=== PATIENT | female | born 1995 | race Caucasian/White ===

== ENCOUNTER 2016-07-13 04:26 | Inpatient (IN) | payer MEDICAID ==
[2016-07-13] VITALS (18 sets, daily range): BP systolic 100–132; BP diastolic 47–84; PULSE 80–120; RESP 18–20; TEMP 97.9–98.7; O2SAT 99–100
[~2016-07-13 04:26] MED LIST: DIPH50TA PO; EPIP0.3I IM; PRED20 PO; RANI150 PO
[2016-07-13] MEDS ORDERED: TERBUTALINE INJ 1 MG/ML AMP ONE (04:51)
[2016-07-13] MEDS ORDERED: LIDOCAINE HCL 1% 50 ML VIAL ONE (04:52)
[2016-07-13] MEDS ORDERED: MAGNESIUM SULFATE 40 GM PREMIX 1,000 ML IV SCH (05:15)
[2016-07-13] MEDS ORDERED: CALCIUM GLUCONATE 10% 1 GM/10 ML VIAL IV PRN (05:15)
[2016-07-13] MEDS ORDERED: SODIUM CHLORIDE 0.9% FLUSH 5 ML FLUSH IV PRN ×2 (05:15→08:30)
[2016-07-13] MEDS ORDERED: LACTATED RINGER'S 1000 ML INJ 1,000 ML IV SCH ×3 (05:15→13:20)
[2016-07-13] MEDS ORDERED: LACTATED RINGER'S 1000 ML INJ 500 ML IV ONE (05:15)
[2016-07-13] MEDS ORDERED: MAGNESIUM SULFATE 4 GM PREMIX 100 ML IV ONE (05:15)
[2016-07-13] MEDS ORDERED: BETAMETHASONE SOD PHOS/ACETATE SUSP 30 MG/5 ML VIAL IM SCH (05:15)
[2016-07-13] MEDS ORDERED: MAGNESIUM SULFATE 4 GM PREMIX 100 ML ONE (05:21)
[2016-07-13] MEDS ORDERED: MAGNESIUM SULFATE 40 GM PREMIX 1,000 ML ONE (05:22)
[2016-07-13 05:42] LABS: AUTOMATED NEUTROPHIL # 7.3 TH/MM3 (1.8-7.7); BASOPHIL % 0.1 % (0.0-2.0); EOSINOPHIL % 0.3 % (0.0-4.0); HEMATOCRIT 32.4 % (35.0-46.0); HEMO FLAGS DIFF FINAL; LYMPH % 9.2 % (9.0-44.0); LYMPHOCYTE # 0.8 TH/MM3 (1.0-4.8); MEAN CELL VOLUME 78.6 FL (80.0-100.0); MEAN CORPUSCULAR HEMOGLOBIN 26.9 PG (27.0-34.0); MEAN CORPUSCULAR HGB CONC 34.2 % (32.0-36.0); MONO % 7.2 % (0.0-8.0); NEUT % 83.2 % (16.0-70.0); PLATELET COUNT 214 TH/MM3 (150-450); RED BLOOD COUNT 4.13 MIL/MM3 (4.00-5.30); WHITE BLOOD COUNT 8.7 TH/MM3 (4.0-11.0)
[2016-07-13] MEDS ORDERED: CLINDAMYCIN INJ 900 MG in SODIUM CHLORIDE 0.9% INJ 100 ML IV SCH (06:00)
[2016-07-13 06:08] LABS: AMPHETAMINE, URINE NEG (NEG); BARBITURATES, URINE NEG (NEG)
[2016-07-13 06:14] LABS: COCAINE, URINE POS (NEG)
[2016-07-13] MEDS ORDERED: CITRIC ACID-SODIUM CITRATE LIQ 30 ML UDC ONE (06:42)
[2016-07-13] MEDS ORDERED: LACTATED RINGER'S 1000 ML INJ 1,000 ML IV ONE (06:45)
--- NOTE | 2016-07-13 06:52 | HHI.HP ---
History & Physical H&P HPI HPI Travel History International Travel<30 Days: No Contact w/Intl Traveler<30Days: No Known Affected Area: No History of Present Illness HPI This patient is a 21-year-old 4 para 3012 she states her last menstrual period was sometime in October her EDC is August 12, 2016 she's had only 2 visits with a physician in [place] moved to the [place] area earlier this year and has had no visits here since that time no previous ultrasound. She states that the due date of August 12 was given to her by measuring her abdomen and by her last menstrual period that due date would give her a gestational age of 35 weeks and 5 days however he quick bedside ultrasound is measuring the BPD at 32 weeks and 6 days and a fundal height of 31 cm patient is a previous C- section 1. She was seen in the emergency room in March 2016 for an anaphylactic reaction History (Limited) History Past Medical History Narrative Medical Patient is allergic to amoxicillin she denies any medical problems Obstetric History Obstetric History In June 2012 she had a set of twins at 37 weeks that were born vaginally vertex vertex she denies any complications with that first baby was male weight was 5 lbs. 7 oz. second baby male 5 lbs. 10 oz. May 2016 she delivered at 36 weeks a female infant primary section done at [facility] secondary to failure to progress the baby in October 2015 from cancer 1 Past Surgical History Narrative Surgical 1 D&C Tonsils and adenoids Family History Narrative Family History Family history is positive for elevated blood pressure in her father and her mother with mental disabilities Social History Alcohol Use: No Tobacco Use: No Substance Abuse: Yes (patient has a history of IV drug abuse states she has not had anything in the year) Allergies-Medications Allergies-Medications (Allergen,Severity, Reaction): Coded Allergies: Amoxicillin (Unverified Allergy, Unknown, rashes, 07/24/15) Home Meds Active Scripts Epipen0.3 Mg 0.3 Mg Inj0.3 Mg IM DIRECTED PRN (ALLERGIC REACTION) #1 INJ GIVE IM IN THIGH, MAY REPEAT IF NEEDED Prov:Nicola Blas MD 03/10/16 Ranitidine HCl (Zantac 150 Mg Tab)150 Mg Ryg776 Mg PO BID 5 Days Prov:Nicola Blas MD 03/10/16 Diphenhydramine Hcl 50 Mg Cap50 Mg PO Q6H PRN (HIVES/ITCHING/ANAPHYLAXIS) #20 CAP Prov:Nicola Blas MD 03/10/16 Prednisone (Deltasone 20 Mg Tab)20 Mg Tab40 Mg PO DAILY 5 Days Prov:Nicola Blas MD 03/10/16 ROS Review of Systems General / Constitutional: No: Fever, Weight Gain, Weight Loss, Chills, Other Eyes: No: Diploplia, Blurred Vision, Visual changes, Pain, Photophobia, Other HENT: No: Headaches, Vertigo, Dental Difficulties, Lightheadedness, Other Cardiovascular: No: Irregular Rhythm, Chest Pain or Discomfort, Palpitations, Tachycardia, Syncope, Varicosities, Edema, Cyanosis, Other Respiratory: No: Cough, Short of Breath, Wheezing, Other Gastrointestinal: Abdominal Pain (regular uterine contractions) Genitourinary: No: Urgency, Frequency, Dysuria, Nocturia, Hematuria, Decreased Urinary Output, Oliguria, Hesitancy, Dribbling, Incontinence, Pelvic Pain, Dyspareunia, Discharge, Menorrhagia, Vaginal Bleeding, Other Musculoskeletal: No: Limited ROM, Weakness, Cramping, Edema, Pain, Other Physical Exam Physical Exam Narrative GENERAL: Well-nourished, well-developed patient. Patient is alert oriented 3 and cooperative in moderate distress secondary to uterine contractions SKIN: Warm and dry. Multiple small lesions on her skin states she had a history of scabies which was treated HEAD: Normocephalic and atraumatic. EYES: No scleral icterus. No injection or drainage. Conjunctiva are pink ENT: No nasal drainage noted. Mucous membranes pink. Airway patent. NECK: Supple, trachea midline. No JVD. CARDIOVASCULAR: Regular rate and rhythm without murmurs, gallops, or rubs. RESPIRATORY: Breath sounds equal bilaterally. No accessory muscle use. ABDOMEN/GI: Gravid palpable contractions every 2 minutes fundal height measuring 31 cm Gravid to [-] weeks size 31 cm by measurement Fundal Height: [-] GENITOURINARY: External Genitalia: intact and normal in appearance BUS glands: [-] Cervix: [-] Posterior Dilatation: [-] 3 cm Effacement: [-] 80% effaced Station: [-] -1 to -2 station Presentation: [-] Vertex documented by ultrasound Membranes: [intact Uterine Contractions: [-] Every 2 minutes FHT's: Category: [-] 2 Baseline: [-] 170 Reactive: [-] Variability: [-] Moderate to minimal variability Decels: [-] What appeared to be a deceleration when patient was first put on the monitor however this is not been repeated EXTREMITIES: No cyanosis or edema. 2+ reflexes NEUROLOGICAL: Awake and alert. Motor and sensory grossly within normal limits. Five out of 5 muscle strength in all muscle groups. Normal speech. Data Data Data Vital Signs Reviewed: Yes (blood pressures 141/74 pulse 118 temperatures 100.1) Orders Terbutaline Inj (Brethine Inj) (07/13/16 04:51) Lidocaine 1% Inj (50 Ml) (Xylocaine 1% I (07/13/16 04:52) Ob (2e) Additional Admit Info (07/13/16 05:11) Magnesium Sulfate 4 Gm Premix (Magnesium (07/13/16 05:21) Magnesium Sulfate 40 Gm Premix (Magnesiu (07/13/16 05:22) Equip, Iv Pump Use Of (07/13/16 05:25) Admit To Inpatient (07/13/16 ) Code Status (07/13/16 05:15) Vital Signs (Adult) Q4H (07/13/16 05:15) Activity Bed Rest (07/13/16 05:15) Intake + Output CRISTY.QSHIFT (07/13/16 05:15) ^ Heart CONTINUOUS (07/13/16 05:15) Lactated Ringer's 1000 Ml Inj (Lr 1000 M (07/13/16 05:15) Sodium Chloride 0.9% Flush (Ns Flush) (07/13/16 05:15) Sodium Chloride 0.9% Flush (Ns Flush) (07/13/16 09:00) Magnesium Sulfate 40 Gm Premix (Magnesiu (07/13/16 05:15) Betamethasone Inj (Celestone Soluspan In (07/13/16 05:15) Cefazolin Inj (Ancef Inj) (07/13/16 05:15) Clindamycin Inj (Cleocin Inj) (07/13/16 05:15) Calcium Gluconate Inj (Calcium Gluconate (07/13/16 05:15) Magnesium Sulfate 4 Gm Premix (Magnesium (07/13/16 05:15) Lactated Ringer's 1000 Ml Inj (Lr 1000 M (07/13/16 05:15) Drug Screen, Random Urine (07/13/16 05:15) Rubella Immune Status (07/13/16 05:15) Hepatitis Profile (07/13/16 05:15) Rapid Plasma Regin (Rpr) W Ttr (07/13/16 05:15) Type And Screen (07/13/16 05:15) Complete Blood Count With Diff (07/13/16 05:15) Special Serology (07/13/16 05:15) Us Ob Pelvis >14 Wks Fetus (07/13/16 ) Ob/Psych Drug Screen, Urine (07/13/16 05:27) Gc And Chlamydia Pcr (07/13/16 05:27) Group B Strep Pcr (07/13/16 05:27) Labs Bedside ultrasound the BPD is 8.17 that equals 32 weeks and 6 days anterior grade 2 placenta no evidence of abruption large pocket measuring 7 cm of fluid MDM MDM Medical Record Reviewed: No (no medical records available) Interpretation(s) 21-year-old 4 para 2 32 weeks 6 days by BPD and bedside ultrasound 31 weeks by size 35 weeks 6 days by EDC given by the patient Previous 1 for failure to progress unknown scar History of a twin gestation born vaginally History of that secondary to cancer History of IV drug abuse Allergy to amoxicillin Limited care Narrative Course / MDM amnisure negative urine positive for opiates and cocaine, hemoglobin 11.1 hematocrit 32.4 and white count 8.7, platelets 214,000 Remaining labs pending as of this dictation, Bedside ultrasound has been done by OB diagnostics Gestational age is 34 weeks and 6 days Biophysical profile is 2 out of 10 no flexion, no tone, no breathing, tachycardia no reactivity fluid is normal anterior grade 2 placenta Estimated weight is 5 lbs. 11 oz. Repeat examination the cervix is now 4-5 cm 80-90% effaced with the vertex at a -1 station In view of the progression of labor The 2 out of 10 biophysical profile Previous section Will repeat section Procedure indications and complications of been discussed with the patient she understands the baby will need to go to the nursery and may have breathing respiratory difficulties She understands and agrees Plan External monitoring IV fluid hydration All labs drawn Group B strep GC Chlamydia Urine drug screen Ultrasound by OB diagnostics for gestational age As patient has an unknown gestational age at this point we'll try and stop her labor Magnesium sulfate 4 g loading dose 2 g per hour Betamethasone Obtain records from [facility] as the patient states she had 2 visits with her physician Obtain operative report done in May 2016 Antibiotic coverage for GBS Will reevaluate the category 2 tracing Diagnosis Diagnosis: Primary Impression: labor in second trimester Qualified Code: O60.02 - labor in second trimester without delivery Additional Impressions: Limited care in second trimester Previous section complicating , antepartum condition or complication Drug abuse Mayda Lloyd MD Jul 13, 2016 05:47 Mayda Lloyd MD Jul 13, 2016 06:52
[2016-07-13] MEDS ORDERED: OXYTOCIN 10 UNIT/ML AMP ONE (06:53)
[2016-07-13 07:47] LABS: BLOOD GAS BASE EXCESS -0.8 mmol/L (-2-2); BLOOD GAS O2 HGB SATURATION 19 % (90-100); CORD BLOOD GAS HCO3 25 mmol/L (21-29); CORD BLOOD GAS PCO2 51 mmHG (34-78); CORD BLOOD GAS PH 7.31 (7.14-7.42); CORD BLOOD GAS PO2 13 mmHG (3.0-40.0); DRAW SITE CORD BLOOD; STAT NO
[2016-07-13 07:52] LABS: CHLAMYDIA PCR NOT DETECTED (NOT DETECT); NEISSERIA PCR NOT DETECTED (NOT DETECT)
[2016-07-13 07:52] LABS: RUBELLA IGG ANTIBODY 67.3 IU/mL (10.0-500.0); RUBELLA STATUS IMMUNE (IMMUNE)
[2016-07-13] MEDS ORDERED: MORPHINE SULFATE PF 5 MG/10 ML VIAL ONE (08:20)
[2016-07-13] MEDS ORDERED: MORPHINE SULFATE 4 MG/ML INJ ONE (08:20)
[2016-07-13] MEDS ORDERED: MIDAZOLAM HCL 2 MG/2 ML VIAL ONE (08:20)
[2016-07-13] MEDS ORDERED: ONDANSETRON HCL 4 MG/2 ML VIAL ONE (08:21)
[2016-07-13] MEDS ORDERED: ACETAMINOPHEN 1000 MG/100 ML VIAL IV ONE (08:30)
[2016-07-13] MEDS ORDERED: ONDANSETRON HCL 4 MG/2 ML VIAL IV PUSH PRN (08:30)
[2016-07-13] MEDS ORDERED: ACETAMINOPHEN 325 MG TAB PO PRN (08:30)
[2016-07-13] MEDS ORDERED: ZOLPIDEM TARTRATE 5 MG TAB PO PRN (08:30)
[2016-07-13] MEDS ORDERED: SIMETHICONE 80 MG CHEWABLE TAB PO PRN (08:30)
[2016-07-13] MEDS ORDERED: KETOROLAC TROMETHAMINE 60 MG/2 ML (IM) VIAL IM PRN (08:30)
[2016-07-13] MEDS ORDERED: OXYTOCIN 30 UNITS-500ML PREMIX 500 ML IV ONE (08:30)
--- NOTE | 2016-07-13 08:31 | PD.OP ---
Operative Report Date of Surgery: Jul 13, 2016 Preoperative Diagnosis: Intrauterine at 35 weeks labor Previous 1 Limited care History of drug abuse Postoperative Diagnosis: Same Partial abruption Procedure: Repeat low segment transverse section Anesthesia: Spinal Surgeon: Mayda Shelby Pilot Manager(s): OR staff Resident Surgeon: None Operation and Findings: Anesthesiologist:: ( Dr. Bailey) Estimated blood loss: (700 cc ) Sponge and instrument count: (Correct ) Drains: ( None) Complications: (None ) Indications for procedure: ( ) Findings: ( Viable female infant weight 20/2/20 grams, Apgars of 5 at 1 minute and 8 at 5 minutes, upon rupture of membranes bloody fluid with some dark clots indicating possible partial abruption Cord pH 7.3, placenta sent to pathology) Timeout done The patient was taken to the operating room after appropriate levels of spinal anesthesia were achieved she was placed in the supine position. A Mendes catheter was inserted under sterile conditions and draining adequate clear urine. Intermittent compression hoses were placed and functioning. Bovie pad was placed and grounded. The abdomen was shaved prepped and draped in the usual sterile fashion. A transverse Pfannenstiel incision was made carried down through the skin, via previous old scar subcutaneous tissue. The fascia was opened transversely. from the muscles in the midline. The rectus muscles were . Peritoneal cavity opened and the abdominal cavity entered. The bladder flap was taken down transversely and a low segment transverse incision made into the lower uterine segment. The fluid was ( bloody). The was vertex. The vertex was delivered nose and mouth suctioned well the remainder of the body was then delivered. Cord doubly clamped and cut and the infant handed over to the awaiting nursing staff. The placenta spontaneously delivered intact with fundal massage. The uterus was then exteriorized cleaned of excessive blood and debris. The incision was then closed with 0 chromic in a continuous interlocking stitch. The stitch line was imbricated also using 0 chromic. No active bleeding. Tubes and ovaries were inspected and found to be normal. The abdominal cavity was then irrigated. The uterus placed back into the abdomen. Paracolic gutters cleaned of excessive blood and debris. Interceed was then placed over the incision and the anterior surface of the uterus in an inverted T. The peritoneum was then closed with 2-0 Vicryl. The muscles reapproximated. Inspection of the muscle bed demonstrated no bleeding. Intercede placed over the muscle at the midline. The fascia was then closed with 0 Vicryl in a continuous stitch. The subcutaneous tissue was irrigated bleeders controlled with Bovie. Sima's fascia closed with 2-0 Vicryl. The skin was closed using (subcuticular stitch with 3-0 Monocryl on a Drew needle ). The uterus was massaged clearing blood and clots. The patient was cleaned. Pressure dressing and abdominal binder placed. Patient then transferred to the recovery room in stable condition, where her vital signs are (stable ). Urine is clear and adequate. Baby transferred to the nursery in stable condition. Patient being taken to the PACU to place a abdominal Tap block as patient is in excessive amount of pain, with poor pain tolerance Mayda Lloyd MD Jul 13, 2016 08:31
[2016-07-13] MEDS ORDERED: SODIUM CHLORIDE 0.9% FLUSH 5 ML FLUSH IV SCH ×2 (09:00)
[2016-07-13] MEDS ORDERED: BUPIVACAINE LIPOSOME PF 1.3% 20 ML VIAL ONE (10:36)
[2016-07-13] MEDS ORDERED: ceFAZolin 2 GM PREMIX 50 ML IV ONE (13:45)
[2016-07-13] MEDS ORDERED: CITRIC ACID-SODIUM CITRATE LIQ 30 ML UDC PO ONE (14:15)
[2016-07-13] MEDS ORDERED: OXYTOCIN 30 UNITS-500ML PREMIX 500 ML IV PRN (18:30)
[2016-07-13] MEDS: oxyCODONE/ACETAMINOPHEN 5 MG/325 MG TAB PO PRN (20:02)
[2016-07-13] MEDS: IBUPROFEN 600 MG TAB PO PRN (20:03)
[2016-07-13] MEDS: DOCUSATE SODIUM 50 MG/SENNA 8.6 MG TAB PO PRN (20:03)
[2016-07-14] MEDS: oxyCODONE/ACETAMINOPHEN 5 MG/325 MG TAB PO PRN ×6 (00:20→23:00)
[2016-07-14] MEDS: IBUPROFEN 600 MG TAB PO PRN ×4 (04:31→22:59)
[2016-07-14 06:23] LABS: AUTOMATED NEUTROPHIL # 11.2 TH/MM3 (1.8-7.7); BASOPHIL % 0.2 % (0.0-2.0); EOSINOPHIL # 0.1 TH/MM3 (0-0.4); EOSINOPHIL % 0.4 % (0.0-4.0); HEMATOCRIT 31.2 % (35.0-46.0); HEMO FLAGS DIFF FINAL; LYMPH % 15.2 % (9.0-44.0); LYMPHOCYTE # 2.1 TH/MM3 (1.0-4.8); MEAN CELL VOLUME 80.6 FL (80.0-100.0); MEAN CORPUSCULAR HGB CONC 32.3 % (32.0-36.0); MONO % 4.2 % (0.0-8.0); PLATELET COUNT 209 TH/MM3 (150-450); RED BLOOD COUNT 3.88 MIL/MM3 (4.00-5.30); RED CELL DISTRIBUTION WIDTH 13.5 % (11.6-17.2)
--- NOTE | 2016-07-14 07:34 | HHI.OB ---
Subjective Post Operative Day: 1 Remarks Patient is doing well this morning. Pain is controlled with medications. She is ambulating voiding without difficulty. Vaginal bleeding within normal limits. Passing flatus. Formula feeding. Denies chest pain or shortness of breath. Objective Vitals/I&O Vital Signs Date Time Temp Pulse Resp B/P Pulse Ox O2 Delivery O2 Flow Rate FiO2 07/14/16 03:00 20 07/13/16 14:35 98.2 80 20 100/72 07/13/16 09:15 94 18 126/83 99 07/13/16 09:00 101 18 120/72 99 07/13/16 08:46 98 20 121/71 99 07/13/16 08:32 104 18 127/84 100 07/13/16 08:32 97.9 07/13/16 08:14 103/47 07/13/16 08:14 97.9 113 18 100 Result Diagram: 07/14/16 0614 Objective Remarks GENERAL: Well-nourished, well-developed patient. CARDIOVASCULAR: Regular rate and rhythm without murmurs, gallops, or rubs. RESPIRATORY: Breath sounds equal bilaterally. No accessory muscle use. ABDOMEN/GI: Abdomen soft, non-tender, bowel sounds present. Incision: Clean, dry and intact. Fundus: Firm, non-tender at umbilicus. GENITOURINARY: Light to moderate bleeding. EXTREMITIES: No cyanosis or edema, non-tender, without signs of DVT. Medications and IVs Current Medications Medications (Trade) Dose Ordered Sig/Key Route Start Time Stop Time Status Last Admin (Lr 1000 ml Inj) 1,000 ml @ 125 mls/hr Q8H IV 07/13/16 05:15 07/13/16 06:46 (NS Flush) 2 ml UNSCH PRN IV 07/13/16 05:15 IV Flush 2 ml 2 ml BID IV 07/13/16 09:00 Magnesium Sulfate 1,000 ml @ 50 mls/hr Q20H IV 07/13/16 05:15 07/13/16 06:47 Lactated Ringer's 1,000 ml @ 150 mls/hr Q6H40M IV 07/13/16 13:03 (Lr 1000 ml Inj) 1,000 ml @ 100 mls/hr Q10H IV 07/13/16 13:20 07/14/16 09:19 07/14/16 00:20 (Mylicon Chew) 80 mg QID PRN PO 07/13/16 08:30 07/13/16 20:26 (Tylenol) 650 mg Q6H PRN PO 07/13/16 08:30 (Motrin) 600 mg Q6H PRN PO 07/13/16 08:30 07/14/16 04:31 (Toradol Inj) 30 mg Q6H PRN IM 07/13/16 08:30 07/14/16 08:29 (Percocet 5-325 Mg) 1 tab Q4H PRN PO 07/13/16 08:30 07/14/16 04:31 (Percocet 5-325 Mg) 2 tab Q4H PRN PO 07/13/16 08:30 07/13/16 20:02 (Damaris-Colace) 2 tab Q12H PRN PO 07/13/16 08:30 07/13/16 20:03 (Ambien) 5 mg HS PRN PO 07/13/16 08:30 (M-M-R Ii Inj) 0.5 ml ONCE ONCE SQ 07/14/16 16:00 07/14/16 16:01 (Boostrix Inj) 0.5 ml ONCE ONCE IM 07/14/16 16:00 07/14/16 16:01 (Zofran Inj) 4 mg Q6H PRN IV PUSH 07/13/16 08:30 07/13/16 20:26 Assessment/Plan Problem List: (1) delivery delivered Assessment and Plan 21 y/o female who is POD# 1 s/p CXN. 1.) Continue routine care. -Percocet and Motrin PRN pain. -Encouraged OOB. Advised pelvic rest for 6 wks. Will need a f/u appt. in 1 wk for incision check. -Re: ctrl, she would like to speak with her primary care provider regarding this. 2.) Toxicology positive for cocaine and opiates -Case management consulted 3.) Limited/no care - labs ordered and reviewed. Some are still Pending. -Baby currently in the NICU Likely D/c in 1-2 more days. wdw OB attending Discharge Planning Likely in 2 days. Baby currently in the NICU. Fermin Reinoso MD R2 Jul 14, 2016 07:34
--- NOTE | 2016-07-14 08:11 | HHI.OB ---
Subjective Post Operative Day: 1 Remarks This patient is postop day 1 from us repeat section and doing well she is afebrile with stable vital signs. She is ambulating and bandage is dry, her bleeding is decreased and uterus is firm, will continue progressive postop care with advancement diet and ambulation, patient seen with the family medicine residents agree with their evaluation and plan Objective Vitals/I&O Vital Signs Date Time Temp Pulse Resp B/P Pulse Ox O2 Delivery O2 Flow Rate FiO2 07/14/16 03:00 20 07/13/16 14:35 98.2 80 20 100/72 07/13/16 09:15 94 18 126/83 99 07/13/16 09:00 101 18 120/72 99 07/13/16 08:46 98 20 121/71 99 07/13/16 08:32 104 18 127/84 100 07/13/16 08:32 97.9 07/13/16 08:14 103/47 07/13/16 08:14 97.9 113 18 100 Result Diagram: 07/14/16 0614 Objective Remarks GENERAL: Well-nourished, well-developed patient. CARDIOVASCULAR: Regular rate and rhythm without murmurs, gallops, or rubs. RESPIRATORY: Breath sounds equal bilaterally. No accessory muscle use. ABDOMEN/GI: Abdomen soft, non-tender, bowel sounds present. Incision: Clean, dry and intact. Fundus: Firm, non-tender at umbilicus. GENITOURINARY: Light to moderate bleeding. EXTREMITIES: No cyanosis or edema, non-tender, without signs of DVT. Medications and IVs Current Medications Medications (Trade) Dose Ordered Sig/Key Route Start Time Stop Time Status Last Admin (Lr 1000 ml Inj) 1,000 ml @ 125 mls/hr Q8H IV 07/13/16 05:15 07/13/16 06:46 (NS Flush) 2 ml UNSCH PRN IV 07/13/16 05:15 IV Flush 2 ml 2 ml BID IV 07/13/16 09:00 Magnesium Sulfate 1,000 ml @ 50 mls/hr Q20H IV 07/13/16 05:15 07/13/16 06:47 Lactated Ringer's 1,000 ml @ 150 mls/hr Q6H40M IV 07/13/16 13:03 (Lr 1000 ml Inj) 1,000 ml @ 100 mls/hr Q10H IV 07/13/16 13:20 07/14/16 09:19 07/14/16 00:20 (Mylicon Chew) 80 mg QID PRN PO 07/13/16 08:30 07/13/16 20:26 (Tylenol) 650 mg Q6H PRN PO 07/13/16 08:30 (Motrin) 600 mg Q6H PRN PO 07/13/16 08:30 07/14/16 04:31 (Toradol Inj) 30 mg Q6H PRN IM 07/13/16 08:30 07/14/16 08:29 (Percocet 5-325 Mg) 1 tab Q4H PRN PO 07/13/16 08:30 07/14/16 04:31 (Percocet 5-325 Mg) 2 tab Q4H PRN PO 07/13/16 08:30 07/13/16 20:02 (Damaris-Colace) 2 tab Q12H PRN PO 07/13/16 08:30 07/13/16 20:03 (Ambien) 5 mg HS PRN PO 07/13/16 08:30 (M-M-R Ii Inj) 0.5 ml ONCE ONCE SQ 07/14/16 16:00 07/14/16 16:01 (Boostrix Inj) 0.5 ml ONCE ONCE IM 07/14/16 16:00 07/14/16 16:01 (Zofran Inj) 4 mg Q6H PRN IV PUSH 07/13/16 08:30 07/13/16 20:26 Assessment/Plan Problem List: (1) delivery delivered Assessment and Plan 21 y/o female who is POD# 1 s/p CXN. 1.) Continue routine care. -Percocet and Motrin PRN pain. -Encouraged OOB. Advised pelvic rest for 6 wks. Will need a f/u appt. in 1 wk for incision check. -Re: ctrl, she would like to speak with her primary care provider regarding this. 2.) Toxicology positive for cocaine and opiates -Case management consulted 3.) Limited/no care - labs ordered and reviewed. Some are still Pending. -Baby currently in the NICU Likely D/c in 1-2 more days. wdw OB attending Discharge Planning Likely in 2 days. Baby currently in the NICU. Da Lantigua II, MD Jul 14, 2016 08:11
[2016-07-14] MEDS: DOCUSATE SODIUM 50 MG/SENNA 8.6 MG TAB PO PRN (10:17)
[2016-07-14 14:38] LABS: RAPID PLASMA REAGIN SCREEN NON-REACTIVE (NON-REACTVE)
[2016-07-14] MEDS ORDERED: DIPHTH/TETANUS/ACEL PERTUSSIS (BOOSTER) 0.5 ML VIAL/PFS IM ONE (16:00)
[2016-07-14] MEDS ORDERED: MEASLES, MUMPS, RUBELLA VACCINE 0.5 ML VIAL SQ ONE (16:00)
[2016-07-15] MEDS: IBUPROFEN 600 MG TAB PO PRN (05:44)
[2016-07-15] MEDS: DOCUSATE SODIUM 50 MG/SENNA 8.6 MG TAB PO PRN (05:44)
[2016-07-15] MEDS: oxyCODONE/ACETAMINOPHEN 5 MG/325 MG TAB PO PRN ×2 (05:45→12:18)
[2016-07-15 08:00] VITALS: BP 116/71; PULSE 67; RESP 18; TEMP 97.5; O2SAT 98
--- NOTE | 2016-07-15 08:39 | HHI.OB ---
Subjective Post Operative Day: 2 Remarks POD2 s/p rpt c/s for non-reassuring status, BPP 2/10. Pain moderately well-controlled, but increased cramping. Eating, voiding, stooling, ambulating without difficulty. Mildly loose-stool. We discussed this was likely secondary to cessation of IVDU/dilaudid use. Encouraged OOB. Intends to formula feed (UDS + cocaine and opioids). Would like to follow up outpatient for control. Does not have PCP or OBGYN. Was given information by case management on accessing these resources. Encouraged follow up with [facility] in 1 week. Denies fevers/chills, SOB/chest pain, calf pain. Pt preference is discharge today, provided she can still go visit baby in NICU- she was reassured that she could do this. (Dolores Trevizo MD R1) Objective Vitals/I&O Reviewed in OB trace view. (Dolores Trevizo MD R1) Result Diagram: 07/14/16613 Objective Remarks GENERAL: Thin post- female. CARDIOVASCULAR: RRR. No murmurs RESPIRATORY: Breathing well on room air. ABDOMEN/GI: Abdomen soft, mildly diffusely tender. Incision: Clean, dry and intact. Not covered in bandage. No drainage, non- erythematous. Fundus: Firm, minimally tender, inferior to umbilicus GENITOURINARY: Minimal bleeding EXTREMITIES: No peripheral edema Medications and IVs Current Medications Medications (Trade) Dose Ordered Sig/Key Route Start Time Stop Time Status Last Admin (NS Flush) 2 ml UNSCH PRN IV 07/13/16 05:15 (NS Flush) 2 ml BID IV 07/13/16 09:00 (Mylicon Chew) 80 mg QID PRN PO 07/13/16 08:30 07/13/16 20:26 (Tylenol) 650 mg Q6H PRN PO 07/13/16 08:30 (Motrin) 600 mg Q6H PRN PO 07/13/16 08:30 07/15/16 05:44 (Percocet 5-325 Mg) 1 tab Q4H PRN PO 07/13/16 08:30 07/14/16 04:31 (Percocet 5-325 Mg) 2 tab Q4H PRN PO 07/13/16 08:30 07/15/16 05:45 (Damaris-Colace) 2 tab Q12H PRN PO 07/13/16 08:30 07/15/16 05:44 (Ambien) 5 mg HS PRN PO 07/13/16 08:30 (Zofran Inj) 4 mg Q6H PRN IV PUSH 07/13/16 08:30 07/13/16 20:26 (Dolores Trevizo MD R1) Assessment/Plan Problem List: (1) Delivery by emergency section (2) delivery, delivered (3) Limited care (4) Opioid abuse (5) Cocaine abuse Assessment and Plan 21 y/o female who is POD# 2 s/p repeat c/s 1.) Continue routine care. -Percocet and Motrin PRN pain -Encouraged OOB. Advised pelvic rest for 6 wks. Will need a f/u appt. in 1 wk for incision check with [facility] -Re: ctrl, she would like to speak with her primary care provider regarding this, needs PCP, was given list. Expressed understanding she will need to call to make appointment 2.) Toxicology positive for cocaine and opiates -Case management consulted -Formula feeding infant only, c/i 3.) Limited/no care - labs ordered and reviewed with patient. Hepatitis panel, HIV, Chlamydia/Gonorrhea, GBS negative. RPR non-reactive -Baby currently in the NICU Discharge Planning POD2. Today, pending VSS and afebrile. DW: Dr. Fernando, Dr. Reinoso (Dolores Trevizo MD R1) Attestation Discussed discharge planning with Dr Trevizo including opioid abuse concerns. Will give limited narcotic pain supply with quick followup as an outpatient for incision check (Quita Fernando MD) Dolores Trevizo MD R1 Jul 15, 2016 08:39 Quita Fernando MD Jul 15, 2016 09:21
[2016-07-15] MEDS ORDERED: SENN1TAB PO (08:55)
[2016-07-15] MEDS ORDERED: IBUP-232 PO (08:55)
[2016-07-15] MEDS ORDERED: OXYC1TAB36 PO (08:55)
--- NOTE | 2016-07-15 09:00 | HHI.DCPOC ---
Discharge Care Plan Diagnosis: (1) Delivery by emergency section (2) delivery, delivered (3) Limited care (4) Opioid abuse (5) Cocaine abuse Report Symptoms to Your Doctor -Temperate above 100.5 degrees -Redness, of incision or excessive or foul smelling drainage -Unusual pain or calf pain -Increased vaginal bleeding -Painful or difficulty urinating -Feelings of extreme sadness or anxiety after 2 weeks Goals to Promote Your Health * To prevent worsening of your condition and complications * To maintain your health at the optimal level Directions to Meet Your Goals Take your medications as prescribed Follow your dietary instruction Follow activity as directed Ensure plenty of rest for recovery Drink fluids for hydration Keep your appointments as scheduled Take your immunizations and boosters as scheduled If your symptoms worsen call your PCP, if no PCP go to Urgent Care Center or Emergency Room Smoking is Dangerous to Your Health. Avoid second hand smoke Call the 24-hour crisis hotline for domestic abuse at Dolores Trevizo MD R1 Jul 15, 2016 09:00
[2016-07-15] MEDS ORDERED: SIMETHICONE 125 MG CHEWABLE TAB PO ONE (09:45)
[2016-07-15] MEDS ORDERED: DIPHTH/TETANUS/ACEL PERTUSSIS (BOOSTER) 0.5 ML VIAL/PFS IM ONE (10:00)
[2016-07-15] MEDS ORDERED: medroxyPROGESTERone ACETATE SUSP 150 MG/ML SYRINGE IM ONE (10:00)
[2016-07-15] MEDS ORDERED: IBUPROFEN 600 MG TAB PO PRN (12:00)
[2016-07-15] MEDS ORDERED: ONDANSETRON ODT 4 MG TAB PO ONE (13:00)
[2016-07-17 08:03] LABS: BATH SALTS (MDPV) UR NEG (NEG); ECSTASY (MDMA) UR NEG (NEG); HEROIN (6-ACETYLMORPHINE) UR NEG (NEG); K2 SPICE UR NEG (NEG); OBMETHADONE UR NEG (NEG); OXYCODONE (PERCODAN) NEG (NEG); PHENCYCLIDINE URINE NEG (NEG)
== END 2016-07-15 16:59 | disposition home or self-care (01) | DRG 765 ==
LOC: HOBED 04:26 → H2EB 05:13 → H1EA 09:30
PROVIDERS: ADMIT Obstetrics & Gynecology; ATTEND Obstetrics & Gynecology
PROC: 10D00Z1 Extraction of Products of Conception, Low, Open Approach (ICD-10-PCS; principal; 2016-07-13)
DX: O60.14X0 Preterm labor third trimester with preterm delivery third trimester, not applicable or unspecified (principal); O45.93 Premature separation of placenta, unspecified, third trimester; O99.324 Drug use complicating childbirth; Z37.0 Single live birth; O34.211 Maternal care for low transverse scar from previous cesarean delivery; Z87.898 Personal history of other specified conditions; F11.10 Opioid abuse, uncomplicated; F14.10 Cocaine abuse, uncomplicated; Z3A.35 35 weeks gestation of pregnancy; Z88.0 Allergy status to penicillin; O09.30 Supervision of pregnancy with insufficient antenatal care, unspecified trimester
CPT/HCPCS: 59025; 76805; 76815; 80074; 80307; 82805; 84112; 85025; 86592; 86703; 86762; 86850; 86900; 86901; 87081; 87150; 87491; 87591; 88307; 90715; 99285; C9290; G0481; J0690; J1050; J2250; J2270; J2274; J2405; J2590; J3010; J3105; J3475; J7120

== ENCOUNTER 2016-08-17 16:48 | Inpatient (IN) | payer MEDICAID ==
[2016-08-17] VITALS (10 sets, daily range): BP systolic 79–104; BP diastolic 40–60; PULSE 109–150; RESP 18–32; TEMP 97.9–100.9; O2SAT 93–98
[~2016-08-17] VITALS: Ht 167.6 cm; Wt 51.9 kg
[~2016-08-17 16:48] MED LIST changes: -DIPH50TA PO; +IBUP-232 PO; +OXYC1TAB36 PO; -PRED20 PO; -RANI150 PO; +SENN1TAB PO
[2016-08-17 17:44] LABS: ALT (GPT) 39 U/L (10-53); ANION GAP 13 MEQ/L (5-15); AST (GOT) 97 U/L (15-37); BICARBONATE 24.4 MEQ/L (21.0-32.0); BLOOD UREA NITROGEN 73 MG/DL (7-18); CHLORIDE 95 MEQ/L (98-107); GLOMERULAR FILTRATION RATE 34 ML/MIN (>89); MAGNESIUM 2.7 MG/DL (1.5-2.5); POTASSIUM 3.7 MEQ/L (3.5-5.1); SODIUM (NA) 132 MEQ/L (136-145)
[2016-08-17 17:46] LABS: ALKALINE PHOSPHATASE 183 U/L (45-117); TOTAL BILIRUBIN ADULT 4.4 MG/DL (0.2-1.0)
[2016-08-17 17:52] LABS: AUTOMATED NEUTROPHIL # 19.6 TH/MM3 (1.8-7.7); BASOPHIL % 0.2 % (0.0-2.0); EOSINOPHIL # 1.2 TH/MM3 (0-0.4); EOSINOPHIL % 5.1 % (0.0-4.0); HEMATOCRIT 34.4 % (35.0-46.0); LYMPH % 4.4 % (9.0-44.0); MEAN CELL VOLUME 74.5 FL (80.0-100.0); MEAN CORPUSCULAR HEMOGLOBIN 24.2 PG (27.0-34.0); MEAN CORPUSCULAR HGB CONC 32.4 % (32.0-36.0); MONO % 6.3 % (0.0-8.0); PLATELET COUNT 41 TH/MM3 (150-450); RED BLOOD COUNT 4.62 MIL/MM3 (4.00-5.30); RED CELL DISTRIBUTION WIDTH 16.5 % (11.6-17.2); WHITE BLOOD COUNT 23.3 TH/MM3 (4.0-11.0)
[2016-08-17] MEDS ORDERED: ACETAMINOPHEN 650 MG SUPP RECTAL ONE (18:00)
[2016-08-17] MEDS ORDERED: SODIUM CHLOR 0.9% 1000 ML INJ 1,000 ML IV ONE ×5 (18:00→18:45)
--- NOTE | 2016-08-17 18:03 | RADRPT ---
EXAM DATE/TIME: 08/17/2016 17:45 [place] COMPARISON: CHEST PA & LAT, July 24, 2015, 18:28. INDICATIONS : Unresponsive, fever. MEDICAL HISTORY : None. SURGICAL HISTORY : None. ENCOUNTER: Initial ACUITY: 1 day PAIN SCORE: Non-responsive. LOCATION: chest FINDINGS: A single AP supine portable view of the chest was obtained and demonstrates new bilateral mild strea ky opacity in both lungs with no focal consolidation or effusion. The heart size is within normal pereira its. The study is mildly Midinspiratory. There are overlying electrocardiogram leads present. High CONCLUSION: Midinspiratory study with mild streaky opacity which could represent a community acqu ired ammonia. Doe Light MD on August 17, 2016 at 18:00 Board Certified Radiologist. This report was verified electronically.
--- NOTE | 2016-08-17 18:06 | PD ---
HPI Chief Complaint: fever Time Seen by Provider: 17:21 Travel History International Travel<30 days: No Contact w/Intl Traveler<30days: No Traveled to known affect area: No History of Present Illness HPI The patient was seen and examined in the presence of the nurse. This patient arrives critically ill. She reports having fever for 6 days. She is an IV drug abuser. She is taking Suboxone as well and admits to taking some today but denies intentional overdose. She buys it off the street. She can provide very limited history or review of systems. She is lethargic and groggy. Symptoms are severe. She is hypotensive and tachycardic and febrile. PFSH Past Medical History Diminished Hearing: No Immunizations Current: No ?: Unknown : 3 Para: 1 : 1 Past Surgical History Tonsillectomy: Yes Social History Alcohol Use: No Tobacco Use: No Substance Use: No Allergies-Medications (Allergen,Severity, Reaction): Coded Allergies: Amoxicillin (Unverified Allergy, Unknown, rashes, 07/24/15) Reported Meds & Prescriptions Reported Meds & Active Scripts Active Senna Plus 8.6-50 mg (Sennosides-Docusate Sodium) 1 Tab Tab 2 Tab PO Q12H PRN Oxycodone-Acetaminophen 10-325 mg Tab 1 Tab PO Q6H PRN Ibuprofen 600 Mg Tab 600 Mg PO Q6H PRN Epipen0.3 Mg 0.3 Mg Inj 0.3 Mg IM DIRECTED PRN GIVE IM IN THIGH, MAY REPEAT IF NEEDED Review of Systems ROS Limitations: Clinical Condition, Altered Mental Status, Uncooperative, Poor Historian Physical Exam Narrative GENERAL: Thin drowsy disheveled patient who is tachycardic and hypotensive and febrile. SKIN: Warm and dry. HEAD: Atraumatic. Normocephalic. EYES: Pupils equal and round. No scleral icterus. No injection or drainage. ENT: No nasal bleeding or discharge. Mucous membranes pink and moist. NECK: Trachea midline. No JVD. CARDIOVASCULAR: Regular rate and rhythm. No murmur appreciated. Tachycardic at 140 RESPIRATORY: No accessory muscle use. Clear to auscultation. Breath sounds equal bilaterally. GASTROINTESTINAL: Abdomen soft, non-tender, nondistended. Hepatic and splenic margins not palpable. MUSCULOSKELETAL: No obvious deformities. No clubbing. No cyanosis. No edema. NEUROLOGICAL: Awake but lethargic/sedated-appearing. No obvious cranial nerve deficits. Impossible to accurately gauge motor strength or sensation given her limited participation. Her speech is mumbling and difficult to understand PSYCHIATRIC: Drowsy/ sedated mood and affect; insight and judgment poor. Data Data Last Documented VS Vital Signs Date Time Temp Pulse Resp B/P Pulse Ox O2 Delivery O2 Flow Rate FiO2 08/17/16 18:42 122 18 98/56 95 Nasal Cannula 2 08/17/16 17:40 100.1 Orders Complete Blood Count With Diff (08/17/16 17:05) Comprehensive Metabolic Panel (08/17/16 17:05) Lactic Acid Sepsis Protocol (08/17/16 17:05) Magnesium (Mg) (08/17/16 17:05) Phosphorus (Po4) (08/17/16 17:05) Urinalysis - C+S If Indicated (08/17/16 17:05) Blood Culture (08/17/16 17:05) Ecg Monitoring (08/17/16 17:05) Iv Access Insert/Monitor (08/17/16 17:05) Oximetry (08/17/16 17:05) Ed Urine Pregnancytest Poc (08/17/16 17:05) Cath For Specimen (08/17/16 17:35) Chest, Single Ap (08/17/16 ) Sodium Chlor 0.9% 1000 Ml Inj (Ns 1000 M (08/17/16 18:00) Sodium Chlor 0.9% 1000 Ml Inj (Ns 1000 M (08/17/16 18:00) Drug Screen, Random Urine (08/17/16 17:48) Acetaminophen Supp (Tylenol Supp) (08/17/16 18:00) Acetaminophen (Tylenol) (08/17/16 18:15) Urine Culture (08/17/16 17:50) Sodium Chlor 0.9% 1000 Ml Inj (Ns 1000 M (08/17/16 18:15) Ceftazidime Inj (Fortaz Inj) (08/17/16 18:15) Sodium Chlor 0.9% 1000 Ml Inj (Ns 1000 M (08/17/16 18:45) Sodium Chlor 0.9% 1000 Ml Inj (Ns 1000 M (08/17/16 18:45) Admit Order (Ed Use Only) (08/17/16 18:49) Labs Laboratory Tests Test 08/17/16 08/17/16 17:05 17:50 White Blood Count 23.3 TH/MM3 Red Blood Count 4.62 MIL/MM3 Hemoglobin 11.2 GM/DL Hematocrit 34.4 % Mean Corpuscular Volume 74.5 FL Mean Corpuscular Hemoglobin 24.2 PG Mean Corpuscular Hemoglobin 32.4 % Concent Red Cell Distribution Width 16.5 % Platelet Count 41 TH/MM3 Mean Platelet Volume 10.3 FL Neutrophils (%) (Auto) 84.0 % Lymphocytes (%) (Auto) 4.4 % Monocytes (%) (Auto) 6.3 % Eosinophils (%) (Auto) 5.1 % Basophils (%) (Auto) 0.2 % Neutrophils # (Auto) 19.6 TH/MM3 Lymphocytes # (Auto) 1.0 TH/MM3 Monocytes # (Auto) 1.5 TH/MM3 Eosinophils # (Auto) 1.2 TH/MM3 Basophils # (Auto) 0.0 TH/MM3 CBC Comment AUTO DIFF Sodium Level 132 MEQ/L Potassium Level 3.7 MEQ/L Chloride Level 95 MEQ/L Carbon Dioxide Level 24.4 MEQ/L Anion Gap 13 MEQ/L Blood Urea Nitrogen 73 MG/DL Creatinine 1.82 MG/DL Estimat Glomerular Filtration 34 ML/MIN Rate Random Glucose 121 MG/DL Lactic Acid Level 1.8 mmol/L Calcium Level 8.1 MG/DL Phosphorus Level 2.1 MG/DL Magnesium Level 2.7 MG/DL Total Bilirubin 4.4 MG/DL Aspartate Amino Transf 97 U/L (AST/SGOT) Alanine Aminotransferase 39 U/L (ALT/SGPT) Alkaline Phosphatase 183 U/L Total Protein 6.5 GM/DL Albumin 2.2 GM/DL Urine Color DARK-YELLOW Urine Turbidity CLOUDY Urine pH 5.5 Urine Specific [place] 1.020 Urine Protein 30 mg/dL Urine Glucose (UA) NEG mg/dL Urine Ketones NEG mg/dL Urine Occult Blood NEG Urine Nitrite NEG Urine Bilirubin MOD Urine Urobilinogen GREATER THAN 12.0 MG/DL Urine Leukocyte Esterase NEG Urine RBC 3 /hpf Urine WBC 12 /hpf Urine WBC Clumps FEW Urine Squamous Epithelial 1 /hpf Cells Urine Amorphous Sediment RARE Urine Bacteria OCC /hpf Urine Mucus FEW /lpf Microscopic Urinalysis Comment CATH-CULTURE IND Urine Opiates Screen NEG Urine Barbiturates Screen NEG Urine Amphetamines Screen NEG Urine Benzodiazepines Screen NEG Urine Cocaine Screen POS Urine Cannabinoids Screen NEG MDM Medical Decision Making Medical Screen Exam Complete: Yes Emergency Medical Condition: Yes Medical Record Reviewed: Yes Differential Diagnosis Sepsis, septic shock, endocarditis, pneumonia Narrative Course I have reviewed the patient's electronic medical record. Patient had delivery of here one month ago Patient arrives critically ill I placed a left sided external jugular IV Nursing staff place a second IV I gave her 2 L of normal saline IV bolus Gave her dose of Tylenol 2 sets of blood cultures obtained Urinalysis shows a few inflammatory cells but nothing significant Tox screen is positive for cocaine Alcohol is negative is negative CBC shows a new onset thrombocytopenia 41,000 Metabolic profile shows significant azotemia be on a 72 and a creatinine 1.7 I reviewed her chest x-ray which shows questionable minor infiltrate but is not very convincing I reviewed her EKG which shows sinus tachycardia without ectopy Extended cardiac monitoring reveals significant sinus tachycardia without ectopy After 2 L of saline she is much improved. Blood pressure is come up to 110 systolic at this time and heart rate is come down to 120 sinus rhythm I've ordered to additional liters for a total of 4 L and I gave HER 2 grams IV Fortaz At this point I believe she is stable enough for regular floor have reviewed it with the hospitalist who is in agreement Concern is for endocarditis and/or sepsis and clearly was dehydrated Diagnosis Primary Impression: Dehydration, severe Additional Impressions: Fever Qualified Code: R50.9 - Fever, unspecified fever cause Hypotension Qualified Code: I95.9 - Hypotension, unspecified hypotension type Admitting Information Admitting Physician Requests: Admit Carlos A Sanchez MD Aug 17, 2016 18:06
[2016-08-17 18:13] LABS: BACTERIA, URINE OCC /hpf; BLOOD, URINE NEG (NEG); COMMENT (UR) CATH-CULTURE IND; CULTURE IF INDICATED CATH CULTURE IND; GLUCOSE,URINE NEG (NEG); KETONE, URINE NEG (NEG); MUCUS URINE FEW /lpf (OCC); NITRITE,URINE NEG (NEG); PH, URINE 5.5 (5.0-8.5); SQUAMOUS EPITHELIAL CELL URINE 1 /hpf (0-5); URINE COLOR DARK-YELLOW (YELLW/STRAW)
[2016-08-17] MEDS ORDERED: ACETAMINOPHEN 325 MG TAB PO ONE (18:15)
[2016-08-17] MEDS ORDERED: cefTAZidime INJ 2,000 MG in SODIUM CHLORIDE 0.9% INJ 100 ML IV ONE (18:15)
[2016-08-17 18:19] LABS: AMPHETAMINE, URINE NEG (NEG); BARBITURATES, URINE NEG (NEG); COCAINE, URINE POS (NEG)
[2016-08-17 18:45] LABS: HEMO FLAGS AUTO DIFF
[2016-08-17 18:48] LABS: BANDS 18 % (0-6); METAMYELOCYTES 1 % (0-1); NEUTROPHIL # MANUAL DIFF 22.1 TH/MM3 (1.8-7.7); POLYS (SEG NEUTROPHILS) 76 % (16-70); WBC DIFF SAMPLE 100
[2016-08-17 18:49] LABS: DOHLE BODIES PRESENT (NONE SEEN); PLATELET ESTIMATE SMEAR LOW (NORMAL); PLATELET MORPHOLOGY NORMAL (NORMAL); TOXIC GRANULATION 1+ (NORMAL); TOXIC VACUOLATION PRESENT (NONE SEEN)
[2016-08-17 18:50] LABS: KERATOCYTES 1+ (NORMAL); OVALOCYTES 1+ (NORMAL)
[2016-08-17 18:52] LABS: SCAN/DIFF FINAL DIFF MANUAL
[2016-08-17] MEDS ORDERED: SODIUM CHLOR 0.9% 1000 ML INJ 1,000 ML IV SCH (18:56)
[2016-08-17] MEDS ORDERED: SODIUM CHLORIDE 0.9% FLUSH 5 ML FLUSH FLUSH PRN (19:00)
[2016-08-17] MEDS ORDERED: BISACODYL 10 MG SUPP PR PRN (19:00)
[2016-08-17] MEDS ORDERED: Vancomycin Consult Pharmacy 1 EA OTHER SCH (19:00)
--- NOTE | 2016-08-17 19:09 | HHI.HP ---
HPI Service [facility] Primary Care Physician No Primary Care Physician Admission Diagnosis dehydration,fever,poss endocarditis,thrombocytopenia Diagnoses: (1) Sepsis Diagnosis: Principal (2) Hypotension Diagnosis: Principal (3) UTI (urinary tract infection) Diagnosis: Principal (4) PNA (pneumonia) Diagnosis: Principal (5) Thrombocytopenia Diagnosis: Principal (6) TEMO (acute kidney injury) Diagnosis: Principal (7) Cocaine abuse Diagnosis: Principal (8) IVDU (intravenous drug user) Diagnosis: Principal Travel History International Travel<30 Days: No Contact w/Intl Traveler <30 Da: No Traveled to Known Affected Are: No History of Present Illness This is a 21-year-old female with a PMH of Polysubstance Abuse and IVDU w/ recent 07/28/16 who presented to the ER with complaints of generalized weakness and fever for approx 1wk. Denies nausea, vomiting, cough or SOB. States last IVDU was 6 days ago, but took Suboxone today. On arrival, BP 79/51 , HR 150, O2 sat 94% on RA, Temp 100.9. S/p 2L IVF w/ improvement in BP 104/54 , HR 135. WBC 23.3. Bands 18. Platelets 41, previously 209 on 07/14/16. Creatinine 1.82, previous is 0.86 on 07/24/15. Ca 8.1, PO4 2.7, Mg 2.7, Lactic Acid 1.8. U/a positive for UTI. Urine Drug Screen positive for Cocaine. CXR w / mild streaky opacity likely CAP. S/p Blood Cultures, IV Fortaz. Review of Systems Except as stated in HPI: all other systems reviewed are Neg ROS: 14 point review of systems otherwise negative. Past Family Social History Past Medical History PMH: Polysubstance Abuse and IVDU w/ recent 07/28/16 Past Surgical History PAST SURGICAL HISTORY: Tonsillectomy, Allergies: Coded Allergies: Amoxicillin (Unverified Allergy, Unknown, rashes, 07/24/15) Family History PAST FAMILY HISTORY: Reviewed. No h/o DM or CAD Social History PAST SOCIAL HISTORY: Denies alcohol or tobacco. IVDU w/ Cocaine/Suboxone. Physical Exam Vital Signs Vital Signs Date Time Temp Pulse Resp B/P Pulse Ox O2 Delivery O2 Flow Rate FiO2 08/17/16 18:42 122 18 98/56 95 Nasal Cannula 2 08/17/16 17:40 100.1 135 18 104/54 95 Nasal Cannula 2 08/17/16 17:26 100.1 142 18 98/54 98 Room Air 08/17/16 17:26 147 18 96 Room Air 08/17/16 16:53 100.9 150 79/51 94 Physical Exam PE: GENERAL: Young, thin female in no acute distress, appears weak/tired but awake/alert. HEENT: PERRLA, EOMI. No scleral icterus or conjunctival pallor. No lid lag or facial droop. CARDIOVASCULAR: Tachycardia. No obvious murmurs to auscultation. No chest tenderness to palpation. RESPIRATORY: No obvious rhonchi or wheezing. Clear to auscultation. Breath sounds equal bilaterally. GASTROINTESTINAL: Abdomen soft, non-tender, nondistended. BS normal. MUSCULOSKELETAL: Extremities without clubbing, cyanosis, or edema. No obvious deformities. NEUROLOGICAL: Awake, alert and oriented x4. No focal neurologic deficits. Moving both upper and lower extremities spontaneously. Laboratory Laboratory Tests Test 08/17/16 08/17/16 17:05 17:50 White Blood Count 23.3 Red Blood Count 4.62 Hemoglobin 11.2 Hematocrit 34.4 Mean Corpuscular Volume 74.5 Mean Corpuscular Hemoglobin 24.2 Mean Corpuscular Hemoglobin 32.4 Concent Red Cell Distribution Width 16.5 Platelet Count 41 Mean Platelet Volume 10.3 Neutrophils (%) (Auto) 84.0 Lymphocytes (%) (Auto) 4.4 Monocytes (%) (Auto) 6.3 Eosinophils (%) (Auto) 5.1 Basophils (%) (Auto) 0.2 Neutrophils # (Auto) 19.6 Lymphocytes # (Auto) 1.0 Monocytes # (Auto) 1.5 Eosinophils # (Auto) 1.2 Basophils # (Auto) 0.0 CBC Comment AUTO DIFF Differential Total Cells 100 Counted Neutrophils % (Manual) 76 Band Neutrophils % 18 Lymphocytes % 4 Monocytes % 1 Neutrophils # (Manual) 22.1 Metamyelocytes 1 Differential Comment FINAL DIFF MANUAL Toxic Granulation 1+ Toxic Vacuolation PRESENT Dohle Bodies PRESENT Platelet Estimate LOW Platelet Morphology Comment NORMAL Ovalocytes 1+ Keratocytes 1+ Sodium Level 132 Potassium Level 3.7 Chloride Level 95 Carbon Dioxide Level 24.4 Anion Gap 13 Blood Urea Nitrogen 73 Creatinine 1.82 Estimat Glomerular Filtration 34 Rate Random Glucose 121 Lactic Acid Level 1.8 Calcium Level 8.1 Phosphorus Level 2.1 Magnesium Level 2.7 Total Bilirubin 4.4 Aspartate Amino Transf 97 (AST/SGOT) Alanine Aminotransferase 39 (ALT/SGPT) Alkaline Phosphatase 183 Total Protein 6.5 Albumin 2.2 Urine Color DARK-YELLOW Urine Turbidity CLOUDY Urine pH 5.5 Urine Specific [place] 1.020 Urine Protein 30 Urine Glucose (UA) NEG Urine Ketones NEG Urine Occult Blood NEG Urine Nitrite NEG Urine Bilirubin MOD Urine Urobilinogen GREATER THAN 12.0 Urine Leukocyte Esterase NEG Urine RBC 3 Urine WBC 12 Urine WBC Clumps FEW Urine Squamous Epithelial 1 Cells Urine Amorphous Sediment RARE Urine Bacteria OCC Urine Mucus FEW Microscopic Urinalysis Comment CATH-CULTURE IND Urine Opiates Screen NEG Urine Barbiturates Screen NEG Urine Amphetamines Screen NEG Urine Benzodiazepines Screen NEG Urine Cocaine Screen POS Urine Cannabinoids Screen NEG Date/Time Procedure Status Source Growth 08/17/16 17:50 Urine Culture Worksheet Urine Catheterized Urine Pending 08/17/16 17:10 Aerobic Blood Culture Received Blood Peripheral Pending 08/17/16 17:10 Anaerobic Blood Culture Received Blood Peripheral Pending Result Diagram: 08/17/16 1705 08/17/16 1705 Assessment and Plan Problem List: (1) Sepsis ICD Code: A41.9 Status: Acute (2) Hypotension ICD Code: I95.9 Status: Acute (3) PNA (pneumonia) ICD Code: J18.9 Status: Acute (4) UTI (urinary tract infection) ICD Code: N39.0 Status: Acute (5) TEMO (acute kidney injury) ICD Code: N17.9 Status: Acute (6) IVDU (intravenous drug user) ICD Code: F19.90 Status: Acute (7) Cocaine abuse ICD Code: F14.10 Status: Chronic (8) Thrombocytopenia ICD Code: D69.6 Status: Acute Assessment and Plan A/P: 1. Sepsis: Temp 100.9, HR 140's, WBC 23 w/ bandemia, Source-UTI/PNA/? Endocarditis w/ h/o IVDU. S/p Blood Cultures and IV Fortaz in ER, will follow up cultures, continue IV Abx, IVF for hydration. 2. Hypotension: Recurrent. On arrival, BP 70's systolic, s/p 2L IVF w/ response, however recurrent episode of hypotension while in ER, BP 70's systolic , HR 140's, no change in mental status. Case discussed w/ Dr. Junior, will admit to ICU and will assume care. 3. PNA: CXR w/ mild streaky opacity, possibly CAP, images reviewed by me. Continue w/ IV Abx for coverage of possible PNA. 4. UTI: U/a w/ significant UTI. Continue w/ IV Abx as above, IVF for hydration. 5. TEMO: Creatinine 1.82, previously 0.86 on 07/24/15, secondary to sepsis/ dehydration/UTI, IVF for hydration, repeat labs in am. 6. Thrombocytopenia: Platelets 41, previously 209 on 07/14/16, likely secondary to severe sepsis. No active bleeding at this time. Hgb 11.2, likely hemoconcentrated, repeat CBC, watch for bleeding/early DIC?, transfuse as needed. 7. IVDU: Last use 6 days ago, ? endocarditis, follow up blood cultures, check Echo, may need SHANNON. Ativan prn for withdrawal. 8. Cocaine Abuse: Urine Drug Screen positive, Ativan prn for withdrawal. 9. DVT Prophylaxis: Pharmacologic contraindication in light of thrombocytopenia 10. Social work for d/c planning as needed. 11. Case discussed w/ ER physician at length. Physician Certification 2 Midnight Certification Type: Admission for Inpatient Services Order for Inpatient Services The services are ordered in accordance with Medicare regulations or non- Medicare payer requirements, as applicable. In the case of services not specified as inpatient-only, they are appropriately provided as inpatient services in accordance with the 2-midnight benchmark. Estimated LOS (days): 2 days is the estimated time the patient will need to remain in the hospital, assuming treatment plan goals are met and no additional complications. Post-Hospital Plan: Not yet determined Problem Qualifiers (1) Hypotension: Qualified Code: I95.9 - Hypotension, unspecified hypotension type Rachael Fry MD Aug 17, 2016 19:09
[2016-08-17] MEDS ORDERED: CHLORHEXIDINE GLUCONATE 2 % 1 PACK (2 CLOTHS) TOP PRN ×2 (20:00→20:15)
[2016-08-17] MEDS ORDERED: MISCELLANEOUS NURSING INFORMATION XX SCH ×2 (20:00→20:15)
[2016-08-17] MEDS ORDERED: TERBUTALINE INJ 1 MG/ML AMP SQ PRN (20:15)
[2016-08-17] MEDS ORDERED: Vancomycin Consult Pharmacy 1 EA XX SCH (20:15)
--- NOTE | 2016-08-17 20:18 | PD.CONS ---
HPI Service Critical Care Medicine Consult Requested By Primary Care Physician No Primary Care Physician History of Present Illness 21-year-old female with a past medical history of Polysubstance and i.e. thoracic Abuse, recent 07/28/16 who presented to the ER with complaints of generalized weakness and fever for approx 1wk. Denies nausea, vomiting, cough or shortness of breath. Per patient she he used IV drugs 6 days ago, but took Suboxone today. Urine Drug Screen positive for Cocaine. She is very lethargic and hypotensive. Review of Systems ROS Unable to obtain patient is lethargic Past Family Social History Allergies: Coded Allergies: Amoxicillin (Unverified Allergy, Unknown, rashes, 07/24/15) Past Medical History IV drug abuse Past Surgical History Reported Medications Reported Meds & Active Scripts Active Senna Plus 8.6-50 mg (Sennosides-Docusate Sodium) 1 Tab Tab 2 Tab PO Q12H PRN Oxycodone-Acetaminophen 10-325 mg Tab 1 Tab PO Q6H PRN Ibuprofen 600 Mg Tab 600 Mg PO Q6H PRN Epipen0.3 Mg 0.3 Mg Inj 0.3 Mg IM DIRECTED PRN GIVE IM IN THIGH, MAY REPEAT IF NEEDED Active Ordered Medications Current Medications Medications (Trade) Dose Ordered Sig/Key Route PRN Reason Start Time Stop Time Status Last Admin Dose Admin Lorazepam (Ativan Inj) 1 mg Q3H PRN IV PUSH WITHDRAWAL/AGITATION 08/17/16 19:00 IV Flush (NS Flush) 2 ml UNSCH PRN FLUSH FLUSH AFTER USING IV ACCESS 08/17/16 19:00 IV Flush (NS Flush) 2 ml BID FLUSH 08/17/16 21:00 08/17/16 20:16 Ondansetron HCl (Zofran Inj) 4 mg Q6H PRN IVP NAUSEA OR VOMITING 08/17/16 19:00 Bisacodyl (Dulcolax Supp) 10 mg DAILY PRN AR CONSTIPATION 08/17/16 19:00 Acetaminophen (Tylenol) 650 mg Q6H PRN PO FEVER/PAIN SCALE 1 TO 2 08/17/16 19:00 Oxycodone HCl (Roxicodone) 10 mg Q4H PRN PO PAIN SCALE 6 TO 10 08/17/16 19:00 Oxycodone HCl 5 mg 5 mg Q4H PRN PO PAIN SCALE 3 TO 5 08/17/16 19:00 Norepinephrine Bitartrate (Levophed-Dextrose Drip) 250 ml @ 0 mls/hr TITRATE IV 08/17/16 20:15 08/17/16 20:30 Terbutaline Sulfate 1 mg 1 mg UNSCH PRN SQ For Extravasation 08/17/16 20:15 Sodium Chloride (NS 1000 ml Inj) 1,000 ml @ 185 mls/hr Q5H25M IV 08/17/16 20:12 08/17/16 20:32 IV Flush (NS Flush) 2 ml UNSCH PRN IV FLUSH FLUSH AFTER USING IV ACCESS 08/17/16 20:15 UNV IV Flush (NS Flush) 2 ml BID IV FLUSH 08/17/16 21:00 UNV Hydrocortisone Sodium Succinate (SoluCORTEF INJ) 50 mg Q6H IV 08/17/16 20:15 UNV Famotidine (Pepcid Inj) 20 mg Q12HR IV PUSH 08/17/16 21:00 UNV Enoxaparin Sodium 40 mg 40 mg Q24H SQ 08/17/16 20:15 UNV Vancomycin HCl 1000 mg/Sodium Chloride 250 ml @ 250 mls/hr ONCE IV 08/17/16 22:00 08/17/16 23:59 Pharmacy Profile Note 0 ml @ 0 mls/hr UNSCH XX 08/17/16 20:15 Cefepime HCl/ Sodium Chloride (Maxipime Inj/NS Inj) 100 ml @ 200 mls/hr Q8H IV 08/17/16 21:00 Miscellaneous Information 1 [id number] XX 08/17/16 20:15 UNV Chlorhexidine Gluconate (Chlorhexidine 2% Cloth) 3 pack Taper DAILY@04 TOP 08/18/16 04:00 08/14/17 03:59 Chlorhexidine Gluconate 3 pack 3 pack UNSCH PRN TOP HYGIENIC CARE 08/17/16 20:15 Vancomycin HCl/ Sodium Chloride (Vancomycin Inj/ NS 250 ml Inj) 257.5 ml @ 250 mls/hr Q12H IV 08/18/16 21:00 Family History Noncontributory Social History Alcohol Use: No Tobacco Use: No Substance Abuse: Yes (patient has a history of IV drug abuse states she has not had anything in the year) Physical Exam Vital Signs Vital Signs Date Time Temp Pulse Resp B/P Pulse Ox O2 Delivery O2 Flow Rate FiO2 08/17/16 20:02 114 26 79/40 98 Nasal Cannula 2 08/17/16 19:56 116 28 79/42 97 Nasal Cannula 2 08/17/16 19:41 98.3 118 25 90/49 95 Nasal Cannula 2 08/17/16 18:42 122 18 98/56 95 Nasal Cannula 2 08/17/16 17:40 100.1 135 18 104/54 95 Nasal Cannula 2 08/17/16 17:26 100.1 142 18 98/54 98 Room Air 08/17/16 17:26 147 18 96 Room Air 08/17/16 16:53 100.9 150 79/51 94 Laboratory Laboratory Tests Test 08/17/16 08/17/16 17:05 17:50 White Blood Count 23.3 Red Blood Count 4.62 Hemoglobin 11.2 Hematocrit 34.4 Mean Corpuscular Volume 74.5 Mean Corpuscular Hemoglobin 24.2 Mean Corpuscular Hemoglobin 32.4 Concent Red Cell Distribution Width 16.5 Platelet Count 41 Mean Platelet Volume 10.3 Neutrophils (%) (Auto) 84.0 Lymphocytes (%) (Auto) 4.4 Monocytes (%) (Auto) 6.3 Eosinophils (%) (Auto) 5.1 Basophils (%) (Auto) 0.2 Neutrophils # (Auto) 19.6 Lymphocytes # (Auto) 1.0 Monocytes # (Auto) 1.5 Eosinophils # (Auto) 1.2 Basophils # (Auto) 0.0 CBC Comment AUTO DIFF Differential Total Cells 100 Counted Neutrophils % (Manual) 76 Band Neutrophils % 18 Lymphocytes % 4 Monocytes % 1 Neutrophils # (Manual) 22.1 Metamyelocytes 1 Differential Comment FINAL DIFF MANUAL Toxic Granulation 1+ Toxic Vacuolation PRESENT Dohle Bodies PRESENT Platelet Estimate LOW Platelet Morphology Comment NORMAL Ovalocytes 1+ Keratocytes 1+ Sodium Level 132 Potassium Level 3.7 Chloride Level 95 Carbon Dioxide Level 24.4 Anion Gap 13 Blood Urea Nitrogen 73 Creatinine 1.82 Estimat Glomerular Filtration 34 Rate Random Glucose 121 Lactic Acid Level 1.8 Calcium Level 8.1 Phosphorus Level 2.1 Magnesium Level 2.7 Total Bilirubin 4.4 Aspartate Amino Transf 97 (AST/SGOT) Alanine Aminotransferase 39 (ALT/SGPT) Alkaline Phosphatase 183 Total Protein 6.5 Albumin 2.2 Urine Color DARK-YELLOW Urine Turbidity CLOUDY Urine pH 5.5 Urine Specific [place] 1.020 Urine Protein 30 Urine Glucose (UA) NEG Urine Ketones NEG Urine Occult Blood NEG Urine Nitrite NEG Urine Bilirubin MOD Urine Urobilinogen GREATER THAN 12.0 Urine Leukocyte Esterase NEG Urine RBC 3 Urine WBC 12 Urine WBC Clumps FEW Urine Squamous Epithelial 1 Cells Urine Amorphous Sediment RARE Urine Bacteria OCC Urine Mucus FEW Microscopic Urinalysis Comment CATH-CULTURE IND Urine Opiates Screen NEG Urine Barbiturates Screen NEG Urine Amphetamines Screen NEG Urine Benzodiazepines Screen NEG Urine Cocaine Screen POS Urine Cannabinoids Screen NEG Date/Time Procedure Status Source Growth 08/17/16 17:50 Urine Culture Worksheet Urine Catheterized Urine Pending 08/17/16 17:10 Aerobic Blood Culture Received Blood Peripheral Pending 08/17/16 17:10 Anaerobic Blood Culture Received Blood Peripheral Pending Result Diagram: 08/17/16 1705 08/17/16 1705 Imaging GENERAL: Well-nourished, well-developed young lady, lethargic SKIN: Warm and dry. HEAD: Normocephalic. EYES: No scleral icterus. No injection or drainage. NECK: Supple, trachea midline. No JVD or lymphadenopathy. CARDIOVASCULAR: Regular rate and rhythm without murmurs, gallops, or rubs. RESPIRATORY: Breath sounds equal bilaterally. No accessory muscle use. GASTROINTESTINAL: Abdomen soft, non-tender, nondistended. MUSCULOSKELETAL: No cyanosis, or edema. BACK: Nontender without obvious deformity. No CVA tenderness. EXTREMITIES: No clubbing cyanosis or edema Assessment and Plan Problem List: (1) Opioid abuse ICD Code: F11.10 Status: Chronic (2) Cocaine abuse ICD Code: F14.10 Status: Chronic (3) PNA (pneumonia) ICD Code: J18.9 Status: Acute (4) Hypotension ICD Code: I95.9 Status: Acute (5) TEMO (acute kidney injury) ICD Code: N17.9 Status: Acute Assessment and Plan Sepsis - Possible endocarditis - Community-acquired pneumonia - Broad-spectrum antibiotics - Panculture - ID consult Hypotension - Aggressive IV fluid resuscitation - Levophed to keep map above 65 - Stress dose steroids Acute kidney injury - Due to above - Strict I's and O's - Monitor electrolytes and creatinine - IV fluids resuscitation Polysubstance abuse - Monitor for withdrawal Endocarditis - Questionable - 2-D echo - Blood cultures DVT GI prophylaxis - Lovenox Pepcid Critical Care: The total critical care time was 35 minutes. Time to perform other separately billable procedures was not included in the critical care time. Problem Qualifiers (1) Hypotension: Qualified Code: I95.9 - Hypotension, unspecified hypotension type Rohan Junior MD Aug 17, 2016 20:18
--- NOTE | 2016-08-17 20:19 | PD.PROCEDR ---
Procedure Note Procedure IJ central Line A time-out was completed verifying correct patient, procedure, site, positioning , and special equipment if applicable. The patient was placed in a dependent position appropriate for central line placement based on the vein to be cannulated. The patients right neck was prepped and draped in sterile fashion. 1% Lidocaine was used to anesthetize the surrounding skin area. A triple lumen 9 -[place] Cord[place] catheter was introduced into the the internal jugular vein using the Seldinger technique and under ultrasound guidance. The catheter was threaded smoothly over the guide wire and appropriate blood return was obtained. Each lumen of the catheter was evacuated of air and flushed with sterile saline. The catheter was then sutured in place to the skin and a sterile dressing applied. Perfusion to the extremity distal to the point of catheter insertion was checked and found to be adequate. Estimated Blood Loss: 1ml The patient tolerated the procedure well and there were no complications. Rohan Junior MD Aug 17, 2016 20:19
[2016-08-17] MEDS: NOREPINEPHRINE-DEXTROSE DRIP 250 ML IV SCH (20:30)
[2016-08-17] MEDS: SODIUM CHLOR 0.9% 1000 ML INJ 1,000 ML IV SCH (20:32)
[2016-08-17] MEDS ORDERED: RESP: ALBUTEROL 2.5 MG/IPRATROPIUM 0.5 MG NEB (PRN) NEB (20:45)
--- NOTE | 2016-08-17 20:47 | RADRPT ---
EXAM DATE/TIME: 08/17/2016 20:28 [facility] COMPARISON: CHEST SINGLE AP, August 17, 2016, 17:45. INDICATIONS : Right central line placement. MEDICAL HISTORY : Sepsis. UTI SURGICAL HISTORY : None. ENCOUNTER: Subsequent ACUITY: 1 day PAIN SCORE: Non-responsive. LOCATION: Right chest FINDINGS: A single view of the chest demonstrates patchy bilateral airspace disease. Heart normal in size. Righ t jugular central line with tip in right atrium. No pneumothorax. The cardiomediastinal contours are unremarkable. Osseous structures are intact. CONCLUSION: Bilateral patchy airspace disease. Right jugular central line with tip in right atrium. Reza Coto MD on August 17, 2016 at 20:44 Board Certified Radiologist. This report was verified electronically.
[2016-08-17] MEDS ORDERED: AZITHROMYCIN INJ 500 MG in SODIUM CHLOR 0.9% 250 ML INJ 250 ML IV SCH (21:00)
[2016-08-17] MEDS ORDERED: VANCOMYCIN 1,000 MG/NS 250 ML IV ONE ×2 (21:00)
[2016-08-17] MEDS ORDERED: SODIUM CHLORIDE 0.9% FLUSH 5 ML FLUSH FLUSH SCH (21:00)
[2016-08-17] MEDS: ENOXAPARIN SODIUM 40 MG/0.4 ML SYRINGE SQ SCH (21:07)
[2016-08-17] MEDS: FAMOTIDINE 20 MG/2 ML VIAL IV PUSH SCH (21:08)
[2016-08-17] MEDS: SODIUM CHLORIDE 0.9% FLUSH 5 ML FLUSH IV FLUSH SCH (21:09)
[2016-08-17] MEDS: HYDROCORTISONE SOD SUCCINATE 100 MG VIAL IV SCH (21:09)
[2016-08-17] MEDS ORDERED: VANCOMYCIN INJ 1,000 MG in SODIUM CHLOR 0.9% 250 ML INJ 250 ML IV SCH (22:00)
[2016-08-17] MEDS: CEFEPIME INJ 2,000 MG in SODIUM CHLORIDE 0.9% INJ 100 ML IV SCH (23:11)
[2016-08-18] VITALS (13 sets, daily range): BP systolic 102–129; BP diastolic 55–87; PULSE 84–109; RESP 16–25; TEMP 93.6–98.8; O2SAT 93–98
[2016-08-18] MEDS: HYDROCORTISONE SOD SUCCINATE 100 MG VIAL IV SCH ×4 (02:02→21:03)
[2016-08-18] MEDS: CHLORHEXIDINE GLUCONATE 2 % 1 PACK (2 CLOTHS) TOP SCH (02:02)
[2016-08-18] MEDS: SODIUM CHLOR 0.9% 1000 ML INJ 1,000 ML IV SCH ×5 (02:03→23:17)
[2016-08-18] MEDS ORDERED: CHLORHEXIDINE GLUCONATE 2 % 1 PACK (2 CLOTHS) TOP SCH (04:00)
[2016-08-18] MEDS: NOREPINEPHRINE-DEXTROSE DRIP 250 ML IV SCH (04:17)
[2016-08-18] MEDS: CEFEPIME INJ 2,000 MG in SODIUM CHLORIDE 0.9% INJ 100 ML IV SCH (04:18)
[2016-08-18 04:36] LABS: HEMATOCRIT 26.1 % (35.0-46.0); MEAN CELL VOLUME 74.3 FL (80.0-100.0); MEAN CORPUSCULAR HEMOGLOBIN 24.6 PG (27.0-34.0); MEAN CORPUSCULAR HGB CONC 33.1 % (32.0-36.0); PLATELET COUNT 43 TH/MM3 (150-450); RED BLOOD COUNT 3.51 MIL/MM3 (4.00-5.30); RED CELL DISTRIBUTION WIDTH 16.6 % (11.6-17.2); WHITE BLOOD COUNT 28.5 TH/MM3 (4.0-11.0)
[2016-08-18 04:46] LABS: HEMO FLAGS AUTO DIFF
[2016-08-18 04:58] LABS: CALCIUM-PROTEIN CORRECTED 8.1 MG/DL (8.5-10.1); POTASSIUM 3.3 MEQ/L (3.5-5.1); TOTAL BILIRUBIN ADULT 2.9 MG/DL (0.2-1.0)
[2016-08-18 06:46] LABS: BANDS 34 % (0-6); METAMYELOCYTES 2 % (0-1); NEUTROPHIL # MANUAL DIFF 27.1 TH/MM3 (1.8-7.7); POLYS (SEG NEUTROPHILS) 59 % (16-70); TOXIC VACUOLATION PRESENT (NONE SEEN); WBC DIFF SAMPLE 100
[2016-08-18 06:47] LABS: ACANTHOCYTES OCC (NORMAL); HELMET CELLS OCC (NORMAL); KERATOCYTES OCC (NORMAL); OVALOCYTES 1+ (NORMAL); SCAN/DIFF FINAL DIFF MANUAL
--- NOTE | 2016-08-18 08:18 | HHI.CCPN ---
Subjective Remarks/Hospital Course 21-year-old female with a past medical history of Polysubstance and IV drug Abuse, recent 07/28/16 who presented to the ER with complaints of generalized weakness and fever for approx 1wk. Denies nausea, vomiting, cough or shortness of breath. Per patient she he used IV drugs 6 days ago, but took Suboxone today. Urine Drug Screen positive for Cocaine. She is very lethargic and hypotensive. SUBJ 08/18/16: Motor vehicle. Remains hypothermic at 94 remains hypotensive requiring 2 mics of Levophed. Warming blanket ordered. Patient continues to be a critically ill infectious disease consult is pending at this time Objective Vital Signs Date Time Temp Pulse Resp B/P Pulse Ox O2 Delivery O2 Flow Rate FiO2 08/18/16 06:00 84 08/18/16 04:00 97.6 25 124/87 98 08/17/16 22:39 Nasal Cannula 3 Result Diagram: 08/18/16 0415 08/18/16 0415 Imaging GENERAL: Well-nourished, well-developed young lady, lethargic, appears very ill SKIN: Cool and dry. Multiple injection mendoza on upper chest HEAD: Normocephalic. EYES: No scleral icterus. No injection or drainage. NECK: Supple, trachea midline. No JVD or lymphadenopathy. CARDIOVASCULAR: Regular rate and rhythm without gallops, or rubs. Grade 1 systolic murmur at the apex RESPIRATORY: Breath sounds equal bilaterally. No accessory muscle use. GASTROINTESTINAL: Abdomen soft, non-tender, nondistended. MUSCULOSKELETAL: No cyanosis, or edema. Slight swelling of right upper extremity, right thumb is tender BACK: Nontender without obvious deformity. No CVA tenderness. EXTREMITIES: No clubbing cyanosis or edema NEURO: Alert awake oriented no focal deficits Urinary Catheter: Yes Assessment to: Continue Vascular Central Line Catheter: Yes Assessment to: Continue A/P Problem List: (1) TEMO (acute kidney injury) ICD Code: N17.9 Status: Acute (2) Septic shock ICD Code: A41.9 Status: Acute (3) Hypothermia ICD Code: T68.XXXA Status: Acute (4) Probable infective endocarditis Status: Acute (5) Hypotension ICD Code: I95.9 Status: Acute (6) PNA (pneumonia) ICD Code: J18.9 Status: Acute (7) Cocaine abuse ICD Code: F14.10 Status: Chronic (8) Opioid abuse ICD Code: F11.10 Status: Chronic Assessment and Plan NEURO: Polysubstance abuse/IVDU -Admits to Dilaudid injection. Also uses cocaine -Watch rule out opiate withdrawal -Most likely will need inpatient rehabilitation CVS: Shock, septic - Aggressive IV fluid resuscitation - Levophed to keep map above 65 - Stress dose steroids - 2-D echo to evaluate endocarditis Resp: Pulmonary septic emboli versus community-acquired pneumonia -Continue broad-spectrum antibiotics -DuoNeb every 6 hours and when necessary -Aggressive pulmonary toilet GI: -Nothing by mouth, start oral diet once mental status permits -Pepcid for GI prophylaxis : Acute kidney injury - Due to above - Strict I's and O's - Monitor electrolytes and creatinine - IV fluids resuscitation ID: Septic shock Possible endocarditis Pneumonia - Broad-spectrum antibiotics with vancomycin, cefepime and azithromycin - Panculture - ID consult pending at this time -2-D echo to evaluate for vegetations Endo: Hypokalemia Hypocalcemia -Electrolyte replacement per protocol -Continue stress dose steroids DVT GI prophylaxis - Lovenox Pepcid Critical Care: The total critical care time was 35 minutes. Time to perform other separately billable procedures was not included in the critical care time. Problem Qualifiers (1) Hypotension: Qualified Code: I95.9 - Hypotension, unspecified hypotension type Castillo Lang MD Aug 18, 2016 08:18
[2016-08-18] MEDS ORDERED: CEFEPIME INJ 1,000 MG in SODIUM CHLORIDE 0.9% INJ 100 ML IV SCH (09:00)
[2016-08-18] MEDS: SODIUM CHLORIDE 0.9% FLUSH 5 ML FLUSH IV FLUSH SCH ×2 (11:21→21:00)
[2016-08-18] MEDS: FAMOTIDINE 20 MG/2 ML VIAL IV PUSH SCH ×2 (11:22→21:04)
[2016-08-18] MEDS: VANCOMYCIN INJ 750 MG in SODIUM CHLOR 0.9% 250 ML INJ 250 ML IV SCH ×2 (11:22→21:05)
--- NOTE | 2016-08-18 11:43 | PD.ID.CON ---
History of Present Illness Service ID Consult Requested By Dr Junior Reason for Consult sepsis, endocarditis Primary Care Physician No Primary Care Physician Diagnoses: History of Present Illness 21 yo female with h/o IVDU preresnt in ER with 6 ay of fever. SHe has been shooting crushed pill and was sharing syringe with her boyfriend who was recently hospitalized for staph infection On presentation hypotensive, tachycardic ad hypoxic. Sraterted on pressors , abx (vanco, cefepime, azithro) Today she is hypothermic at 94F and remains hypotensive requiring 2 mics of Levophed. All blood clx (6/8 bottles of 4 sets) are positive for GRAM POSITIVE COCCI IN PAIRS AND CLUSTERS Pt also co lower back pain She denies hemoptysis, hematuria, headache or difficulty waslking + diziness She is 2 mos post (delicvered via Csection), not Bs urine test neg Review of Systems Except as stated in HPI: all other systems reviewed are Neg Past Family Social History Allergies: Coded Allergies: Amoxicillin (Unverified Allergy, Unknown, rashes, 07/24/15) Past Medical History Polysubstance Abuse and IVDU w/ recent 07/28/16 Past Surgical History Tonsillectomy, Active Ordered Medications Medications where reviewed in EMR Antibiotics Include: vanco cefepime azithro Family History Reviewed. No h/o DM or CAD Social History NO alcohol or tobacco. IVDU w/ Cocaine/Suboxone. Physical Exam Vital Signs Vital Signs Date Time Temp Pulse Resp B/P Pulse Ox O2 Delivery O2 Flow Rate FiO2 08/18/16 06:00 84 08/18/16 04:00 84 08/18/16 04:00 97.6 84 25 124/87 98 08/18/16 02:00 97 08/18/16 00:36 98.0 109 16 102/68 93 08/17/16 22:39 129 32 81/46 93 Nasal Cannula 3 08/17/16 22:17 98.7 129 32 99/59 94 Nasal Cannula 3 08/17/16 20:47 97.9 109 24 100/60 94 Nasal Cannula 3 08/17/16 20:02 114 26 79/40 98 Nasal Cannula 2 08/17/16 19:56 116 28 79/42 97 Nasal Cannula 2 08/17/16 19:41 98.3 118 25 90/49 95 Nasal Cannula 2 08/17/16 18:42 122 18 98/56 95 Nasal Cannula 2 08/17/16 17:40 100.1 135 18 104/54 95 Nasal Cannula 2 08/17/16 17:26 100.1 142 18 98/54 98 Room Air 08/17/16 17:26 147 18 96 Room Air 08/17/16 16:53 100.9 150 79/51 94 Physical Exam CONSTITUTIONAL/GENERAL: This is an adequately nourished patient, in no apparent distress. TUBES/LINES/DRAINS: SKIN: No jaundice, rashes, or lesions. No Janeway lesions Skin temperature appropriate. Not diaphoretic. HEAD: Atraumatic. Normocephalic. EYES: Pupils equal and round and reactive. Extraocular motions intact. No scleral icterus. No injection or drainage. Fundi not examined. ENT: Hearing grossly normal. Nose without bleeding or purulent drainage. Oral mucosae without visible erythema, exudates, masses, or lesions. NECK: Trachea midline. Supple, nontender. No palpable thyroid enlargement or nodularity. CARDIOVASCULAR: Regular rate and rhythm without murmurs, gallops, or rubs. No JVD. Peripheral pulses symmetric. RESPIRATORY/CHEST: Symmetric, unlabored respirations. Clear to auscultation. Breath sounds equal bilaterally. No wheezes, rales, or rhonchi. GASTROINTESTINAL: Abdomen soft, non-tender, nondistended. No hepato-splenomegaly , or palpable masses. No guarding. Bowel sounds present. GENITOURINARY: Without palpable bladder distension. Mendes catheter in place with clear yellow urine Well healed lower transversa laparotomy incision MUSCULOSKELETAL: Extremities without clubbing, cyanosis, or edema. No joint tenderness or effusion noted. No calf tenderness. No mottling or clubbing. BACK: non tender to palpation LYMPHATICS: No palpable cervical or supraclavicular adenopathy. NEUROLOGICAL: Awake and alert. Motor and sensory grossly within normal limits. Follows commands. Speech slightly slurred Moves all extremities. PSYCHIATRIC: No obvious anxiety/depression. no apparent hallucinations or other psychotic thought process. Laboratory Laboratory Tests Test 08/17/16 08/17/16 08/17/16 08/18/16 17:05 17:50 20:37 00:38 White Blood Count 23.3 Red Blood Count 4.62 Hemoglobin 11.2 Hematocrit 34.4 Mean Corpuscular Volume 74.5 Mean Corpuscular Hemoglobin 24.2 Mean Corpuscular Hemoglobin 32.4 Concent Red Cell Distribution Width 16.5 Platelet Count 41 Mean Platelet Volume 10.3 Neutrophils (%) (Auto) 84.0 Lymphocytes (%) (Auto) 4.4 Monocytes (%) (Auto) 6.3 Eosinophils (%) (Auto) 5.1 Basophils (%) (Auto) 0.2 Neutrophils # (Auto) 19.6 Lymphocytes # (Auto) 1.0 Monocytes # (Auto) 1.5 Eosinophils # (Auto) 1.2 Basophils # (Auto) 0.0 CBC Comment AUTO DIFF Differential Total Cells 100 Counted Neutrophils % (Manual) 76 Band Neutrophils % 18 Lymphocytes % 4 Monocytes % 1 Neutrophils # (Manual) 22.1 Metamyelocytes 1 Differential Comment FINAL DIFF MANUAL Toxic Granulation 1+ Toxic Vacuolation PRESENT Dohle Bodies PRESENT Platelet Estimate LOW Platelet Morphology Comment NORMAL Ovalocytes 1+ Keratocytes 1+ Sodium Level 132 Potassium Level 3.7 Chloride Level 95 Carbon Dioxide Level 24.4 Anion Gap 13 Blood Urea Nitrogen 73 Creatinine 1.82 Estimat Glomerular Filtration 34 Rate Random Glucose 121 Lactic Acid Level 1.8 0.8 Calcium Level 8.1 Phosphorus Level 2.1 Magnesium Level 2.7 Total Bilirubin 4.4 Aspartate Amino Transf 97 (AST/SGOT) Alanine Aminotransferase 39 (ALT/SGPT) Alkaline Phosphatase 183 Total Protein 6.5 Albumin 2.2 Urine Color DARK-YELLOW Urine Turbidity CLOUDY Urine pH 5.5 Urine Specific [place] 1.020 Urine Protein 30 Urine Glucose (UA) NEG Urine Ketones NEG Urine Occult Blood NEG Urine Nitrite NEG Urine Bilirubin MOD Urine Urobilinogen GREATER THAN 12.0 Urine Leukocyte Esterase NEG Urine RBC 3 Urine WBC 12 Urine WBC Clumps FEW Urine Squamous Epithelial 1 Cells Urine Amorphous Sediment RARE Urine Bacteria OCC Urine Mucus FEW Microscopic Urinalysis Comment CATH-CULTURE IND Urine Opiates Screen NEG Urine Barbiturates Screen NEG Urine Amphetamines Screen NEG Urine Benzodiazepines Screen NEG Urine Cocaine Screen POS Urine Cannabinoids Screen NEG Nasal Screen MRSA (PCR) NEGATIVE Test 08/18/16 04:15 White Blood Count 28.5 Red Blood Count 3.51 Hemoglobin 8.6 Hematocrit 26.1 Mean Corpuscular Volume 74.3 Mean Corpuscular Hemoglobin 24.6 Mean Corpuscular Hemoglobin 33.1 Concent Red Cell Distribution Width 16.6 Platelet Count 43 Mean Platelet Volume 13.5 Neutrophils (%) (Auto) Lymphocytes (%) (Auto) Monocytes (%) (Auto) Eosinophils (%) (Auto) Basophils (%) (Auto) Neutrophils # (Auto) Lymphocytes # (Auto) Monocytes # (Auto) Eosinophils # (Auto) Basophils # (Auto) CBC Comment AUTO DIFF Differential Total Cells 100 Counted Neutrophils % (Manual) 59 Band Neutrophils % 34 Lymphocytes % 2 Monocytes % 3 Neutrophils # (Manual) 27.1 Metamyelocytes 2 Differential Comment FINAL DIFF MANUAL Toxic Vacuolation PRESENT Ovalocytes 1+ Helmet Cells OCC Acanthocytes OCC Keratocytes OCC Sodium Level 141 Potassium Level 3.3 Chloride Level 111 Carbon Dioxide Level 19.0 Anion Gap 11 Blood Urea Nitrogen 39 Creatinine 0.77 Estimat Glomerular Filtration 93 Rate Random Glucose 129 Calcium Level 6.8 Protein Corrected Calcium 8.1 Total Bilirubin 2.9 Aspartate Amino Transf 61 (AST/SGOT) Alanine Aminotransferase 27 (ALT/SGPT) Alkaline Phosphatase 109 Total Protein 4.6 Albumin 1.5 Date/Time Procedure Status Source Growth 08/17/16 20:40 Legionella Antigen - Final Complete Urine Catheterized Urine PRESUMPTIVE NEGATIVE FOR LEGIONELLA P... 08/17/16 20:40 Streptococcus pneumoniae Antigen (M - Final Complete Urine Catheterized Urine PRESUMPTIVE NEGATIVE FOR STREPTOCOCCU... 08/17/16 20:25 Aerobic Blood Culture - Preliminary Resulted Blood Line Gram Positive Cocci 08/17/16 20:25 Anaerobic Blood Culture - Preliminary Resulted Blood Line NO GROWTH IN 1 DAY 08/17/16 17:50 Urine Culture Worksheet Urine Catheterized Urine Pending Result Diagram: 08/18/16 0415 08/18/16 0415 Imaging Last Impressions Chest X-Ray 08/17/16 0000 Signed Impressions: Service Date/Time: Wednesday, August 17, 2016 20:28 - CONCLUSION: Bilateral patchy airspace disease. Right jugular central line with tip in right atrium. Reza Coto MD Assessment and Plan Assessment and Plan HIgh grade staph bacetermia in the setting s of IVDU - ro endocarditis Lower back pain - ro diskitis/osteo Amoxicillin allergy - hives 2D echo ?[facility] Lspine cont vanco dc petra barber Alexandra A. MD Aug 18, 2016 11:43
--- NOTE | 2016-08-18 14:41 | EKG ---
Date Performed: 08/17/2016 Time Performed: 21:38:08 PTAGE: 21 years EKG: SINUS TACHYCARDIA NONSPECIFIC T-WAVE ABNORMALITY ABNORMAL RHYTHM ECG PREVIOUS TRACING : 08/17/2016 17.15 Compared to prior tracing no significant change DOCTOR: Ryan Mckinney Interpretating Date/Time 08/18/2016 14:39:55
--- NOTE | 2016-08-18 14:46 | EKG ---
Date Performed: 08/17/2016 Time Performed: 17:15:12 PTAGE: 21 years EKG: SINUS TACHYCARDIA, POSSIBLE ATRIAL FLUTTER POSSIBLE RIGHT VENTRICULAR CONDUCTION DELAY NONS PECIFIC T-WAVE ABNORMALITY ABNORMAL RHYTHM ECG NO PREVIOUS TRACING DOCTOR: Ryan Mckinney Interpretating Date/Time 08/18/2016 14:45:09
--- NOTE | 2016-08-18 16:35 | RADRPT ---
EXAM DATE/TIME: 08/18/2016 11:41 [facility] COMPARISON: No previous studies available for comparison. INDICATIONS : Evaluate for septic emboli. General weakness and fever x 1 week. RADIATION DOSE: 5.1 CTDIvol (mGy) MEDICAL HISTORY : Drug abuse. SURGICAL HISTORY : section. ENCOUNTER: Initial ACUITY: 2 days PAIN SCALE: 0/10 LOCATION: chest TECHNIQUE: Volumetric scanning of the chest was performed. Using automated exposure control and adjustment of t he mA and/or kV according to patient size, radiation dose was kept as low as reasonably achievable to obtain optimal diagnostic quality images. FINDINGS: LUNGS: Scattered bilateral nodular infiltrates are present, generally peripheral in location and relatively small there is mild posterior atelectasis associated with small bilateral effusions. PLEURAE: Small bilateral effusions. MEDIASTINUM: The heart and great vessels demonstrate no acute abnormality. There is no mediastinal or hilar lymph adenopathy. Jugular central line is in good position with tip at the atriocaval junction AXILLAE: Within normal limits. No lymphadenopathy. MUSCULOSKELETAL: Within normal limits for patient age. MISCELLANEOUS: The visualized upper abdominal organs demonstrate no acute abnormality. CONCLUSION: Disseminated small bilateral predominantly peripheral nodular infiltrates. Small effusions and mild a ssociated atelectasis. Differential considerations would include atypical infectious etiologies and s eptic emboli, rarely collagen vascular disease, Troy's and pneumoconiosis. Rickey Babb MD on August 18, 2016 at 16:28 Board Certified Radiologist. This report was verified electronically.
--- NOTE | 2016-08-18 17:31 | RADRPT ---
EXAM DATE/TIME: 08/18/2016 16:18 [facility] COMPARISON: No previous studies available for comparison. INDICATIONS : Elevated labs. MEDICAL HISTORY : Elevated liver enzymes. Substance use. SURGICAL HISTORY : Tonsillectomy. ENCOUNTER: Initial ACUITY: 1 day PAIN SCORE: 3/10 LOCATION: Bilateral upper quadrant MEASUREMENTS: LIVER: 17.3 cm length COMMON DUCT: 4 mm RIGHT KIDNEY: 12.7 x 5.8 x 4.6 cm SPLEEN: 15.0 cm length FINDINGS: LIVER: Normal echotexture without focal lesion or ductal dilatation. Small right pleural effusion. COMMON DUCT: No intraluminal mass or stone visualized. GALLBLADDER: Luminal decompression with minimal sludge. No stones PANCREAS: The visualized portions are within normal limits. RIGHT KIDNEY: No hydronephrosis, stone or mass. SPLEEN: No focal lesion. CONCLUSION: 1. Small right pleural effusion. 2. The gallbladder is decompressed with minimal intraluminal sludge. No stones. 3. Splenomegaly. Sergei Maldonado MD on August 18, 2016 at 17:26 Board Certified Radiologist. This report was verified electronically.
[2016-08-18] MEDS ORDERED: POTASSIUM PHOSPHATE MONOBASIC 500 MG TAB PO PRN (20:15)
[2016-08-18] MEDS ORDERED: MAGNESIUM SULFATE INJ 4 GM in SODIUM CHLORIDE 0.9% INJ 92 ML IV PRN (20:15)
[2016-08-18] MEDS ORDERED: POTASSIUM PHOSPHATE INJ 30 MMOL in SODIUM CHLOR 0.9% 250 ML INJ 250 ML IV PRN (20:15)
[2016-08-18] MEDS ORDERED: POTASSIUM CHLOR 20 MEQ PREMIX 100 ML IV PRN ×2 (20:15)
[2016-08-18] MEDS ORDERED: MAGNESIUM SULFATE INJ 2 GM in SODIUM CHLORIDE 0.9% INJ 96 ML IV PRN (20:15)
[2016-08-18] MEDS ORDERED: POTASSIUM CHLOR 40 MEQ PREMIX 100 ML IV PRN ×2 (20:15)
[2016-08-18] MEDS ORDERED: SODIUM PHOSPHATE INJ 30 MMOL in SODIUM CHLOR 0.9% 250 ML INJ 240 ML IV PRN (20:15)
[2016-08-18] MEDS ORDERED: POTASSIUM PHOSPHATE MONOBASIC 500 MG TAB PO/TUBE PRN (20:15)
[2016-08-18] MEDS ORDERED: MAGNESIUM OXIDE 400 MG TAB PO PRN (20:15)
[2016-08-18] MEDS ORDERED: VANCOMYCIN INJ 750 MG in SODIUM CHLOR 0.9% 250 ML INJ 250 ML IV SCH (21:00)
[2016-08-18] MEDS: ENOXAPARIN SODIUM 40 MG/0.4 ML SYRINGE SQ SCH (21:04)
[2016-08-19] VITALS (13 sets, daily range): BP systolic 111–132; BP diastolic 58–77; PULSE 75–97; RESP 22–31; TEMP 98.1–99.1; O2SAT 95–99
[2016-08-19] MEDS: LORazepam 2 MG/ML VIAL IV PUSH PRN ×2 (00:09→11:56)
[2016-08-19] MEDS: HYDROCORTISONE SOD SUCCINATE 100 MG VIAL IV SCH ×4 (02:15→20:11)
[2016-08-19] MEDS: CHLORHEXIDINE GLUCONATE 2 % 1 PACK (2 CLOTHS) TOP SCH (04:00)
[2016-08-19] MEDS: SODIUM CHLOR 0.9% 1000 ML INJ 1,000 ML IV SCH ×4 (04:35→19:17)
[2016-08-19 05:41] LABS: HEMATOCRIT 26.9 % (35.0-46.0); MEAN CELL VOLUME 75.3 FL (80.0-100.0); MEAN CORPUSCULAR HGB CONC 31.9 % (32.0-36.0); PLATELET COUNT 54 TH/MM3 (150-450); RED BLOOD COUNT 3.57 MIL/MM3 (4.00-5.30); RED CELL DISTRIBUTION WIDTH 16.7 % (11.6-17.2); WHITE BLOOD COUNT 17.3 TH/MM3 (4.0-11.0)
[2016-08-19 05:46] LABS: REVIEW FLAG FINAL
[2016-08-19 05:49] LABS: BICARBONATE 20.1 MEQ/L (21.0-32.0); POTASSIUM 4.1 MEQ/L (3.5-5.1)
[2016-08-19 06:07] LABS: CALCIUM-PROTEIN CORRECTED 8.4 MG/DL (8.5-10.1)
--- NOTE | 2016-08-19 07:32 | HHI.CCPN ---
Subjective Remarks/Hospital Course 21-year-old female with a past medical history of Polysubstance and IV drug Abuse, recent 07/28/16 who presented to the ER with complaints of generalized weakness and fever for approx 1wk. Denies nausea, vomiting, cough or shortness of breath. Per patient she he used IV drugs 6 days ago, but took Suboxone today. Urine Drug Screen positive for Cocaine. She is very lethargic and hypotensive. SUBJ 08/18/16: Motor vehicle. Remains hypothermic at 94 remains hypotensive requiring 2 mics of Levophed. Warming blanket ordered. Patient continues to be a critically ill infectious disease consult is pending at this time 08/19/16: Off Levophed. Improving wbc from 28 to 17 today. Multiple blood cultures positive for Staph aureus. Echo done report pending. Almost definitely IE. Ct chest multiple septic emboli Objective Vital Signs Date Time Temp Pulse Resp B/P Pulse Ox O2 Delivery O2 Flow Rate FiO2 08/19/16 06:00 82 08/19/16 04:00 98.4 29 122/64 98 08/17/16 22:39 Nasal Cannula 3 Intake and Output 08/18/16 08/18/16 08/19/16 08:00 16:00 00:00 Intake Total 1886 ml 1228 ml 3750 ml Output Total 1150 ml 1000 ml 900 ml Balance 736 ml 228 ml 2850 ml Result Diagram: 08/19/16 0430 08/19/16 0430 Other Results Microbiology Date/Time Procedure Status Source Growth 08/17/16 20:40 Legionella Antigen - Final Complete Urine Catheterized Urine PRESUMPTIVE NEGATIVE FOR LEGIONELLA P... 08/17/16 20:40 Streptococcus pneumoniae Antigen (M - Final Complete Urine Catheterized Urine PRESUMPTIVE NEGATIVE FOR STREPTOCOCCU... Imaging Ct chest septic emboli Objective Remarks GENERAL: Well-nourished, well-developed young lady, lethargic SKIN: Cool and dry. Multiple injection mendoza on upper chest HEAD: Normocephalic. EYES: No scleral icterus. No injection or drainage. NECK: Supple, trachea midline. No JVD or lymphadenopathy. CARDIOVASCULAR: Regular rate and rhythm without gallops, or rubs. Grade 1 systolic murmur at the apex RESPIRATORY: Breath sounds equal bilaterally, with few coarse crackles. No accessory muscle use. GASTROINTESTINAL: Abdomen soft, non-tender, nondistended. MUSCULOSKELETAL: No cyanosis, or edema. Slight swelling of right upper extremity, right thumb is tender BACK: Nontender without obvious deformity. No CVA tenderness. EXTREMITIES: No clubbing cyanosis or edema NEURO: Alert awake oriented no focal deficits Urinary Catheter: Yes Assessment to: Continue Vascular Central Line Catheter: Yes Assessment to: Continue A/P Problem List: (1) TEMO (acute kidney injury) ICD Code: N17.9 Status: Acute (2) Septic shock ICD Code: A41.9 Status: Acute (3) Hypothermia ICD Code: T68.XXXA Status: Acute (4) Probable infective endocarditis Status: Acute (5) Septic pulmonary embolism ICD Code: I26.90 Status: Acute (6) Cocaine abuse ICD Code: F14.10 Status: Chronic (7) Opioid abuse ICD Code: F11.10 Status: Chronic Assessment and Plan NEURO: Polysubstance abuse/IVDU -Admits to Dilaudid injection. Also uses cocaine -Watch rule out opiate withdrawal. Minimize sedation -Most likely will need inpatient rehabilitation CVS: Shock, septic - Aggressive IV fluid resuscitation - Levophed to keep map above 65-now weaned off - Stress dose steroids - 2-D echo to evaluate endocarditis-report pending Resp: Pulmonary septic emboli -Continue broad-spectrum antibiotics -DuoNeb every 6 hours and when necessary -Aggressive pulmonary toilet -CT chest shows pulmonic septic emboli GI: -Started on heart healthy diet and advance as tolerated -Pepcid for GI prophylaxis : Acute kidney injury - Due to above - Strict I's and O's - Monitor electrolytes and creatinine - IV fluids resuscitation ID: Septic shock Possible endocarditis Septic pulmonary emboli - Continue vancomycin, Off cefepime and azithromycin per ID - Multiple blood cultures staph aures S pending - ID Dr. Rodgers -2-D echo to evaluate for vegetations-report pending Endo: Hypokalemia Hypocalcemia Hypophosphatemia -Electrolyte replacement per protocol -Continue stress dose steroids DVT GI prophylaxis - Lovenox Pepcid Critical Care: Level 3 [facility] Dr. [place] to assume care in Castillo Lang MD Aug 19, 2016 07:32
--- NOTE | 2016-08-19 07:45 | EC ---
Study Study Date:08/18/2016 STUDY CONCLUSIONS SUMMARY - Left ventricle: The cavity size was normal. Wall thickness was normal. Systolic function was normal. The estimated ejection fraction was in the range of 55% to 60%. Wall motion was normal; there were no regional wall motion abnormalities. - Aortic valve: Valve area: 2.08cm^2 (Vmax). - Tricuspid valve: There was a vegetation. Moderate-severe regurgitation. - Pulmonary arteries: PA peak pressure: 42mm Hg (S). If LV function is below 40, please consider prescribing an ACEI or ARB or document rationale for non-use. PROCEDURE DATA STUDY STATUS: Elective. Procedure: Transthoracic echocardiography. Image quality was good. Scanning was performed from the parasternal, apical, and subcostal acoustic windows. Study completion: The patient tolerated the procedure well. Transthoracic echocardiography. M-mode, complete 2D, complete spectral Doppler, and color Doppler. Height: Height: 67in. Weight: Weight: 111.8lb. Body mass index: BMI: 17.5kg/m^2. Body surface area: BSA: 1.58m^2. Patient status: Inpatient. CARDIAC ANATOMY LEFT VENTRICLE: The cavity size was normal. Wall thickness was normal. Systolic function was normal. The estimated ejection fraction was in the range of 55% to 60%. Wall motion was normal; there were no regional wall motion abnormalities. AORTIC VALVE: Trileaflet; normal thickness leaflets. Doppler: Transvalvular velocity was within the normal range. There was no stenosis. No regurgitation. Valve area: 2.08cm^2 (Vmax). Indexed valve area: 1.32cm^2/m^2 (Vmax). AORTA: Aortic root: The aortic root was normal in size. MITRAL VALVE: Structurally normal valve. Doppler: Transvalvular velocity was within the normal range. There was no evidence for stenosis. No regurgitation. Valve area by pressure half-time: 5.24cm^2. Indexed valve area by pressure half-time: 3.32cm^2/m^2. Peak gradient: 5mm Hg (D). LEFT ATRIUM: The atrium was normal in size. RIGHT VENTRICLE: The cavity size was normal. Wall thickness was normal. PULMONIC VALVE: Doppler: Transvalvular velocity was within the normal range. There was no evidence for stenosis. No regurgitation. TRICUSPID VALVE: Structurally normal valve. There was a echo dense mass consistent with vegetation on the tricuspid valve. this is moderate in size approximately 1 x 1/2 cm. Doppler: Transvalvular velocity was within the normal range. Moderate-severe regurgitation. Peak gradient: 28mm Hg (D). PULMONARY ARTERY: The main pulmonary artery was normal-sized. Systolic pressure was within the normal range. RIGHT ATRIUM: The atrium was normal in size. PERICARDIUM: There was no pericardial effusion. SYSTEMIC VEINS: Inferior vena cava: The vessel was normal in size. Patient weight: 111.8lb _Ejection fraction:_ 65-75% _Fractional shortening:_ 32% up to 5Kg 5-11.5Kg 11.6-22.9Kg 23-45Kg 45-57Kg Aortic Root 7-13 <17 13-22 17-27 17-27 LA diam 6-13 <23 24-38 33-47 37-40 RVID 10-17 7-15 7-15 7-18 8-17 LVIDd 12-22 <32 24-38 33-47 37-40 LVPW 2-4 3-6 5-7 6-8 7-8 IVS 2-4 3-6 5-7 6-8 7-8 BASIC MEASUREMENTS ADULT NORMAL Left ventricle LV internal dimension, ED, chordal *41.7 mm 43-52 level, PLAX LV internal dimension, ES, chordal 27.9 mm 23-38 level, PLAX Fractional shortening, chordal level, 33 % >29 PLAX LV posterior wall thickness, ED 10.8 mm IVS/LVPW ratio, ED 1 <1.3 Ventricular septum Septal thickness, ED 10.8 mm Aortic valve Leaflet separation 21 mm 15-26 Aorta Root diameter, ED 24 mm Left atrium Anterior-posterior dimension 25 mm Anterior-posterior dimension index 1.58 cm/m^2 <2.2 Right ventricle RV internal dimension, ED, PLAX 22 mm 19-38 BASIC MEASUREMENTS ADULT NORMAL Aortic valve Leaflet separation 21 mm 15-26 Aorta Root diameter, ED 27 mm 20-37 DOPPLER MEASUREMENTS ADULT NORMAL Main pulmonary artery Pressure, S *42 mm Hg =30 Aortic valve Peak velocity, S 118 cm/s Valve area, Vmax 2.08 cm^2 Valve area index, Vmax 1.32 cm^2/m^2 Mitral valve Peak E-wave velocity 108 cm/s Peak A-wave velocity 104 cm/s Pressure half-time 42 ms Peak gradient, D 5 mm Hg Peak E/A ratio 1 Valve area, pressure half-time 5.24 cm^2 Valve area index, pressure half-time 3.32 cm^2/m^2 Tricuspid valve Peak gradient, D 28 mm Hg Maximal inflow velocity 266 cm/s Regurgitant peak velocity 304 cm/s Peak RV-RA gradient, S 37 mm Hg Systemic veins Estimated CVP 10 mm Hg Right ventricle RV pressure, S *47 mm Hg <30 Pulmonic valve Peak velocity, S 114 cm/s LEGEND: Mean values are shown as u=mean value. Asterisk (*) mendoza values outside specified normal range. Prepared and signed by Eliseo Loza [id number]
[2016-08-19] MEDS: SODIUM CHLORIDE 0.9% FLUSH 5 ML FLUSH IV FLUSH SCH ×2 (08:37→20:11)
[2016-08-19] MEDS: FAMOTIDINE 20 MG/2 ML VIAL IV PUSH SCH ×2 (08:37→20:11)
[2016-08-19] MEDS: VANCOMYCIN INJ 750 MG in SODIUM CHLOR 0.9% 250 ML INJ 250 ML IV SCH (10:31)
[2016-08-19] MEDS ORDERED: GADODIAMIDE PF 287 MG/ML 5 ML VIAL (for RAD MRI) IV ONE ×2 (12:50→21:29)
--- NOTE | 2016-08-19 14:59 | RADRPT ---
EXAM DATE/TIME: 08/19/2016 10:38 [facility] COMPARISON: No previous studies available for comparison. INDICATIONS : Right arm swelling and pain. MEDICAL HISTORY : Right arm swelling and pain. Polysubstance abuse. IV drug use. SURGICAL HISTORY : Tonsillectomy. section. ENCOUNTER: Initial ACUITY: 1 day PAIN SCORE: Non-responsive LOCATION: Right arm. FINDINGS: There is occlusive thrombus within the mid and distal right cephalic vein. There is normal color maury w within the right subclavian, axillary, brachial, radial and ulnar veins. There is an indeterminate area of decreased echogenicity within the antecubital fossa which may represent a complex collection measuring 2.6 x 1.0 x 1.2 cm. CONCLUSION: 1. Occlusive thrombus within the mid and distal right cephalic vein. 2. Complex hypoechoic area adjacent to the brachial vessels within the antecubital fossa measuring 2 .6 x 1.0 x 1.2 cm which is nonspecific. Jose Triana MD on August 19, 2016 at 14:47 Board Certified Radiologist. This report was verified electronically.
--- NOTE | 2016-08-19 16:40 | HHI.IDPN ---
Subjective Subjective Remarks pt has a leagr tricuspid valve vegetation Cont to have confusion and slurred speech Dw mom at b/s: she reoprted mild rash aw amoxicillin and thinks that pt took Keflex uneventfully at some point oin her childhood She is afebrile Antibiotics vancomycin Past Medical History IVDU Allergies: Coded Allergies: Amoxicillin (Unverified Allergy, Unknown, rashes, 07/24/15) Objective . Vital Signs Date Time Temp Pulse Resp B/P Pulse Ox O2 Delivery O2 Flow Rate FiO2 08/19/16 14:00 85 08/19/16 12:00 99.1 84 29 127/70 99 08/19/16 12:00 84 08/19/16 10:00 75 08/19/16 08:23 95 21 08/19/16 08:00 78 08/19/16 08:00 98.6 78 31 123/58 96 08/19/16 06:00 82 08/19/16 04:00 87 08/19/16 04:00 98.4 87 29 122/64 98 08/19/16 02:00 97 08/19/16 00:00 95 08/19/16 00:00 98.6 95 22 132/76 95 08/18/16 22:00 86 08/18/16 20:00 87 08/18/16 20:00 98.8 87 24 129/55 96 08/18/16 19:42 98 08/18/16 18:00 84 08/18/16 08/18/16 08/19/16 15:00 23:00 07:00 Intake Total 4978 ml 1110 ml Output Total 1900 ml 250 ml Balance 3078 ml 860 ml Intake Oral 1200 ml 240 ml IV Total 3778 ml 870 ml Output Urine Total 1900 ml 250 ml Stool Total 0 ml # Bowel Movements 0 0 . Laboratory Tests Test 08/17/16 08/18/16 08/19/16 17:05 04:15 04:30 White Blood Count 23.3 TH/MM3 28.5 TH/MM3 17.3 TH/MM3 Red Blood Count 4.62 MIL/MM3 3.51 MIL/MM3 3.57 MIL/MM3 Hemoglobin 11.2 GM/DL 8.6 GM/DL 8.6 GM/DL Hematocrit 34.4 % 26.1 % 26.9 % Mean Corpuscular Volume 74.5 FL 74.3 FL 75.3 FL Mean Corpuscular Hemoglobin 24.2 PG 24.6 PG 24.0 PG Mean Corpuscular Hemoglobin 32.4 % 33.1 % 31.9 % Concent Red Cell Distribution Width 16.5 % 16.6 % 16.7 % Platelet Count 41 TH/MM3 43 TH/MM3 54 TH/MM3 Mean Platelet Volume 10.3 FL 13.5 FL 10.9 FL Neutrophils (%) (Auto) 84.0 % % Lymphocytes (%) (Auto) 4.4 % % Monocytes (%) (Auto) 6.3 % % Eosinophils (%) (Auto) 5.1 % % Basophils (%) (Auto) 0.2 % % Neutrophils # (Auto) 19.6 TH/MM3 TH/MM3 Lymphocytes # (Auto) 1.0 TH/MM3 TH/MM3 Monocytes # (Auto) 1.5 TH/MM3 TH/MM3 Eosinophils # (Auto) 1.2 TH/MM3 TH/MM3 Basophils # (Auto) 0.0 TH/MM3 TH/MM3 CBC Comment AUTO DIFF AUTO DIFF Differential Total Cells 100 100 Counted Neutrophils % (Manual) 76 % 59 % Band Neutrophils % 18 % 34 % Lymphocytes % 4 % 2 % Monocytes % 1 % 3 % Neutrophils # (Manual) 22.1 TH/MM3 27.1 TH/MM3 Metamyelocytes 1 % 2 % Differential Comment FINAL DIFF FINAL DIFF MANUAL MANUAL Toxic Granulation 1+ Toxic Vacuolation PRESENT PRESENT Dohle Bodies PRESENT Platelet Estimate LOW Platelet Morphology Comment NORMAL Ovalocytes 1+ 1+ Keratocytes 1+ OCC Helmet Cells OCC Acanthocytes OCC Laboratory Tests Test 08/17/16 08/17/16 08/18/16 08/18/16 17:05 20:37 04:15 21:24 Sodium Level 132 MEQ/L 141 MEQ/L Potassium Level 3.7 MEQ/L 3.3 MEQ/L Chloride Level 95 MEQ/L 111 MEQ/L Carbon Dioxide Level 24.4 MEQ/L 19.0 MEQ/L Anion Gap 13 MEQ/L 11 MEQ/L Blood Urea Nitrogen 73 MG/DL 39 MG/DL Creatinine 1.82 MG/DL 0.77 MG/DL Estimat Glomerular Filtration 34 ML/MIN 93 ML/MIN Rate Random Glucose 121 MG/DL 129 MG/DL Lactic Acid Level 1.8 mmol/L 0.8 mmol/L Calcium Level 8.1 MG/DL 6.8 MG/DL Phosphorus Level 2.1 MG/DL 1.6 MG/DL Magnesium Level 2.7 MG/DL Total Bilirubin 4.4 MG/DL 2.9 MG/DL Aspartate Amino Transf 97 U/L 61 U/L (AST/SGOT) Alanine Aminotransferase 39 U/L 27 U/L (ALT/SGPT) Alkaline Phosphatase 183 U/L 109 U/L Total Protein 6.5 GM/DL 4.6 GM/DL Albumin 2.2 GM/DL 1.5 GM/DL Protein Corrected Calcium 8.1 MG/DL Test 08/19/16 04:30 Sodium Level 143 MEQ/L Potassium Level 4.1 MEQ/L Chloride Level 116 MEQ/L Carbon Dioxide Level 20.1 MEQ/L Anion Gap 7 MEQ/L Blood Urea Nitrogen 36 MG/DL Creatinine 0.66 MG/DL Estimat Glomerular Filtration 111 ML/MIN Rate Random Glucose 110 MG/DL Calcium Level 6.9 MG/DL Protein Corrected Calcium 8.4 MG/DL Total Protein 4.4 GM/DL Microbiology Date/Time Procedure Status Source Growth 08/17/16 17:05 Aerobic Blood Culture - Preliminary Resulted Blood Peripheral Staphylococcus Aureus 08/17/16 17:05 Anaerobic Blood Culture - Final Resulted Staphylococcus Aureus 08/17/16 17:10 Aerobic Blood Culture - Final Complete Blood Peripheral Staphylococcus Aureus 08/17/16 17:10 Anaerobic Blood Culture - Final Complete Staphylococcus Aureus 08/17/16 17:50 Urine Culture - Final Complete Urine Catheterized Urine NO GROWTH IN 48 HOURS. 08/17/16 20:20 Aerobic Blood Culture - Final Resulted Blood Line Staphylococcus Aureus 08/17/16 20:20 Anaerobic Blood Culture - Preliminary Resulted Blood Line NO GROWTH IN 2 DAYS 08/17/16 20:25 Aerobic Blood Culture - Final Resulted Blood Line Staphylococcus Aureus 08/17/16 20:25 Anaerobic Blood Culture - Preliminary Resulted Blood Line NO GROWTH IN 2 DAYS 08/17/16 20:40 Legionella Antigen - Final Complete Urine Catheterized Urine PRESUMPTIVE NEGATIVE FOR LEGIONELLA P... 08/17/16 20:40 Streptococcus pneumoniae Antigen (M - Final Complete Urine Catheterized Urine PRESUMPTIVE NEGATIVE FOR STREPTOCOCCU... 08/19/16 13:30 Aerobic Blood Culture Received Blood Peripheral Pending 08/19/16 13:30 Anaerobic Blood Culture Received Blood Peripheral Pending 08/19/16 15:50 Aerobic Blood Culture Received Blood Peripheral Pending 08/19/16 15:50 Anaerobic Blood Culture Received Blood Peripheral Pending Imaging Last Impressions Liver Ultrasound 08/18/16 0000 Signed Impressions: Service Date/Time: Thursday, August 18, 2016 16:18 - CONCLUSION: 1. Small right pleural effusion. 2. The gallbladder is decompressed with minimal intraluminal sludge. No stones. 3. Splenomegaly. Sergei Maldonado MD Chest CT 08/18/16 0000 Signed Impressions: Service Date/Time: Thursday, August 18, 2016 11:41 - CONCLUSION: Disseminated small bilateral predominantly peripheral nodular infiltrates. Small effusions and mild associated atelectasis. Differential considerations would include atypical infectious etiologies and septic emboli, rarely collagen vascular disease, Troy's and pneumoconiosis. Rickey Babb MD Chest X-Ray 08/17/16 0000 Signed Impressions: Service Date/Time: Wednesday, August 17, 2016 20:28 - CONCLUSION: Bilateral patchy airspace disease. Right jugular central line with tip in right atrium. Reza Coto MD Physical Exam CONSTITUTIONAL/GENERAL: This is an adequately nourished patient, in no apparent distress. TUBES/LINES/DRAINS: SKIN: No jaundice, rashes, or lesions. No Janeway lesions Skin temperature appropriate. Not diaphoretic. EYES: No scleral icterus. No injection or drainage. Fundi not examined. ENT: Hearing grossly normal. Nose without bleeding or purulent drainage. Oral mucosae without visible erythema, exudates, masses, or lesions. NECK: Trachea midline. Supple, nontender. No palpable thyroid enlargement or nodularity. CARDIOVASCULAR: Regular rate and rhythm without murmurs, gallops, or rubs. No JVD. Peripheral pulses symmetric. RESPIRATORY/CHEST: Symmetric, unlabored respirations. Clear to auscultation. Breath sounds equal bilaterally. No wheezes, rales, or rhonchi. GASTROINTESTINAL: Abdomen soft, non-tender, nondistended. No hepato-splenomegaly , or palpable masses. No guarding. Bowel sounds present. GENITOURINARY: Without palpable bladder distension. Mendes catheter in place with clear yellow urine Well healed lower transversa laparotomy incision MUSCULOSKELETAL: Extremities without clubbing, cyanosis, or edema. No joint tenderness or effusion noted. No calf tenderness. No mottling or clubbing. BACK: non tender to palpation LYMPHATICS: No palpable cervical or supraclavicular adenopathy. NEUROLOGICAL: Drowsy but arousableFollows commands. Speech is slurred Moves all extremities. PSYCHIATRIC: Ncalm, cooperative. Flat affect Assessment & Plan Remarks Tricuspid valve endocarditis , MSSA - 2D echo + for TV vegg - septic emboli cw TV endocarditiss Lower back pain - ro diskitis/osteo Amoxicillin allergy - hives; but took keflex uneventfully per mom's account Slurrerd speech, appears worse ?SHANNON fu MRI Lspine dc josie garrison cefaozline MRI brain dw Dr Rickey ibarra mom at b/s dw Tesha Qiu MD Aug 19, 2016 16:40
--- NOTE | 2016-08-19 16:53 | RADRPT ---
EXAM DATE/TIME: 08/19/2016 12:23 [facility] COMPARISON: No previous studies available for comparison. INDICATIONS : Weakness with inability to stand. CONTRAST: 12 cc Omniscan (gadodiamide) IV MEDICAL HISTORY : Hypertension. endocarditis. SURGICAL HISTORY : Tonsillectomy. section. ENCOUNTER: Subsequent ACUITY: 4-6 days PAIN SCORE: 3/10 LOCATION: lower back TECHNIQUE: Multiplanar multisequence MRI of the lumbar spine was performed with and without contrast. FINDINGS: The most caudal appearing lumbar vertebra is numbered as L5. VERTEBRAE: Homogeneous signal. Normal alignment. CONUS: Normal level and configuration. POST CONTRAST: No abnormal areas of contrast enhancement are seen. T12-L1: The thecal sac has a normal diameter. No evidence of disc bulge or protrusion. The neural foramina are patent bilaterally. L1-L2: The thecal sac has a normal diameter. No evidence of disc bulge or protrusion. The neural foramina are patent bilaterally. L2-L3: The thecal sac has a normal diameter. No evidence of disc bulge or protrusion. The neural foramina are patent bilaterally. L3-L4: The thecal sac has a normal diameter. No evidence of disc bulge or protrusion. The neural foramina are patent bilaterally. L4-L5: The thecal sac has a normal diameter. No evidence of disc bulge or protrusion. The neural foramina are patent bilaterally. L5-S1: The thecal sac has a normal diameter. No evidence of disc bulge or protrusion. The neural foramina are patent bilaterally. CONCLUSION: No acute disease. Jose Triana MD on August 19, 2016 at 16:49 Board Certified Radiologist. This report was verified electronically.
[2016-08-19] MEDS: ceFAZolin 2 GM PREMIX 50 ML IV SCH (19:17)
[2016-08-19] MEDS ORDERED: EPINEPHrine HCL (1:10,000) 1 MG/10 ML SYRINGE ONE (19:51)
[2016-08-19] MEDS: ENOXAPARIN SODIUM 40 MG/0.4 ML SYRINGE SQ SCH (20:11)
[2016-08-19] MEDS ORDERED: PHARMACY ORDERED LAB XX ONE (21:45)
--- NOTE | 2016-08-19 22:08 | RADRPT ---
EXAM DATE/TIME: 08/19/2016 20:48 [facility] COMPARISON: MRI LUMBAR SPINE W & W/O CONTRAST, August 19, 2016, 12:23. INDICATIONS : Abscess. CONTRAST: 12 cc Omniscan (gadodiamide) IV MEDICAL HISTORY : Hypertension. Endocarditis. SURGICAL HISTORY : Tonsillectomy. section. ENCOUNTER: Subsequent ACUITY: 4-6 days PAIN SCORE: 3/10 LOCATION: cranial TECHNIQUE: Multiplanar, multisequence MRI of the brain was performed both prior to and following the administrat ion of paramagnetic contrast. FINDINGS: There is no evidence for intracranial hemorrhage, mass effect, mass lesions, edema, or extra-axial fl uid collections. The ventricles are normal size for the patient's age. There are no signs of acute infarction for technique. The diffusion portion is unremarkable. The examination was also performed with intravenous contrast, however very little contrast enhancement is seen on the postcontrast porti on and there was no extravasation at the time of injection. The exact etiology is not certain. There is a punctate area of bright signal in the right peritrigonal white matter tract T. millimeter puncta te area in the left posterior parietal white matter tract of uncertain significance in a patient of t his age. CONCLUSION: The postcontrast portion of the exam is very limited since very little contrast is identi fied and there are couple of nonspecific punctate white manner bright signal on FLAIR sequence. Timoteo Khalil MD on August 19, 2016 at 22:01 Board Certified Radiologist. This report was verified electronically.
[2016-08-20] VITALS (13 sets, daily range): BP systolic 120–160; BP diastolic 67–94; PULSE 71–111; RESP 23–44; TEMP 98–98.9; O2SAT 98–99
[2016-08-20] MEDS: ceFAZolin 2 GM PREMIX 50 ML IV SCH ×3 (02:05→17:40)
[2016-08-20] MEDS: SODIUM CHLOR 0.9% 1000 ML INJ 1,000 ML IV SCH ×4 (02:05→18:09)
[2016-08-20] MEDS: HYDROCORTISONE SOD SUCCINATE 100 MG VIAL IV SCH ×4 (02:05→21:30)
[2016-08-20] MEDS: CHLORHEXIDINE GLUCONATE 2 % 1 PACK (2 CLOTHS) TOP SCH (02:06)
--- NOTE | 2016-08-20 02:59 | RADRPT ---
EXAM DATE/TIME: 08/20/2016 02:25 [facility] COMPARISON: CHEST SINGLE AP, August 17, 2016, 20:28. INDICATIONS : Shortness of breath. MEDICAL HISTORY : None. SURGICAL HISTORY : None. ENCOUNTER: Subsequent ACUITY: 2 days PAIN SCORE: Non-responsive. LOCATION: Bilateral chest FINDINGS: Patchy bilateral airspace disease and bilateral nodules are again seen. Right jugular line tip overli es the SVC/right atrial junction. There is cardiomegaly. Small bilateral effusions are suspected. CONCLUSION: Bilateral airspace disease and nodules. Yemi Thompson MD on August 20, 2016 at 2:57 Board Certified Radiologist. This report was verified electronically.
[2016-08-20 05:53] LABS: AUTOMATED NEUTROPHIL # 11.1 TH/MM3 (1.8-7.7); BASOPHIL % 0.3 % (0.0-2.0); EOSINOPHIL % 0.2 % (0.0-4.0); HEMATOCRIT 22.8 % (35.0-46.0); LYMPH % 9.4 % (9.0-44.0); LYMPHOCYTE # 1.3 TH/MM3 (1.0-4.8); MEAN CELL VOLUME 74.1 FL (80.0-100.0); MEAN CORPUSCULAR HEMOGLOBIN 24.9 PG (27.0-34.0); MEAN CORPUSCULAR HGB CONC 33.6 % (32.0-36.0); MONO % 9.9 % (0.0-8.0); NEUT % 80.2 % (16.0-70.0); PLATELET COUNT 78 TH/MM3 (150-450); RED BLOOD COUNT 3.08 MIL/MM3 (4.00-5.30); RED CELL DISTRIBUTION WIDTH 16.8 % (11.6-17.2); WHITE BLOOD COUNT 13.8 TH/MM3 (4.0-11.0)
[2016-08-20] MEDS: LORazepam 2 MG/ML VIAL IV PUSH PRN ×3 (05:59→17:40)
[2016-08-20 06:04] LABS: HEMO FLAGS AUTO DIFF
[2016-08-20 06:23] LABS: BICARBONATE 18.9 MEQ/L (21.0-32.0); CALCIUM-PROTEIN CORRECTED 8.9 MG/DL (8.5-10.1); POTASSIUM 3.7 MEQ/L (3.5-5.1); TOTAL BILIRUBIN ADULT 0.7 MG/DL (0.2-1.0)
[2016-08-20 07:37] LABS: BANDS 11 % (0-6); MYELOCYTES 2 % (0-0); NEUTROPHIL # MANUAL DIFF 12.3 TH/MM3 (1.8-7.7); POLYS (SEG NEUTROPHILS) 76 % (16-70); WBC DIFF SAMPLE 100
[2016-08-20 07:39] LABS: KERATOCYTES OCC (NORMAL); OVALOCYTES 1+ (NORMAL); PLATELET ESTIMATE SMEAR LOW (NORMAL); PLATELET MORPHOLOGY NORMAL (NORMAL); SCAN/DIFF FINAL DIFF MANUAL
[2016-08-20] MEDS: SODIUM CHLORIDE 0.9% FLUSH 5 ML FLUSH IV FLUSH SCH ×2 (08:22→21:00)
[2016-08-20] MEDS: FAMOTIDINE 20 MG/2 ML VIAL IV PUSH SCH ×2 (08:22→21:30)
--- NOTE | 2016-08-20 10:07 | HHI.PR ---
Subjective Remarks Follow up for tricuspid endocarditis, polysubstance abuse, IVDU. Ms. Mcintosh is accompanied by her grandmother. She reports generalized weakness. Denies any fever, chills. Does not have great appetite. Objective Vitals Vital Signs Date Time Temp Pulse Resp B/P Pulse Ox O2 Delivery O2 Flow Rate FiO2 08/20/16 08:16 98 08/20/16 06:00 91 08/20/16 04:00 78 08/20/16 04:00 98.2 78 29 120/84 99 08/20/16 02:00 82 08/20/16 00:00 98.0 75 29 127/94 99 08/20/16 00:00 75 08/19/16 22:00 76 08/19/16 20:00 81 08/19/16 20:00 98.1 81 30 111/77 97 08/19/16 18:00 78 08/19/16 16:00 82 08/19/16 16:00 98.9 82 28 117/68 98 08/19/16 14:00 85 08/19/16 12:00 99.1 84 29 127/70 99 08/19/16 12:00 84 I/O 08/19/16 08/19/16 08/19/16 08/20/16 08/20/16 08/20/16 07:00 15:00 23:00 07:00 15:00 23:00 Intake Total 1110 ml 1050 ml 1410 ml 1045 ml Output Total 250 ml 300 ml 325 ml 550 ml Balance 860 ml 750 ml 1085 ml 495 ml Intake Oral 240 ml 100 ml 480 ml 100 ml IV Total 870 ml 950 ml 930 ml 945 ml Output Urine Total 250 ml 300 ml 325 ml 550 ml # Bowel Movements 0 0 0 0 Result Diagram: 08/20/16 0430 08/20/16 0430 Imaging Last Impressions Chest X-Ray 08/20/16 0600 Signed Impressions: Service Date/Time: Saturday, August 20, 2016 02:25 - CONCLUSION: Bilateral airspace disease and nodules. Yemi Thompson MD Upper Extremity Ultrasound 08/19/16 0000 Signed Impressions: Service Date/Time: Friday, August 19, 2016 10:38 - CONCLUSION: 1. Occlusive thrombus within the mid and distal right cephalic vein. 2. Complex hypoechoic area adjacent to the brachial vessels within the antecubital fossa measuring 2.6 x 1.0 x 1.2 cm which is nonspecific. Jose Triana MD Lumbar Spine MRI 08/19/16 0000 Signed Impressions: Service Date/Time: Friday, August 19, 2016 12:23 - CONCLUSION: No acute disease. Jose Triana MD Brain MRI 08/19/16 0000 Signed Impressions: Service Date/Time: Friday, August 19, 2016 20:48 - CONCLUSION: The postcontrast portion of the exam is very limited since very little contrast is identified and there are couple of nonspecific punctate white manner bright signal on FLAIR sequence. Timoteo Khalil MD Liver Ultrasound 08/18/16 0000 Signed Impressions: Service Date/Time: Thursday, August 18, 2016 16:18 - CONCLUSION: 1. Small right pleural effusion. 2. The gallbladder is decompressed with minimal intraluminal sludge. No stones. 3. Splenomegaly. Sergei Maldonado MD Chest CT 08/18/16 0000 Signed Impressions: Service Date/Time: Thursday, August 18, 2016 11:41 - CONCLUSION: Disseminated small bilateral predominantly peripheral nodular infiltrates. Small effusions and mild associated atelectasis. Differential considerations would include atypical infectious etiologies and septic emboli, rarely collagen vascular disease, Troy's and pneumoconiosis. Rickey Babb MD Objective Remarks GENERAL: Alert, NAD. SKIN: Warm and dry. HEAD: Normocephalic. EYES: No scleral icterus. No injection or drainage. NECK: Supple, trachea midline. No JVD or lymphadenopathy. CARDIOVASCULAR: Regular rhythm, tachycardic without gallops, or rubs. Systolic murmur present, best heard at the apex. RESPIRATORY: Breath sounds equal bilaterally. No accessory muscle use. GASTROINTESTINAL: Abdomen soft, non-tender, nondistended. MUSCULOSKELETAL: No cyanosis, or edema. BACK: Nontender without obvious deformity. No CVA tenderness. Procedures IJ central line 08/17/2016. A/P Problem List: (1) Sepsis ICD Code: A41.9 Status: Acute (2) Hypotension ICD Code: I95.9 Status: Acute (3) PNA (pneumonia) ICD Code: J18.9 Status: Acute (4) UTI (urinary tract infection) ICD Code: N39.0 Status: Acute (5) TEMO (acute kidney injury) ICD Code: N17.9 Status: Acute (6) IVDU (intravenous drug user) ICD Code: F19.90 Status: Acute (7) Cocaine abuse ICD Code: F14.10 Status: Chronic (8) Thrombocytopenia ICD Code: D69.6 Status: Acute Assessment and Plan Ms. Mcintosh is a 21-year-old female with a history of polysubstance, IV drug use who was admitted to the hospital due to generalized weakness and fever for approximately one week prior to this admission. Patient denied nausea vomiting cough or shortness of breath. Patient used IV drugs 6 days prior to this admission. Her urine drug screen was positive for cocaine. Blood culture grew MSSA and echocardiogram shows tricuspid regurgitation with tricuspid valve vegetation. Infectious disease was consulted and started patient on cefazolin. CT chest showed disseminated small bilateral peripheral nodular infiltrates. MRI brain shows couple of nonspecific punctate white matter bright signal on FLAIR sequence. - Septic shock - resolved. 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 - Initially on Vancomycin. However, based on cx results, currently on Cefazolin - probably will require long abx course. - ID (Dr. Rodgers) following. - Acute kidney injury - resolved. 1.82 on admission. Currently below 1.0. - Hypokalemia - resolved. - Hypocalcemia - resolved. Corrected Calcium 8.9. - Polysubstance abuse - IVDU - Discussed with patient and grandmother. - Grandmother would like for her to go to [facility] for drug rehabs. - Possible opioid withdrawal - Will start patient on Methadone 10mg TID with a quick taper. - Will keep patient in the ICU today and possibly transfer to the med surg floor tomorrow 08/21/2016. Full code. Lovenox. Famotidine. Problem Qualifiers (1) Hypotension: Qualified Code: I95.9 - Hypotension, unspecified hypotension type Samanta Phoenix DO Aug 20, 2016 10:06 am
[2016-08-20] MEDS: METHADONE HCL 10 MG TAB PO SCH ×2 (10:47→18:07)
--- NOTE | 2016-08-20 14:59 | HHI.IDPN ---
Subjective Subjective Remarks pt has a lerge tricuspid valve vegetation Pt is more confused and agitated today, felt to be withdrawing c/o back pain MRI of brain and back negative for infx She is afebrile Antibiotics cefazoline Past Medical History IVDU Allergies: Coded Allergies: Amoxicillin (Unverified Allergy, Unknown, rashes, 07/24/15) Objective . Vital Signs Date Time Temp Pulse Resp B/P Pulse Ox O2 Delivery O2 Flow Rate FiO2 08/20/16 14:00 92 08/20/16 12:00 103 08/20/16 12:00 98.9 103 44 132/67 98 08/20/16 10:00 111 08/20/16 08:16 98 08/20/16 08:00 106 08/20/16 08:00 98.9 106 23 130/82 98 08/20/16 06:00 91 08/20/16 04:00 78 08/20/16 04:00 98.2 78 29 120/84 99 08/20/16 02:00 82 08/20/16 00:00 98.0 75 29 127/94 99 08/20/16 00:00 75 08/19/16 22:00 76 08/19/16 20:00 81 08/19/16 20:00 98.1 81 30 111/77 97 08/19/16 18:00 78 08/19/16 16:00 82 08/19/16 16:00 98.9 82 28 117/68 98 08/19/16 08/19/16 08/20/16 15:00 23:00 07:00 Intake Total 1050 ml 1410 ml 1045 ml Output Total 300 ml 325 ml 550 ml Balance 750 ml 1085 ml 495 ml Intake Oral 100 ml 480 ml 100 ml IV Total 950 ml 930 ml 945 ml Output Urine Total 300 ml 325 ml 550 ml # Bowel Movements 0 0 0 . Laboratory Tests Test 08/19/16 08/20/16 04:30 04:30 White Blood Count 17.3 TH/MM3 13.8 TH/MM3 Red Blood Count 3.57 MIL/MM3 3.08 MIL/MM3 Hemoglobin 8.6 GM/DL 7.7 GM/DL Hematocrit 26.9 % 22.8 % Mean Corpuscular Volume 75.3 FL 74.1 FL Mean Corpuscular Hemoglobin 24.0 PG 24.9 PG Mean Corpuscular Hemoglobin 31.9 % 33.6 % Concent Red Cell Distribution Width 16.7 % 16.8 % Platelet Count 54 TH/MM3 78 TH/MM3 Mean Platelet Volume 10.9 FL 10.1 FL Neutrophils (%) (Auto) 80.2 % Lymphocytes (%) (Auto) 9.4 % Monocytes (%) (Auto) 9.9 % Eosinophils (%) (Auto) 0.2 % Basophils (%) (Auto) 0.3 % Neutrophils # (Auto) 11.1 TH/MM3 Lymphocytes # (Auto) 1.3 TH/MM3 Monocytes # (Auto) 1.4 TH/MM3 Eosinophils # (Auto) 0.0 TH/MM3 Basophils # (Auto) 0.0 TH/MM3 CBC Comment AUTO DIFF Differential Total Cells 100 Counted Neutrophils % (Manual) 76 % Band Neutrophils % 11 % Lymphocytes % 4 % Monocytes % 7 % Neutrophils # (Manual) 12.3 TH/MM3 Myelocytes 2 % Differential Comment FINAL DIFF MANUAL Platelet Estimate LOW Platelet Morphology Comment NORMAL Ovalocytes 1+ Keratocytes OCC Laboratory Tests Test 08/18/16 08/19/16 08/20/16 21:24 04:30 04:30 Phosphorus Level 1.6 MG/DL Sodium Level 143 MEQ/L 146 MEQ/L Potassium Level 4.1 MEQ/L 3.7 MEQ/L Chloride Level 116 MEQ/L 119 MEQ/L Carbon Dioxide Level 20.1 MEQ/L 18.9 MEQ/L Anion Gap 7 MEQ/L 8 MEQ/L Blood Urea Nitrogen 36 MG/DL 31 MG/DL Creatinine 0.66 MG/DL 0.56 MG/DL Estimat Glomerular Filtration 111 ML/MIN 134 ML/MIN Rate Random Glucose 110 MG/DL 81 MG/DL Calcium Level 6.9 MG/DL 7.3 MG/DL Protein Corrected Calcium 8.4 MG/DL 8.9 MG/DL Total Protein 4.4 GM/DL 4.3 GM/DL Total Bilirubin 0.7 MG/DL Aspartate Amino Transf 10 U/L (AST/SGOT) Alanine Aminotransferase 12 U/L (ALT/SGPT) Alkaline Phosphatase 66 U/L Albumin 1.4 GM/DL Microbiology Date/Time Procedure Status Source Growth 08/17/16 17:05 Aerobic Blood Culture - Final Complete Blood Peripheral Staphylococcus Aureus 08/17/16 17:05 Anaerobic Blood Culture - Final Complete Staphylococcus Aureus 08/17/16 17:10 Aerobic Blood Culture - Final Complete Blood Peripheral Staphylococcus Aureus 08/17/16 17:10 Anaerobic Blood Culture - Final Complete Staphylococcus Aureus 08/17/16 17:50 Urine Culture - Final Complete Urine Catheterized Urine NO GROWTH IN 48 HOURS. 08/17/16 20:20 Aerobic Blood Culture - Final Resulted Blood Line Staphylococcus Aureus 08/17/16 20:20 Anaerobic Blood Culture - Preliminary Resulted Gram Positive Cocci 08/17/16 20:25 Aerobic Blood Culture - Final Complete Blood Line Staphylococcus Aureus 08/17/16 20:25 Anaerobic Blood Culture - Final Complete Staphylococcus Aureus 08/17/16 20:40 Legionella Antigen - Final Complete Urine Catheterized Urine PRESUMPTIVE NEGATIVE FOR LEGIONELLA P... 08/17/16 20:40 Streptococcus pneumoniae Antigen (M - Final Complete Urine Catheterized Urine PRESUMPTIVE NEGATIVE FOR STREPTOCOCCU... 08/19/16 13:30 Aerobic Blood Culture - Preliminary Resulted Blood Peripheral Gram Positive Cocci 08/19/16 13:30 Anaerobic Blood Culture - Final Resulted Blood Peripheral ONLY AEROBIC CULTURE ORDERED 08/19/16 15:50 Aerobic Blood Culture - Preliminary Resulted Blood Peripheral Gram Positive Cocci 08/19/16 15:50 Anaerobic Blood Culture - Preliminary Resulted Blood Peripheral NO GROWTH IN 1 DAY Imaging Last Impressions Chest X-Ray 08/20/16 0600 Signed Impressions: Service Date/Time: Saturday, August 20, 2016 02:25 - CONCLUSION: Bilateral airspace disease and nodules. Yemi Thompson MD Upper Extremity Ultrasound 08/19/16 0000 Signed Impressions: Service Date/Time: Friday, August 19, 2016 10:38 - CONCLUSION: 1. Occlusive thrombus within the mid and distal right cephalic vein. 2. Complex hypoechoic area adjacent to the brachial vessels within the antecubital fossa measuring 2.6 x 1.0 x 1.2 cm which is nonspecific. Jose Triana MD Lumbar Spine MRI 08/19/16 0000 Signed Impressions: Service Date/Time: Friday, August 19, 2016 12:23 - CONCLUSION: No acute disease. Jose Triana MD Brain MRI 08/19/16 0000 Signed Impressions: Service Date/Time: Friday, August 19, 2016 20:48 - CONCLUSION: The postcontrast portion of the exam is very limited since very little contrast is identified and there are couple of nonspecific punctate white manner bright signal on FLAIR sequence. KRegina Khalil MD Liver Ultrasound 08/18/16 0000 Signed Impressions: Service Date/Time: Thursday, August 18, 2016 16:18 - CONCLUSION: 1. Small right pleural effusion. 2. The gallbladder is decompressed with minimal intraluminal sludge. No stones. 3. Splenomegaly. Sergei Maldonado MD Chest CT 08/18/16 0000 Signed Impressions: Service Date/Time: Thursday, August 18, 2016 11:41 - CONCLUSION: Disseminated small bilateral predominantly peripheral nodular infiltrates. Small effusions and mild associated atelectasis. Differential considerations would include atypical infectious etiologies and septic emboli, rarely collagen vascular disease, Troy's and pneumoconiosis. Rickey Babb MD Physical Exam CONSTITUTIONAL/GENERAL: This is an adequately nourished patient, in no apparent distress. TUBES/LINES/DRAINS: SKIN: No jaundice, rashes, or lesions. No Janeway lesions Skin temperature appropriate. Not diaphoretic. EYES: No scleral icterus. No injection or drainage. Fundi not examined. ENT: Hearing grossly normal. Nose without bleeding or purulent drainage. Oral mucosae without visible erythema, exudates, masses, or lesions. NECK: Trachea midline. Supple, nontender. No palpable thyroid enlargement or nodularity. CARDIOVASCULAR: Regular rate and rhythm without murmurs, gallops, or rubs. No JVD. Peripheral pulses symmetric. RESPIRATORY/CHEST: Symmetric, unlabored respirations. Clear to auscultation. Breath sounds equal bilaterally. No wheezes, rales, or rhonchi. GASTROINTESTINAL: Abdomen soft, non-tender, nondistended. No hepato-splenomegaly , or palpable masses. No guarding. Bowel sounds present. GENITOURINARY: Without palpable bladder distension. Mendes catheter in place with clear yellow urine Well healed lower transversa laparotomy incision MUSCULOSKELETAL: Extremities without clubbing, cyanosis, or edema. No joint tenderness or effusion noted. No calf tenderness. No mottling or clubbing. R UE - ecchymosis at ulnar area NEUROLOGICAL: More drowsy and confused today. Barely talks PSYCHIATRIC:unable to assess Assessment & Plan Remarks Tricuspid valve endocarditis , MSSA - 2D echo + for TV vegg - septic emboli cw TV endocarditiss - persistent ly positive blood clx Lower back pain - ro diskitis/osteo Amoxicillin allergy - hives; but took keflex uneventfully per mom's account Slurrerd speech, appears worse : no TRIM ATT[employer]ER inf consult cards for SHANNON cont cefazoline dw Tesha Qiu MD Aug 20, 2016 14:59
--- NOTE | 2016-08-20 19:44 | MB ---
cc: TERRIE ZAVALA DATE OF : [birth year] DATE OF CONSULTATION: 08/20/2016 REASON FOR CONSULTATION: HISTORY OF PRESENT ILLNESS: Ms. Mcintosh is a 21 year-old female with history of IV drug use, who presented to the emergency room with fever for six days. She has lived with her boyfriend and has been shooting crushed pills and shared syringes with her boyfriend who was recently hospitalized for staph infection. The patient has been septic, hypotensive, bradycardiac and hypoxemic. Her cultures are positive for Gram-positive cocci. She had a about two months ago. Her echocardiogram showed tricuspid valve vegetation, ejection fraction of 55 to 60% with moderate to severe tricuspid regurgitation and pulmonary artery systolic pressure of 42 mmHg. PAST MEDICAL HISTORY: 1. Negative for hypertension, dyslipidemia, diabetes mellitus, coronary artery disease, CVA. 2. History of IV drug use. 3. Recent . MEDICATIONS: 1. Epipen p.r.n. 2. Ibuprofen p.r.n. 3. Oxycodone/acetaminophen p.r.n. 4. Senna p.r.n. ALLERGIES: AMOXICILLIN SOCIAL HISTORY: The patient does not smoke, she does not drink alcohol. She uses drugs IV. She is accompanied by her mother. FAMILY HISTORY: Negative for coronary artery disease. REVIEW OF SYSTEMS: Otherwise negative. PHYSICAL EXAMINATION: VITAL SIGNS: Blood pressure 160/72, pulse 85 and regular. HEENT: Negative, 2+ carotid upstrokes. No bruits. LUNGS: Clear. HEART: Regular with no gallop or rub. There is a 1/6 systolic murmur at the left sternal border. ABDOMEN: Soft. No bruits. EXTREMITIES: Without edema. 2+ distal pulses. NEUROLOGIC: Grossly nonfocal. The patient is confused and somnolent. EKG: EKG is reviewed, and showed sinus tachycardia and nonspecific T-wave changes. LABORATORY DATA: Hemoglobin 7.7, potassium 3.7, creatinine 0.6, AST 10, ALT 12. DIAGNOSIS: 1. Tricuspid valve endocarditis. 2. 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 3. Moderate to severe tricuspid regurgitation. 4. Septic emboli. 5. Lower back pain. 6. Altered mental status. DISPOSITION: Ms. Mcintosh will be monitored in the ICU. We will continue antibiotics for her endocarditis. If necessary, we will proceed with transesophageal echocardiogram later. The plan was discussed with patient's mother. MD BRENDA Bustamante/ANN /5:18 PM /7:30 PM SKYE
[2016-08-20] MEDS: ENOXAPARIN SODIUM 40 MG/0.4 ML SYRINGE SQ SCH (21:30)
[2016-08-21] VITALS (12 sets, daily range): BP systolic 130–180; BP diastolic 68–93; PULSE 66–87; RESP 21–29; TEMP 98.3–98.9; O2SAT 97–99
[2016-08-21] MEDS: SODIUM CHLOR 0.9% 1000 ML INJ 1,000 ML IV SCH ×5 (00:02→21:05)
[2016-08-21] MEDS: ceFAZolin 2 GM PREMIX 50 ML IV SCH ×3 (00:16→17:53)
[2016-08-21] MEDS: HYDROCORTISONE SOD SUCCINATE 100 MG VIAL IV SCH ×4 (03:13→21:04)
[2016-08-21] MEDS: CHLORHEXIDINE GLUCONATE 2 % 1 PACK (2 CLOTHS) TOP SCH (03:14)
[2016-08-21] MEDS: METHADONE HCL 10 MG TAB PO SCH ×3 (03:14→17:54)
[2016-08-21] MEDS: FAMOTIDINE 20 MG/2 ML VIAL IV PUSH SCH ×2 (08:49→21:04)
[2016-08-21] MEDS: SODIUM CHLORIDE 0.9% FLUSH 5 ML FLUSH IV FLUSH SCH ×2 (08:49→21:04)
[2016-08-21] MEDS ORDERED: HALOPERIDOL LACTATE 5 MG/ML AMP IM PRN (11:00)
--- NOTE | 2016-08-21 11:22 | PD.CONS ---
Provisional Diagnosis Admission Date Aug 17, 2016 at 18:52 Tatamy I. Substance induced mood disorder, opiates and cocaine use disorder, history of depression Tatamy II. Deferred Tatamy III. Tricuspid endocarditis, sepsis Tatamy IV. Continues use of IV drugs Tatamy V. 50 History of Present Illness Service Psychiatry Consult Requested By Primary Care Physician No Primary Care Physician HPI The patient is a 21-year-old woman, domicile with boyfriend, unemployed, with psychiatric history of depression, cocaine use disorder, IV opiates use disorder, reportedly in Suboxone, no previous psychiatric hospitalizations, no previous suicidal attempts, a recent 2 months ago, no significant medical history who was brought to the hospital critically ill, hypotensive, with fever, SOB, after mental status, she was diagnosed with tricuspid endocarditis due to a septic emboli. Patient was positive for cocaine, admitted that she has been using IV opiates. Patient was admitted in the ICU, consulted to psychiatry due to suicidal statement yesterday to her family. Patient was seen for psychiatric evaluation today in the ICU, she is just superficially cooperative, very lethargic and easily fatigued, with obvious after mental status and confusion. Patient came that she was brought to the hospital because "my arms were hurting me really bad". Patient says that she has living with her mother and her boyfriend and she doesn 't remember the circumstances that led to her hospitalization. Patient endorses sadness and depressed mood related with current medical situation. Patient knows that she is in [place], but she doesn't know her principal medical diagnoses, she is requesting to be discharged, which is unable to verbalize the nature of her illness and the consequences of leaving the hospital and no following medical recommendations. Patient denies suicidal and homicidal ideation, she denies visual and auditory hallucinations. Patient is too fatigued and confused to provide meaningful information for the psychiatric assessment, however her mother Ginger Hoffmann, use as a collateral information, says that the reason that her daughter is the hospital is because she has been living in the street with her boyfriend "who is a drug dealer and a drug addict"and she has been abusing drugs every day, neglecting herself, isolated and withdrawn from her life, her friends, her family. She says that she has been trying to put her in a rehabilitation program, the family tried move her to a [facility] that they are paying from the pocket, but so far they have been unsuccessful. The mother clarifies that the patient doesn't have a prominent psychiatric history, other than depresses symptoms during her awry after the , but she did not seek psychiatric care or treatment. Her mother also says that yesterday the patient was making suicidal statement "but, most probably she was just manipulating to leave the hospital, I don't think she wants to kill herself, but at the same time I understand what is going to anyway if she continues his life". Review of Systems Constitutional: COMPLAINS OF: Fatigue, Weight loss, Night Sweats, DENIES: Diaphoretic episodes, Fever, Weight gain, Chills, Dizziness, Change in appetite Endocrine: DENIES: Abnorml menstrual pattern, Heat/cold intolerance, Polydipsia , Polyuria, Polyphagia Ears, nose, mouth, throat: DENIES: Tinnitus, Hearing loss, Vertigo, Nasal discharge, Oral lesions, Throat pain, Hoarseness, Ear Pain, Running Nose, Epistaxis, Sinus Pain, Toothache, Odynophagia Respiratory: COMPLAINS OF: Shortness of breath, DENIES: Apneas, Cough, Snoring , Wheezing, Hemoptysis, Sputum production Cardiovascular: COMPLAINS OF: Chest pain, DENIES: Palpitations, Syncope, Dyspnea on Exertion, PND, Lower Extremity Edema, Orthopnea, Claudication Gastrointestinal: DENIES: Abdominal pain, Black stools, Bloody stools, Constipation, Diarrhea, Nausea, Vomiting, Difficulty Swallowing, Anorexia Musculoskeletal: DENIES: Joint pain, Muscle aches, Stiffness, Joint Swelling, Back pain, Neck pain Hematologic/lymphatic: DENIES: Bruising, Lymphadenopathy Immunologic/allergic: DENIES: Eczema, Urticaria Neurologic: DENIES: Abnormal gait, Headache, Localized weakness, Paresthesias, Seizures, Speech Problems, Tremor, Poor Balance Psychiatric: COMPLAINS OF: Confusion, DENIES: Anxiety, Mood changes, Depression, Hallucinations, Agitation, Suicidal Ideation, Homicidal Ideation, Delusions Past Family Social History Coded Allergies: Amoxicillin (Unverified Allergy, Unknown, rashes, 07/24/15) Active Scripts Sennosides-Docusate Sodium (Senna Plus 8.6-50 mg)1 Tab Tab2 Tab PO Q12H PRN ( CONSTIPATION) #30 TAB Prov:Dolores Trevizo MD R1 07/15/16 Oxycodone-Acetaminophen 10-325 mg Tab1 Tab PO Q6H PRN (PAIN) #30 TAB Ref 0 Prov:Dolores Trevizo MD R1 07/15/16 Ibuprofen 600 Mg [id number] Mg PO Q6H PRN ( CRAMPING) #30 TAB Prov:Dolores Trevizo MD R1 07/15/16 Epinephrine Hcl (Epipen)0.3 Mg Inj0.3 Mg IM DIRECTED PRN (ALLERGIC REACTION) #1 INJ GIVE IM IN THIGH, MAY REPEAT IF NEEDED Prov:Nicola Blas MD 03/10/16 Current Medications Medications (Trade) Dose Ordered Sig/Key Route Start Time Stop Time Status Last Admin (Ativan Inj) 1 mg Q3H PRN IV PUSH 08/17/16 19:00 08/20/16 17:40 (Zofran Inj) 4 mg Q6H PRN IVP 08/17/16 19:00 (Dulcolax Supp) 10 mg DAILY PRN MT 08/17/16 19:00 (Tylenol) 650 mg Q6H PRN PO 08/17/16 19:00 (Roxicodone) 10 mg Q4H PRN PO 08/17/16 19:00 Oxycodone HCl 5 mg 5 mg Q4H PRN PO 08/17/16 19:00 (Levophed-Dextrose Drip) 250 ml @ 0 mls/hr TITRATE IV 08/17/16 20:15 08/18/16 04:17 Terbutaline Sulfate 1 mg 1 mg UNSCH PRN SQ 08/17/16 20:15 (NS 1000 ml Inj) 1,000 ml @ 185 mls/hr Q5H25M IV 08/17/16 20:12 08/21/16 03:14 (NS Flush) 2 ml UNSCH PRN IV FLUSH 08/17/16 20:15 (NS Flush) 2 ml BID IV FLUSH 08/17/16 21:00 08/21/16 08:49 (SoluCORTEF INJ) 50 mg Q6H IV 08/17/16 20:15 08/21/16 08:49 (Pepcid Inj) 20 mg Q12HR IV PUSH 08/17/16 21:00 08/21/16 08:49 (Lovenox Inj) 40 mg Q24H SQ 08/17/16 21:00 08/20/16 21:30 Miscellaneous Information 1 [id number] XX 08/17/16 20:15 (Chlorhexidine 2% Cloth) 3 pack Taper DAILY@04 TOP 08/18/16 04:00 08/14/17 03:59 08/21/16 03:14 Chlorhexidine Gluconate 3 pack 3 pack UNSCH PRN TOP 08/17/16 20:15 Potassium Chloride 100 ml @ 50 mls/hr Q2H PRN IV 08/18/16 20:15 Potassium Chloride 100 ml @ 50 mls/hr Q2H PRN IV 08/18/16 20:15 Potassium Chloride 100 ml @ 25 mls/hr UNSCH PRN IV 08/18/16 20:15 08/18/16 21:02 Potassium Chloride 100 ml @ 50 mls/hr Q2H PRN IV 08/18/16 20:15 (Magnesium Sulfate Inj/NS Inj) 100 ml @ 50 mls/hr UNSCH PRN IV 08/18/16 20:15 Magnesium Oxide 800 mg 800 mg UNSCH PRN PO 08/18/16 20:15 (Magnesium Sulfate Inj/NS Inj) 100 ml @ 50 mls/hr UNSCH PRN IV 08/18/16 20:15 Potassium Phosphate 2000 mg 2,000 mg Q4H PRN PO 08/18/16 20:15 (Sodium Phosphate Inj/NS 250 ml Inj) 250 ml @ 42 mls/hr UNSCH PRN IV 08/18/16 20:15 Potassium Phosphate 2000 mg 2,000 mg UNSCH PRN PO/TUBE 08/18/16 20:15 Potassium Phosphate 30 mmol/ Sodium Chloride 260 ml @ 42 mls/hr UNSCH PRN IV 08/18/16 20:15 (Ancef 2 Gm Premix) 50 ml @ 150 mls/hr Q8H IV 08/19/16 18:00 08/21/16 08:49 (Dolophine) 10 mg Q8H PO 08/20/16 11:00 08/21/16 03:14 Family History Her mother denies Social History Patient was born and raised in [place], she has been living in [place] for a while 1 year, she is unemployed, she lives with her boyfriend in the streets, she is unemployed, her highest level of education is high school Physical Exam Patient is fatigued, confused, no stiffness, tremors or EPS symptoms on physical examination Vital Signs Vital Signs Date Time Temp Pulse Resp B/P Pulse Ox O2 Delivery O2 Flow Rate FiO2 08/21/16 10:00 87 08/21/16 08:00 98.7 27 180/93 99 08/20/16 21:22 21 08/17/16 22:39 Nasal Cannula 3 I/O 08/20/16 08/20/16 08/21/16 08:00 16:00 00:00 Intake Total 1045 ml 1978 ml 1570 ml Output Total 550 ml 700 ml 500 ml Balance 495 ml 1278 ml 1070 ml Lab Results Labs results reviewed Mental Status Examination Appearance young woman, age appearing, [facility], multiple visible IV mendoza in her arms, partially cooperative, very fatigued and sedated Speech: Hesitant, Slow Orientation: Person, Place (partially), Time (disoriented) Memory: Impaired (describe) Thought Process: Loose Association, Thought Blocking Thought Content: Unremarkable Hallucination Type: None Suicidal Ideation: No Previous Suicide Attempts: No Homicidal Ideation: No Previous Homicide Attempts: No Insight: Poor Affect: Irritable, Oppositional Mood: Other ("sad") Motor Activity: Normal gait (hypoactive, ) Assessment & Plan Problem List: (1) Opioid abuse Assessment & Plan: Agree with methadone 10 tid to avoid withdrawal symptoms and cravings and to keep the patient calm her in the ICU and adherent to treatment. However, would prefer to start with methadone 20 mg in the morning and increased to 30 mg, just if strictly necessary. ICD Code: F11.10 (2) Cocaine abuse ICD Code: F14.10 (3) Substance induced mood disorder Assessment & Plan: The patient is a 21-year-old woman, domicile with boyfriend, unemployed, with psychiatric history of depression, cocaine use disorder, IV opiates use disorder, reportedly in Suboxone, no previous psychiatric hospitalizations, no previous suicidal attempts, a recent C -section 2 months ago, no significant medical history who was brought to the hospital critically ill, hypotensive, with fever, SOB, after mental status, she was diagnosed with tricuspid endocarditis due to a septic emboli. Patient was positive for cocaine, admitted that she has been using IV opiates. Patient was admitted in the ICU, consulted to psychiatry due to suicidal statement yesterday to her family. The patient is not very cooperative with the evaluation due to fatigue, sedation and altered mental status, but she does endorse depression related with current medical condition, denies suicidal and homicidal ideation, denies visual and auditory hallucinations. No agitation or aggressive behavior observed at this moment, but patient is just partially oriented in person and place, disoriented in time, unable to provide meaningful information for the psychiatric assessment. She is unable to verbalize the reason of her hospitalization, to elaborate about her current medical condition and consequences of refusing treatment on leaving the hospital AMA, as she has been requesting before, as per mother. So, at this moment, the patient does not have decision-making capacity to leave AMA or refuse treatment. Patient does not meet criteria for psychiatric admission at this moment. After her treatment of endocarditis patient would benefit of a comprehensive inpatient rehabilitation program. Agree with methadone 20 mg 3 times a day, however would prefer to start with Methadone 20 am, and increase as necessary. Order Haldol 5 mg IM every 8 hours when necessary aggressive behavior and agitation. No additional psychotropics recommended at this moment, we will follow-up. Consul appreciated. ICD Code: F19.94 Assessment & Plan Estimated LOS: Kuldeep Carroll MD Aug 21, 2016 11:21
--- NOTE | 2016-08-21 11:23 | HHI.PR ---
Subjective Remarks Follow-up for endocarditis, IV drug use. Patient is currently doing well. Denies any chest pain, shortness of breath, fever or chills. She feels as if she was stuck in the present. She has been severely depressed. Yesterday she expressed desire to kill herself. Mother at bedside and requests help with SNAP application. Patient currently denies any suicidal ideation. Objective Vitals Vital Signs Date Time Temp Pulse Resp B/P Pulse Ox O2 Delivery O2 Flow Rate FiO2 08/21/16 10:00 87 08/21/16 08:00 66 08/21/16 08:00 98.7 66 27 180/93 99 08/21/16 04:00 98.9 68 29 160/86 98 08/21/16 00:00 98.7 68 29 161/89 98 08/20/16 21:22 98 21 08/20/16 20:00 98.8 76 36 153/77 99 08/20/16 18:00 71 08/20/16 16:00 85 08/20/16 16:00 98.9 85 38 160/72 99 08/20/16 14:00 92 08/20/16 12:00 103 08/20/16 12:00 98.9 103 44 132/67 98 I/O 08/20/16 08/20/16 08/20/16 08/21/16 08/21/16 08/21/16 07:00 15:00 23:00 07:00 15:00 23:00 Intake Total 1045 ml 1978 ml 1570 ml 1400 ml Output Total 550 ml 700 ml 500 ml 500 ml Balance 495 ml 1278 ml 1070 ml 900 ml Intake Oral 100 ml 180 ml 240 ml 240 ml IV Total 945 ml 1798 ml 1330 ml 1160 ml Output Urine Total 550 ml 700 ml 500 ml 500 ml # Bowel Movements 0 0 0 Result Diagram: 08/20/16 0430 08/20/16 0430 Imaging Last Impressions Chest X-Ray 08/20/16 0600 Signed Impressions: Service Date/Time: Saturday, August 20, 2016 02:25 - CONCLUSION: Bilateral airspace disease and nodules. Yemi Thompson MD Upper Extremity Ultrasound 08/19/16 0000 Signed Impressions: Service Date/Time: Friday, August 19, 2016 10:38 - CONCLUSION: 1. Occlusive thrombus within the mid and distal right cephalic vein. 2. Complex hypoechoic area adjacent to the brachial vessels within the antecubital fossa measuring 2.6 x 1.0 x 1.2 cm which is nonspecific. Jose Triana MD Lumbar Spine MRI 08/19/16 0000 Signed Impressions: Service Date/Time: Friday, August 19, 2016 12:23 - CONCLUSION: No acute disease. Jose Triana MD Brain MRI 08/19/16 0000 Signed Impressions: Service Date/Time: Friday, August 19, 2016 20:48 - CONCLUSION: The postcontrast portion of the exam is very limited since very little contrast is identified and there are couple of nonspecific punctate white manner bright signal on FLAIR sequence. Timoteo Khalil MD Liver Ultrasound 08/18/16 0000 Signed Impressions: Service Date/Time: Thursday, August 18, 2016 16:18 - CONCLUSION: 1. Small right pleural effusion. 2. The gallbladder is decompressed with minimal intraluminal sludge. No stones. 3. Splenomegaly. Sergei Maldonado MD Chest CT 08/18/16 0000 Signed Impressions: Service Date/Time: Thursday, August 18, 2016 11:41 - CONCLUSION: Disseminated small bilateral predominantly peripheral nodular infiltrates. Small effusions and mild associated atelectasis. Differential considerations would include atypical infectious etiologies and septic emboli, rarely collagen vascular disease, Troy's and pneumoconiosis. Rickey Babb MD Objective Remarks GENERAL: Alert, NAD. SKIN: Warm and dry. HEAD: Normocephalic. EYES: No scleral icterus. No injection or drainage. NECK: Supple, trachea midline. No JVD or lymphadenopathy. CARDIOVASCULAR: Regular rhythm, tachycardic without gallops, or rubs. Systolic murmur present, best heard at the apex. RESPIRATORY: Breath sounds equal bilaterally. No accessory muscle use. GASTROINTESTINAL: Abdomen soft, non-tender, nondistended. MUSCULOSKELETAL: No cyanosis, or edema. BACK: Nontender without obvious deformity. No CVA tenderness. Procedures IJ central line 08/17/2016. A/P Problem List: (1) Sepsis ICD Code: A41.9 Status: Acute (2) Hypotension ICD Code: I95.9 Status: Acute (3) PNA (pneumonia) ICD Code: J18.9 Status: Acute (4) UTI (urinary tract infection) ICD Code: N39.0 Status: Acute (5) TEMO (acute kidney injury) ICD Code: N17.9 Status: Acute (6) IVDU (intravenous drug user) ICD Code: F19.90 Status: Acute (7) Cocaine abuse ICD Code: F14.10 Status: Chronic (8) Thrombocytopenia ICD Code: D69.6 Status: Acute Assessment and Plan Ms. Mcintosh is a 21-year-old female with a history of polysubstance, IV drug use who was admitted to the hospital due to generalized weakness and fever for approximately one week prior to this admission. Patient denied nausea vomiting cough or shortness of breath. Patient used IV drugs 6 days prior to this admission. Her urine drug screen was positive for cocaine. Blood culture grew MSSA and echocardiogram shows tricuspid regurgitation with tricuspid valve vegetation. Infectious disease was consulted and started patient on cefazolin. CT chest showed disseminated small bilateral peripheral nodular infiltrates. MRI brain shows couple of nonspecific punctate white matter bright signal on FLAIR sequence. - Septic shock - resolved. 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 - Initially on Vancomycin. However, based on cx results, currently on Cefazolin - probably will require long abx course. - ID (Dr. Rodgers) following. - Cardiology evaluated patient - no immediate plan to do SHANNON at this point. - Hypertension - Likely from agitation. - Will start patient on Amlodipine 5mg Qday. - Acute kidney injury - resolved. 1.82 on admission. Currently below 1.0. - Hypokalemia - resolved. - Hypocalcemia - resolved. Corrected Calcium 8.9. - Polysubstance abuse - IVDU - Discussed with patient and grandmother. - Grandmother would like for her to go to [facility] for drug rehabs. - Depression - Suicidal ideations - Patient is severely depressed. Appreciate Psychiatry input. I discussed with psychiatry attending today 08/21/2016. - Patient currently does not have capacity to make decision. Thus, patient cannot be allowed to leave hospital against medical advice. - Possible opioid withdrawal - Continue Methadone 10mg TID with a goal to taper quickly. Full code. Lovenox. Famotidine. Problem Qualifiers (1) Hypotension: Qualified Code: I95.9 - Hypotension, unspecified hypotension type Ahmed,Shahabuddin DO Aug 21, 2016 11:23 am
[2016-08-21] MEDS: amLODIPine BESYLATE 5 MG TAB PO SCH (11:35)
--- NOTE | 2016-08-21 19:23 | PD.CARD.PN ---
Subjective Subjective Remarks No CP or SOB, somnolent Objective Medications Current Medications Medications (Trade) Dose Ordered Sig/Key Route Start Time Stop Time Status Last Admin (Ativan Inj) 1 mg Q3H PRN IV PUSH 08/17/16 19:00 08/20/16 17:40 (Zofran Inj) 4 mg Q6H PRN IVP 08/17/16 19:00 (Dulcolax Supp) 10 mg DAILY PRN TX 08/17/16 19:00 (Tylenol) 650 mg Q6H PRN PO 08/17/16 19:00 (Roxicodone) 10 mg Q4H PRN PO 08/17/16 19:00 Oxycodone HCl 5 mg 5 mg Q4H PRN PO 08/17/16 19:00 (Levophed-Dextrose Drip) 250 ml @ 0 mls/hr TITRATE IV 08/17/16 20:15 08/18/16 04:17 Terbutaline Sulfate 1 mg 1 mg UNSCH PRN SQ 08/17/16 20:15 (NS 1000 ml Inj) 1,000 ml @ 185 mls/hr Q5H25M IV 08/17/16 20:12 08/21/16 17:53 (NS Flush) 2 ml UNSCH PRN IV FLUSH 08/17/16 20:15 (NS Flush) 2 ml BID IV FLUSH 08/17/16 21:00 08/21/16 08:49 (SoluCORTEF INJ) 50 mg Q6H IV 08/17/16 20:15 08/21/16 14:31 (Pepcid Inj) 20 mg Q12HR IV PUSH 08/17/16 21:00 08/21/16 08:49 (Lovenox Inj) 40 mg Q24H SQ 08/17/16 21:00 08/20/16 21:30 Miscellaneous Information 1 Q361D XX 08/17/16 20:15 (Chlorhexidine 2% Cloth) 3 pack Taper DAILY@04 TOP 08/18/16 04:00 08/14/17 03:59 08/21/16 03:14 Chlorhexidine Gluconate 3 pack 3 pack UNSCH PRN TOP 08/17/16 20:15 Potassium Chloride 100 ml @ 50 mls/hr Q2H PRN IV 08/18/16 20:15 Potassium Chloride 100 ml @ 50 mls/hr Q2H PRN IV 08/18/16 20:15 Potassium Chloride 100 ml @ 25 mls/hr UNSCH PRN IV 08/18/16 20:15 08/18/16 21:02 Potassium Chloride 100 ml @ 50 mls/hr Q2H PRN IV 08/18/16 20:15 (Magnesium Sulfate Inj/NS Inj) 100 ml @ 50 mls/hr UNSCH PRN IV 08/18/16 20:15 Magnesium Oxide 800 mg 800 mg UNSCH PRN PO 08/18/16 20:15 (Magnesium Sulfate Inj/NS Inj) 100 ml @ 50 mls/hr UNSCH PRN IV 08/18/16 20:15 Potassium Phosphate 2000 mg 2,000 mg Q4H PRN PO 08/18/16 20:15 (Sodium Phosphate Inj/NS 250 ml Inj) 250 ml @ 42 mls/hr UNSCH PRN IV 08/18/16 20:15 Potassium Phosphate 2000 mg 2,000 mg UNSCH PRN PO/TUBE 08/18/16 20:15 Potassium Phosphate 30 mmol/ Sodium Chloride 260 ml @ 42 mls/hr UNSCH PRN IV 08/18/16 20:15 (Ancef 2 Gm Premix) 50 ml @ 150 mls/hr Q8H IV 08/19/16 18:00 08/21/16 17:53 (Dolophine) 10 mg Q8H PO 08/20/16 11:00 08/21/16 17:54 (Haldol Inj) 5 mg Q8HR PRN IM 08/21/16 11:00 (Norvasc) 5 mg DAILY PO 08/21/16 11:30 08/21/16 11:35 Vital Signs / I&O Vital Signs Date Time Temp Pulse Resp B/P Pulse Ox O2 Delivery O2 Flow Rate FiO2 08/21/16 18:54 22 08/21/16 18:00 77 08/21/16 16:00 70 08/21/16 16:00 98.5 70 22 148/68 99 08/21/16 14:00 73 08/21/16 12:00 98.8 71 23 180/81 99 08/21/16 12:00 71 08/21/16 11:20 97 21 08/21/16 10:00 87 08/21/16 08:00 66 08/21/16 08:00 98.7 66 27 180/93 99 08/21/16 04:00 98.9 68 29 160/86 98 08/21/16 00:00 98.7 68 29 161/89 98 08/20/16 21:22 98 21 08/20/16 20:00 98.8 76 36 153/77 99 I/O 08/20/16 08/20/16 08/20/16 08/21/16 08/21/16 08/21/16 07:00 15:00 23:00 07:00 15:00 23:00 Intake Total 1045 ml 1978 ml 1570 ml 1400 ml 2263 ml Output Total 550 ml 700 ml 500 ml 500 ml 450 ml Balance 495 ml 1278 ml 1070 ml 900 ml 1813 ml Intake Oral 100 ml 180 ml 240 ml 240 ml 400 ml IV Total 945 ml 1798 ml 1330 ml 1160 ml 1863 ml Output Urine Total 550 ml 700 ml 500 ml 500 ml 450 ml # Bowel Movements 0 0 0 0 Physical Exam GENERAL: In NAD SKIN: Warm and dry. HEAD: Normocephalic. EYES: No scleral icterus. No injection or drainage. NECK: Supple, trachea midline. No JVD or lymphadenopathy. CARDIOVASCULAR: Regular rate and rhythm without murmurs, gallops, or rubs. RESPIRATORY: Breath sounds equal bilaterally. No accessory muscle use. GASTROINTESTINAL: Abdomen soft, non-tender, nondistended. MUSCULOSKELETAL: No cyanosis, or edema. Somnolent. Laboratory Laboratory Tests Test 08/17/16 08/17/16 08/17/16 08/18/16 17:05 17:50 20:37 00:38 Toxic Granulation 1+ Dohle Bodies PRESENT Magnesium Level 2.7 MG/DL Urine Color DARK-YELLOW Urine Turbidity CLOUDY Urine pH 5.5 Urine Specific [place] 1.020 Urine Protein 30 mg/dL Urine Glucose (UA) NEG mg/dL Urine Ketones NEG mg/dL Urine Occult Blood NEG Urine Nitrite NEG Urine Bilirubin MOD Urine Urobilinogen GREATER THAN 12.0 MG/DL Urine Leukocyte Esterase NEG Urine RBC 3 /hpf Urine WBC 12 /hpf Urine WBC Clumps FEW Urine Squamous Epithelial 1 /hpf Cells Urine Amorphous Sediment RARE Urine Bacteria OCC /hpf Urine Mucus FEW /lpf Microscopic Urinalysis Comment CATH-CULTURE IND Urine Opiates Screen NEG Urine Barbiturates Screen NEG Urine Amphetamines Screen NEG Urine Benzodiazepines Screen NEG Urine Cocaine Screen POS Urine Cannabinoids Screen NEG Lactic Acid Level 0.8 mmol/L Nasal Screen MRSA (PCR) NEGATIVE Test 08/18/16 08/18/16 08/20/16 04:15 21:24 04:30 Metamyelocytes 2 % Toxic Vacuolation PRESENT Helmet Cells OCC Acanthocytes OCC Phosphorus Level 1.6 MG/DL White Blood Count 13.8 TH/MM3 Red Blood Count 3.08 MIL/MM3 Hemoglobin 7.7 GM/DL Hematocrit 22.8 % Mean Corpuscular Volume 74.1 FL Mean Corpuscular Hemoglobin 24.9 PG Mean Corpuscular Hemoglobin 33.6 % Concent Red Cell Distribution Width 16.8 % Platelet Count 78 TH/MM3 Mean Platelet Volume 10.1 FL Neutrophils (%) (Auto) 80.2 % Lymphocytes (%) (Auto) 9.4 % Monocytes (%) (Auto) 9.9 % Eosinophils (%) (Auto) 0.2 % Basophils (%) (Auto) 0.3 % Neutrophils # (Auto) 11.1 TH/MM3 Lymphocytes # (Auto) 1.3 TH/MM3 Monocytes # (Auto) 1.4 TH/MM3 Eosinophils # (Auto) 0.0 TH/MM3 Basophils # (Auto) 0.0 TH/MM3 CBC Comment AUTO DIFF Differential Total Cells 100 Counted Neutrophils % (Manual) 76 % Band Neutrophils % 11 % Lymphocytes % 4 % Monocytes % 7 % Neutrophils # (Manual) 12.3 TH/MM3 Myelocytes 2 % Differential Comment FINAL DIFF MANUAL Platelet Estimate LOW Platelet Morphology Comment NORMAL Ovalocytes 1+ Keratocytes OCC Sodium Level 146 MEQ/L Potassium Level 3.7 MEQ/L Chloride Level 119 MEQ/L Carbon Dioxide Level 18.9 MEQ/L Anion Gap 8 MEQ/L Blood Urea Nitrogen 31 MG/DL Creatinine 0.56 MG/DL Estimat Glomerular Filtration 134 ML/MIN Rate Random Glucose 81 MG/DL Calcium Level 7.3 MG/DL Protein Corrected Calcium 8.9 MG/DL Total Bilirubin 0.7 MG/DL Aspartate Amino Transf 10 U/L (AST/SGOT) Alanine Aminotransferase 12 U/L (ALT/SGPT) Alkaline Phosphatase 66 U/L Total Protein 4.3 GM/DL Albumin 1.4 GM/DL Imaging Last Impressions Chest X-Ray 08/20/16 0600 Signed Impressions: Service Date/Time: Saturday, August 20, 2016 02:25 - CONCLUSION: Bilateral airspace disease and nodules. Yemi Thompson MD Upper Extremity Ultrasound 08/19/16 0000 Signed Impressions: Service Date/Time: Friday, August 19, 2016 10:38 - CONCLUSION: 1. Occlusive thrombus within the mid and distal right cephalic vein. 2. Complex hypoechoic area adjacent to the brachial vessels within the antecubital fossa measuring 2.6 x 1.0 x 1.2 cm which is nonspecific. Jose Triana MD Lumbar Spine MRI 08/19/16 0000 Signed Impressions: Service Date/Time: Friday, August 19, 2016 12:23 - CONCLUSION: No acute disease. Jose Triana MD Brain MRI 08/19/16 0000 Signed Impressions: Service Date/Time: Friday, August 19, 2016 20:48 - CONCLUSION: The postcontrast portion of the exam is very limited since very little contrast is identified and there are couple of nonspecific punctate white manner bright signal on FLAIR sequence. Timoteo Khalil MD Liver Ultrasound 08/18/16 0000 Signed Impressions: Service Date/Time: Thursday, August 18, 2016 16:18 - CONCLUSION: 1. Small right pleural effusion. 2. The gallbladder is decompressed with minimal intraluminal sludge. No stones. 3. Splenomegaly. Sergei Maldonado MD Chest CT 08/18/16 0000 Signed Impressions: Service Date/Time: Thursday, August 18, 2016 11:41 - CONCLUSION: Disseminated small bilateral predominantly peripheral nodular infiltrates. Small effusions and mild associated atelectasis. Differential considerations would include atypical infectious etiologies and septic emboli, rarely collagen vascular disease, Troy's and pneumoconiosis. Rickey Babb MD Assessment and Plan Problem List: (1) Endocarditis of tricuspid valve (2) Septic pulmonary embolism (3) IVDU (intravenous drug user) (4) Sepsis (5) TEMO (acute kidney injury) Assessment and Plan Continue antibiotics as per Dr. Rodgers. SHANNON of no additional value at this time. Continue monitoring. Plan d/w pt and grandmother. Avery Driscoll MD Aug 21, 2016 19:23
[2016-08-21] MEDS: ENOXAPARIN SODIUM 40 MG/0.4 ML SYRINGE SQ SCH (21:04)
[2016-08-22] VITALS (12 sets, daily range): BP systolic 103–142; BP diastolic 58–90; PULSE 63–92; RESP 17–22; TEMP 98–98.6; O2SAT 97–100
--- NOTE | 2016-08-22 00:11 | HHI.PR ---
Subjective Remarks Patient seen around 8:45AM. Follow up for MSSA bacteremia, tricuspid valve endocarditis, septic pulmonary emboli. Ms. Mcintosh is currently doing well. However she remains extremely depressed. She often cries when she talks about her relationship with her mom. She says her mom and grandma fought a lot and often times she stayed in the hotel for 2 weeks at a time. Mother is at bedside. Mother also discussed with me separately and wants patient to go to a drug rehabilitation program after medical treatment is completed. Patient denies any chest pain, shortness of breath, fever or chills. Objective Vitals Vital Signs Date Time Temp Pulse Resp B/P Pulse Ox O2 Delivery O2 Flow Rate FiO2 08/22/16 00:00 74 08/21/16 22:00 72 08/21/16 20:00 68 08/21/16 20:00 98.3 67 21 130/87 97 08/21/16 19:50 98 21 08/21/16 18:54 22 08/21/16 18:00 77 08/21/16 16:00 70 08/21/16 16:00 98.5 70 22 148/68 99 08/21/16 14:00 73 08/21/16 12:00 98.8 71 23 180/81 99 08/21/16 12:00 71 08/21/16 11:20 97 21 08/21/16 10:00 87 08/21/16 08:00 66 08/21/16 08:00 98.7 66 27 180/93 99 08/21/16 04:00 98.9 68 29 160/86 98 I/O 08/21/16 08/21/16 08/21/16 08/22/16 08/22/16 08/22/16 07:00 15:00 23:00 07:00 15:00 23:00 Intake Total 1400 ml 2263 ml 985 ml Output Total 500 ml 450 ml 250 ml Balance 900 ml 1813 ml 735 ml Intake Oral 240 ml 400 ml IV Total 1160 ml 1863 ml 985 ml Output Urine Total 500 ml 450 ml 250 ml # Bowel Movements 0 0 Result Diagram: 08/20/16 0430 08/20/16 0430 Imaging Last Impressions Chest X-Ray 08/20/16 0600 Signed Impressions: Service Date/Time: Saturday, August 20, 2016 02:25 - CONCLUSION: Bilateral airspace disease and nodules. Yemi Thompson MD Upper Extremity Ultrasound 08/19/16 0000 Signed Impressions: Service Date/Time: Friday, August 19, 2016 10:38 - CONCLUSION: 1. Occlusive thrombus within the mid and distal right cephalic vein. 2. Complex hypoechoic area adjacent to the brachial vessels within the antecubital fossa measuring 2.6 x 1.0 x 1.2 cm which is nonspecific. Jose Triana MD Lumbar Spine MRI 08/19/16 0000 Signed Impressions: Service Date/Time: Friday, August 19, 2016 12:23 - CONCLUSION: No acute disease. Joes Triana MD Brain MRI 08/19/16 0000 Signed Impressions: Service Date/Time: Friday, August 19, 2016 20:48 - CONCLUSION: The postcontrast portion of the exam is very limited since very little contrast is identified and there are couple of nonspecific punctate white manner bright signal on FLAIR sequence. Timoteo Khalil MD Liver Ultrasound 08/18/16 0000 Signed Impressions: Service Date/Time: Thursday, August 18, 2016 16:18 - CONCLUSION: 1. Small right pleural effusion. 2. The gallbladder is decompressed with minimal intraluminal sludge. No stones. 3. Splenomegaly. Sergei Maldonado MD Chest CT 08/18/16 0000 Signed Impressions: Service Date/Time: Thursday, August 18, 2016 11:41 - CONCLUSION: Disseminated small bilateral predominantly peripheral nodular infiltrates. Small effusions and mild associated atelectasis. Differential considerations would include atypical infectious etiologies and septic emboli, rarely collagen vascular disease, Troy's and pneumoconiosis. Rickey Babb MD Objective Remarks GENERAL: Alert, NAD. SKIN: Warm and dry. HEAD: Normocephalic. EYES: No scleral icterus. No injection or drainage. NECK: Supple, trachea midline. No JVD or lymphadenopathy. CARDIOVASCULAR: Regular rhythm, tachycardic without gallops, or rubs. Systolic murmur present, best heard at the apex. RESPIRATORY: Breath sounds equal bilaterally. No accessory muscle use. GASTROINTESTINAL: Abdomen soft, non-tender, nondistended. MUSCULOSKELETAL: No cyanosis, or edema. There is a large bruise on the right upper extremity near the elbow. BACK: Nontender without obvious deformity. No CVA tenderness. Procedures IJ central line 08/17/2016. 08/18/2016 Echocardiogram - Left ventricle: The cavity size was normal. Wall thickness was normal. Systolic function was normal. The estimated ejection fraction was in the range of 55% to 60%. Wall motion was normal; there were no regional wall motion abnormalities. - Aortic valve: Valve area: 2.08cm^2 (Vmax). - Tricuspid valve: There was a vegetation. Moderate-severe regurgitation. - Pulmonary arteries: PA peak pressure: 42mm Hg (S). A/P Problem List: (1) Sepsis ICD Code: A41.9 Status: Acute (2) Hypotension ICD Code: I95.9 Status: Acute (3) PNA (pneumonia) ICD Code: J18.9 Status: Acute (4) UTI (urinary tract infection) ICD Code: N39.0 Status: Acute (5) TEMO (acute kidney injury) ICD Code: N17.9 Status: Acute (6) IVDU (intravenous drug user) ICD Code: F19.90 Status: Acute (7) Cocaine abuse ICD Code: F14.10 Status: Chronic (8) Thrombocytopenia ICD Code: D69.6 Status: Acute Assessment and Plan Ms. Mcintosh is a 21-year-old female with a history of polysubstance, IV drug use who was admitted to the hospital due to generalized weakness and fever for approximately one week prior to this admission. Patient denied nausea vomiting cough or shortness of breath. Patient used IV drugs 6 days prior to this admission. Her urine drug screen was positive for cocaine. Blood culture grew MSSA and echocardiogram shows tricuspid regurgitation with tricuspid valve vegetation. Infectious disease was consulted and started patient on cefazolin. CT chest showed disseminated small bilateral peripheral nodular infiltrates. MRI brain shows couple of nonspecific punctate white matter bright signal on FLAIR sequence. - Septic shock - resolved. 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 Blood cultures are negative from 08/20/2016. - Pulmonary septic emboli - Patient required aggressive IV fluid resuscitation, Levophed, stress dosed steroids. - Initially on Vancomycin. However, based on cx results, currently on Cefazolin - probably will require long abx course. - ID (Dr. Rodgers) following. - Cardiology evaluated patient. Discussed with Dr. Driscoll on 08/21/2016. May consider SHANNON to evaluate left sided heart valves. - However, management may not change and thus patient may not need to undergo SHANNON. - Hypertension - Likely from agitation. - Continue patient on Amlodipine 5mg Qday. - Will discontinue Hydrocortisone IV. No tapering needed since she has not been on steroid for that long. - Acute kidney injury - resolved. 1.82 on admission. Currently below 1.0. - Hypokalemia - resolved. - Hypocalcemia - resolved. Corrected Calcium 8.9. - Polysubstance abuse - IVDU - Discussed with patient and grandmother on 08/20/2016. - Grandmother would like for her to go to [facility] for drug rehabs. - Depression - Suicidal ideations - Patient is severely depressed. Appreciate Psychiatry input. I discussed with psychiatry attending on 08/21/2016. - Based on my judgement, patient currently does not have the full insight of her condition and implications of not getting proper treatments. - Also, patient has expressed suicidal ideations. Based on this, patient does not have capacity to make decisions and thus patient cannot leave hospital AMA. - Will evaluate patient's capacity daily. - Patient will benefit from comprehensive drug rehab efforts after patient received appropriate medical care during this admission. - I discussed with patient and patient's mother separately at length - spending over 30 minutes. - Possible opioid withdrawal - Continue Methadone 10mg TID with a goal to taper quickly. Full code. Lovenox. Famotidine. Problem Qualifiers (1) Hypotension: Qualified Code: I95.9 - Hypotension, unspecified hypotension type Samanta Phoenix DO Aug 22, 2016 12:11 am
[2016-08-22] MEDS: METHADONE HCL 10 MG TAB PO SCH ×3 (02:00→18:33)
[2016-08-22] MEDS: HYDROCORTISONE SOD SUCCINATE 100 MG VIAL IV SCH ×2 (02:00→07:50)
[2016-08-22] MEDS: ceFAZolin 2 GM PREMIX 50 ML IV SCH ×3 (02:00→18:33)
[2016-08-22] MEDS: SODIUM CHLOR 0.9% 1000 ML INJ 1,000 ML IV SCH ×4 (02:01→20:16)
[2016-08-22] MEDS: CHLORHEXIDINE GLUCONATE 2 % 1 PACK (2 CLOTHS) TOP SCH (02:01)
[2016-08-22] MEDS: SODIUM CHLORIDE 0.9% FLUSH 5 ML FLUSH IV FLUSH SCH ×2 (07:51→20:15)
[2016-08-22] MEDS: FAMOTIDINE 20 MG/2 ML VIAL IV PUSH SCH ×2 (07:51→20:15)
[2016-08-22] MEDS: amLODIPine BESYLATE 5 MG TAB PO SCH (07:52)
--- NOTE | 2016-08-22 14:16 | PD.CARD.PN ---
Subjective Subjective Remarks More awake, no CP or SOB Objective Medications Current Medications Medications (Trade) Dose Ordered Sig/Key Route Start Time Stop Time Status Last Admin (Ativan Inj) 1 mg Q3H PRN IV PUSH 08/17/16 19:00 08/20/16 17:40 (Zofran Inj) 4 mg Q6H PRN IVP 08/17/16 19:00 (Dulcolax Supp) 10 mg DAILY PRN [place] 08/17/16 19:00 (Tylenol) 650 mg Q6H PRN PO 08/17/16 19:00 (Roxicodone) 10 mg Q4H PRN PO 08/17/16 19:00 Oxycodone HCl 5 mg 5 mg Q4H PRN PO 08/17/16 19:00 (Levophed-Dextrose Drip) 250 ml @ 0 mls/hr TITRATE IV 08/17/16 20:15 08/18/16 04:17 Terbutaline Sulfate 1 mg 1 mg UNSCH PRN SQ 08/17/16 20:15 (NS 1000 ml Inj) 1,000 ml @ 185 mls/hr Q5H25M IV 08/17/16 20:12 08/22/16 07:52 (NS Flush) 2 ml UNSCH PRN IV FLUSH 08/17/16 20:15 (NS Flush) 2 ml BID IV FLUSH 08/17/16 21:00 08/22/16 07:51 (Pepcid Inj) 20 mg Q12HR IV PUSH 08/17/16 21:00 08/22/16 07:51 (Lovenox Inj) 40 mg Q24H SQ 08/17/16 21:00 08/21/16 21:04 Miscellaneous Information 1 Q361D XX 08/17/16 20:15 (Chlorhexidine 2% Cloth) 3 pack Taper DAILY@04 TOP 08/18/16 04:00 08/14/17 03:59 08/22/16 02:01 Chlorhexidine Gluconate 3 pack 3 pack UNSCH PRN TOP 08/17/16 20:15 Potassium Chloride 100 ml @ 50 mls/hr Q2H PRN IV 08/18/16 20:15 Potassium Chloride 100 ml @ 50 mls/hr Q2H PRN IV 08/18/16 20:15 Potassium Chloride 100 ml @ 25 mls/hr UNSCH PRN IV 08/18/16 20:15 08/18/16 21:02 Potassium Chloride 100 ml @ 50 mls/hr Q2H PRN IV 08/18/16 20:15 (Magnesium Sulfate Inj/NS Inj) 100 ml @ 50 mls/hr UNSCH PRN IV 08/18/16 20:15 Magnesium Oxide 800 mg 800 mg UNSCH PRN PO 08/18/16 20:15 (Magnesium Sulfate Inj/NS Inj) 100 ml @ 50 mls/hr UNSCH PRN IV 08/18/16 20:15 Potassium Phosphate 2000 mg 2,000 mg Q4H PRN PO 08/18/16 20:15 (Sodium Phosphate Inj/NS 250 ml Inj) 250 ml @ 42 mls/hr UNSCH PRN IV 08/18/16 20:15 Potassium Phosphate 2000 mg 2,000 mg UNSCH PRN PO/TUBE 08/18/16 20:15 Potassium Phosphate 30 mmol/ Sodium Chloride 260 ml @ 42 mls/hr UNSCH PRN IV 08/18/16 20:15 (Ancef 2 Gm Premix) 50 ml @ 150 mls/hr Q8H IV 08/19/16 18:00 08/22/16 10:11 (Dolophine) 10 mg Q8H PO 08/20/16 11:00 08/22/16 10:11 (Haldol Inj) 5 mg Q8HR PRN IM 08/21/16 11:00 (Norvasc) 5 mg DAILY PO 08/21/16 11:30 08/22/16 07:52 Vital Signs / I&O Vital Signs Date Time Temp Pulse Resp B/P Pulse Ox O2 Delivery O2 Flow Rate FiO2 08/22/16 12:00 74 08/22/16 10:00 70 08/22/16 08:00 98.0 63 19 142/84 100 08/22/16 08:00 63 08/22/16 06:00 75 08/22/16 04:00 78 08/22/16 04:00 98.0 78 19 121/83 98 08/22/16 03:42 20 08/22/16 02:00 79 08/22/16 00:00 74 08/22/16 00:00 98.2 92 22 103/58 97 08/21/16 22:00 72 08/21/16 20:00 68 08/21/16 20:00 98.3 67 21 130/87 97 08/21/16 19:50 98 21 08/21/16 18:00 77 08/21/16 16:00 70 08/21/16 16:00 98.5 70 22 148/68 99 I/O 08/21/16 08/21/16 08/21/16 08/22/16 08/22/16 08/22/16 07:00 15:00 23:00 07:00 15:00 23:00 Intake Total 1400 ml 2263 ml 985 ml 1923 ml Output Total 500 ml 450 ml 250 ml 450 ml Balance 900 ml 1813 ml 735 ml 1473 ml Intake Oral 240 ml 400 ml 300 ml IV Total 1160 ml 1863 ml 985 ml 1623 ml Output Urine Total 500 ml 450 ml 250 ml 450 ml # Bowel Movements 0 0 Physical Exam GENERAL: In NAD SKIN: Warm and dry. HEAD: Normocephalic. EYES: No scleral icterus. No injection or drainage. NECK: Supple, trachea midline. No JVD or lymphadenopathy. CARDIOVASCULAR: Regular rate and rhythm without murmurs, gallops, or rubs. RESPIRATORY: Breath sounds equal bilaterally. No accessory muscle use. GASTROINTESTINAL: Abdomen soft, non-tender, nondistended. MUSCULOSKELETAL: No cyanosis, or edema. Somnolent. Laboratory Laboratory Tests Test 08/18/16 08/18/16 08/18/16 08/20/16 00:38 04:15 21:24 04:30 Nasal Screen MRSA (PCR) NEGATIVE Metamyelocytes 2 % Toxic Vacuolation PRESENT Helmet Cells OCC Acanthocytes OCC Phosphorus Level 1.6 MG/DL White Blood Count 13.8 TH/MM3 Red Blood Count 3.08 MIL/MM3 Hemoglobin 7.7 GM/DL Hematocrit 22.8 % Mean Corpuscular Volume 74.1 FL Mean Corpuscular Hemoglobin 24.9 PG Mean Corpuscular Hemoglobin 33.6 % Concent Red Cell Distribution Width 16.8 % Platelet Count 78 TH/MM3 Mean Platelet Volume 10.1 FL Neutrophils (%) (Auto) 80.2 % Lymphocytes (%) (Auto) 9.4 % Monocytes (%) (Auto) 9.9 % Eosinophils (%) (Auto) 0.2 % Basophils (%) (Auto) 0.3 % Neutrophils # (Auto) 11.1 TH/MM3 Lymphocytes # (Auto) 1.3 TH/MM3 Monocytes # (Auto) 1.4 TH/MM3 Eosinophils # (Auto) 0.0 TH/MM3 Basophils # (Auto) 0.0 TH/MM3 CBC Comment AUTO DIFF Differential Total Cells 100 Counted Neutrophils % (Manual) 76 % Band Neutrophils % 11 % Lymphocytes % 4 % Monocytes % 7 % Neutrophils # (Manual) 12.3 TH/MM3 Myelocytes 2 % Differential Comment FINAL DIFF MANUAL Platelet Estimate LOW Platelet Morphology Comment NORMAL Ovalocytes 1+ Keratocytes OCC Sodium Level 146 MEQ/L Potassium Level 3.7 MEQ/L Chloride Level 119 MEQ/L Carbon Dioxide Level 18.9 MEQ/L Anion Gap 8 MEQ/L Blood Urea Nitrogen 31 MG/DL Creatinine 0.56 MG/DL Estimat Glomerular Filtration 134 ML/MIN Rate Random Glucose 81 MG/DL Calcium Level 7.3 MG/DL Protein Corrected Calcium 8.9 MG/DL Total Bilirubin 0.7 MG/DL Aspartate Amino Transf 10 U/L (AST/SGOT) Alanine Aminotransferase 12 U/L (ALT/SGPT) Alkaline Phosphatase 66 U/L Total Protein 4.3 GM/DL Albumin 1.4 GM/DL Imaging Last Impressions Chest X-Ray 08/20/16 0600 Signed Impressions: Service Date/Time: Saturday, August 20, 2016 02:25 - CONCLUSION: Bilateral airspace disease and nodules. Yemi Thompson MD Upper Extremity Ultrasound 08/19/16 0000 Signed Impressions: Service Date/Time: Friday, August 19, 2016 10:38 - CONCLUSION: 1. Occlusive thrombus within the mid and distal right cephalic vein. 2. Complex hypoechoic area adjacent to the brachial vessels within the antecubital fossa measuring 2.6 x 1.0 x 1.2 cm which is nonspecific. Jose Triana MD Lumbar Spine MRI 08/19/16 0000 Signed Impressions: Service Date/Time: Friday, August 19, 2016 12:23 - CONCLUSION: No acute disease. Jose Triana MD Brain MRI 08/19/16 0000 Signed Impressions: Service Date/Time: Friday, August 19, 2016 20:48 - CONCLUSION: The postcontrast portion of the exam is very limited since very little contrast is identified and there are couple of nonspecific punctate white manner bright signal on FLAIR sequence. Timoteo Khalil MD Liver Ultrasound 08/18/16 0000 Signed Impressions: Service Date/Time: Thursday, August 18, 2016 16:18 - CONCLUSION: 1. Small right pleural effusion. 2. The gallbladder is decompressed with minimal intraluminal sludge. No stones. 3. Splenomegaly. Sergei Maldonado MD Chest CT 08/18/16 0000 Signed Impressions: Service Date/Time: Thursday, August 18, 2016 11:41 - CONCLUSION: Disseminated small bilateral predominantly peripheral nodular infiltrates. Small effusions and mild associated atelectasis. Differential considerations would include atypical infectious etiologies and septic emboli, rarely collagen vascular disease, Troy's and pneumoconiosis. Rickey Babb MD Assessment and Plan Problem List: (1) Endocarditis of tricuspid valve (2) Septic pulmonary embolism (3) IVDU (intravenous drug user) (4) Sepsis (5) TEMO (acute kidney injury) Assessment and Plan Continue antibiotics for TV endocarditis as per Dr. Rodgers. SHANNON not indicated at this time. Continue monitoring. Avery Driscoll MD Aug 22, 2016 14:16
--- NOTE | 2016-08-22 15:00 | HHI.IDPN ---
Subjective Subjective Remarks Bp was high yday appear calmer asks for pain meds She is afebrile More + blood clx Antibiotics cefazoline Past Medical History IVDU Allergies: Coded Allergies: Amoxicillin (Unverified Allergy, Unknown, rashes, 07/24/15) Objective . Vital Signs Date Time Temp Pulse Resp B/P Pulse Ox O2 Delivery O2 Flow Rate FiO2 08/22/16 12:00 74 08/22/16 10:00 70 08/22/16 08:00 98.0 63 19 142/84 100 08/22/16 08:00 63 08/22/16 06:00 75 08/22/16 04:00 78 08/22/16 04:00 98.0 78 19 121/83 98 08/22/16 03:42 20 08/22/16 02:00 79 08/22/16 00:00 74 08/22/16 00:00 98.2 92 22 103/58 97 08/21/16 22:00 72 08/21/16 20:00 68 08/21/16 20:00 98.3 67 21 130/87 97 08/21/16 19:50 98 21 08/21/16 18:00 77 08/21/16 16:00 70 08/21/16 16:00 98.5 70 22 148/68 99 08/21/16 08/21/16 08/22/16 15:00 23:00 07:00 Intake Total 2263 ml 985 ml 1923 ml Output Total 450 ml 250 ml 450 ml Balance 1813 ml 735 ml 1473 ml Intake Oral 400 ml 300 ml IV Total 1863 ml 985 ml 1623 ml Output Urine Total 450 ml 250 ml 450 ml # Bowel Movements 0 . Microbiology Date/Time Procedure Status Source Growth 08/19/16 15:50 Aerobic Blood Culture - Final Resulted Blood Peripheral Staph Sp Coagulase Positive 08/19/16 15:50 Anaerobic Blood Culture - Preliminary Resulted Blood Peripheral NO GROWTH IN 3 DAYS 08/20/16 19:50 Aerobic Blood Culture - Preliminary Resulted Blood Peripheral NO GROWTH IN 2 DAYS 08/20/16 19:50 Anaerobic Blood Culture - Preliminary Resulted Blood Peripheral NO GROWTH IN 2 DAYS 08/20/16 19:56 Aerobic Blood Culture - Preliminary Resulted Blood Peripheral Staphylococcus Aureus 08/20/16 19:56 Anaerobic Blood Culture - Preliminary Resulted Blood Peripheral NO GROWTH IN 2 DAYS Imaging Last Impressions Chest X-Ray 3/22/17 0600 Signed Impressions: Service Date/Time: Saturday, August 20, 2016 02:25 - CONCLUSION: Bilateral airspace disease and nodules. Yemi Thompson MD Upper Extremity Ultrasound 08/19/16 0000 Signed Impressions: Service Date/Time: Friday, August 19, 2016 10:38 - CONCLUSION: 1. Occlusive thrombus within the mid and distal right cephalic vein. 2. Complex hypoechoic area adjacent to the brachial vessels within the antecubital fossa measuring 2.6 x 1.0 x 1.2 cm which is nonspecific. Jose Triana MD Lumbar Spine MRI 08/19/16 0000 Signed Impressions: Service Date/Time: Friday, August 19, 2016 12:23 - CONCLUSION: No acute disease. Jose Triana MD Brain MRI 08/19/16 0000 Signed Impressions: Service Date/Time: Friday, August 19, 2016 20:48 - CONCLUSION: The postcontrast portion of the exam is very limited since very little contrast is identified and there are couple of nonspecific punctate white manner bright signal on FLAIR sequence. Timoteo Khalil MD Liver Ultrasound 08/18/16 0000 Signed Impressions: Service Date/Time: Thursday, August 18, 2016 16:18 - CONCLUSION: 1. Small right pleural effusion. 2. The gallbladder is decompressed with minimal intraluminal sludge. No stones. 3. Splenomegaly. Sergei Maldonado MD Chest CT 08/18/16 0000 Signed Impressions: Service Date/Time: Thursday, August 18, 2016 11:41 - CONCLUSION: Disseminated small bilateral predominantly peripheral nodular infiltrates. Small effusions and mild associated atelectasis. Differential considerations would include atypical infectious etiologies and septic emboli, rarely collagen vascular disease, Troy's and pneumoconiosis. Rickey Babb MD Physical Exam CONSTITUTIONAL/GENERAL: This is an adequately nourished patient, in no apparent distress. TUBES/LINES/DRAINS: SKIN: No jaundice, rashes, or lesions. No Janeway lesions Skin temperature appropriate. Not diaphoretic. EYES: No scleral icterus. No injection or drainage. Fundi not examined. ENT: Hearing grossly normal. Nose without bleeding or purulent drainage. Oral mucosae without visible erythema, exudates, masses, or lesions. NECK: Trachea midline. Supple, nontender. No palpable thyroid enlargement or nodularity. CARDIOVASCULAR: Regular rate and rhythm without murmurs, gallops, or rubs. No JVD. Peripheral pulses symmetric. RESPIRATORY/CHEST: Symmetric, unlabored respirations. Clear to auscultation. Breath sounds equal bilaterally. No wheezes, rales, or rhonchi. GASTROINTESTINAL: Abdomen soft, non-tender, nondistended. No hepato-splenomegaly , or palpable masses. No guarding. Bowel sounds present. GENITOURINARY: Without palpable bladder distension. Mendes catheter in place with clear yellow urine Well healed lower transversa laparotomy incision MUSCULOSKELETAL: Extremities without clubbing, cyanosis, or edema. No joint tenderness or effusion noted. No calf tenderness. No mottling or clubbing. 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
--- NOTE | 2016-08-22 16:20 | HHI.PYPN ---
Subjective Remarks Patient seen for psychiatric follow up. She is superficially cooperative, irritable, kind of oppositional. Patient is fully oriented in time, person and place, but insightless about the reason of her hospitalization and the responsibility of her action She reports "ok" mood, but seems to be objectively distant and detached. She denies SI/HI/VH/AH. No paranoia, delusions, agitation, aggressive behavior observed. No symptomatology of opioids withdrawal reported or observed. Review of Systems Constitutional: COMPLAINS OF: Fatigue, DENIES: Diaphoretic episodes, Fever, Weight gain, Weight loss, Chills, Dizziness, Change in appetite, Night Sweats Endocrine: DENIES: Abnorml menstrual pattern, Heat/cold intolerance, Polydipsia , Polyuria, Polyphagia Eyes: DENIES: Blurred vision, Diplopia, Eye inflammation, Eye pain, Vision loss , Photosensitivity, Double Vision Ears, nose, mouth, throat: DENIES: Tinnitus, Hearing loss, Vertigo, Nasal discharge, Oral lesions, Throat pain, Hoarseness, Ear Pain, Running Nose, Epistaxis, Sinus Pain, Toothache, Odynophagia Respiratory: DENIES: Apneas, Cough, Snoring, Wheezing, Hemoptysis, Sputum production, Shortness of breath Cardiovascular: DENIES: Chest pain, Palpitations, Syncope, Dyspnea on Exertion , PND, Lower Extremity Edema, Orthopnea, Claudication Gastrointestinal: DENIES: Abdominal pain, Black stools, Bloody stools, Constipation, Diarrhea, Nausea, Vomiting, Difficulty Swallowing, Anorexia Musculoskeletal: COMPLAINS OF: Neck pain, DENIES: Joint pain, Muscle aches, Stiffness, Joint Swelling, Back pain Integumentary: DENIES: Abnormal pigmentation, Pruritus, Rash, Nail changes, Breast masses, Breast skin changes, Nipple discharge Hematologic/lymphatic: DENIES: Bruising, Lymphadenopathy Immunologic/allergic: DENIES: Eczema, Urticaria Neurologic: DENIES: Abnormal gait, Headache, Localized weakness, Paresthesias, Seizures, Speech Problems, Tremor, Poor Balance Psychiatric: DENIES: Anxiety, Confusion, Mood changes, Depression, Hallucinations, Agitation, Suicidal Ideation, Homicidal Ideation, Delusions Objective Alert: Yes Crozier: Person, Place, Date Mood: Oppositional Affect: Restricted Memory Intact: Immediate, Recent Hallucinations: Other (none) Delusions: No Delusion Type: Other (none) Suicidal: Ideation (She denies SI) Homicidal: Ideation (She denies SI) Insight/Judgement poor Labs Date/Time Procedure Status Source Growth 08/20/16 19:56 Aerobic Blood Culture - Preliminary Resulted Blood Peripheral Staphylococcus Aureus 08/20/16 19:56 Anaerobic Blood Culture - Preliminary Resulted Blood Peripheral NO GROWTH IN 2 DAYS 08/19/16 15:50 Aerobic Blood Culture - Final Resulted Blood Peripheral Staph Sp Coagulase Positive 08/19/16 15:50 Anaerobic Blood Culture - Preliminary Resulted Blood Peripheral NO GROWTH IN 3 DAYS 08/17/16 20:40 Legionella Antigen - Final Complete Urine Catheterized Urine PRESUMPTIVE NEGATIVE FOR LEGIONELLA P... 08/17/16 20:40 Streptococcus pneumoniae Antigen (M - Final Complete Urine Catheterized Urine PRESUMPTIVE NEGATIVE FOR STREPTOCOCCU... 08/17/16 17:50 Urine Culture - Final Complete Urine Catheterized Urine NO GROWTH IN 48 HOURS. Vitals/IOs Vital Signs Date Time Temp Pulse Resp B/P Pulse Ox O2 Delivery O2 Flow Rate FiO2 08/22/16 14:00 67 08/22/16 12:00 98.0 19 122/90 100 08/21/16 19:50 21 Intake and Output 08/21/16 08/21/16 08/22/16 08:00 16:00 00:00 Intake Total 1400 ml 2263 ml 985 ml Output Total 500 ml 450 ml 250 ml Balance 900 ml 1813 ml 735 ml Assessment & Plan Problem List: (1) Opioid abuse ICD Code: F11.10 (2) Cocaine abuse ICD Code: F14.10 (3) Substance induced mood disorder Assessment & Plan: Extensive, support and psychoeducation provided Will follow up ICD Code: F19.94 Assessment & Plan Estimated LOS: days Justification for Cont. Inpt. No admission needed Kuldeep Gupta MD Aug 22, 2016 16:20
[2016-08-22] MEDS: ENOXAPARIN SODIUM 40 MG/0.4 ML SYRINGE SQ SCH (20:15)
[2016-08-23] VITALS (10 sets, daily range): BP systolic 117–148; BP diastolic 68–100; PULSE 77–105; RESP 17–22; TEMP 98.4–101.1; O2SAT 94–99
[2016-08-23] MEDS: SODIUM CHLOR 0.9% 1000 ML INJ 1,000 ML IV SCH ×5 (00:47→22:27)
[2016-08-23] MEDS: ceFAZolin 2 GM PREMIX 50 ML IV SCH ×3 (01:56→17:49)
[2016-08-23] MEDS: METHADONE HCL 10 MG TAB PO SCH ×3 (01:56→18:26)
[2016-08-23] MEDS: CHLORHEXIDINE GLUCONATE 2 % 1 PACK (2 CLOTHS) TOP SCH ×2 (01:57→22:55)
[2016-08-23] MEDS: amLODIPine BESYLATE 5 MG TAB PO SCH (08:31)
[2016-08-23] MEDS: ACETAMINOPHEN 325 MG TAB PO PRN ×2 (08:31→20:29)
[2016-08-23] MEDS: FAMOTIDINE 20 MG/2 ML VIAL IV PUSH SCH ×2 (08:32→22:04)
[2016-08-23] MEDS: SODIUM CHLORIDE 0.9% FLUSH 5 ML FLUSH IV FLUSH SCH ×2 (08:32→20:30)
--- NOTE | 2016-08-23 14:29 | HHI.IDPN ---
Subjective Subjective Remarks fever up to 101.1 calmer BP OK no new co Antibiotics cefazoline Past Medical History IVDU Allergies: Coded Allergies: Amoxicillin (Unverified Allergy, Unknown, rashes, 07/24/15) Objective . Vital Signs Date Time Temp Pulse Resp B/P Pulse Ox O2 Delivery O2 Flow Rate FiO2 08/23/16 12:00 99.8 99 20 129/81 95 08/23/16 12:00 99 08/23/16 10:00 99 08/23/16 08:00 101.1 105 20 139/78 95 08/23/16 08:00 105 08/23/16 06:00 87 08/23/16 04:00 82 08/23/16 04:00 98.4 82 22 127/92 99 08/23/16 03:52 20 08/23/16 02:00 77 08/23/16 00:00 79 08/23/16 00:00 98.6 79 17 141/80 96 08/22/16 22:00 72 08/22/16 20:00 77 08/22/16 20:00 98.6 77 18 124/81 97 08/22/16 18:00 83 08/22/16 16:00 98.1 71 17 135/84 98 08/22/16 16:00 71 08/22/16 08/22/16 08/23/16 15:00 23:00 07:00 Intake Total 1570 ml 1345 ml 1306 ml Output Total 350 ml 350 ml 1000 ml Balance 1220 ml 995 ml 306 ml Intake Oral 240 ml IV Total 1330 ml 1345 ml 1306 ml Output Urine Total 350 ml 350 ml 1000 ml # Bowel Movements 0 . Microbiology Date/Time Procedure Status Source Growth 08/20/16 19:50 Aerobic Blood Culture - Preliminary Resulted Blood Peripheral NO GROWTH IN 3 DAYS 08/20/16 19:50 Anaerobic Blood Culture - Preliminary Resulted Blood Peripheral NO GROWTH IN 3 DAYS 08/20/16 19:56 Aerobic Blood Culture - Final Resulted Blood Peripheral Staphylococcus Aureus 08/20/16 19:56 Anaerobic Blood Culture - Preliminary Resulted Blood Peripheral NO GROWTH IN 3 DAYS Imaging Last Impressions Chest X-Ray 08/20/16 0600 Signed Impressions: Service Date/Time: Saturday, August 20, 2016 02:25 - CONCLUSION: Bilateral airspace disease and nodules. Yemi Thompson MD Upper Extremity Ultrasound 08/19/16 0000 Signed Impressions: Service Date/Time: Friday, August 19, 2016 10:38 - CONCLUSION: 1. Occlusive thrombus within the mid and distal right cephalic vein. 2. Complex hypoechoic area adjacent to the brachial vessels within the antecubital fossa measuring 2.6 x 1.0 x 1.2 cm which is nonspecific. Jose Triana MD Lumbar Spine MRI 08/19/16 0000 Signed Impressions: Service Date/Time: Friday, August 19, 2016 12:23 - CONCLUSION: No acute disease. Jose Triana MD Brain MRI 08/19/16 0000 Signed Impressions: Service Date/Time: Friday, August 19, 2016 20:48 - CONCLUSION: The postcontrast portion of the exam is very limited since very little contrast is identified and there are couple of nonspecific punctate white manner bright signal on FLAIR sequence. Timoteo Khalil MD Liver Ultrasound 08/18/16 0000 Signed Impressions: Service Date/Time: Thursday, August 18, 2016 16:18 - CONCLUSION: 1. Small right pleural effusion. 2. The gallbladder is decompressed with minimal intraluminal sludge. No stones. 3. Splenomegaly. Sergei Maldonado MD Chest CT 08/18/16 0000 Signed Impressions: Service Date/Time: Thursday, August 18, 2016 11:41 - CONCLUSION: Disseminated small bilateral predominantly peripheral nodular infiltrates. Small effusions and mild associated atelectasis. Differential considerations would include atypical infectious etiologies and septic emboli, rarely collagen vascular disease, Troy's and pneumoconiosis. Rickey Babb MD Physical Exam CONSTITUTIONAL/GENERAL: This is an adequately nourished patient, in no apparent distress. TUBES/LINES/DRAINS: SKIN: No jaundice, rashes, or lesions. No Janeway lesions Skin temperature appropriate. Not diaphoretic. EYES: No scleral icterus. No injection or drainage. Fundi not examined. CARDIOVASCULAR: Regular rate and rhythm without murmurs, gallops, or rubs. No JVD. Peripheral pulses symmetric. RESPIRATORY/CHEST: Symmetric, unlabored respirations. Clear to auscultation. Breath sounds equal bilaterally. No wheezes, rales, or rhonchi. GASTROINTESTINAL: Abdomen soft, non-tender, nondistended. No hepato-splenomegaly , or palpable masses. No guarding. Bowel sounds present. GENITOURINARY: Without palpable bladder distension. Mendes catheter in place with clear yellow urine Well healed lower transversa laparotomy incision MUSCULOSKELETAL: Extremities without clubbing, cyanosis, or edema. No joint tenderness or effusion noted. No calf tenderness. No mottling or clubbing. 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
--- NOTE | 2016-08-23 15:22 | HHI.PR ---
Subjective Remarks Follow up for MSSA bacteremia, tricuspid valve endocarditis, septic pulmonary emboli. Ms. Mcintosh is currently doing well. Denies any chest pain, shortness of breath, fever or chills. She reports abdominal discomfort especially in the lower area. She attributes her abdominal pain to her period. She denies having any suicidal ideation. Objective Vitals Vital Signs Date Time Temp Pulse Resp B/P Pulse Ox O2 Delivery O2 Flow Rate FiO2 08/23/16 14:00 92 08/23/16 12:00 99.8 99 20 129/81 95 08/23/16 12:00 99 08/23/16 10:00 99 08/23/16 08:00 101.1 105 20 139/78 95 08/23/16 08:00 105 08/23/16 06:00 87 08/23/16 04:00 82 08/23/16 04:00 98.4 82 22 127/92 99 08/23/16 03:52 20 08/23/16 02:00 77 08/23/16 00:00 79 08/23/16 00:00 98.6 79 17 141/80 96 08/22/16 22:00 72 08/22/16 20:00 77 08/22/16 20:00 98.6 77 18 124/81 97 08/22/16 18:00 83 08/22/16 16:00 98.1 71 17 135/84 98 08/22/16 16:00 71 I/O 08/22/16 08/22/16 08/22/16 08/23/16 08/23/16 08/23/16 07:00 15:00 23:00 07:00 15:00 23:00 Intake Total 1923 ml 1570 ml 1345 ml 1306 ml 2157 ml Output Total 450 ml 350 ml 350 ml 1000 ml 1850 ml Balance 1473 ml 1220 ml 995 ml 306 ml 307 ml Intake Oral 300 ml 240 ml 720 ml IV Total 1623 ml 1330 ml 1345 ml 1306 ml 1437 ml Output Urine Total 450 ml 350 ml 350 ml 1000 ml 1850 ml # Bowel Movements 0 0 # Sanitary Pads 1 Pads Result Diagram: 08/20/16 0430 08/20/16 0430 Imaging Last Impressions Chest X-Ray 08/20/16 0600 Signed Impressions: Service Date/Time: Saturday, August 20, 2016 02:25 - CONCLUSION: Bilateral airspace disease and nodules. Yemi Thompson MD Upper Extremity Ultrasound 08/19/16 0000 Signed Impressions: Service Date/Time: Friday, August 19, 2016 10:38 - CONCLUSION: 1. Occlusive thrombus within the mid and distal right cephalic vein. 2. Complex hypoechoic area adjacent to the brachial vessels within the antecubital fossa measuring 2.6 x 1.0 x 1.2 cm which is nonspecific. Jose Triana MD Lumbar Spine MRI 08/19/16 0000 Signed Impressions: Service Date/Time: Friday, August 19, 2016 12:23 - CONCLUSION: No acute disease. Jose Triana MD Brain MRI 08/19/16 0000 Signed Impressions: Service Date/Time: Friday, August 19, 2016 20:48 - CONCLUSION: The postcontrast portion of the exam is very limited since very little contrast is identified and there are couple of nonspecific punctate white manner bright signal on FLAIR sequence. Timoteo Khalil MD Liver Ultrasound 08/18/16 0000 Signed Impressions: Service Date/Time: Thursday, August 18, 2016 16:18 - CONCLUSION: 1. Small right pleural effusion. 2. The gallbladder is decompressed with minimal intraluminal sludge. No stones. 3. Splenomegaly. Sergei Maldonado MD Chest CT 08/18/16 0000 Signed Impressions: Service Date/Time: Thursday, August 18, 2016 11:41 - CONCLUSION: Disseminated small bilateral predominantly peripheral nodular infiltrates. Small effusions and mild associated atelectasis. Differential considerations would include atypical infectious etiologies and septic emboli, rarely collagen vascular disease, Troy's and pneumoconiosis. Rickey Babb MD Objective Remarks GENERAL: Alert, NAD. SKIN: Warm and dry. HEAD: Normocephalic. EYES: No scleral icterus. No injection or drainage. NECK: Supple, trachea midline. No JVD or lymphadenopathy. CARDIOVASCULAR: Regular rhythm, tachycardic without gallops, or rubs. Systolic murmur present, best heard at the apex. RESPIRATORY: Breath sounds equal bilaterally. No accessory muscle use. GASTROINTESTINAL: Abdomen soft, non-tender, nondistended. MUSCULOSKELETAL: No cyanosis, or edema. There is a large bruise on the right upper extremity near the elbow. BACK: Nontender without obvious deformity. No CVA tenderness. Procedures IJ central line 08/17/2016. 08/18/2016 Echocardiogram - Left ventricle: The cavity size was normal. Wall thickness was normal. Systolic function was normal. The estimated ejection fraction was in the range of 55% to 60%. Wall motion was normal; there were no regional wall motion abnormalities. - Aortic valve: Valve area: 2.08cm^2 (Vmax). - Tricuspid valve: There was a vegetation. Moderate-severe regurgitation. - Pulmonary arteries: PA peak pressure: 42mm Hg (S). A/P Problem List: (1) Sepsis ICD Code: A41.9 Status: Acute (2) Hypotension ICD Code: I95.9 Status: Acute (3) PNA (pneumonia) ICD Code: J18.9 Status: Acute (4) UTI (urinary tract infection) ICD Code: N39.0 Status: Acute (5) TEMO (acute kidney injury) ICD Code: N17.9 Status: Acute (6) IVDU (intravenous drug user) ICD Code: F19.90 Status: Acute (7) Cocaine abuse ICD Code: F14.10 Status: Chronic (8) Thrombocytopenia ICD Code: D69.6 Status: Acute Assessment and Plan Ms. Mcintosh is a 21-year-old female with a history of polysubstance, IV drug use who was admitted to the hospital due to generalized weakness and fever for approximately one week prior to this admission. Patient denied nausea vomiting cough or shortness of breath. Patient used IV drugs 6 days prior to this admission. Her urine drug screen was positive for cocaine. Blood culture grew MSSA and echocardiogram shows tricuspid regurgitation with tricuspid valve vegetation. Infectious disease was consulted and started patient on cefazolin. CT chest showed disseminated small bilateral peripheral nodular infiltrates. MRI brain shows couple of nonspecific punctate white matter bright signal on FLAIR sequence. - Septic shock - resolved. 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 Blood cultures are negative from 08/20/2016. - Pulmonary septic emboli - Patient required aggressive IV fluid resuscitation, Levophed, stress dosed steroids. - Initially on Vancomycin. However, based on cx results, currently on Cefazolin - probably will require long abx course. - ID (Dr. Rodgers) following. - Cardiology evaluated patient. Discussed with Dr. Driscoll on 08/21/2016. May consider SHANNON to evaluate left sided heart valves. - However, management may not change and thus patient may not need to undergo SHANNON. - Hypertension - Continue patient on Amlodipine 5mg Qday. - Will discontinue Hydrocortisone IV. No tapering needed since she has not been on steroid for that long. - Acute kidney injury - resolved. 1.82 on admission. Currently below 1.0. - Hypokalemia - resolved. - Hypocalcemia - resolved. Corrected Calcium 8.9. - Polysubstance abuse - IVDU - Discussed with patient and grandmother on 08/20/2016. - Grandmother would like for her to go to [facility] for drug rehabs. - Depression - Suicidal ideations - Patient is severely depressed. Appreciate Psychiatry input. I discussed with psychiatry attending on 08/21/2016. - Based on my judgement, patient currently does not have the full insight of her condition and implications of not getting proper treatments. - Also, patient has expressed suicidal ideations. Based on this, patient does not have capacity to make decisions and thus patient cannot leave hospital AMA. - Will evaluate patient's capacity daily. - Patient will benefit from comprehensive drug rehab efforts after patient received appropriate medical care during this admission. - I discussed with patient and patient's mother separately at length - spending over 30 minutes. - Possible opioid withdrawal - Continue Methadone 10mg TID with a goal to taper quickly. - Transfer to the floor. No telemetry needed. Discussed with psychiatry attending on 08/23/2016. No sitter needed per psychiatry attending. Full code. Lovenox. Famotidine. Problem Qualifiers (1) Hypotension: Qualified Code: I95.9 - Hypotension, unspecified hypotension type Samanta Phoenix DO Aug 23, 2016 3:22 pm
[2016-08-23] MEDS: ONDANSETRON HCL 4 MG/2 ML VIAL IVP PRN (17:49)
--- NOTE | 2016-08-23 18:49 | PD.CARD.PN ---
Subjective Subjective Remarks No CP or SOB, more awake Objective Medications Current Medications Medications (Trade) Dose Ordered Sig/Key Route Start Time Stop Time Status Last Admin (Ativan Inj) 1 mg Q3H PRN IV PUSH 08/17/16 19:00 08/20/16 17:40 (Zofran Inj) 4 mg Q6H PRN IVP 08/17/16 19:00 08/23/16 17:49 (Dulcolax Supp) 10 mg DAILY PRN LA 08/17/16 19:00 (Tylenol) 650 mg Q6H PRN PO 08/17/16 19:00 08/23/16 08:31 (Roxicodone) 10 mg Q4H PRN PO 08/17/16 19:00 (Roxicodone) 5 mg Q4H PRN PO 08/17/16 19:00 Terbutaline Sulfate 1 mg 1 mg UNSCH PRN SQ 08/17/16 20:15 (NS 1000 ml Inj) 1,000 ml @ 185 mls/hr Q5H25M IV 08/17/16 20:12 08/23/16 13:35 (NS Flush) 2 ml UNSCH PRN IV FLUSH 08/17/16 20:15 (NS Flush) 2 ml BID IV FLUSH 08/17/16 21:00 08/23/16 08:32 (Pepcid Inj) 20 mg Q12HR IV PUSH 08/17/16 21:00 08/23/16 08:32 (Lovenox Inj) 40 mg Q24H SQ 08/17/16 21:00 08/22/16 20:15 Miscellaneous Information 1 Q361D XX 08/17/16 20:15 (Chlorhexidine 2% Cloth) Taper DAILY@04 TOP 08/18/16 04:00 08/14/17 03:59 08/22/16 02:01 Chlorhexidine Gluconate 3 pack 3 pack UNSCH PRN TOP 08/17/16 20:15 (Ancef 2 Gm Premix) 50 ml @ 150 mls/hr Q8H IV 08/19/16 18:00 08/23/16 17:49 (Dolophine) 10 mg Q8H PO 08/20/16 11:00 08/23/16 18:26 (Haldol Inj) 5 mg Q8HR PRN IM 08/21/16 11:00 (Norvasc) 5 mg DAILY PO 08/21/16 11:30 08/23/16 08:31 Vital Signs / I&O Vital Signs Date Time Temp Pulse Resp B/P Pulse Ox O2 Delivery O2 Flow Rate FiO2 08/23/16 16:00 88 08/23/16 16:00 99.3 88 21 117/68 95 08/23/16 14:00 92 08/23/16 12:00 99.8 99 20 129/81 95 08/23/16 12:00 99 08/23/16 10:00 99 08/23/16 08:00 101.1 105 20 139/78 95 08/23/16 08:00 105 08/23/16 06:00 87 08/23/16 04:00 82 08/23/16 04:00 98.4 82 22 127/92 99 08/23/16 03:52 20 08/23/16 02:00 77 08/23/16 00:00 79 08/23/16 00:00 98.6 79 17 141/80 96 08/22/16 22:00 72 08/22/16 20:00 77 08/22/16 20:00 98.6 77 18 124/81 97 I/O 08/22/16 08/22/16 08/22/16 08/23/16 08/23/16 08/23/16 07:00 15:00 23:00 07:00 15:00 23:00 Intake Total 1923 ml 1570 ml 1345 ml 1306 ml 2157 ml Output Total 450 ml 350 ml 350 ml 1000 ml 1850 ml 800 ml Balance 1473 ml 1220 ml 995 ml 306 ml 307 ml -800 ml Intake Oral 300 ml 240 ml 720 ml IV Total 1623 ml 1330 ml 1345 ml 1306 ml 1437 ml Output Urine Total 450 ml 350 ml 350 ml 1000 ml 1850 ml 800 ml # Bowel Movements 0 0 # Sanitary Pads 1 Pads Physical Exam GENERAL: In NAD SKIN: Warm and dry. HEAD: Normocephalic. EYES: No scleral icterus. No injection or drainage. NECK: Supple, trachea midline. No JVD or lymphadenopathy. CARDIOVASCULAR: Regular rate and rhythm without murmurs, gallops, or rubs. RESPIRATORY: Breath sounds equal bilaterally. No accessory muscle use. GASTROINTESTINAL: Abdomen soft, non-tender, nondistended. MUSCULOSKELETAL: No cyanosis, or edema. Laboratory Laboratory Tests Test 08/20/16 04:30 White Blood Count 13.8 TH/MM3 Red Blood Count 3.08 MIL/MM3 Hemoglobin 7.7 GM/DL Hematocrit 22.8 % Mean Corpuscular Volume 74.1 FL Mean Corpuscular Hemoglobin 24.9 PG Mean Corpuscular Hemoglobin 33.6 % Concent Red Cell Distribution Width 16.8 % Platelet Count 78 TH/MM3 Mean Platelet Volume 10.1 FL Neutrophils (%) (Auto) 80.2 % Lymphocytes (%) (Auto) 9.4 % Monocytes (%) (Auto) 9.9 % Eosinophils (%) (Auto) 0.2 % Basophils (%) (Auto) 0.3 % Neutrophils # (Auto) 11.1 TH/MM3 Lymphocytes # (Auto) 1.3 TH/MM3 Monocytes # (Auto) 1.4 TH/MM3 Eosinophils # (Auto) 0.0 TH/MM3 Basophils # (Auto) 0.0 TH/MM3 CBC Comment AUTO DIFF Differential Total Cells 100 Counted Neutrophils % (Manual) 76 % Band Neutrophils % 11 % Lymphocytes % 4 % Monocytes % 7 % Neutrophils # (Manual) 12.3 TH/MM3 Myelocytes 2 % Differential Comment FINAL DIFF MANUAL Platelet Estimate LOW Platelet Morphology Comment NORMAL Ovalocytes 1+ Keratocytes OCC Sodium Level 146 MEQ/L Potassium Level 3.7 MEQ/L Chloride Level 119 MEQ/L Carbon Dioxide Level 18.9 MEQ/L Anion Gap 8 MEQ/L Blood Urea Nitrogen 31 MG/DL Creatinine 0.56 MG/DL Estimat Glomerular Filtration 134 ML/MIN Rate Random Glucose 81 MG/DL Calcium Level 7.3 MG/DL Protein Corrected Calcium 8.9 MG/DL Total Bilirubin 0.7 MG/DL Aspartate Amino Transf 10 U/L (AST/SGOT) Alanine Aminotransferase 12 U/L (ALT/SGPT) Alkaline Phosphatase 66 U/L Total Protein 4.3 GM/DL Albumin 1.4 GM/DL Imaging Last Impressions Chest X-Ray 08/20/16 0600 Signed Impressions: Service Date/Time: Saturday, August 20, 2016 02:25 - CONCLUSION: Bilateral airspace disease and nodules. Yemi Thompson MD Upper Extremity Ultrasound 08/19/16 0000 Signed Impressions: Service Date/Time: Friday, August 19, 2016 10:38 - CONCLUSION: 1. Occlusive thrombus within the mid and distal right cephalic vein. 2. Complex hypoechoic area adjacent to the brachial vessels within the antecubital fossa measuring 2.6 x 1.0 x 1.2 cm which is nonspecific. Jose Triana MD Lumbar Spine MRI 08/19/16 0000 Signed Impressions: Service Date/Time: Friday, August 19, 2016 12:23 - CONCLUSION: No acute disease. Jose Triana MD Brain MRI 08/19/16 0000 Signed Impressions: Service Date/Time: Friday, August 19, 2016 20:48 - CONCLUSION: The postcontrast portion of the exam is very limited since very little contrast is identified and there are couple of nonspecific punctate white manner bright signal on FLAIR sequence. Timoteo Khalil MD Liver Ultrasound 08/18/16 0000 Signed Impressions: Service Date/Time: Thursday, August 18, 2016 16:18 - CONCLUSION: 1. Small right pleural effusion. 2. The gallbladder is decompressed with minimal intraluminal sludge. No stones. 3. Splenomegaly. Sergei Maldonado MD Chest CT 08/18/16 0000 Signed Impressions: Service Date/Time: Thursday, August 18, 2016 11:41 - CONCLUSION: Disseminated small bilateral predominantly peripheral nodular infiltrates. Small effusions and mild associated atelectasis. Differential considerations would include atypical infectious etiologies and septic emboli, rarely collagen vascular disease, Troy's and pneumoconiosis. Rickey Babb MD Assessment and Plan Problem List: (1) Endocarditis of tricuspid valve (2) Septic pulmonary embolism (3) IVDU (intravenous drug user) (4) Sepsis (5) TEMO (acute kidney injury) Assessment and Plan No new cardiac issues. Continue antibiotics for TV endocarditis as per Dr. Rodgers. SHANNON not indicated at this time. Continue monitoring. Avery Driscoll MD Aug 23, 2016 18:49
[2016-08-23] MEDS: ENOXAPARIN SODIUM 40 MG/0.4 ML SYRINGE SQ SCH (20:29)
[2016-08-24] VITALS: BP 127/78; PULSE 92; RESP 20; TEMP 100.3; O2SAT 95
[2016-08-24] MEDS: ceFAZolin 2 GM PREMIX 50 ML IV SCH ×3 (02:55→17:47)
[2016-08-24] MEDS: METHADONE HCL 10 MG TAB PO SCH ×2 (02:56→20:01)
[2016-08-24] MEDS: SODIUM CHLOR 0.9% 1000 ML INJ 1,000 ML IV SCH ×4 (03:52→20:02)
[2016-08-24 04:00] VITALS: TEMP 99.3
[2016-08-24 08:00] VITALS: BP 138/81; PULSE 93; RESP 20; TEMP 99.6; O2SAT 93
[2016-08-24] MEDS: amLODIPine BESYLATE 5 MG TAB PO SCH (08:02)
[2016-08-24] MEDS: SODIUM CHLORIDE 0.9% FLUSH 5 ML FLUSH IV FLUSH SCH ×2 (08:03→19:59)
[2016-08-24] MEDS: FAMOTIDINE 20 MG/2 ML VIAL IV PUSH SCH (08:03)
[2016-08-24] MEDS: ONDANSETRON HCL 4 MG/2 ML VIAL IVP PRN ×2 (08:06→20:01)
--- NOTE | 2016-08-24 11:39 | HHI.PR ---
Subjective Remarks Follow up for MSSA bacteremia, tricuspid valve endocarditis, septic pulmonary emboli. Ms. Mcintosh complains of nausea. Otherwise no acute concerns. Objective Vitals Vital Signs Date Time Temp Pulse Resp B/P Pulse Ox O2 Delivery O2 Flow Rate FiO2 08/24/16 08:00 99.6 93 20 138/81 93 08/24/16 04:00 99.3 08/24/16 00:00 100.3 92 20 127/78 95 08/23/16 20:00 101.1 90 20 148/100 94 08/23/16 16:00 88 08/23/16 16:00 99.3 88 21 117/68 95 08/23/16 14:00 92 08/23/16 12:00 99.8 99 20 129/81 95 08/23/16 12:00 99 I/O 08/23/16 08/23/16 08/23/16 08/24/16 08/24/16 08/24/16 07:00 15:00 23:00 07:00 15:00 23:00 Intake Total 1306 ml 2157 ml 1161 ml 1154 ml Output Total 1000 ml 1850 ml 2100 ml 1200 ml Balance 306 ml 307 ml -939 ml -46 ml Intake Oral 720 ml 240 ml 240 ml IV Total 1306 ml 1437 ml 921 ml 914 ml Output Urine Total 1000 ml 1850 ml 2100 ml 1200 ml # Bowel Movements 0 0 0 # Sanitary Pads 1 Pads 1 Pads 1 Pads Result Diagram: 08/20/1642908/20/16 043 Objective Remarks GENERAL: Alert, NAD. SKIN: Warm and dry. HEAD: Normocephalic. EYES: No scleral icterus. No injection or drainage. NECK: Supple, trachea midline. No JVD or lymphadenopathy. CARDIOVASCULAR: Regular rhythm, tachycardic without gallops, or rubs. Systolic murmur present, best heard at the apex. RESPIRATORY: Breath sounds equal bilaterally. No accessory muscle use. GASTROINTESTINAL: Abdomen soft, non-tender, nondistended. MUSCULOSKELETAL: No cyanosis, or edema. There is a large bruise on the right upper extremity near the elbow. BACK: Nontender without obvious deformity. No CVA tenderness. Procedures IJ central line 08/17/2016. 08/18/2016 Echocardiogram - Left ventricle: The cavity size was normal. Wall thickness was normal. Systolic function was normal. The estimated ejection fraction was in the range of 55% to 60%. Wall motion was normal; there were no regional wall motion abnormalities. - Aortic valve: Valve area: 2.08cm^2 (Vmax). - Tricuspid valve: There was a vegetation. Moderate-severe regurgitation. - Pulmonary arteries: PA peak pressure: 42mm Hg (S). A/P Problem List: (1) Sepsis ICD Code: A41.9 Status: Acute (2) Hypotension ICD Code: I95.9 Status: Acute (3) PNA (pneumonia) ICD Code: J18.9 Status: Acute (4) UTI (urinary tract infection) ICD Code: N39.0 Status: Acute (5) TEMO (acute kidney injury) ICD Code: N17.9 Status: Acute (6) IVDU (intravenous drug user) ICD Code: F19.90 Status: Acute (7) Cocaine abuse ICD Code: F14.10 Status: Chronic (8) Thrombocytopenia ICD Code: D69.6 Status: Acute Assessment and Plan Ms. Mcintosh is a 21-year-old female with a history of polysubstance, IV drug use who was admitted to the hospital due to generalized weakness and fever for approximately one week prior to this admission. Patient denied nausea vomiting cough or shortness of breath. Patient used IV drugs 6 days prior to this admission. Her urine drug screen was positive for cocaine. Blood culture grew MSSA and echocardiogram shows tricuspid regurgitation with tricuspid valve vegetation. Infectious disease was consulted and started patient on cefazolin. CT chest showed disseminated small bilateral peripheral nodular infiltrates. MRI brain shows couple of nonspecific punctate white matter bright signal on FLAIR sequence. - Septic shock - resolved. 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 Blood cultures from 2016 grew S. Aureus again. Blood cx from 08/24/2016 pending. - Pulmonary septic emboli - Patient required aggressive IV fluid resuscitation, Levophed, stress dosed steroids. - Initially on Vancomycin. However, based on cx results, currently on Cefazolin - probably will require long abx course. - ID (Dr. Rodgers) following. - Cardiology evaluated patient. Discussed with Dr. Driscoll on 08/21/2016. No indication for SHANNON at this point. - Hypertension - Continue patient on Amlodipine 5mg Qday. - discontinued Hydrocortisone IV. No tapering needed since she has not been on steroid for that long. - Acute kidney injury - resolved. 1.82 on admission. Currently below 1.0. - Hypokalemia - resolved. - Hypocalcemia - resolved. Corrected Calcium 8.9. - Polysubstance abuse - IVDU - Discussed with patient and grandmother on 08/20/2016. - Grandmother would like for her to go to [facility] for drug rehabs. - Depression - Suicidal ideations - Patient is severely depressed. Appreciate Psychiatry input. I discussed with psychiatry attending on 08/21/2016. - Patient denies being suicidal. Feeling better. - Possible opioid withdrawal - Decreased methadone from 10mg Q8hrs to 10mg Q12hrs. - Patient has not used oxycodone here much. We will reduce oxycodone PRN order - Pain meds: Acetaminophen for pain 1-4, Oxycodone for pain 5-10 and continue Methadone which we should be able to taper off. Full code. Lovenox. Famotidine. Problem Qualifiers (1) Hypotension: Qualified Code: I95.9 - Hypotension, unspecified hypotension type Samanta Phoenix DO Aug 24, 2016 11:39 am
[2016-08-24 12:00] VITALS: BP 120/68; PULSE 94; RESP 20; TEMP 99; O2SAT 95
[2016-08-24] MEDS: MAGNESIUM HYDROXIDE SUSP 30 ML CUP PO PRN (13:08)
[2016-08-24] MEDS ORDERED: PROCHLORPERAZINE INJ 10 MG/2 ML VIAL IM ONE (13:15)
[2016-08-24] MEDS ORDERED: PROCHLORPERAZINE INJ 10 MG/2 ML VIAL IVS PRN (13:15)
[2016-08-24] MEDS: SODIUM CHLORIDE 0.9% FLUSH 5 ML FLUSH IV FLUSH PRN (13:46)
--- NOTE | 2016-08-24 13:53 | PD.CARD.PN ---
Subjective Subjective Remarks No CP or SOB, feels better Objective Medications Current Medications Medications (Trade) Dose Ordered Sig/Key Route Start Time Stop Time Status Last Admin (Ativan Inj) 1 mg Q3H PRN IV PUSH 08/17/16 19:00 08/20/16 17:40 (Zofran Inj) 4 mg Q6H PRN IVP 08/17/16 19:00 08/24/16 08:06 (Tylenol) 650 mg Q6H PRN PO 08/17/16 19:00 08/23/16 20:29 (Roxicodone) 5 mg Q4H PRN PO 08/17/16 19:00 Terbutaline Sulfate 1 mg 1 mg UNSCH PRN SQ 08/17/16 20:15 (NS 1000 ml Inj) 1,000 ml @ 185 mls/hr Q5H25M IV 08/17/16 20:12 08/24/16 09:17 (NS Flush) 2 ml UNSCH PRN IV FLUSH 08/17/16 20:15 08/24/16 13:46 (NS Flush) 2 ml BID IV FLUSH 08/17/16 21:00 08/24/16 08:03 (Lovenox Inj) 40 mg Q24H SQ 08/17/16 21:00 08/23/16 20:29 Miscellaneous Information 1 Q361D XX 08/17/16 20:15 (Chlorhexidine 2% Cloth) Taper DAILY@04 TOP 08/18/16 04:00 08/14/17 03:59 08/22/16 02:01 Chlorhexidine Gluconate 3 pack 3 pack UNSCH PRN TOP 08/17/16 20:15 (Ancef 2 Gm Premix) 50 ml @ 150 mls/hr Q8H IV 08/19/16 18:00 08/24/16 10:26 (Haldol Inj) 5 mg Q8HR PRN IM 08/21/16 11:00 (Norvasc) 5 mg DAILY PO 08/21/16 11:30 08/24/16 08:02 (Pepcid) 20 mg Q12HR PO 08/24/16 21:00 (Milk Of Magnesia Liq) 30 ml DAILY PRN PO 08/24/16 12:00 08/24/16 13:08 (Dolophine) 10 mg Q12HR PO 08/24/16 21:00 (Compazine Inj) 5 mg Q6H PRN IVS 08/24/16 13:15 08/24/16 13:45 Vital Signs / I&O Vital Signs Date Time Temp Pulse Resp B/P Pulse Ox O2 Delivery O2 Flow Rate FiO2 08/24/16 12:00 99.0 94 20 120/68 95 08/24/16 08:00 99.6 93 20 138/81 93 08/24/16 04:00 99.3 08/24/16 00:00 100.3 92 20 127/78 95 08/23/16 20:00 101.1 90 20 148/100 94 08/23/16 16:00 88 08/23/16 16:00 99.3 88 21 117/68 95 08/23/16 14:00 92 I/O 08/23/16 08/23/16 08/23/16 08/24/16 08/24/16 08/24/16 07:00 15:00 23:00 07:00 15:00 23:00 Intake Total 1306 ml 2157 ml 1161 ml 1154 ml Output Total 1000 ml 1850 ml 2100 ml 1200 ml Balance 306 ml 307 ml -939 ml -46 ml Intake Oral 720 ml 240 ml 240 ml IV Total 1306 ml 1437 ml 921 ml 914 ml Output Urine Total 1000 ml 1850 ml 2100 ml 1200 ml # Bowel Movements 0 0 0 # Sanitary Pads 1 Pads 1 Pads 1 Pads Physical Exam GENERAL: In NAD SKIN: Warm and dry. HEAD: Normocephalic. EYES: No scleral icterus. No injection or drainage. NECK: Supple, trachea midline. No JVD or lymphadenopathy. CARDIOVASCULAR: Regular rate and rhythm without murmurs, gallops, or rubs. RESPIRATORY: Breath sounds equal bilaterally. No accessory muscle use. GASTROINTESTINAL: Abdomen soft, non-tender, nondistended. MUSCULOSKELETAL: No cyanosis, or edema. Laboratory Laboratory Tests Test 08/20/16 04:30 White Blood Count 13.8 TH/MM3 Red Blood Count 3.08 MIL/MM3 Hemoglobin 7.7 GM/DL Hematocrit 22.8 % Mean Corpuscular Volume 74.1 FL Mean Corpuscular Hemoglobin 24.9 PG Mean Corpuscular Hemoglobin 33.6 % Concent Red Cell Distribution Width 16.8 % Platelet Count 78 TH/MM3 Mean Platelet Volume 10.1 FL Neutrophils (%) (Auto) 80.2 % Lymphocytes (%) (Auto) 9.4 % Monocytes (%) (Auto) 9.9 % Eosinophils (%) (Auto) 0.2 % Basophils (%) (Auto) 0.3 % Neutrophils # (Auto) 11.1 TH/MM3 Lymphocytes # (Auto) 1.3 TH/MM3 Monocytes # (Auto) 1.4 TH/MM3 Eosinophils # (Auto) 0.0 TH/MM3 Basophils # (Auto) 0.0 TH/MM3 CBC Comment AUTO DIFF Differential Total Cells 100 Counted Neutrophils % (Manual) 76 % Band Neutrophils % 11 % Lymphocytes % 4 % Monocytes % 7 % Neutrophils # (Manual) 12.3 TH/MM3 Myelocytes 2 % Differential Comment FINAL DIFF MANUAL Platelet Estimate LOW Platelet Morphology Comment NORMAL Ovalocytes 1+ Keratocytes OCC Sodium Level 146 MEQ/L Potassium Level 3.7 MEQ/L Chloride Level 119 MEQ/L Carbon Dioxide Level 18.9 MEQ/L Anion Gap 8 MEQ/L Blood Urea Nitrogen 31 MG/DL Creatinine 0.56 MG/DL Estimat Glomerular Filtration 134 ML/MIN Rate Random Glucose 81 MG/DL Calcium Level 7.3 MG/DL Protein Corrected Calcium 8.9 MG/DL Total Bilirubin 0.7 MG/DL Aspartate Amino Transf 10 U/L (AST/SGOT) Alanine Aminotransferase 12 U/L (ALT/SGPT) Alkaline Phosphatase 66 U/L Total Protein 4.3 GM/DL Albumin 1.4 GM/DL Imaging Last Impressions Chest X-Ray 08/20/16 0600 Signed Impressions: Service Date/Time: Saturday, August 20, 2016 02:25 - CONCLUSION: Bilateral airspace disease and nodules. Yemi Thompson MD Upper Extremity Ultrasound 08/19/16 0000 Signed Impressions: Service Date/Time: Friday, August 19, 2016 10:38 - CONCLUSION: 1. Occlusive thrombus within the mid and distal right cephalic vein. 2. Complex hypoechoic area adjacent to the brachial vessels within the antecubital fossa measuring 2.6 x 1.0 x 1.2 cm which is nonspecific. Jose Triana MD Lumbar Spine MRI 08/19/16 0000 Signed Impressions: Service Date/Time: Friday, August 19, 2016 12:23 - CONCLUSION: No acute disease. Jose Triana MD Brain MRI 08/19/16 0000 Signed Impressions: Service Date/Time: Friday, August 19, 2016 20:48 - CONCLUSION: The postcontrast portion of the exam is very limited since very little contrast is identified and there are couple of nonspecific punctate white manner bright signal on FLAIR sequence. Timoteo Khalil MD Liver Ultrasound 08/18/16 0000 Signed Impressions: Service Date/Time: Thursday, August 18, 2016 16:18 - CONCLUSION: 1. Small right pleural effusion. 2. The gallbladder is decompressed with minimal intraluminal sludge. No stones. 3. Splenomegaly. Sergei Maldonado MD Chest CT 08/18/16 0000 Signed Impressions: Service Date/Time: Thursday, August 18, 2016 11:41 - CONCLUSION: Disseminated small bilateral predominantly peripheral nodular infiltrates. Small effusions and mild associated atelectasis. Differential considerations would include atypical infectious etiologies and septic emboli, rarely collagen vascular disease, Troy's and pneumoconiosis. Rickey Babb MD Assessment and Plan Problem List: (1) Endocarditis of tricuspid valve (2) Septic pulmonary embolism (3) IVDU (intravenous drug user) (4) Sepsis (5) TEMO (acute kidney injury) Assessment and Plan Continue antibiotics for TV endocarditis as per Dr. Rodgers. SHANNON not indicated at this time, does not add any significant info. Continue monitoring. Increase activity. Avery Driscoll MD Aug 24, 2016 13:53
--- NOTE | 2016-08-24 14:51 | RADRPT ---
EXAM DATE/TIME: 08/24/2016 13:58 [facility] COMPARISON: No previous studies available for comparison. INDICATIONS : Vomiting and bilateral flank pain. MEDICAL HISTORY : Hypertension. Endocarditis. SURGICAL HISTORY : Tonsillectomy. section. ENCOUNTER: Subsequent ACUITY: 1 week PAIN SCORE: 4/10 LOCATION: Bilateral flanks. FINDINGS: Supine view of the abdomen was performed. The abdominal bowel gas pattern is normal. No abnormal ma sses, calcifications, or organomegaly is seen. The osseous structures are unremarkable. CONCLUSION: No acute disease. Karo Jones MD on August 24, 2016 at 14:50 Board Certified Radiologist. This report was verified electronically.
[2016-08-24 16:00] VITALS: BP 120/79; PULSE 113; RESP 20; TEMP 102.1; O2SAT 96
[2016-08-24] MEDS: ACETAMINOPHEN 325 MG TAB PO PRN (16:03)
[2016-08-24] MEDS: ENOXAPARIN SODIUM 40 MG/0.4 ML SYRINGE SQ SCH (19:59)
[2016-08-24] MEDS: FAMOTIDINE 20 MG TAB PO SCH (19:59)
[2016-08-24 20:00] VITALS: BP 124/84; PULSE 77; RESP 20; TEMP 97; O2SAT 96
[2016-08-24] MEDS: CHLORHEXIDINE GLUCONATE 2 % 1 PACK (2 CLOTHS) TOP SCH (23:07)
[2016-08-25] VITALS: BP 124/86; PULSE 76; RESP 20; TEMP 97.8; O2SAT 95
[2016-08-25] MEDS: ceFAZolin 2 GM PREMIX 50 ML IV SCH ×3 (02:02→17:04)
[2016-08-25] MEDS: SODIUM CHLOR 0.9% 1000 ML INJ 1,000 ML IV SCH ×5 (02:02→22:13)
[2016-08-25 08:00] VITALS: BP 128/82; PULSE 93; RESP 16; TEMP 98.8; O2SAT 96
[2016-08-25] MEDS: amLODIPine BESYLATE 5 MG TAB PO SCH (08:39)
[2016-08-25] MEDS: FAMOTIDINE 20 MG TAB PO SCH ×2 (08:39→22:14)
[2016-08-25] MEDS: METHADONE HCL 10 MG TAB PO SCH ×2 (08:40→22:14)
[2016-08-25] MEDS: SODIUM CHLORIDE 0.9% FLUSH 5 ML FLUSH IV FLUSH SCH ×2 (08:40→21:00)
--- NOTE | 2016-08-25 09:45 | HHI.PR ---
Subjective Remarks Follow up for MSSA bacteremia, tricuspid valve endocarditis, septic pulmonary emboli. Patient is doing well. She reports some chills but no fever. Eating, drinking well. She reports some oral thrush. Objective Vitals Vital Signs Date Time Temp Pulse Resp B/P Pulse Ox O2 Delivery O2 Flow Rate FiO2 08/25/16 08:00 98.8 93 16 128/82 96 08/25/16 00:00 97.8 76 20 124/86 95 08/24/16 20:00 97.0 77 20 124/84 96 08/24/16 17:03 18 08/24/16 16:00 102.1 113 20 120/79 96 08/24/16 12:00 99.0 94 20 120/68 95 I/O 08/24/16 08/24/16 08/24/16 08/25/16 08/25/16 08/25/16 07:00 15:00 23:00 07:00 15:00 23:00 Intake Total 1154 ml 2514 ml 873 ml 1382 ml Output Total 1200 ml 600 ml 700 ml 225 ml Balance -46 ml 1914 ml 173 ml 1157 ml Intake Oral 240 ml 800 ml 873 ml 240 ml IV Total 914 ml 1714 ml 1142 ml Output Urine Total 1200 ml 600 ml 700 ml 225 ml # Bowel Movements 0 0 0 0 # Sanitary Pads 1 Pads 1 Pads Imaging Last Impressions Abdomen X-Ray 08/24/16 0000 Signed Impressions: Service Date/Time: Wednesday, August 24, 2016 13:58 - CONCLUSION: No acute disease. Karo Jones MD Chest X-Ray 08/20/16 0600 Signed Impressions: Service Date/Time: Saturday, August 20, 2016 02:25 - CONCLUSION: Bilateral airspace disease and nodules. Yemi Thompson MD Upper Extremity Ultrasound 08/19/16 0000 Signed Impressions: Service Date/Time: Friday, August 19, 2016 10:38 - CONCLUSION: 1. Occlusive thrombus within the mid and distal right cephalic vein. 2. Complex hypoechoic area adjacent to the brachial vessels within the antecubital fossa measuring 2.6 x 1.0 x 1.2 cm which is nonspecific. Jose Triana MD Lumbar Spine MRI 08/19/16 0000 Signed Impressions: Service Date/Time: Friday, August 19, 2016 12:23 - CONCLUSION: No acute disease. Jose Triana MD Brain MRI 08/19/16 0000 Signed Impressions: Service Date/Time: Friday, August 19, 2016 20:48 - CONCLUSION: The postcontrast portion of the exam is very limited since very little contrast is identified and there are couple of nonspecific punctate white manner bright signal on FLAIR sequence. Timoteo Khalil MD Liver Ultrasound 08/18/16 0000 Signed Impressions: Service Date/Time: Thursday, August 18, 2016 16:18 - CONCLUSION: 1. Small right pleural effusion. 2. The gallbladder is decompressed with minimal intraluminal sludge. No stones. 3. Splenomegaly. Sergei Maldonado MD Chest CT 08/18/16 0000 Signed Impressions: Service Date/Time: Thursday, August 18, 2016 11:41 - CONCLUSION: Disseminated small bilateral predominantly peripheral nodular infiltrates. Small effusions and mild associated atelectasis. Differential considerations would include atypical infectious etiologies and septic emboli, rarely collagen vascular disease, Troy's and pneumoconiosis. Rickey Babb MD Objective Remarks GENERAL: Alert, NAD. SKIN: Warm and dry. HEAD: Normocephalic. EYES: No scleral icterus. No injection or drainage. NECK: Supple, trachea midline. No JVD or lymphadenopathy. CARDIOVASCULAR: Regular rhythm, tachycardic without gallops, or rubs. Systolic murmur present, best heard at the apex. RESPIRATORY: Breath sounds equal bilaterally. No accessory muscle use. GASTROINTESTINAL: Abdomen soft, non-tender, nondistended. MUSCULOSKELETAL: No cyanosis, or edema. There is a large bruise on the right upper extremity near the elbow. BACK: Nontender without obvious deformity. No CVA tenderness. Procedures IJ central line 08/17/2016. 08/18/2016 Echocardiogram - Left ventricle: The cavity size was normal. Wall thickness was normal. Systolic function was normal. The estimated ejection fraction was in the range of 55% to 60%. Wall motion was normal; there were no regional wall motion abnormalities. - Aortic valve: Valve area: 2.08cm^2 (Vmax). - Tricuspid valve: There was a vegetation. Moderate-severe regurgitation. - Pulmonary arteries: PA peak pressure: 42mm Hg (S). A/P Problem List: (1) Sepsis ICD Code: A41.9 Status: Acute (2) Hypotension ICD Code: I95.9 Status: Acute (3) PNA (pneumonia) ICD Code: J18.9 Status: Acute (4) UTI (urinary tract infection) ICD Code: N39.0 Status: Acute (5) TEMO (acute kidney injury) ICD Code: N17.9 Status: Acute (6) IVDU (intravenous drug user) ICD Code: F19.90 Status: Acute (7) Cocaine abuse ICD Code: F14.10 Status: Chronic (8) Thrombocytopenia ICD Code: D69.6 Status: Acute Assessment and Plan Ms. Mcintosh is a 21-year-old female with a history of polysubstance, IV drug use who was admitted to the hospital due to generalized weakness and fever for approximately one week prior to this admission. Patient denied nausea vomiting cough or shortness of breath. Patient used IV drugs 6 days prior to this admission. Her urine drug screen was positive for cocaine. Blood culture grew MSSA and echocardiogram shows tricuspid regurgitation with tricuspid valve vegetation. Infectious disease was consulted and started patient on cefazolin. CT chest showed disseminated small bilateral peripheral nodular infiltrates. MRI brain shows couple of nonspecific punctate white matter bright signal on FLAIR sequence. - Septic shock - resolved. 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 Blood cultures from 2016 grew S. Aureus again. Blood cx from 08/24/2016 is also growing GPC. - Pulmonary septic emboli - Patient required aggressive IV fluid resuscitation, Levophed, stress dosed steroids. - Initially on Vancomycin. However, based on cx results, currently on Cefazolin - probably will require long abx course. - ID (Dr. Rodgers) following. - Cardiology evaluated patient. Discussed with Dr. Driscoll on 08/25/2016. May perform SHANNON on 08/27/2016. - Oral thrush - HIV test negative in 07/2016. - Will start Nystatin Liq. - Hypertension - Continue patient on Amlodipine 5mg Qday. - discontinued Hydrocortisone IV. No tapering needed since she has not been on steroid for that long. - Acute kidney injury - resolved. 1.82 on admission. Currently below 1.0. - Hypokalemia - resolved. - Hypocalcemia - resolved. Corrected Calcium 8.9. - Polysubstance abuse - IVDU - Discussed with patient and grandmother on 08/20/2016. - Grandmother would like for her to go to [facility] for drug rehabs. - Depression - Suicidal ideations - Patient is severely depressed. Appreciate Psychiatry input. I discussed with psychiatry attending on 08/21/2016. - Patient denies being suicidal. Feeling better. - Possible opioid withdrawal - Decreased methadone from 10mg Q8hrs to 10mg Q12hrs. - Patient has not used oxycodone here much. We will reduce oxycodone PRN order - Pain meds: Acetaminophen for pain 1-4, Oxycodone for pain 5-10 and continue Methadone with a goal to taper off in the next 2-3 days. Full code. Lovenox. Famotidine. Problem Qualifiers (1) Hypotension: Qualified Code: I95.9 - Hypotension, unspecified hypotension type Samanta Phoenix DO Aug 25, 2016 9:45 am
--- NOTE | 2016-08-25 11:20 | PD.CARD.PN ---
Subjective Subjective Remarks No CP or SOB, tired Objective Medications Current Medications Medications (Trade) Dose Ordered Sig/Key Route Start Time Stop Time Status Last Admin (Ativan Inj) 1 mg Q3H PRN IV PUSH 08/17/16 19:00 08/20/16 17:40 (Zofran Inj) 4 mg Q6H PRN IVP 08/17/16 19:00 08/24/16 20:01 (Tylenol) 650 mg Q6H PRN PO 08/17/16 19:00 08/24/16 16:03 (Roxicodone) 5 mg Q4H PRN PO 08/17/16 19:00 Terbutaline Sulfate 1 mg 1 mg UNSCH PRN SQ 08/17/16 20:15 (NS 1000 ml Inj) 1,000 ml @ 185 mls/hr Q5H25M IV 08/17/16 20:12 08/25/16 08:41 (NS Flush) 2 ml UNSCH PRN IV FLUSH 08/17/16 20:15 08/24/16 13:46 (NS Flush) 2 ml BID IV FLUSH 08/17/16 21:00 08/25/16 08:40 (Lovenox Inj) 40 mg Q24H SQ 08/17/16 21:00 08/24/16 19:59 Miscellaneous Information 1 Q361D XX 08/17/16 20:15 (Chlorhexidine 2% Cloth) Taper DAILY@04 TOP 08/18/16 04:00 08/14/17 03:59 08/22/16 02:01 Chlorhexidine Gluconate 3 pack 3 pack UNSCH PRN TOP 08/17/16 20:15 (Ancef 2 Gm Premix) 50 ml @ 150 mls/hr Q8H IV 08/19/16 18:00 08/25/16 08:41 (Haldol Inj) 5 mg Q8HR PRN IM 08/21/16 11:00 (Norvasc) 5 mg DAILY PO 08/21/16 11:30 08/25/16 08:39 (Pepcid) 20 mg Q12HR PO 08/24/16 21:00 08/25/16 08:39 (Milk Of Magnesia Liq) 30 ml DAILY PRN PO 08/24/16 12:00 08/24/16 13:08 (Dolophine) 10 mg Q12HR PO 08/24/16 21:00 08/25/16 08:40 (Compazine Inj) 5 mg Q6H PRN IVS 08/24/16 13:15 08/24/16 13:45 (Mycostatin Liq) 5 ml QID SWISH-SWAL 08/25/16 13:00 Vital Signs / I&O Vital Signs Date Time Temp Pulse Resp B/P Pulse Ox O2 Delivery O2 Flow Rate FiO2 08/25/16 08:00 98.8 93 16 128/82 96 08/25/16 00:00 97.8 76 20 124/86 95 08/24/16 20:00 97.0 77 20 124/84 96 08/24/16 17:03 18 08/24/16 16:00 102.1 113 20 120/79 96 08/24/16 12:00 99.0 94 20 120/68 95 I/O 08/24/16 08/24/16 08/24/16 08/25/16 08/25/16 08/25/16 07:00 15:00 23:00 07:00 15:00 23:00 Intake Total 1154 ml 2514 ml 873 ml 1382 ml Output Total 1200 ml 600 ml 700 ml 225 ml Balance -46 ml 1914 ml 173 ml 1157 ml Intake Oral 240 ml 800 ml 873 ml 240 ml IV Total 914 ml 1714 ml 1142 ml Output Urine Total 1200 ml 600 ml 700 ml 225 ml # Bowel Movements 0 0 0 0 # Sanitary Pads 1 Pads 1 Pads Physical Exam GENERAL: In NAD SKIN: Warm and dry. HEAD: Normocephalic. EYES: No scleral icterus. No injection or drainage. NECK: Supple, trachea midline. No JVD or lymphadenopathy. CARDIOVASCULAR: Regular rate and rhythm without murmurs, gallops, or rubs. RESPIRATORY: Breath sounds equal bilaterally. No accessory muscle use. GASTROINTESTINAL: Abdomen soft, non-tender, nondistended. MUSCULOSKELETAL: No cyanosis, or edema. Imaging Last Impressions Abdomen X-Ray 08/24/16 0000 Signed Impressions: Service Date/Time: Wednesday, August 24, 2016 13:58 - CONCLUSION: No acute disease. Karo Jones MD Chest X-Ray 08/20/16 0600 Signed Impressions: Service Date/Time: Saturday, August 20, 2016 02:25 - CONCLUSION: Bilateral airspace disease and nodules. Yemi Thompson MD Upper Extremity Ultrasound 08/19/16 0000 Signed Impressions: Service Date/Time: Friday, August 19, 2016 10:38 - CONCLUSION: 1. Occlusive thrombus within the mid and distal right cephalic vein. 2. Complex hypoechoic area adjacent to the brachial vessels within the antecubital fossa measuring 2.6 x 1.0 x 1.2 cm which is nonspecific. Jose Triana MD Lumbar Spine MRI 08/19/16 0000 Signed Impressions: Service Date/Time: Friday, August 19, 2016 12:23 - CONCLUSION: No acute disease. Jose Triana MD Brain MRI 08/19/16 0000 Signed Impressions: Service Date/Time: Friday, August 19, 2016 20:48 - CONCLUSION: The postcontrast portion of the exam is very limited since very little contrast is identified and there are couple of nonspecific punctate white manner bright signal on FLAIR sequence. Timoteo Khalil MD Liver Ultrasound 08/18/16 0000 Signed Impressions: Service Date/Time: Thursday, August 18, 2016 16:18 - CONCLUSION: 1. Small right pleural effusion. 2. The gallbladder is decompressed with minimal intraluminal sludge. No stones. 3. Splenomegaly. Sergei Maldonado MD Chest CT 08/18/16 0000 Signed Impressions: Service Date/Time: Thursday, August 18, 2016 11:41 - CONCLUSION: Disseminated small bilateral predominantly peripheral nodular infiltrates. Small effusions and mild associated atelectasis. Differential considerations would include atypical infectious etiologies and septic emboli, rarely collagen vascular disease, Troy's and pneumoconiosis. Rickey Babb MD Assessment and Plan Problem List: (1) Endocarditis of tricuspid valve (2) Septic pulmonary embolism (3) IVDU (intravenous drug user) (4) Sepsis (5) TEMO (acute kidney injury) Assessment and Plan Continue antibiotics for TV endocarditis. Blood cx persistently positive. SHANNON on Thu. Avery Driscoll MD Aug 25, 2016 11:20
[2016-08-25 12:00] VITALS: BP 138/93; PULSE 105; RESP 18; TEMP 100.2; O2SAT 96
[2016-08-25] MEDS: NYSTATIN SUSP 500,000 U/5 ML CUP SWISH-SWAL SCH ×3 (12:49→22:12)
[2016-08-25] MEDS: ACETAMINOPHEN 325 MG TAB PO PRN ×2 (12:51→22:12)
[2016-08-25 16:00] VITALS: BP 128/70; PULSE 87; RESP 17; TEMP 97.8; O2SAT 96
--- NOTE | 2016-08-25 16:05 | HHI.IDPN ---
Subjective Subjective Remarks pt cont to have fever up to 102 All blood clx remain positive Antibiotics cefazoline Past Medical History IVDU Allergies: Coded Allergies: Amoxicillin (Unverified Allergy, Unknown, rashes, 07/24/15) Objective . Vital Signs Date Time Temp Pulse Resp B/P Pulse Ox O2 Delivery O2 Flow Rate FiO2 08/25/16 12:00 100.2 105 18 138/93 96 08/25/16 08:00 98.8 93 16 128/82 96 08/25/16 00:00 97.8 76 20 124/86 95 08/24/16 20:00 97.0 77 20 124/84 96 08/24/16 17:03 18 08/24/16 08/24/16 08/25/16 15:00 23:00 07:00 Intake Total 2514 ml 873 ml 1382 ml Output Total 600 ml 700 ml 225 ml Balance 1914 ml 173 ml 1157 ml Intake Oral 800 ml 873 ml 240 ml IV Total 1714 ml 1142 ml Output Urine Total 600 ml 700 ml 225 ml # Bowel Movements 0 0 0 # Sanitary Pads 1 Pads 1 Pads . Microbiology Date/Time Procedure Status Source Growth 08/24/16 08:25 Aerobic Blood Culture - Preliminary Resulted Blood Peripheral NO GROWTH IN 1 DAY 08/24/16 08:25 Anaerobic Blood Culture - Preliminary Resulted Blood Peripheral NO GROWTH IN 1 DAY 08/24/16 08:25 Aerobic Blood Culture - Preliminary Resulted Blood Peripheral NO GROWTH IN 1 DAY 08/24/16 08:25 Anaerobic Blood Culture - Preliminary Resulted Gram Positive Cocci Imaging Last Impressions Abdomen X-Ray 08/24/16 0000 Signed Impressions: Service Date/Time: Wednesday, August 24, 2016 13:58 - CONCLUSION: No acute disease. Karo Jones MD Chest X-Ray 08/20/16 0600 Signed Impressions: Service Date/Time: Saturday, August 20, 2016 02:25 - CONCLUSION: Bilateral airspace disease and nodules. Yemi Thompson MD Upper Extremity Ultrasound 08/19/16 0000 Signed Impressions: Service Date/Time: Friday, August 19, 2016 10:38 - CONCLUSION: 1. Occlusive thrombus within the mid and distal right cephalic vein. 2. Complex hypoechoic area adjacent to the brachial vessels within the antecubital fossa measuring 2.6 x 1.0 x 1.2 cm which is nonspecific. Jose Triana MD Lumbar Spine MRI 08/19/16 0000 Signed Impressions: Service Date/Time: Friday, August 19, 2016 12:23 - CONCLUSION: No acute disease. Jose Triana MD Brain MRI 08/19/16 0000 Signed Impressions: Service Date/Time: Friday, August 19, 2016 20:48 - CONCLUSION: The postcontrast portion of the exam is very limited since very little contrast is identified and there are couple of nonspecific punctate white manner bright signal on FLAIR sequence. Timoteo Khalil MD Liver Ultrasound 08/18/16 0000 Signed Impressions: Service Date/Time: Thursday, August 18, 2016 16:18 - CONCLUSION: 1. Small right pleural effusion. 2. The gallbladder is decompressed with minimal intraluminal sludge. No stones. 3. Splenomegaly. Sergei Maldonado MD Chest CT 08/18/16 0000 Signed Impressions: Service Date/Time: Thursday, August 18, 2016 11:41 - CONCLUSION: Disseminated small bilateral predominantly peripheral nodular infiltrates. Small effusions and mild associated atelectasis. Differential considerations would include atypical infectious etiologies and septic emboli, rarely collagen vascular disease, Troy's and pneumoconiosis. Rickey Babb MD Physical Exam CONSTITUTIONAL/GENERAL: This is an adequately nourished patient, in no apparent distress. TUBES/LINES/DRAINS: SKIN: No jaundice, rashes, or lesions. No [place] lesions Skin temperature appropriate. Not diaphoretic. EYES: No scleral icterus. No injection or drainage. Fundi not examined. CARDIOVASCULAR: Regular rate and rhythm +2-3/6 murmur, gallops, or rubs. No JVD. Peripheral pulses symmetric. RESPIRATORY/CHEST: Symmetric, unlabored respirations. Clear to auscultation. Breath sounds equal bilaterally. No wheezes, rales, or rhonchi. GASTROINTESTINAL: Abdomen soft, non-tender, nondistended. No hepato-splenomegaly , or palpable masses. No guarding. Bowel sounds present. GENITOURINARY: Without palpable bladder distension. Mendes catheter in place with clear yellow urine Well healed lower transversa laparotomy incision MUSCULOSKELETAL: Extremities without clubbing, cyanosis, 1+ periferal edema R UE - ecchymosis at ulnar area; ill defined soft edema, no erythema NEUROLOGICAL: less lethargic, but easily arousable; speech nl, follows commands Assessment & Plan Remarks Tricuspid valve endocarditis , MSSA - 2D echo + for TV vegg - septic emboli cw TV endocarditiss - cont to have fever - persistent ly positive blood clx Lower back pain - ro diskitis/osteo Amoxicillin allergy - hives; but took keflex uneventfully per mom's account Slurred speech, appears worse : no [employer] inf will go ahead with SHANNON fu repaet blood clx However if cont to have + blood clx will get SHANNON next week cont cefazoline 2 gm q 8 add gentamycin dw RN dw Tesha Chambers MD Aug 25, 2016 16:05
[2016-08-25] MEDS ORDERED: Gentamicin Consult Pharmacy 1 EA OTHER SCH (16:15)
[2016-08-25] MEDS: GENTAMICIN IV SCH (17:49)
[2016-08-25] MEDS: SODIUM CHLORIDE 0.9% IV SCH (17:49)
[2016-08-25 20:00] VITALS: BP 133/93; PULSE 76; RESP 20; TEMP 98.1; O2SAT 97
[2016-08-25] MEDS: ENOXAPARIN SODIUM 40 MG/0.4 ML SYRINGE SQ SCH (22:14)
[2016-08-26] VITALS (8 sets, daily range): BP systolic 123–136; BP diastolic 79–96; PULSE 84–103; RESP 15–22; TEMP 98–99.3; O2SAT 94–97
[2016-08-26] MEDS: SODIUM CHLOR 0.9% 1000 ML INJ 1,000 ML IV SCH ×2 (02:53→09:00)
[2016-08-26] MEDS: GENTAMICIN IV SCH ×3 (02:53→16:27)
[2016-08-26] MEDS: ceFAZolin 2 GM PREMIX 50 ML IV SCH ×3 (02:53→16:26)
[2016-08-26] MEDS: SODIUM CHLORIDE 0.9% IV SCH ×3 (02:53→16:27)
[2016-08-26] MEDS: CHLORHEXIDINE GLUCONATE 2 % 1 PACK (2 CLOTHS) TOP SCH (04:00)
[2016-08-26 04:53] LABS: AUTOMATED NEUTROPHIL # 7.5 TH/MM3 (1.8-7.7); BASOPHIL % 0.1 % (0.0-2.0); EOSINOPHIL # 0.1 TH/MM3 (0-0.4); EOSINOPHIL % 0.7 % (0.0-4.0); LYMPH % 13.5 % (9.0-44.0); LYMPHOCYTE # 1.3 TH/MM3 (1.0-4.8); MEAN CORPUSCULAR HEMOGLOBIN 26.1 PG (27.0-34.0); MEAN CORPUSCULAR HGB CONC 34.4 % (32.0-36.0); MONO % 5.7 % (0.0-8.0); PLATELET COUNT 158 TH/MM3 (150-450); RED BLOOD COUNT 2.59 MIL/MM3 (4.00-5.30); RED CELL DISTRIBUTION WIDTH 17.4 % (11.6-17.2); WHITE BLOOD COUNT 9.4 TH/MM3 (4.0-11.0)
[2016-08-26 04:56] LABS: HEMO FLAGS DIFF FINAL
[2016-08-26 05:00] LABS: HEMATOCRIT 19.6 % (35.0-46.0)
[2016-08-26 05:15] LABS: BICARBONATE 28.8 MEQ/L (21.0-32.0); POTASSIUM 3.5 MEQ/L (3.5-5.1)
[2016-08-26] MEDS ORDERED: SODIUM CHLOR 0.9% 250 ML INJ 250 ML IV ONE (05:30)
[2016-08-26 05:32] LABS: CALCIUM-PROTEIN CORRECTED 8.4 MG/DL (8.5-10.1)
[2016-08-26] MEDS: FAMOTIDINE 20 MG TAB PO SCH ×2 (08:30→21:00)
[2016-08-26] MEDS: amLODIPine BESYLATE 5 MG TAB PO SCH (08:30)
[2016-08-26] MEDS: NYSTATIN SUSP 500,000 U/5 ML CUP SWISH-SWAL SCH ×4 (08:31→21:00)
[2016-08-26] MEDS: SODIUM CHLORIDE 0.9% FLUSH 5 ML FLUSH IV FLUSH SCH ×2 (08:31→21:00)
[2016-08-26] MEDS: ONDANSETRON HCL 4 MG/2 ML VIAL IVP PRN (08:37)
[2016-08-26] MEDS ORDERED: METHADONE HCL 10 MG TAB PO SCH (09:00)
--- NOTE | 2016-08-26 13:11 | HHI.PYPN ---
Subjective Remarks Patient was seen for psychiatric evaluation today, patient was found awake, laying down in her bed, calm, pleasant and cooperative. Patient did not recognize stating that she doesn't remember seeing me before. She says that she feels much better now, she verbalized understanding of her medical situation and the importance of following medical recommendations. Patient was able to to verbalize that her current medical problems is due to her severe drug addiction. She says that she has been trying to stop using drugs "but he has been extremely difficult, but I know that I'm going to do it", patient reports a strong motivation to go to a rehabilitation program and do whatever is needed in order to keep sober and living her life free of drug. She reports good mood, denies depressive symptoms, she reports mild anxiety, as long as nausea and body pain, but she denies perceptual disturbances, she denies suicidal or homicidal ideation. She denies visual and auditory hallucinations. Patient is fully oriented and history. No aggressive behavior, no hostility, no agitation reported. Review of Systems Constitutional: DENIES: Diaphoretic episodes, Fatigue, Fever, Weight gain, Weight loss, Chills, Dizziness, Change in appetite, Night Sweats Endocrine: DENIES: Abnorml menstrual pattern, Heat/cold intolerance, Polydipsia , Polyuria, Polyphagia Eyes: DENIES: Blurred vision, Diplopia, Eye inflammation, Eye pain, Vision loss , Photosensitivity, Double Vision Ears, nose, mouth, throat: DENIES: Tinnitus, Hearing loss, Vertigo, Nasal discharge, Oral lesions, Throat pain, Hoarseness, Ear Pain, Running Nose, Epistaxis, Sinus Pain, Toothache, Odynophagia Respiratory: DENIES: Apneas, Cough, Snoring, Wheezing, Hemoptysis, Sputum production, Shortness of breath Gastrointestinal: COMPLAINS OF: Nausea, Vomiting, DENIES: Abdominal pain, Black stools, Bloody stools, Constipation, Diarrhea, Difficulty Swallowing, Anorexia Musculoskeletal: COMPLAINS OF: Muscle aches, DENIES: Joint pain, Stiffness, Joint Swelling, Back pain, Neck pain Integumentary: DENIES: Abnormal pigmentation, Pruritus, Rash, Nail changes, Breast masses, Breast skin changes, Nipple discharge Hematologic/lymphatic: DENIES: Bruising, Lymphadenopathy Immunologic/allergic: DENIES: Eczema, Urticaria Neurologic: DENIES: Abnormal gait, Headache, Localized weakness, Paresthesias, Seizures, Speech Problems, Tremor, Poor Balance Psychiatric: COMPLAINS OF: Anxiety, DENIES: Confusion, Mood changes, Depression, Hallucinations, Agitation, Suicidal Ideation, Homicidal Ideation, Delusions Objective Alert: Yes [place]: Person, Place, Date, Situation Mood: Calm Affect: Euthymic Memory Intact: Immediate, Recent, Remote Hallucinations: Other (none) Delusions: No Delusion Type: Other (none) Suicidal: Ideation (She denies SI) Homicidal: Ideation (she denies homicidal ideation) Insight/Judgement Fair Labs Test 08/26/16 08/26/16 04:30 05:52 White Blood Count 9.4 TH/MM3 Red Blood Count 2.59 MIL/MM3 Hemoglobin 6.7 GM/DL Hematocrit 19.6 % Mean Corpuscular Volume 76.0 FL Mean Corpuscular Hemoglobin 26.1 PG Mean Corpuscular Hemoglobin 34.4 % Concent Red Cell Distribution Width 17.4 % Platelet Count 158 TH/MM3 Mean Platelet Volume 7.5 FL Neutrophils (%) (Auto) 80.0 % Lymphocytes (%) (Auto) 13.5 % Monocytes (%) (Auto) 5.7 % Eosinophils (%) (Auto) 0.7 % Basophils (%) (Auto) 0.1 % Neutrophils # (Auto) 7.5 TH/MM3 Lymphocytes # (Auto) 1.3 TH/MM3 Monocytes # (Auto) 0.5 TH/MM3 Eosinophils # (Auto) 0.1 TH/MM3 Basophils # (Auto) 0.0 TH/MM3 CBC Comment DIFF FINAL Differential Comment Sodium Level 139 MEQ/L Potassium Level 3.5 MEQ/L Chloride Level 103 MEQ/L Carbon Dioxide Level 28.8 MEQ/L Anion Gap 7 MEQ/L Blood Urea Nitrogen 5 MG/DL Creatinine 0.33 MG/DL Estimat Glomerular Filtration 247 ML/MIN Rate Random Glucose 96 MG/DL Calcium Level 7.1 MG/DL Protein Corrected Calcium 8.4 MG/DL Total Protein 4.8 GM/DL Blood Type A POSITIVE Antibody Screen NEGATIVE Crossmatch Leukocyte-Reduced Red Blood Cells Blood Bank Comment Date/Time Procedure Status Source Growth 08/24/16 08:25 Aerobic Blood Culture - Preliminary Resulted Blood Peripheral NO GROWTH IN 2 DAYS 08/24/16 08:25 Anaerobic Blood Culture - Preliminary Resulted Blood Peripheral NO GROWTH IN 2 DAYS Vitals/IOs Vital Signs Date Time Temp Pulse Resp B/P Pulse Ox O2 Delivery O2 Flow Rate FiO2 08/26/16 09:40 98.7 89 17 133/92 97 Intake and Output 08/25/16 08/25/16 08/26/16 08:00 16:00 00:00 Intake Total 1382 ml 2291 ml 360 ml Output Total 225 ml 700 ml 600 ml Balance 1157 ml 1591 ml -240 ml Assessment & Plan Problem List: (1) Opioid abuse ICD Code: F11.10 (2) Cocaine abuse ICD Code: F14.10 (3) Substance induced mood disorder Assessment & Plan: Today a psychiatric evaluation the patient does not present any significant, concerning, acute objective or subjective symptomatology of depression, christine or perceptual disturbances. Patient endorses might anxiety which might be situational and also related with opiate withdrawal. Patient does not meet criteria for psychiatric admission at this moment, extensive motivation and psychoeducation provided. ICD Code: F19.94 Assessment & Plan Estimated LOS: days Justification for Cont. Inpt. Patient does not meet criteria for psychiatric admission Kuldeep Gupta MD Aug 26, 2016 13:11
[2016-08-26 15:04] LABS: HEMATOCRIT 24.8 % (35.0-46.0); REVIEW FLAG FINAL
--- NOTE | 2016-08-26 15:28 | PD.CARD.PN ---
Subjective Subjective Remarks No CP or SOB, no new c/o Objective Medications Current Medications Medications (Trade) Dose Ordered Sig/Key Route Start Time Stop Time Status Last Admin (Ativan Inj) 1 mg Q3H PRN IV PUSH 08/17/16 19:00 08/20/16 17:40 (Zofran Inj) 4 mg Q6H PRN IVP 08/17/16 19:00 08/26/16 08:37 (Tylenol) 650 mg Q6H PRN PO 08/17/16 19:00 08/25/16 22:12 (Roxicodone) 5 mg Q4H PRN PO 08/17/16 19:00 08/26/16 12:48 (Brethine Inj) 1 mg UNSCH PRN SQ 08/17/16 20:15 (NS Flush) 2 ml UNSCH PRN IV FLUSH 08/17/16 20:15 08/24/16 13:46 (NS Flush) 2 ml BID IV FLUSH 08/17/16 21:00 08/25/16 08:40 (Lovenox Inj) 40 mg Q24H SQ 08/17/16 21:00 08/25/16 22:14 Miscellaneous Information 1 Q361D XX 08/17/16 20:15 (Chlorhexidine 2% Cloth) Taper DAILY@04 TOP 08/18/16 04:00 08/14/17 03:59 08/22/16 02:01 Chlorhexidine Gluconate 3 pack 3 pack UNSCH PRN TOP 08/17/16 20:15 (Ancef 2 Gm Premix) 50 ml @ 150 mls/hr Q8H IV 08/19/16 18:00 08/26/16 08:38 (Haldol Inj) 5 mg Q8HR PRN IM 08/21/16 11:00 (Norvasc) 5 mg DAILY PO 08/21/16 11:30 08/26/16 08:30 (Pepcid) 20 mg Q12HR PO 08/24/16 21:00 08/26/16 08:30 (Milk Of Magnesia Liq) 30 ml DAILY PRN PO 08/24/16 12:00 08/24/16 13:08 (Compazine Inj) 5 mg Q6H PRN IVS 08/24/16 13:15 08/24/16 13:45 Nystatin 5 ml 5 ml QID SWISH-SWAL 08/25/16 13:00 08/26/16 12:45 Pharmacy Profile Note 0 ml @ 0 mls/hr UNSCH OTHER 08/25/16 16:15 (Gentamicin Inj/ NS Inj) 101.625 ml @ 200 mls/ hr Q8H IV 08/25/16 18:00 08/26/16 08:32 Miscellaneous Information SPECIFIC LAB TO BE DRAWN:[facility] TR[facility] DATE TO... ONCE ONCE XX 08/26/16 17:45 08/26/16 17:46 (NS 250 ml Inj) 250 ml @ 15 mls/hr ONCE ONCE IV 08/26/16 05:30 08/26/16 22:09 08/26/16 08:49 (Dolophine) 5 mg BID PO 08/27/16 09:00 08/29/16 08:59 Vital Signs / I&O Vital Signs Date Time Temp Pulse Resp B/P Pulse Ox O2 Delivery O2 Flow Rate FiO2 08/26/16 12:00 99.2 97 17 123/79 95 08/26/16 09:40 98.7 89 17 133/92 97 08/26/16 09:16 99.3 84 15 136/95 96 08/26/16 08:00 98.9 86 16 134/85 95 08/26/16 04:00 98.7 86 20 130/89 96 08/26/16 00:00 98.0 103 20 127/87 97 08/25/16 20:00 98.1 76 20 133/93 97 08/25/16 16:00 97.8 87 17 128/70 96 I/O 08/25/16 08/25/16 08/25/16 08/26/16 08/26/16 08/26/16 07:00 15:00 23:00 07:00 15:00 23:00 Intake Total 1382 ml 2291 ml 360 ml 1720 ml 2980 ml Output Total 225 ml 700 ml 600 ml 600 ml 800 ml Balance 1157 ml 1591 ml -240 ml 1120 ml 2180 ml Intake Oral 240 ml 960 ml 360 ml 240 ml 960 ml IV Total 1142 ml 1331 ml 1480 ml 1688 ml Packed Cells 332 ml Output Urine Total 225 ml 700 ml 600 ml 600 ml 800 ml # Bowel Movements 0 0 0 1 0 Physical Exam GENERAL: In NAD SKIN: Warm and dry. HEAD: Normocephalic. EYES: No scleral icterus. No injection or drainage. NECK: Supple, trachea midline. No JVD or lymphadenopathy. CARDIOVASCULAR: Regular rate and rhythm without murmurs, gallops, or rubs. RESPIRATORY: Breath sounds equal bilaterally. No accessory muscle use. GASTROINTESTINAL: Abdomen soft, non-tender, nondistended. MUSCULOSKELETAL: No cyanosis, or edema. Laboratory Laboratory Tests Test 08/26/16 08/26/16 08/26/16 04:30 05:52 14:30 White Blood Count 9.4 TH/MM3 Red Blood Count 2.59 MIL/MM3 Hemoglobin 6.7 GM/DL 8.1 GM/DL Hematocrit 19.6 % 24.8 % Mean Corpuscular Volume 76.0 FL Mean Corpuscular Hemoglobin 26.1 PG Mean Corpuscular Hemoglobin 34.4 % Concent Red Cell Distribution Width 17.4 % Platelet Count 158 TH/MM3 Mean Platelet Volume 7.5 FL Neutrophils (%) (Auto) 80.0 % Lymphocytes (%) (Auto) 13.5 % Monocytes (%) (Auto) 5.7 % Eosinophils (%) (Auto) 0.7 % Basophils (%) (Auto) 0.1 % Neutrophils # (Auto) 7.5 TH/MM3 Lymphocytes # (Auto) 1.3 TH/MM3 Monocytes # (Auto) 0.5 TH/MM3 Eosinophils # (Auto) 0.1 TH/MM3 Basophils # (Auto) 0.0 TH/MM3 CBC Comment DIFF FINAL Differential Comment Sodium Level 139 MEQ/L Potassium Level 3.5 MEQ/L Chloride Level 103 MEQ/L Carbon Dioxide Level 28.8 MEQ/L Anion Gap 7 MEQ/L Blood Urea Nitrogen 5 MG/DL Creatinine 0.33 MG/DL Estimat Glomerular Filtration 247 ML/MIN Rate Random Glucose 96 MG/DL Calcium Level 7.1 MG/DL Protein Corrected Calcium 8.4 MG/DL Total Protein 4.8 GM/DL Blood Type A POSITIVE Antibody Screen NEGATIVE Crossmatch Leukocyte-Reduced Red Blood Cells Blood Bank Comment Imaging Last Impressions Abdomen X-Ray 08/24/16 0000 Signed Impressions: Service Date/Time: Wednesday, August 24, 2016 13:58 - CONCLUSION: No acute disease. Karo Jones MD Chest X-Ray 08/20/16 0600 Signed Impressions: Service Date/Time: Saturday, August 20, 2016 02:25 - CONCLUSION: Bilateral airspace disease and nodules. Yemi Thompson MD Upper Extremity Ultrasound 08/19/16 0000 Signed Impressions: Service Date/Time: Friday, August 19, 2016 10:38 - CONCLUSION: 1. Occlusive thrombus within the mid and distal right cephalic vein. 2. Complex hypoechoic area adjacent to the brachial vessels within the antecubital fossa measuring 2.6 x 1.0 x 1.2 cm which is nonspecific. Jose Triana MD Lumbar Spine MRI 08/19/16 0000 Signed Impressions: Service Date/Time: Friday, August 19, 2016 12:23 - CONCLUSION: No acute disease. Jose Triana MD Brain MRI 08/19/16 0000 Signed Impressions: Service Date/Time: Friday, August 19, 2016 20:48 - CONCLUSION: The postcontrast portion of the exam is very limited since very little contrast is identified and there are couple of nonspecific punctate white manner bright signal on FLAIR sequence. Timoteo Khalil MD Liver Ultrasound 08/18/16 0000 Signed Impressions: Service Date/Time: Thursday, August 18, 2016 16:18 - CONCLUSION: 1. Small right pleural effusion. 2. The gallbladder is decompressed with minimal intraluminal sludge. No stones. 3. Splenomegaly. Sergei Maldonado MD Chest CT 08/18/16 0000 Signed Impressions: Service Date/Time: Thursday, August 18, 2016 11:41 - CONCLUSION: Disseminated small bilateral predominantly peripheral nodular infiltrates. Small effusions and mild associated atelectasis. Differential considerations would include atypical infectious etiologies and septic emboli, rarely collagen vascular disease, Troy's and pneumoconiosis. Rickey Babb MD Assessment and Plan Problem List: (1) Endocarditis of tricuspid valve (2) Septic pulmonary embolism (3) IVDU (intravenous drug user) (4) Sepsis (5) TEMO (acute kidney injury) Assessment and Plan Continue antibiotics for TV endocarditis. Blood cx persistently positive. SHANNON tomorrow as requested by Avery Peguero MD Aug 26, 2016 15:28
[2016-08-26] MEDS ORDERED: [UNRECOGNIZED DRUG - OTHER] XX ONE (17:45)
[2016-08-26] MEDS ORDERED: PHARMACY ORDERED LAB XX ONE (17:45)
[2016-08-26] MEDS: ENOXAPARIN SODIUM 40 MG/0.4 ML SYRINGE SQ SCH (21:00)
--- NOTE | 2016-08-26 23:04 | HHI.PR ---
Subjective Remarks Follow up for MSSA bacteremia, tricuspid valve endocarditis, septic pulmonary emboli. Patient is doing well. She complains of her lower ext and abdominal area fluid overload. No shortness of breath or chest pain. No fever, chills. She is scheduled for SHANNON tomorrow. Objective Vitals Vital Signs Date Time Temp Pulse Resp B/P Pulse Ox O2 Delivery O2 Flow Rate FiO2 08/26/16 20:00 98.8 85 22 136/96 97 08/26/16 16:00 98.8 89 16 135/92 94 08/26/16 12:00 99.2 97 17 123/79 95 08/26/16 09:40 98.7 89 17 133/92 97 08/26/16 09:16 99.3 84 15 136/95 96 08/26/16 08:00 98.9 86 16 134/85 95 08/26/16 04:00 98.7 86 20 130/89 96 08/26/16 00:00 98.0 103 20 127/87 97 I/O 08/25/16 08/25/16 08/25/16 08/26/16 08/26/16 08/26/16 07:00 15:00 23:00 07:00 15:00 23:00 Intake Total 1382 ml 2291 ml 360 ml 1720 ml 2980 ml Output Total 225 ml 700 ml 600 ml 600 ml 800 ml Balance 1157 ml 1591 ml -240 ml 1120 ml 2180 ml Intake Oral 240 ml 960 ml 360 ml 240 ml 960 ml IV Total 1142 ml 1331 ml 1480 ml 1688 ml Packed Cells 332 ml Output Urine Total 225 ml 700 ml 600 ml 600 ml 800 ml # Bowel Movements 0 0 0 1 0 Result Diagram: 08/26/16 1430 08/26/16 0430 Imaging Last Impressions Abdomen X-Ray 08/24/16 0000 Signed Impressions: Service Date/Time: Wednesday, August 24, 2016 13:58 - CONCLUSION: No acute disease. Karo Jones MD Chest X-Ray 08/20/16 0600 Signed Impressions: Service Date/Time: Saturday, August 20, 2016 02:25 - CONCLUSION: Bilateral airspace disease and nodules. Yemi Thompson MD Upper Extremity Ultrasound 08/19/16 0000 Signed Impressions: Service Date/Time: Friday, August 19, 2016 10:38 - CONCLUSION: 1. Occlusive thrombus within the mid and distal right cephalic vein. 2. Complex hypoechoic area adjacent to the brachial vessels within the antecubital fossa measuring 2.6 x 1.0 x 1.2 cm which is nonspecific. Jose Triana MD Lumbar Spine MRI 08/19/16 0000 Signed Impressions: Service Date/Time: Friday, August 19, 2016 12:23 - CONCLUSION: No acute disease. Jose Triana MD Brain MRI 08/19/16 0000 Signed Impressions: Service Date/Time: Friday, August 19, 2016 20:48 - CONCLUSION: The postcontrast portion of the exam is very limited since very little contrast is identified and there are couple of nonspecific punctate white manner bright signal on FLAIR sequence. Timoteo Khalil MD Liver Ultrasound 08/18/16 0000 Signed Impressions: Service Date/Time: Thursday, August 18, 2016 16:18 - CONCLUSION: 1. Small right pleural effusion. 2. The gallbladder is decompressed with minimal intraluminal sludge. No stones. 3. Splenomegaly. Sergei Maldonado MD Chest CT 08/18/16 0000 Signed Impressions: Service Date/Time: Thursday, August 18, 2016 11:41 - CONCLUSION: Disseminated small bilateral predominantly peripheral nodular infiltrates. Small effusions and mild associated atelectasis. Differential considerations would include atypical infectious etiologies and septic emboli, rarely collagen vascular disease, Troy's and pneumoconiosis. Rickey Babb MD Objective Remarks GENERAL: Alert, NAD. SKIN: Warm and dry. HEAD: Normocephalic. EYES: No scleral icterus. No injection or drainage. NECK: Supple, trachea midline. No JVD or lymphadenopathy. CARDIOVASCULAR: Regular rhythm, tachycardic without gallops, or rubs. Systolic murmur present, best heard at the apex. RESPIRATORY: Breath sounds equal bilaterally. No accessory muscle use. GASTROINTESTINAL: Abdomen soft, non-tender, nondistended. MUSCULOSKELETAL: No cyanosis, or edema. There is a large bruise on the right upper extremity near the elbow. BACK: Nontender without obvious deformity. No CVA tenderness. Procedures IJ central line 08/17/2016. 08/18/2016 Echocardiogram - Left ventricle: The cavity size was normal. Wall thickness was normal. Systolic function was normal. The estimated ejection fraction was in the range of 55% to 60%. Wall motion was normal; there were no regional wall motion abnormalities. - Aortic valve: Valve area: 2.08cm^2 (Vmax). - Tricuspid valve: There was a vegetation. Moderate-severe regurgitation. - Pulmonary arteries: PA peak pressure: 42mm Hg (S). A/P Problem List: (1) Sepsis ICD Code: A41.9 Status: Acute (2) Hypotension ICD Code: I95.9 Status: Acute (3) PNA (pneumonia) ICD Code: J18.9 Status: Acute (4) UTI (urinary tract infection) ICD Code: N39.0 Status: Acute (5) TEMO (acute kidney injury) ICD Code: N17.9 Status: Acute (6) IVDU (intravenous drug user) ICD Code: F19.90 Status: Acute (7) Cocaine abuse ICD Code: F14.10 Status: Chronic (8) Thrombocytopenia ICD Code: D69.6 Status: Acute Assessment and Plan Ms. Mcintosh is a 21-year-old female with a history of polysubstance, IV drug use who was admitted to the hospital due to generalized weakness and fever for approximately one week prior to this admission. Patient denied nausea vomiting cough or shortness of breath. Patient used IV drugs 6 days prior to this admission. Her urine drug screen was positive for cocaine. Blood culture grew MSSA and echocardiogram shows tricuspid regurgitation with tricuspid valve vegetation. Infectious disease was consulted and started patient on cefazolin. CT chest showed disseminated small bilateral peripheral nodular infiltrates. MRI brain shows couple of nonspecific punctate white matter bright signal on FLAIR sequence. - Septic shock - resolved. 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 Blood cultures from 2016 grew S. Aureus again. Blood cx from 08/24/2016 is also growing GPC. - Pulmonary septic emboli - Patient required aggressive IV fluid resuscitation, Levophed, stress dosed steroids. - Initially on Vancomycin. However, based on cx results, currently on Cefazolin - probably will require long abx course. - ID (Dr. Rodgers) following. - Cardiology evaluated patient. Discussed with Dr. Driscoll on 08/25/2016. May perform SHANNON on 08/27/2016. - Will d/c fluid. If necessary, we will consider diuresing with Lasix. - Oral thrush - HIV test negative in 07/2016. - Continue Nystatin Liq. - Hypertension - Continue patient on Amlodipine 5mg Qday. - discontinued Hydrocortisone IV. No tapering needed since she has not been on steroid for that long. - Acute kidney injury - resolved. 1.82 on admission. Currently below 1.0. - Hypokalemia - resolved. - Hypocalcemia - resolved. Corrected Calcium 8.9. - Polysubstance abuse - IVDU - Discussed with patient and grandmother on 08/20/2016. - Grandmother would like for her to go [place] [facility] [place] for drug reh[place]. - Depression - Suicidal ideations - Patient is severely depressed. Appreciate Psychiatry input. I discussed with psychiatry attending on 08/21/2016. - Patient denies being suicidal. Feeling better. - Possible opioid withdrawal - Decreased methadone from 10mg Q8hrs to 10mg Q12hrs. - Patient has not used oxycodone here much. We will reduce oxycodone PRN order - Pain meds: Acetaminophen for pain 1-4, Oxycodone for pain 5-10 and continue Methadone with a goal to taper off in the next 2-3 days. Full code. Lovenox. Famotidine. Problem Qualifiers (1) Hypotension: Qualified Code: I95.9 - Hypotension, unspecified hypotension type Samanta Phoenix DO Aug 26, 2016 23:04
[2016-08-27] VITALS (7 sets, daily range): BP systolic 100–136; BP diastolic 56–96; PULSE 70–89; RESP 16–20; TEMP 96.2–98.9; O2SAT 96–98
[2016-08-27] MEDS: SODIUM CHLORIDE 0.9% IV SCH ×3 (00:37→17:34)
[2016-08-27] MEDS: GENTAMICIN IV SCH ×3 (00:37→17:34)
[2016-08-27] MEDS: ceFAZolin 2 GM PREMIX 50 ML IV SCH ×3 (00:38→18:11)
[2016-08-27] MEDS: CHLORHEXIDINE GLUCONATE 2 % 1 PACK (2 CLOTHS) TOP SCH (03:55)
[2016-08-27] MEDS: amLODIPine BESYLATE 5 MG TAB PO SCH (08:30)
[2016-08-27] MEDS: METHADONE HCL 10 MG TAB PO SCH ×2 (08:30→20:41)
[2016-08-27] MEDS: FAMOTIDINE 20 MG TAB PO SCH ×2 (08:31→20:40)
[2016-08-27] MEDS: NYSTATIN SUSP 500,000 U/5 ML CUP SWISH-SWAL SCH ×4 (08:31→20:42)
[2016-08-27] MEDS: SODIUM CHLORIDE 0.9% FLUSH 5 ML FLUSH IV FLUSH SCH ×2 (08:34→20:40)
--- NOTE | 2016-08-27 10:05 | HHI.PR ---
Subjective Remarks Follow up for MSSA bacteremia, tricuspid valve endocarditis, septic pulmonary emboli. Patient is currently doing well. No fever or chills. Waiting for SHANNON today. Objective Vitals Vital Signs Date Time Temp Pulse Resp B/P Pulse Ox O2 Delivery O2 Flow Rate FiO2 08/27/16 09:30 18 08/27/16 07:50 98.8 77 18 134/94 98 08/27/16 04:00 98.9 83 20 136/96 97 08/27/16 00:00 98.9 83 20 136/96 97 08/26/16 20:00 98.8 85 22 136/96 97 08/26/16 16:00 98.8 89 16 135/92 94 08/26/16 12:00 99.2 97 17 123/79 95 I/O 08/26/16 08/26/16 08/26/16 08/27/16 08/27/16 08/27/16 07:00 15:00 23:00 07:00 15:00 23:00 Intake Total 1720 ml 2980 ml 480 ml 0 ml Output Total 600 ml 800 ml 1200 ml 2000 ml Balance 1120 ml 2180 ml -720 ml -2000 ml Intake Oral 240 ml 960 ml 480 ml 0 ml IV Total 1480 ml 1688 ml Packed Cells 332 ml Output Urine Total 600 ml 800 ml 1200 ml 2000 ml # Bowel Movements 1 0 1 0 Result Diagram: 08/26/16 1430 08/26/16 0430 Imaging Last Impressions Abdomen X-Ray 08/24/16 0000 Signed Impressions: Service Date/Time: Wednesday, August 24, 2016 13:58 - CONCLUSION: No acute disease. Karo Jones MD Chest X-Ray 08/20/16 0600 Signed Impressions: Service Date/Time: Saturday, August 20, 2016 02:25 - CONCLUSION: Bilateral airspace disease and nodules. Yemi Thompson MD Upper Extremity Ultrasound 08/19/16 0000 Signed Impressions: Service Date/Time: Friday, August 19, 2016 10:38 - CONCLUSION: 1. Occlusive thrombus within the mid and distal right cephalic vein. 2. Complex hypoechoic area adjacent to the brachial vessels within the antecubital fossa measuring 2.6 x 1.0 x 1.2 cm which is nonspecific. Jose Triana MD Lumbar Spine MRI 08/19/16 0000 Signed Impressions: Service Date/Time: Friday, August 19, 2016 12:23 - CONCLUSION: No acute disease. Jose Triana MD Brain MRI 08/19/16 0000 Signed Impressions: Service Date/Time: Friday, August 19, 2016 20:48 - CONCLUSION: The postcontrast portion of the exam is very limited since very little contrast is identified and there are couple of nonspecific punctate white manner bright signal on FLAIR sequence. Timoteo Khalil MD Liver Ultrasound 08/18/16 0000 Signed Impressions: Service Date/Time: Thursday, August 18, 2016 16:18 - CONCLUSION: 1. Small right pleural effusion. 2. The gallbladder is decompressed with minimal intraluminal sludge. No stones. 3. Splenomegaly. Sergei Maldonado MD Chest CT 08/18/16 0000 Signed Impressions: Service Date/Time: Thursday, August 18, 2016 11:41 - CONCLUSION: Disseminated small bilateral predominantly peripheral nodular infiltrates. Small effusions and mild associated atelectasis. Differential considerations would include atypical infectious etiologies and septic emboli, rarely collagen vascular disease, Troy's and pneumoconiosis. Rickey Babb MD Objective Remarks GENERAL: Alert, NAD. SKIN: Warm and dry. HEAD: Normocephalic. EYES: No scleral icterus. No injection or drainage. NECK: Supple, trachea midline. No JVD or lymphadenopathy. CARDIOVASCULAR: Regular rhythm, tachycardic without gallops, or rubs. Systolic murmur present, best heard at the apex. RESPIRATORY: Breath sounds equal bilaterally. No accessory muscle use. GASTROINTESTINAL: Abdomen soft, non-tender, nondistended. MUSCULOSKELETAL: No cyanosis, or edema. There is a large bruise on the right upper extremity near the elbow. BACK: Nontender without obvious deformity. No CVA tenderness. Procedures IJ central line 08/17/2016. 08/18/2016 Echocardiogram - Left ventricle: The cavity size was normal. Wall thickness was normal. Systolic function was normal. The estimated ejection fraction was in the range of 55% to 60%. Wall motion was normal; there were no regional wall motion abnormalities. - Aortic valve: Valve area: 2.08cm^2 (Vmax). - Tricuspid valve: There was a vegetation. Moderate-severe regurgitation. - Pulmonary arteries: PA peak pressure: 42mm Hg (S). A/P Problem List: (1) Sepsis ICD Code: A41.9 Status: Acute (2) Hypotension ICD Code: I95.9 Status: Acute (3) PNA (pneumonia) ICD Code: J18.9 Status: Acute (4) UTI (urinary tract infection) ICD Code: N39.0 Status: Acute (5) TEMO (acute kidney injury) ICD Code: N17.9 Status: Acute (6) IVDU (intravenous drug user) ICD Code: F19.90 Status: Acute (7) Cocaine abuse ICD Code: F14.10 Status: Chronic (8) Thrombocytopenia ICD Code: D69.6 Status: Acute Assessment and Plan Ms. Mcintosh is a 21-year-old female with a history of polysubstance, IV drug use who was admitted to the hospital due to generalized weakness and fever for approximately one week prior to this admission. Patient denied nausea vomiting cough or shortness of breath. Patient used IV drugs 6 days prior to this admission. Her urine drug screen was positive for cocaine. Blood culture grew MSSA and echocardiogram shows tricuspid regurgitation with tricuspid valve vegetation. Infectious disease was consulted and started patient on cefazolin. CT chest showed disseminated small bilateral peripheral nodular infiltrates. MRI brain shows couple of nonspecific punctate white matter bright signal on FLAIR sequence. - Septic shock - resolved. 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 Blood cultures from 2016 grew S. Aureus again. Blood cx from 08/24/2016 is also growing GPC. - Pulmonary septic emboli - Patient required aggressive IV fluid resuscitation, Levophed, stress dosed steroids. - Initially on Vancomycin. However, based on cx results, currently on Cefazolin - probably will require long abx course. - ID (Dr. Rodgers) following. - Cardiology evaluated patient. Discussed with Dr. Driscoll on 08/25/2016. May perform SHANNON on 08/27/2016. - Generalized edema - mostly abdomen and thigh. - Will give Lasix 40mg PO Qday for 2-3 days. - Oral thrush - HIV test negative in 07/2016. - Continue Nystatin Liq. - Hypertension - Continue patient on Amlodipine 5mg Qday. - discontinued Hydrocortisone IV. No tapering needed since she has not been on steroid for that long. - Acute kidney injury - resolved. 1.82 on admission. Currently below 1.0. - Hypokalemia - resolved. - Hypocalcemia - resolved. Corrected Calcium 8.9. - Polysubstance abuse - IVDU - Discussed with patient and grandmother on 08/20/2016. - Grandmother would like for her to go [place] [facility] [place] drug re[facility]. - Depression - Suicidal ideations - Patient is severely depressed. Appreciate Psychiatry input. I discussed with psychiatry attending on 08/21/2016. - Patient denies being suicidal. Feeling better. - Possible opioid withdrawal - Decreased methadone from 10mg Q8hrs to 10mg Q12hrs. - Patient has not used oxycodone here much. We will reduce oxycodone PRN order - Pain meds: Acetaminophen for pain 1-4, Oxycodone for pain 5-10 and continue Methadone with a goal to taper off in the next 2-3 days. Full code. Lovenox. Famotidine. Problem Qualifiers (1) Hypotension: Qualified Code: I95.9 - Hypotension, unspecified hypotension type Samanta Phoenix DO Aug 27, 2016 10:05 am
[2016-08-27] MEDS ORDERED: PROPOFOL 200 MG/20 ML AMP IV ONE (10:19)
--- NOTE | 2016-08-27 10:57 | PD.CARD.PN ---
Subjective Subjective Remarks No CP or SOB Objective Medications Current Medications Medications (Trade) Dose Ordered Sig/Key Route Start Time Stop Time Status Last Admin (Ativan Inj) 1 mg Q3H PRN IV PUSH 08/17/16 19:00 08/20/16 17:40 (Zofran Inj) 4 mg Q6H PRN IVP 08/17/16 19:00 08/26/16 08:37 (Tylenol) 650 mg Q6H PRN PO 08/17/16 19:00 08/25/16 22:12 (Roxicodone) 5 mg Q4H PRN PO 08/17/16 19:00 08/27/16 00:36 (Brethine Inj) 1 mg UNSCH PRN SQ 08/17/16 20:15 (NS Flush) 2 ml UNSCH PRN IV FLUSH 08/17/16 20:15 08/24/16 13:46 (NS Flush) 2 ml BID IV FLUSH 08/17/16 21:00 08/27/16 08:34 (Lovenox Inj) 40 mg Q24H SQ 08/17/16 21:00 08/25/16 22:14 Miscellaneous Information 1 Q361D XX 08/17/16 20:15 (Chlorhexidine 2% Cloth) Taper DAILY@04 TOP 08/18/16 04:00 08/14/17 03:59 08/22/16 02:01 Chlorhexidine Gluconate 3 pack 3 pack UNSCH PRN TOP 08/17/16 20:15 (Ancef 2 Gm Premix) 50 ml @ 150 mls/hr Q8H IV 08/19/16 18:00 08/27/16 10:07 (Haldol Inj) 5 mg Q8HR PRN IM 08/21/16 11:00 (Norvasc) 5 mg DAILY PO 08/21/16 11:30 08/27/16 08:30 (Pepcid) 20 mg Q12HR PO 08/24/16 21:00 08/27/16 08:31 (Milk Of Magnesia Liq) 30 ml DAILY PRN PO 08/24/16 12:00 08/24/16 13:08 (Compazine Inj) 5 mg Q6H PRN IVS 08/24/16 13:15 08/24/16 13:45 Nystatin 5 ml 5 ml QID SWISH-SWAL 08/25/16 13:00 08/27/16 08:31 Pharmacy Profile Note 0 ml @ 0 mls/hr UNSCH OTHER 08/25/16 16:15 (Gentamicin Inj/ NS Inj) 101.625 ml @ 200 mls/ hr Q8H IV 08/25/16 18:00 08/27/16 09:33 (Dolophine) 5 mg BID PO 08/27/16 09:00 08/29/16 08:59 08/27/16 08:30 (Lasix) 40 mg DAILY PO 08/28/16 16:00 08/31/16 15:59 Vital Signs / I&O Vital Signs Date Time Temp Pulse Resp B/P Pulse Ox O2 Delivery O2 Flow Rate FiO2 08/27/16 09:30 18 08/27/16 07:50 98.8 77 18 134/94 98 08/27/16 04:00 98.9 83 20 136/96 97 08/27/16 00:00 98.9 83 20 136/96 97 08/26/16 20:00 98.8 85 22 136/96 97 08/26/16 16:00 98.8 89 16 135/92 94 08/26/16 12:00 99.2 97 17 123/79 95 I/O 08/26/16 08/26/16 08/26/16 08/27/16 08/27/16 08/27/16 07:00 15:00 23:00 07:00 15:00 23:00 Intake Total 1720 ml 2980 ml 480 ml 0 ml Output Total 600 ml 800 ml 1200 ml 2000 ml Balance 1120 ml 2180 ml -720 ml -2000 ml Intake Oral 240 ml 960 ml 480 ml 0 ml IV Total 1480 ml 1688 ml Packed Cells 332 ml Output Urine Total 600 ml 800 ml 1200 ml 2000 ml # Bowel Movements 1 0 1 0 Physical Exam GENERAL: In NAD SKIN: Warm and dry. HEAD: Normocephalic. EYES: No scleral icterus. No injection or drainage. NECK: Supple, trachea midline. No JVD or lymphadenopathy. CARDIOVASCULAR: Regular rate and rhythm without murmurs, gallops, or rubs. RESPIRATORY: Breath sounds equal bilaterally. No accessory muscle use. GASTROINTESTINAL: Abdomen soft, non-tender, nondistended. MUSCULOSKELETAL: No cyanosis, or edema. Laboratory Laboratory Tests Test 08/26/16 08/26/16 14:30 17:30 Hemoglobin 8.1 GM/DL Hematocrit 24.8 % Gentamicin Level Trough 0.5 MCG/ML Imaging Last Impressions Abdomen X-Ray 08/24/16 0000 Signed Impressions: Service Date/Time: Wednesday, August 24, 2016 13:58 - CONCLUSION: No acute disease. Karo Jones MD Chest X-Ray 08/20/16 0600 Signed Impressions: Service Date/Time: Saturday, August 20, 2016 02:25 - CONCLUSION: Bilateral airspace disease and nodules. Yemi Thompson MD Upper Extremity Ultrasound 08/19/16 0000 Signed Impressions: Service Date/Time: Friday, August 19, 2016 10:38 - CONCLUSION: 1. Occlusive thrombus within the mid and distal right cephalic vein. 2. Complex hypoechoic area adjacent to the brachial vessels within the antecubital fossa measuring 2.6 x 1.0 x 1.2 cm which is nonspecific. Jose Triana MD Lumbar Spine MRI 08/19/16 0000 Signed Impressions: Service Date/Time: Friday, August 19, 2016 12:23 - CONCLUSION: No acute disease. Jose Triana MD Brain MRI 08/19/16 0000 Signed Impressions: Service Date/Time: Friday, August 19, 2016 20:48 - CONCLUSION: The postcontrast portion of the exam is very limited since very little contrast is identified and there are couple of nonspecific punctate white manner bright signal on FLAIR sequence. Timoteo Khalil MD Liver Ultrasound 08/18/16 0000 Signed Impressions: Service Date/Time: Thursday, August 18, 2016 16:18 - CONCLUSION: 1. Small right pleural effusion. 2. The gallbladder is decompressed with minimal intraluminal sludge. No stones. 3. Splenomegaly. Sergei Maldonado MD Chest CT 08/18/16 0000 Signed Impressions: Service Date/Time: Thursday, August 18, 2016 11:41 - CONCLUSION: Disseminated small bilateral predominantly peripheral nodular infiltrates. Small effusions and mild associated atelectasis. Differential considerations would include atypical infectious etiologies and septic emboli, rarely collagen vascular disease, Troy's and pneumoconiosis. Rickey Babb MD Assessment and Plan Problem List: (1) Endocarditis of tricuspid valve (2) Septic pulmonary embolism (3) IVDU (intravenous drug user) (4) Sepsis (5) TEMO (acute kidney injury) Assessment and Plan Continue antibiotics for TV endocarditis. Blood cx persistently positive. SHANNON today to evaluate for left side vegetations. Avery Driscoll MD Aug 27, 2016 10:57
[2016-08-27] MEDS ORDERED: PHARMACY ORDERED LAB XX ONE (17:45)
[2016-08-27] MEDS: ENOXAPARIN SODIUM 40 MG/0.4 ML SYRINGE SQ SCH (20:43)
[2016-08-28] MEDS: GENTAMICIN IV SCH ×3 (02:30→16:55)
[2016-08-28] MEDS: CHLORHEXIDINE GLUCONATE 2 % 1 PACK (2 CLOTHS) TOP SCH (02:30)
[2016-08-28] MEDS: SODIUM CHLORIDE 0.9% IV SCH ×3 (02:30→16:55)
[2016-08-28] MEDS: ceFAZolin 2 GM PREMIX 50 ML IV SCH ×3 (02:37→16:54)
[2016-08-28 08:00] VITALS: BP 116/76; PULSE 80; RESP 16; TEMP 98; O2SAT 95
[2016-08-28] MEDS: NYSTATIN SUSP 500,000 U/5 ML CUP SWISH-SWAL SCH ×4 (09:21→20:21)
[2016-08-28] MEDS: amLODIPine BESYLATE 5 MG TAB PO SCH (09:22)
[2016-08-28] MEDS: SODIUM CHLORIDE 0.9% FLUSH 5 ML FLUSH IV FLUSH SCH ×2 (09:22→20:19)
[2016-08-28] MEDS: FAMOTIDINE 20 MG TAB PO SCH ×2 (09:22→20:20)
[2016-08-28] MEDS: METHADONE HCL 10 MG TAB PO SCH ×2 (09:22→20:20)
--- NOTE | 2016-08-28 10:10 | PD.CARD.PN ---
Subjective Subjective Remarks No CP or SOB, eating breakfast Objective Medications Current Medications Medications (Trade) Dose Ordered Sig/Key Route Start Time Stop Time Status Last Admin (Ativan Inj) 1 mg Q3H PRN IV PUSH 08/17/16 19:00 08/20/16 17:40 (Zofran Inj) 4 mg Q6H PRN IVP 08/17/16 19:00 08/26/16 08:37 (Tylenol) 650 mg Q6H PRN PO 08/17/16 19:00 08/25/16 22:12 (Roxicodone) 5 mg Q4H PRN PO 08/17/16 19:00 08/28/16 09:22 (Brethine Inj) 1 mg UNSCH PRN SQ 08/17/16 20:15 (NS Flush) 2 ml UNSCH PRN IV FLUSH 08/17/16 20:15 08/24/16 13:46 (NS Flush) 2 ml BID IV FLUSH 08/17/16 21:00 08/28/16 09:22 (Lovenox Inj) 40 mg Q24H SQ 08/17/16 21:00 08/27/16 20:43 Miscellaneous Information 1 Q361D XX 08/17/16 20:15 (Chlorhexidine 2% Cloth) Taper DAILY@04 TOP 08/18/16 04:00 08/14/17 03:59 08/22/16 02:01 Chlorhexidine Gluconate 3 pack 3 pack UNSCH PRN TOP 08/17/16 20:15 (Ancef 2 Gm Premix) 50 ml @ 150 mls/hr Q8H IV 08/19/16 18:00 08/28/16 09:26 (Haldol Inj) 5 mg Q8HR PRN IM 08/21/16 11:00 (Norvasc) 5 mg DAILY PO 08/21/16 11:30 08/28/16 09:22 (Pepcid) 20 mg Q12HR PO 08/24/16 21:00 08/28/16 09:22 (Milk Of Magnesia Liq) 30 ml DAILY PRN PO 08/24/16 12:00 08/24/16 13:08 (Compazine Inj) 5 mg Q6H PRN IVS 08/24/16 13:15 08/24/16 13:45 Nystatin 5 ml 5 ml QID SWISH-SWAL 08/25/16 13:00 08/28/16 09:21 Pharmacy Profile Note 0 ml @ 0 mls/hr UNSCH OTHER 08/25/16 16:15 (Gentamicin Inj/ NS Inj) 101.625 ml @ 200 mls/ hr Q8H IV 08/25/16 18:00 08/28/16 09:26 (Dolophine) 5 mg BID PO 08/27/16 09:00 08/29/16 08:59 08/28/16 09:22 (Lasix) 40 mg DAILY PO 08/28/16 16:00 08/31/16 15:59 Vital Signs / I&O Vital Signs Date Time Temp Pulse Resp B/P Pulse Ox O2 Delivery O2 Flow Rate FiO2 08/28/16 08:00 98.0 80 16 116/76 95 08/27/16 23:54 97.8 82 16 129/83 98 08/27/16 20:00 97.9 89 17 124/91 97 08/27/16 16:00 97.5 70 17 100/62 98 08/27/16 12:00 98.0 85 19 127/56 97 08/27/16 12:00 96.2 85 17 127/92 96 I/O 08/27/16 08/27/16 08/27/16 08/28/16 08/28/16 08/28/16 07:00 15:00 23:00 07:00 15:00 23:00 Intake Total 0 ml 0 ml 480 ml 450 ml Output Total 2000 ml 1200 ml Balance -2000 ml 0 ml 480 ml -750 ml Intake Oral 0 ml 0 ml 480 ml 450 ml Output Urine Total 2000 ml 1200 ml # Voids 3 3 # Bowel Movements 0 0 # Sanitary Pads 1 Pads 1 Pads 1 Pads Physical Exam GENERAL: In NAD SKIN: Warm and dry. HEAD: Normocephalic. EYES: No scleral icterus. No injection or drainage. NECK: Supple, trachea midline. No JVD or lymphadenopathy. CARDIOVASCULAR: Regular rate and rhythm without murmurs, gallops, or rubs. RESPIRATORY: Breath sounds equal bilaterally. No accessory muscle use. GASTROINTESTINAL: Abdomen soft, non-tender, nondistended. MUSCULOSKELETAL: No cyanosis, or edema. Laboratory Laboratory Tests Test 08/28/16 06:30 Creatinine 0.40 MG/DL Estimat Glomerular Filtration 198 ML/MIN Rate Imaging Last Impressions Abdomen X-Ray 08/24/16 0000 Signed Impressions: Service Date/Time: Wednesday, August 24, 2016 13:58 - CONCLUSION: No acute disease. Karo Jones MD Chest X-Ray 08/20/16 0600 Signed Impressions: Service Date/Time: Saturday, August 20, 2016 02:25 - CONCLUSION: Bilateral airspace disease and nodules. Yemi Thompson MD Upper Extremity Ultrasound 08/19/16 0000 Signed Impressions: Service Date/Time: Friday, August 19, 2016 10:38 - CONCLUSION: 1. Occlusive thrombus within the mid and distal right cephalic vein. 2. Complex hypoechoic area adjacent to the brachial vessels within the antecubital fossa measuring 2.6 x 1.0 x 1.2 cm which is nonspecific. Jose Triana MD Lumbar Spine MRI 08/19/16 0000 Signed Impressions: Service Date/Time: Friday, August 19, 2016 12:23 - CONCLUSION: No acute disease. Jose Triana MD Brain MRI 08/19/16 0000 Signed Impressions: Service Date/Time: Friday, August 19, 2016 20:48 - CONCLUSION: The postcontrast portion of the exam is very limited since very little contrast is identified and there are couple of nonspecific punctate white manner bright signal on FLAIR sequence. Timoteo Khalil MD Liver Ultrasound 08/18/16 0000 Signed Impressions: Service Date/Time: Thursday, August 18, 2016 16:18 - CONCLUSION: 1. Small right pleural effusion. 2. The gallbladder is decompressed with minimal intraluminal sludge. No stones. 3. Splenomegaly. Sergei Maldonado MD Chest CT 08/18/16 0000 Signed Impressions: Service Date/Time: Thursday, August 18, 2016 11:41 - CONCLUSION: Disseminated small bilateral predominantly peripheral nodular infiltrates. Small effusions and mild associated atelectasis. Differential considerations would include atypical infectious etiologies and septic emboli, rarely collagen vascular disease, Troy's and pneumoconiosis. Rickey Babb MD Assessment and Plan Problem List: (1) Endocarditis of tricuspid valve (2) Septic pulmonary embolism (3) IVDU (intravenous drug user) (4) Sepsis (5) TEMO (acute kidney injury) Assessment and Plan Blood cxs persistently positive. SHANNON with TV vegetations, continue antibiotics as per ID. No left-sided vegetations. Increase activity. Avery Driscoll MD Aug 28, 2016 10:10
--- NOTE | 2016-08-28 11:15 | HHI.PR ---
Subjective Remarks Follow up for MSSA bacteremia, tricuspid valve endocarditis, septic pulmonary emboli. Patient is doing well. She complains of right shoulder pain. No fever, chills. Objective Vitals Vital Signs Date Time Temp Pulse Resp B/P Pulse Ox O2 Delivery O2 Flow Rate FiO2 08/28/16 08:00 98.0 80 16 116/76 95 08/27/16 23:54 97.8 82 16 129/83 98 08/27/16 20:00 97.9 89 17 124/91 97 08/27/16 16:00 97.5 70 17 100/62 98 08/27/16 12:00 98.0 85 19 127/56 97 08/27/16 12:00 96.2 85 17 127/92 96 I/O 08/27/16 08/27/16 08/27/16 08/28/16 08/28/16 08/28/16 07:00 15:00 23:00 07:00 15:00 23:00 Intake Total 0 ml 0 ml 480 ml 450 ml Output Total 2000 ml 1200 ml Balance -2000 ml 0 ml 480 ml -750 ml Intake Oral 0 ml 0 ml 480 ml 450 ml Output Urine Total 2000 ml 1200 ml # Voids 3 3 # Bowel Movements 0 0 # Sanitary Pads 1 Pads 1 Pads 1 Pads Result Diagram: 08/26/16 1430 08/28/16 0630 Imaging Last Impressions Shoulder X-Ray 08/28/16 0000 Signed Impressions: Service Date/Time: July 11:44 - CONCLUSION: 1. The shoulder is unremarkable. 2. Small right effusion. Leonardo Pitt Jr., MD Abdomen X-Ray 08/24/16 0000 Signed Impressions: Service Date/Time: Wednesday, August 24, 2016 13:58 - CONCLUSION: No acute disease. Karo Jones MD Chest X-Ray 08/20/16 0600 Signed Impressions: Service Date/Time: Saturday, August 20, 2016 02:25 - CONCLUSION: Bilateral airspace disease and nodules. Yemi Thomposn MD Upper Extremity Ultrasound 08/19/16 0000 Signed Impressions: Service Date/Time: Friday, August 19, 2016 10:38 - CONCLUSION: 1. Occlusive thrombus within the mid and distal right cephalic vein. 2. Complex hypoechoic area adjacent to the brachial vessels within the antecubital fossa measuring 2.6 x 1.0 x 1.2 cm which is nonspecific. Jose Triana MD Lumbar Spine MRI 08/19/16 0000 Signed Impressions: Service Date/Time: Friday, August 19, 2016 12:23 - CONCLUSION: No acute disease. Jose Triana MD Brain MRI 08/19/16 0000 Signed Impressions: Service Date/Time: Friday, August 19, 2016 20:48 - CONCLUSION: The postcontrast portion of the exam is very limited since very little contrast is identified and there are couple of nonspecific punctate white manner bright signal on FLAIR sequence. Timoteo Khalil MD Liver Ultrasound 08/18/16 0000 Signed Impressions: Service Date/Time: Thursday, August 18, 2016 16:18 - CONCLUSION: 1. Small right pleural effusion. 2. The gallbladder is decompressed with minimal intraluminal sludge. No stones. 3. Splenomegaly. Sergei Maldonado MD Chest CT 08/18/16 0000 Signed Impressions: Service Date/Time: Thursday, August 18, 2016 11:41 - CONCLUSION: Disseminated small bilateral predominantly peripheral nodular infiltrates. Small effusions and mild associated atelectasis. Differential considerations would include atypical infectious etiologies and septic emboli, rarely collagen vascular disease, Troy's and pneumoconiosis. Rickey Babb MD Objective Remarks GENERAL: Alert, NAD. SKIN: Warm and dry. HEAD: Normocephalic. EYES: No scleral icterus. No injection or drainage. NECK: Supple, trachea midline. No JVD or lymphadenopathy. CARDIOVASCULAR: Regular rhythm, tachycardic without gallops, or rubs. Systolic murmur present, best heard at the apex. RESPIRATORY: Breath sounds equal bilaterally. No accessory muscle use. GASTROINTESTINAL: Abdomen soft, non-tender, nondistended. MUSCULOSKELETAL: No cyanosis, or edema. No edema, erythema around right shoulder. Pain on active and passive range of motion. BACK: Nontender without obvious deformity. No CVA tenderness. Procedures IJ central line 08/17/2016. 08/18/2016 Echocardiogram - Left ventricle: The cavity size was normal. Wall thickness was normal. Systolic function was normal. The estimated ejection fraction was in the range of 55% to 60%. Wall motion was normal; there were no regional wall motion abnormalities. - Aortic valve: Valve area: 2.08cm^2 (Vmax). - Tricuspid valve: There was a vegetation. Moderate-severe regurgitation. - Pulmonary arteries: PA peak pressure: 42mm Hg (S). A/P Problem List: (1) Sepsis ICD Code: A41.9 Status: Acute (2) Hypotension ICD Code: I95.9 Status: Acute (3) PNA (pneumonia) ICD Code: J18.9 Status: Acute (4) UTI (urinary tract infection) ICD Code: N39.0 Status: Acute (5) TEMO (acute kidney injury) ICD Code: N17.9 Status: Acute (6) IVDU (intravenous drug user) ICD Code: F19.90 Status: Acute (7) Cocaine abuse ICD Code: F14.10 Status: Chronic (8) Thrombocytopenia ICD Code: D69.6 Status: Acute Assessment and Plan Ms. Mcintosh is a 21-year-old female with a history of polysubstance, IV drug use who was admitted to the hospital due to generalized weakness and fever for approximately one week prior to this admission. Patient denied nausea vomiting cough or shortness of breath. Patient used IV drugs 6 days prior to this admission. Her urine drug screen was positive for cocaine. Blood culture grew MSSA and echocardiogram shows tricuspid regurgitation with tricuspid valve vegetation. Infectious disease was consulted and started patient on cefazolin. CT chest showed disseminated small bilateral peripheral nodular infiltrates. MRI brain shows couple of nonspecific punctate white matter bright signal on FLAIR sequence. - Septic shock - resolved. 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 - Pulmonary septic emboli - Blood cultures from 08/20/2016 grew S. Aureus again. - Blood cx from 08/24/2016 is also growing GPC. - Patient required aggressive IV fluid resuscitation, Levophed, stress dosed steroids. - Initially on Vancomycin. However, based on cx results, currently on Cefazolin - probably will require long abx course. - ID (Dr. Rodgers) following. - Cardiology evaluated patient. SHANNON did not show any left sided vegetation. - Right shoulder pain - Xray reviewed by me. No acute findings except for small effusion. - No swelling or erythema externally. - Will start patient on Naproxen for 7 days. If no resolution, consider MRI of the right shoulder. - Generalized edema - mostly abdomen and thigh. - Lasix 40mg PO Qday for 2-3 days. - Oral thrush - HIV test negative in 07/2016. - Continue Nystatin Liq. - Hypertension - Continue patient on Amlodipine 5mg Qday. - discontinued Hydrocortisone IV. No tapering needed since she has not been on steroid for that long. - Acute kidney injury - resolved. 1.82 on admission. Currently below 1.0. - Hypokalemia - resolved. - Hypocalcemia - resolved. Corrected Calcium 8.9. - Polysubstance abuse - IVDU - Discussed with patient and grandmother on 08/20/2016. - Grandmother would like for her to go to [facility] for drug rehabs. - Depression - Suicidal ideations - Patient is severely depressed. Appreciate Psychiatry input. I discussed with psychiatry attending on 08/21/2016. - Patient denies being suicidal. Feeling better. - Possible opioid withdrawal - Decreased methadone from 10mg Q8hrs to 5mg Q12hrs. STOP date 08/29/2016. - Patient has not used oxycodone here much. We will reduce oxycodone PRN order - Acetaminophen for pain 1-4, Oxycodone for pain 5-10 and continue Methadone with a goal to taper off. Full code. Lovenox. Famotidine. Problem Qualifiers (1) Hypotension: Qualified Code: I95.9 - Hypotension, unspecified hypotension type Samanta Phoenix DO Aug 28, 2016 11:14
[2016-08-28 12:00] VITALS: BP 117/76; PULSE 84; RESP 17; TEMP 97.6; O2SAT 97
--- NOTE | 2016-08-28 12:26 | RADRPT ---
EXAM DATE/TIME: 08/28/2016 11:44 [place] COMPARISON: No previous studies available for comparison. INDICATIONS : Right shoulder pain & limited range of motion with no known injury. MEDICAL HISTORY : Right arm swelling and pain. Polysubstance abuse. IV drug use. SURGICAL HISTORY : Tonsillectomy. section. ENCOUNTER: Subsequent ACUITY: 2 weeks PAIN SCORE: 9/10 LOCATION: Right shoulder FINDINGS: Multiple view examination of the right shoulder demonstrates no evidence of fracture or dislocation. The glenohumeral and acromioclavicular joints are maintained. There is normal range of motion betwe en internal and external rotation. Bony mineralization is normal. Small right effusion is noted. Rig ht-sided central line observed. CONCLUSION: 1. The shoulder is unremarkable. 2. Small right effusion. Leonardo Pitt Jr., MD on August 28, 2016 at 12:24 Board Certified Radiologist. This report was verified electronically.
[2016-08-28] MEDS: NAPROXEN 375 MG TAB PO SCH ×2 (13:35→20:21)
[2016-08-28 16:00] VITALS: BP 110/70; PULSE 76; RESP 17; TEMP 95.2; O2SAT 96
[2016-08-28] MEDS: FUROSEMIDE 40 MG TAB PO SCH (16:54)
[2016-08-28 20:18] VITALS: BP 132/85; PULSE 72; RESP 16; TEMP 96.6; O2SAT 98
[2016-08-28] MEDS: ENOXAPARIN SODIUM 40 MG/0.4 ML SYRINGE SQ SCH (20:21)
[2016-08-28 23:45] VITALS: BP 124/77; PULSE 74; RESP 18; TEMP 97.3; O2SAT 98
[2016-08-29] MEDS: ceFAZolin 2 GM PREMIX 50 ML IV SCH ×3 (00:55→17:55)
[2016-08-29] MEDS: GENTAMICIN IV SCH ×3 (00:56→17:13)
[2016-08-29] MEDS: SODIUM CHLORIDE 0.9% IV SCH ×3 (00:56→17:13)
[2016-08-29] MEDS: CHLORHEXIDINE GLUCONATE 2 % 1 PACK (2 CLOTHS) TOP SCH (00:56)
[2016-08-29] MEDS: NAPROXEN 375 MG TAB PO SCH ×3 (05:42→21:36)
--- NOTE | 2016-08-29 07:25 | PD.CARD.PN ---
Subjective Subjective Remarks No CP or SOB, feels better Objective Medications Current Medications Medications (Trade) Dose Ordered Sig/Key Route Start Time Stop Time Status Last Admin (Ativan Inj) 1 mg Q3H PRN IV PUSH 08/17/16 19:00 08/20/16 17:40 (Zofran Inj) 4 mg Q6H PRN IVP 08/17/16 19:00 08/26/16 08:37 (Tylenol) 650 mg Q6H PRN PO 08/17/16 19:00 08/25/16 22:12 (Roxicodone) 5 mg Q4H PRN PO 08/17/16 19:00 08/29/16 05:44 (Brethine Inj) 1 mg UNSCH PRN SQ 08/17/16 20:15 (NS Flush) 2 ml UNSCH PRN IV FLUSH 08/17/16 20:15 08/24/16 13:46 (NS Flush) 2 ml BID IV FLUSH 08/17/16 21:00 08/28/16 20:19 (Lovenox Inj) 40 mg Q24H SQ 08/17/16 21:00 08/28/16 20:21 Miscellaneous Information 1 Q361D XX 08/17/16 20:15 (Chlorhexidine 2% Cloth) Taper DAILY@04 TOP 08/18/16 04:00 08/14/17 03:59 08/22/16 02:01 Chlorhexidine Gluconate 3 pack 3 pack UNSCH PRN TOP 08/17/16 20:15 (Ancef 2 Gm Premix) 50 ml @ 150 mls/hr Q8H IV 08/19/16 18:00 08/29/16 00:55 (Haldol Inj) 5 mg Q8HR PRN IM 08/21/16 11:00 (Norvasc) 5 mg DAILY PO 08/21/16 11:30 08/28/16 09:22 (Pepcid) 20 mg Q12HR PO 08/24/16 21:00 08/28/16 20:20 (Milk Of Magnesia Liq) 30 ml DAILY PRN PO 08/24/16 12:00 08/24/16 13:08 (Compazine Inj) 5 mg Q6H PRN IVS 08/24/16 13:15 08/24/16 13:45 Nystatin 5 ml 5 ml QID SWISH-SWAL 08/25/16 13:00 08/28/16 20:21 Pharmacy Profile Note 0 ml @ 0 mls/hr UNSCH OTHER 08/25/16 16:15 (Gentamicin Inj/ NS Inj) 101.625 ml @ 200 mls/ hr Q8H IV 08/25/16 18:00 08/29/16 00:56 (Dolophine) 5 mg BID PO 08/27/16 09:00 08/29/16 08:59 08/28/16 20:20 (Lasix) 40 mg DAILY PO 08/28/16 16:00 08/31/16 15:59 08/28/16 16:54 (Naprosyn) 375 mg Q8HR PO 08/28/16 14:00 09/04/16 13:59 08/29/16 05:42 Vital Signs / I&O Vital Signs Date Time Temp Pulse Resp B/P Pulse Ox O2 Delivery O2 Flow Rate FiO2 08/28/16 23:45 97.3 74 18 124/77 98 08/28/16 20:18 96.6 72 16 132/85 98 08/28/16 16:00 95.2 76 17 110/70 96 08/28/16 12:00 97.6 84 17 117/76 97 08/28/16 08:00 98.0 80 16 116/76 95 I/O 08/28/16 08/28/16 08/28/16 08/29/16 08/29/16 08/29/16 07:00 15:00 23:00 07:00 15:00 23:00 Intake Total 450 ml 240 ml 480 ml 760 ml Output Total 1200 ml 1800 ml 1000 ml Balance -750 ml 240 ml -1320 ml -240 ml Intake Oral 450 ml 240 ml 480 ml 760 ml Output Urine Total 1200 ml 1800 ml 1000 ml # Voids 7 # Bowel Movements 0 0 Physical Exam GENERAL: In NAD SKIN: Warm and dry. HEAD: Normocephalic. EYES: No scleral icterus. No injection or drainage. NECK: Supple, trachea midline. No JVD or lymphadenopathy. CARDIOVASCULAR: Regular rate and rhythm without murmurs, gallops, or rubs. RESPIRATORY: Breath sounds equal bilaterally. No accessory muscle use. GASTROINTESTINAL: Abdomen soft, non-tender, nondistended. MUSCULOSKELETAL: No cyanosis, or edema. Laboratory Laboratory Tests Test 08/26/16 08/26/16 08/26/16 08/26/16 04:30 05:52 14:30 17:30 White Blood Count 9.4 TH/MM3 Red Blood Count 2.59 MIL/MM3 Mean Corpuscular Volume 76.0 FL Mean Corpuscular Hemoglobin 26.1 PG Mean Corpuscular Hemoglobin 34.4 % Concent Red Cell Distribution Width 17.4 % Platelet Count 158 TH/MM3 Mean Platelet Volume 7.5 FL Neutrophils (%) (Auto) 80.0 % Lymphocytes (%) (Auto) 13.5 % Monocytes (%) (Auto) 5.7 % Eosinophils (%) (Auto) 0.7 % Basophils (%) (Auto) 0.1 % Neutrophils # (Auto) 7.5 TH/MM3 Lymphocytes # (Auto) 1.3 TH/MM3 Monocytes # (Auto) 0.5 TH/MM3 Eosinophils # (Auto) 0.1 TH/MM3 Basophils # (Auto) 0.0 TH/MM3 CBC Comment DIFF FINAL Differential Comment Sodium Level 139 MEQ/L Potassium Level 3.5 MEQ/L Chloride Level 103 MEQ/L Carbon Dioxide Level 28.8 MEQ/L Anion Gap 7 MEQ/L Blood Urea Nitrogen 5 MG/DL Random Glucose 96 MG/DL Calcium Level 7.1 MG/DL Protein Corrected Calcium 8.4 MG/DL Total Protein 4.8 GM/DL Blood Type A POSITIVE Antibody Screen NEGATIVE Crossmatch Leukocyte-Reduced Red Blood Cells Blood Bank Comment Hemoglobin 8.1 GM/DL Hematocrit 24.8 % Gentamicin Level Trough 0.5 MCG/ML Test 08/28/16 06:30 Creatinine 0.40 MG/DL Estimat Glomerular Filtration 198 ML/MIN Rate Imaging Last Impressions Shoulder X-Ray 08/28/16 0000 Signed Impressions: Service Date/Time: July 11:44 - CONCLUSION: 1. The shoulder is unremarkable. 2. Small right effusion. Leonardo Pitt Jr., MD Abdomen X-Ray 08/24/16 0000 Signed Impressions: Service Date/Time: Wednesday, August 24, 2016 13:58 - CONCLUSION: No acute disease. Karo Jones MD Chest X-Ray 08/20/16 0600 Signed Impressions: Service Date/Time: Saturday, August 20, 2016 02:25 - CONCLUSION: Bilateral airspace disease and nodules. Yemi Thompson MD Upper Extremity Ultrasound 08/19/16 0000 Signed Impressions: Service Date/Time: Friday, August 19, 2016 10:38 - CONCLUSION: 1. Occlusive thrombus within the mid and distal right cephalic vein. 2. Complex hypoechoic area adjacent to the brachial vessels within the antecubital fossa measuring 2.6 x 1.0 x 1.2 cm which is nonspecific. Jose Triana MD Lumbar Spine MRI 08/19/16 Signed Impressions: Service Date/Time: Friday, August 19, 2016 12:23 - CONCLUSION: No acute disease. Jose Triana MD Brain MRI 08/19/16 0000 Signed Impressions: Service Date/Time: Friday, August 19, 2016 20:48 - CONCLUSION: The postcontrast portion of the exam is very limited since very little contrast is identified and there are couple of nonspecific punctate white manner bright signal on FLAIR sequence. Timoteo Khalil MD Liver Ultrasound 08/18/16 Signed Impressions: Service Date/Time: Thursday, August 18, 2016 16:18 - CONCLUSION: 1. Small right pleural effusion. 2. The gallbladder is decompressed with minimal intraluminal sludge. No stones. 3. Splenomegaly. Sergei Maldonado MD Chest CT 08/18/16 Signed Impressions: Service Date/Time: Thursday, August 18, 2016 11:41 - CONCLUSION: Disseminated small bilateral predominantly peripheral nodular infiltrates. Small effusions and mild associated atelectasis. Differential considerations would include atypical infectious etiologies and septic emboli, rarely collagen vascular disease, Troy's and pneumoconiosis. Rickey Babb MD Assessment and Plan Problem List: (1) Endocarditis of tricuspid valve (2) Septic pulmonary embolism (3) IVDU (intravenous drug user) (4) Sepsis (5) TEMO (acute kidney injury) Assessment and Plan Blood cxs persistently positive. SHANNON with TV vegetations, continue antibiotics as per ID. No left-sided vegetations. Increase activity. No new cardiac issues. Avery Driscoll MD Aug 29, 2016 07:25
[2016-08-29 08:00] VITALS: BP 122/73; PULSE 75; RESP 12; TEMP 97.5; O2SAT 96
[2016-08-29] MEDS: FUROSEMIDE 40 MG TAB PO SCH (08:50)
[2016-08-29] MEDS: amLODIPine BESYLATE 5 MG TAB PO SCH (08:50)
[2016-08-29] MEDS: NYSTATIN SUSP 500,000 U/5 ML CUP SWISH-SWAL SCH ×4 (08:50→21:00)
[2016-08-29] MEDS: FAMOTIDINE 20 MG TAB PO SCH ×2 (08:50→21:34)
[2016-08-29] MEDS: METHADONE HCL 10 MG TAB PO SCH (08:51)
[2016-08-29] MEDS: SODIUM CHLORIDE 0.9% FLUSH 5 ML FLUSH IV FLUSH SCH ×2 (08:54→21:00)
--- NOTE | 2016-08-29 09:46 | HHI.PR ---
Subjective Remarks Follow up for MSSA bacteremia, tricuspid valve endocarditis, septic pulmonary emboli. Ms. Mcintosh is doing well. No fever, chills. Objective Vitals Vital Signs Date Time Temp Pulse Resp B/P Pulse Ox O2 Delivery O2 Flow Rate FiO2 08/28/16 23:45 97.3 74 18 124/77 98 08/28/16 20:18 96.6 72 16 132/85 98 08/28/16 16:00 95.2 76 17 110/70 96 08/28/16 12:00 97.6 84 17 117/76 97 I/O 08/28/16 08/28/16 08/28/16 08/29/16 08/29/16 08/29/16 06:59 14:59 22:59 06:59 14:59 22:59 Intake Total 450 ml 240 ml 480 ml 760 ml Output Total 1200 ml 1800 ml 1000 ml Balance -750 ml 240 ml -1320 ml -240 ml Intake Oral 450 ml 240 ml 480 ml 760 ml Output Urine Total 1200 ml 1800 ml 1000 ml # Voids 7 # Bowel Movements 0 0 Result Diagram: 08/26/16 1430 08/28/16 0630 Imaging Last Impressions Shoulder X-Ray 08/28/16 0000 Signed Impressions: Service Date/Time: July 11:44 - CONCLUSION: 1. The shoulder is unremarkable. 2. Small right effusion. Leonardo Pitt Jr., MD Abdomen X-Ray 08/24/16 0000 Signed Impressions: Service Date/Time: Wednesday, August 24, 2016 13:58 - CONCLUSION: No acute disease. Karo Jones MD Chest X-Ray 08/20/16 0600 Signed Impressions: Service Date/Time: Saturday, August 20, 2016 02:25 - CONCLUSION: Bilateral airspace disease and nodules. Yemi Thompson MD Upper Extremity Ultrasound 08/19/16 0000 Signed Impressions: Service Date/Time: Friday, August 19, 2016 10:38 - CONCLUSION: 1. Occlusive thrombus within the mid and distal right cephalic vein. 2. Complex hypoechoic area adjacent to the brachial vessels within the antecubital fossa measuring 2.6 x 1.0 x 1.2 cm which is nonspecific. Jose Triana MD Lumbar Spine MRI 08/19/16 0000 Signed Impressions: Service Date/Time: Friday, August 19, 2016 12:23 - CONCLUSION: No acute disease. Jose Triana MD Brain MRI 08/19/16 0000 Signed Impressions: Service Date/Time: Friday, August 19, 2016 20:48 - CONCLUSION: The postcontrast portion of the exam is very limited since very little contrast is identified and there are couple of nonspecific punctate white manner bright signal on FLAIR sequence. Timoteo Khalil MD Liver Ultrasound 08/18/16 0000 Signed Impressions: Service Date/Time: Thursday, August 18, 2016 16:18 - CONCLUSION: 1. Small right pleural effusion. 2. The gallbladder is decompressed with minimal intraluminal sludge. No stones. 3. Splenomegaly. Sergei Maldonado MD Chest CT 08/18/16 0000 Signed Impressions: Service Date/Time: Thursday, August 18, 2016 11:41 - CONCLUSION: Disseminated small bilateral predominantly peripheral nodular infiltrates. Small effusions and mild associated atelectasis. Differential considerations would include atypical infectious etiologies and septic emboli, rarely collagen vascular disease, Troy's and pneumoconiosis. Rickey Babb MD Objective Remarks GENERAL: Alert, NAD. SKIN: Warm and dry. HEAD: Normocephalic. EYES: No scleral icterus. No injection or drainage. NECK: Supple, trachea midline. No JVD or lymphadenopathy. CARDIOVASCULAR: Regular rhythm, tachycardic without gallops, or rubs. Systolic murmur present, best heard at the apex. RESPIRATORY: Breath sounds equal bilaterally. No accessory muscle use. GASTROINTESTINAL: Abdomen soft, non-tender, nondistended. MUSCULOSKELETAL: No cyanosis, or edema. No edema, erythema around right shoulder. Pain on active and passive range of motion. BACK: Nontender without obvious deformity. No CVA tenderness. Procedures IJ central line 08/17/2016. 08/18/2016 Echocardiogram - Left ventricle: The cavity size was normal. Wall thickness was normal. Systolic function was normal. The estimated ejection fraction was in the range of 55% to 60%. Wall motion was normal; there were no regional wall motion abnormalities. - Aortic valve: Valve area: 2.08cm^2 (Vmax). - Tricuspid valve: There was a vegetation. Moderate-severe regurgitation. - Pulmonary arteries: PA peak pressure: 42mm Hg (S). A/P Problem List: (1) Sepsis ICD Code: A41.9 Status: Acute (2) Hypotension ICD Code: I95.9 Status: Acute (3) PNA (pneumonia) ICD Code: J18.9 Status: Acute (4) UTI (urinary tract infection) ICD Code: N39.0 Status: Acute (5) TEMO (acute kidney injury) ICD Code: N17.9 Status: Acute (6) IVDU (intravenous drug user) ICD Code: F19.90 Status: Acute (7) Cocaine abuse ICD Code: F14.10 Status: Chronic (8) Thrombocytopenia ICD Code: D69.6 Status: Acute Assessment and Plan Ms. Mcintosh is a 21-year-old female with a history of polysubstance, IV drug use who was admitted to the hospital due to generalized weakness and fever for approximately one week prior to this admission. Patient denied nausea vomiting cough or shortness of breath. Patient used IV drugs 6 days prior to this admission. Her urine drug screen was positive for cocaine. Blood culture grew MSSA and echocardiogram shows tricuspid regurgitation with tricuspid valve vegetation. Infectious disease was consulted and started patient on cefazolin. CT chest showed disseminated small bilateral peripheral nodular infiltrates. MRI brain shows couple of nonspecific punctate white matter bright signal on FLAIR sequence. - Septic shock - resolved. 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 - Pulmonary septic emboli - Blood cultures from 08/24/2016 grew S. Aureus again. Cx from 08/27/2016 so far negative after one day. - Patient required aggressive IV fluid resuscitation, Levophed, stress dosed steroids. - Initially on Vancomycin. However, based on cx results, currently on Cefazolin - probably will require long abx course. - ID (Dr. Rodgers) following. - Cardiology evaluated patient. SHANNON did not show any left sided vegetation. - Right shoulder pain - Xray reviewed by me on 08/28/2016. No acute findings except for small effusion. - No swelling or erythema externally. - Will Continue patient on Naproxen for 7 days. If no resolution, consider MRI of the right shoulder. - Generalized edema - mostly abdomen and thigh. - Lasix 40mg PO Qday until 08/31/2016 - Oral thrush - HIV test negative in 07/2016. - Continue Nystatin Liq. - Hypertension - Continue patient on Amlodipine 5mg Qday. - discontinued Hydrocortisone IV. No tapering needed since she has not been on steroid for that long. - Acute kidney injury - resolved. 1.82 on admission. Currently below 1.0. - Hypokalemia - resolved. - Hypocalcemia - resolved. Corrected Calcium 8.9. - Polysubstance abuse - IVDU - Discussed with patient and grandmother on 08/20/2016. - Grandmother would like for her to go to [facility] for drug rehabs. - Depression - Suicidal ideations - Patient is severely depressed. Appreciate Psychiatry input. I discussed with psychiatry attending on 08/21/2016. - Patient denies being suicidal. Feeling better. - Possible opioid withdrawal - Decreased methadone from 10mg Q8hrs to 5mg Q12hrs. STOP date 08/29/2016. - Patient has not used oxycodone here much. We will reduce oxycodone PRN order - Acetaminophen for pain 1-4, Oxycodone for pain 5-10 and continue Methadone with a goal to taper off. Full code. Lovenox. Famotidine. Problem Qualifiers (1) Hypotension: Qualified Code: I95.9 - Hypotension, unspecified hypotension type Samanta Phoenix DO Aug 29, 2016 9:46 am
[2016-08-29 12:00] VITALS: BP 113/70; PULSE 85; RESP 16; TEMP 97.4; O2SAT 98
[2016-08-29 16:00] VITALS: BP 128/70; PULSE 84; RESP 16; TEMP 97; O2SAT 95
[2016-08-29 20:00] VITALS: BP 133/84; PULSE 85; RESP 20; TEMP 97.7; O2SAT 99
[2016-08-29] MEDS: ENOXAPARIN SODIUM 40 MG/0.4 ML SYRINGE SQ SCH (21:35)
[2016-08-30] VITALS: BP 130/77; PULSE 80; RESP 20; TEMP 97.4; O2SAT 99
[2016-08-30] MEDS: GENTAMICIN IV SCH ×2 (01:51→09:44)
[2016-08-30] MEDS: CHLORHEXIDINE GLUCONATE 2 % 1 PACK (2 CLOTHS) TOP SCH ×2 (01:51→20:38)
[2016-08-30] MEDS: ceFAZolin 2 GM PREMIX 50 ML IV SCH ×3 (01:51→17:34)
[2016-08-30] MEDS: SODIUM CHLORIDE 0.9% IV SCH ×2 (01:51→09:44)
[2016-08-30] MEDS: NAPROXEN 375 MG TAB PO SCH ×3 (05:48→20:36)
[2016-08-30 08:00] VITALS: BP 135/67; PULSE 72; RESP 17; TEMP 97.5; O2SAT 98
[2016-08-30] MEDS: SODIUM CHLORIDE 0.9% FLUSH 5 ML FLUSH IV FLUSH SCH ×2 (08:17→20:36)
[2016-08-30] MEDS: FUROSEMIDE 40 MG TAB PO SCH (08:17)
[2016-08-30] MEDS: amLODIPine BESYLATE 5 MG TAB PO SCH (08:17)
[2016-08-30] MEDS: FAMOTIDINE 20 MG TAB PO SCH ×2 (08:17→20:36)
[2016-08-30] MEDS: NYSTATIN SUSP 500,000 U/5 ML CUP SWISH-SWAL SCH ×4 (08:17→20:36)
[2016-08-30 12:00] VITALS: BP 126/77; PULSE 84; RESP 17; TEMP 97.7; O2SAT 98
--- NOTE | 2016-08-30 14:19 | HHI.PR ---
Subjective Remarks Follow up for MSSA bacteremia, tricuspid valve endocarditis, septic pulmonary emboli. The patient states little tired today because she didn't sleep that well last night. She does get a little tired whenever she tries to ambulate. She denies any chest pain or shortness breath. No fevers or chills. Leg swelling is still present, but minimal improvement from previous. Previous abdominal distention has improved. Eating well. No urinary or bowel complaints. Objective Vitals Vital Signs Date Time Temp Pulse Resp B/P Pulse Ox O2 Delivery O2 Flow Rate FiO2 08/30/16 12:00 97.7 84 17 126/77 98 08/30/16 08:00 97.5 72 17 135/67 98 08/30/16 00:00 97.4 80 20 130/77 99 08/29/16 20:00 97.7 85 20 133/84 99 08/29/16 16:00 97.0 84 16 128/70 95 08/29/16 14:16 18 I/O 08/29/16 08/29/16 08/29/16 08/30/16 08/30/16 08/30/16 07:00 15:00 23:00 07:00 15:00 23:00 Intake Total 760 ml 454 ml 480 ml 120 ml Output Total 1000 ml Balance -240 ml 454 ml 480 ml 120 ml Intake Oral 760 ml 300 ml 480 ml 120 ml IV Total 154 ml Output Urine Total 1000 ml # Voids 7 4 6 # Bowel Movements 0 0 # Sanitary Pads 1 Pads Result Diagram: 08/26/16 1430 08/30/16 0635 Imaging Last Impressions Shoulder X-Ray 08/28/16 0000 Signed Impressions: Service Date/Time: July 11:44 - CONCLUSION: 1. The shoulder is unremarkable. 2. Small right effusion. Leonardo Pitt Jr., MD Abdomen X-Ray 08/24/16 0000 Signed Impressions: Service Date/Time: Wednesday, August 24, 2016 13:58 - CONCLUSION: No acute disease. Karo Jones MD Chest X-Ray 08/20/16 0600 Signed Impressions: Service Date/Time: Saturday, August 20, 2016 02:25 - CONCLUSION: Bilateral airspace disease and nodules. Yemi Thompson MD Upper Extremity Ultrasound 08/19/16 0000 Signed Impressions: Service Date/Time: Friday, August 19, 2016 10:38 - CONCLUSION: 1. Occlusive thrombus within the mid and distal right cephalic vein. 2. Complex hypoechoic area adjacent to the brachial vessels within the antecubital fossa measuring 2.6 x 1.0 x 1.2 cm which is nonspecific. Jose Triana MD Lumbar Spine MRI 08/19/16 0000 Signed Impressions: Service Date/Time: Friday, August 19, 2016 12:23 - CONCLUSION: No acute disease. Jose Triana MD Brain MRI 08/19/16 0000 Signed Impressions: Service Date/Time: Friday, August 19, 2016 20:48 - CONCLUSION: The postcontrast portion of the exam is very limited since very little contrast is identified and there are couple of nonspecific punctate white manner bright signal on FLAIR sequence. Timoteo Khalil MD Liver Ultrasound 08/18/16 0000 Signed Impressions: Service Date/Time: Thursday, August 18, 2016 16:18 - CONCLUSION: 1. Small right pleural effusion. 2. The gallbladder is decompressed with minimal intraluminal sludge. No stones. 3. Splenomegaly. Sergei Maldonado MD Chest CT 08/18/16 0000 Signed Impressions: Service Date/Time: Thursday, August 18, 2016 11:41 - CONCLUSION: Disseminated small bilateral predominantly peripheral nodular infiltrates. Small effusions and mild associated atelectasis. Differential considerations would include atypical infectious etiologies and septic emboli, rarely collagen vascular disease, Troy's and pneumoconiosis. Rickey Babb MD Objective Remarks GENERAL: Well-developed well-nourished. In no acute distress. SKIN: Warm and dry. No lesions noted. HEENT: Normocephalic. Pupils equal and round. Mucous membranes pink and moist. CARDIOVASCULAR: Regular rate and rhythm. Systolic murmur appreciated. RESPIRATORY: No accessory muscle use. Clear to auscultation. Breath sounds equal bilaterally. GASTROINTESTINAL: Abdomen soft, non-tender, nondistended. Bowel sounds x4. MUSCULOSKELETAL: No obvious deformities. No clubbing or cyanosis. Trace edema. NEUROLOGICAL: Awake and alert. No focal neurological deficits. Moves upper and lower extremities spontaneously. Normal speech. PSYCHIATRIC: Appropriate mood and affect; insight and judgment normal. Procedures IJ central line 08/17/2016. 08/18/2016 Echocardiogram - Left ventricle: The cavity size was normal. Wall thickness was normal. Systolic function was normal. The estimated ejection fraction was in the range of 55% to 60%. Wall motion was normal; there were no regional wall motion abnormalities. - Aortic valve: Valve area: 2.08cm^2 (Vmax). - Tricuspid valve: There was a vegetation. Moderate-severe regurgitation. - Pulmonary arteries: PA peak pressure: 42mm Hg (S). A/P Problem List: (1) Sepsis ICD Code: A41.9 Status: Acute (2) Hypotension ICD Code: I95.9 Status: Acute (3) PNA (pneumonia) ICD Code: J18.9 Status: Acute (4) UTI (urinary tract infection) ICD Code: N39.0 Status: Acute (5) TEMO (acute kidney injury) ICD Code: N17.9 Status: Acute (6) IVDU (intravenous drug user) ICD Code: F19.90 Status: Acute (7) Cocaine abuse ICD Code: F14.10 Status: Chronic (8) Thrombocytopenia ICD Code: D69.6 Status: Acute Assessment and Plan Ms. Mcintosh is a 21-year-old female with a history of polysubstance, IV drug use who was admitted to the hospital due to generalized weakness and fever for approximately one week prior to this admission. Patient denied nausea vomiting cough or shortness of breath. Patient used IV drugs 6 days prior to this admission. Her urine drug screen was positive for cocaine. Blood culture grew MSSA and echocardiogram shows tricuspid regurgitation with tricuspid valve vegetation. Infectious disease was consulted and started patient on cefazolin. CT chest showed disseminated small bilateral peripheral nodular infiltrates. MRI brain shows couple of nonspecific punctate white matter bright signal on FLAIR sequence. - Septic shock - resolved. 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 - Pulmonary septic emboli - Blood cultures from 08/24/2016 grew S. Aureus again. Cx from 08/27/2016 with NGTD. - Patient required aggressive IV fluid resuscitation, Levophed, stress dosed steroids. - Initially on Vancomycin. However, based on cx results, currently on Cefazolin and gentamicin - probably will require long abx course. - ID (Dr. Rodgers) following. Await final antibiotic recommendations. - Cardiology evaluated patient. SHANNON did not show any left sided vegetation. - Right shoulder pain - Xray 08/28/2016 showed no acute findings except for small right effusion. - Will Continue patient on Naproxen for 7 days. If no resolution, consider MRI of the right shoulder. - Generalized edema - mostly abdomen and thigh. Improving. - Lasix 40mg PO Qday - Oral thrush - HIV test negative in 07/2016. - Continue Nystatin Liq. - Hypertension - Continue patient on Amlodipine 5mg Qday. - discontinued Hydrocortisone IV. No tapering needed since she has not been on steroid for that long. - Acute kidney injury - resolved. 1.82 on admission. Currently below 1.0. - Hypokalemia - resolved. - Hypocalcemia - resolved. Corrected Calcium greater than 8. - Follow up CMP - Polysubstance abuse - IVDU -Hopefully will go [facility] for [facility]. - Depression - Suicidal ideations - Psychiatry consulted, appreciate input. - Feeling better. - Possible opioid withdrawal - Initially on methadone, taper and stopped 08/29/2016. - Acetaminophen for pain 1-4, Oxycodone for pain 5-10. - Acute on chronic microcytic anemia Hemoglobin currently 8.1, previously 11.2 on admission. S/P transfusion 08/26. - Follow-up CBC - Watch for bleeding, check Hemoccult - Check iron studies, B12, folate Full code. Lovenox. Famotidine. Discharge Planning Follow up blood culture results and the final antibiotic recommendations. Problem Qualifiers (1) Hypotension: Qualified Code: I95.9 - Hypotension, unspecified hypotension type Frederick Melendez Aug 30, 2016 14:19 Doe Martins DO Aug 30, 2016 17:29
[2016-08-30 16:00] VITALS: BP 128/77; PULSE 85; RESP 18; TEMP 98.2; O2SAT 97
[2016-08-30 20:00] VITALS: BP 133/86; PULSE 84; RESP 20; TEMP 97; O2SAT 99
[2016-08-30] MEDS: ENOXAPARIN SODIUM 40 MG/0.4 ML SYRINGE SQ SCH (20:36)
[2016-08-31] VITALS: BP 133/92; PULSE 85; RESP 20; TEMP 98.2; O2SAT 99
[2016-08-31] MEDS: ceFAZolin 2 GM PREMIX 50 ML IV SCH ×3 (02:21→17:47)
[2016-08-31] MEDS: NAPROXEN 375 MG TAB PO SCH ×3 (05:24→21:07)
[2016-08-31 05:41] LABS: AUTOMATED NEUTROPHIL # 5.1 TH/MM3 (1.8-7.7); BASOPHIL # 0.1 TH/MM3 (0-0.2); BASOPHIL % 1.2 % (0.0-2.0); EOSINOPHIL # 0.1 TH/MM3 (0-0.4); EOSINOPHIL % 1.8 % (0.0-4.0); HEMATOCRIT 41.6 % (35.0-46.0); HEMO FLAGS DIFF FINAL; LYMPH % 22.2 % (9.0-44.0); LYMPHOCYTE # 1.8 TH/MM3 (1.0-4.8); MEAN CELL VOLUME 91.6 FL (80.0-100.0); MEAN CORPUSCULAR HEMOGLOBIN 30.1 PG (27.0-34.0); MEAN CORPUSCULAR HGB CONC 32.9 % (32.0-36.0); MONO % 10.5 % (0.0-8.0); NEUT % 64.3 % (16.0-70.0); PLATELET COUNT 301 TH/MM3 (150-450); RED BLOOD COUNT 4.54 MIL/MM3 (4.00-5.30); RED CELL DISTRIBUTION WIDTH 16.1 % (11.6-17.2); WHITE BLOOD COUNT 7.9 TH/MM3 (4.0-11.0)
[2016-08-31 06:07] LABS: ALT (GPT) 9 U/L (10-53); ANION GAP 7 MEQ/L (5-15); AST (GOT) 12 U/L (15-37); BICARBONATE 28.1 MEQ/L (21.0-32.0); BLOOD UREA NITROGEN 12 MG/DL (7-18); CHLORIDE 101 MEQ/L (98-107); GLOMERULAR FILTRATION RATE 111 ML/MIN (>89); POTASSIUM 4.3 MEQ/L (3.5-5.1); SODIUM (NA) 136 MEQ/L (136-145)
[2016-08-31 06:32] LABS: ALKALINE PHOSPHATASE 89 U/L (45-117); FERRITIN 247 NG/ML (8-252); TOTAL BILIRUBIN ADULT 0.5 MG/DL (0.2-1.0); TRANSFERRIN IRON PROFILE 138 MG/DL (200-360)
[2016-08-31 08:00] VITALS: BP 135/81; PULSE 71; RESP 17; TEMP 97.8; O2SAT 99
[2016-08-31] MEDS: amLODIPine BESYLATE 5 MG TAB PO SCH (08:21)
[2016-08-31] MEDS: FAMOTIDINE 20 MG TAB PO SCH ×2 (08:21→21:07)
[2016-08-31] MEDS: SODIUM CHLORIDE 0.9% FLUSH 5 ML FLUSH IV FLUSH SCH ×2 (08:21→21:00)
[2016-08-31] MEDS: FUROSEMIDE 40 MG TAB PO SCH (08:21)
[2016-08-31] MEDS: NYSTATIN SUSP 500,000 U/5 ML CUP SWISH-SWAL SCH ×4 (08:21→21:07)
--- NOTE | 2016-08-31 11:35 | HHI.PR ---
Subjective Remarks Follow up for MSSA bacteremia, tricuspid valve endocarditis. Patient denies any chest pain or shortness of breath. Tolerating diet. Has been having constipation. She states she can ambulating and doing exercises PT told her to do. Objective Vitals Vital Signs Date Time Temp Pulse Resp B/P Pulse Ox O2 Delivery O2 Flow Rate FiO2 08/31/16 08:00 97.8 71 17 135/81 99 08/31/16 07:53 18 08/31/16 00:00 98.2 85 20 133/92 99 08/30/16 20:00 97.0 84 20 133/86 99 08/30/16 16:00 98.2 85 18 128/77 97 08/30/16 15:28 18 08/30/16 12:00 97.7 84 17 126/77 98 I/O 08/30/16 08/30/16 08/30/16 08/31/16 08/31/16 08/31/16 07:00 15:00 23:00 07:00 15:00 23:00 Intake Total 120 ml 650 ml 720 ml 240 ml Output Total 1550 ml 750 ml Balance 120 ml -900 ml -30 ml 240 ml Intake Oral 120 ml 650 ml 720 ml 240 ml Output Urine Total 1550 ml 750 ml # Voids 6 3 4 # Bowel Movements 0 # Sanitary Pads 1 Pads Result Diagram: 08/31/16 0500 08/31/16 0530 Objective Remarks GENERAL: Well-developed well-nourished. In no acute distress. SKIN: Warm and dry. No lesions noted. HEENT: Normocephalic. Pupils equal and round. Mucous membranes pink and moist. CARDIOVASCULAR: Regular rate and rhythm. Systolic murmur appreciated. RESPIRATORY: No accessory muscle use. Clear to auscultation. Decreased breath sounds right lung base. GASTROINTESTINAL: Abdomen soft, non-tender, nondistended. Bowel sounds x4. MUSCULOSKELETAL: No obvious deformities. No clubbing or cyanosis. No edema. NEUROLOGICAL: Awake and alert. No focal neurological deficits. Moves upper and lower extremities spontaneously. Normal speech. PSYCHIATRIC: Appropriate mood and affect; insight and judgment normal. Procedures IJ central line 08/17/2016. 08/18/2016 Echocardiogram - Left ventricle: The cavity size was normal. Wall thickness was normal. Systolic function was normal. The estimated ejection fraction was in the range of 55% to 60%. Wall motion was normal; there were no regional wall motion abnormalities. - Aortic valve: Valve area: 2.08cm^2 (Vmax). - Tricuspid valve: There was a vegetation. Moderate-severe regurgitation. - Pulmonary arteries: PA peak pressure: 42mm Hg (S). A/P Problem List: (1) Sepsis ICD Code: A41.9 Status: Acute (2) Hypotension ICD Code: I95.9 Status: Acute (3) PNA (pneumonia) ICD Code: J18.9 Status: Acute (4) UTI (urinary tract infection) ICD Code: N39.0 Status: Acute (5) TEMO (acute kidney injury) ICD Code: N17.9 Status: Acute (6) IVDU (intravenous drug user) ICD Code: F19.90 Status: Acute (7) Cocaine abuse ICD Code: F14.10 Status: Chronic (8) Thrombocytopenia ICD Code: D69.6 Status: Acute Assessment and Plan Ms. Mcintosh is a 21-year-old female with a history of polysubstance, IV drug use who was admitted to the hospital due to generalized weakness and fever for approximately one week prior to this admission. Patient denied nausea vomiting cough or shortness of breath. Patient used IV drugs 6 days prior to this admission. Her urine drug screen was positive for cocaine. Blood culture grew MSSA and echocardiogram shows tricuspid regurgitation with tricuspid valve vegetation. Infectious disease was consulted and started patient on cefazolin. CT chest showed disseminated small bilateral peripheral nodular infiltrates. MRI brain shows couple of nonspecific punctate white matter bright signal on FLAIR sequence. - Septic shock - resolved. 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 - Pulmonary septic emboli - Blood cultures from 08/24/2016 grew S. Aureus again. Cx from 08/27/2016 with NGTD. - Patient required aggressive IV fluid resuscitation, Levophed, stress dosed steroids. - Initially on Vancomycin. However, based on cx results, currently on Cefazolin and gentamicin - probably will require long abx course. - ID (Dr. Rodgers) following. Await final antibiotic recommendations. - Cardiology evaluated patient. SHANNON did not show any left sided vegetation. - Right shoulder pain - Xray 08/28/2016 showed no acute findings except for small right effusion. - Will Continue patient on Naproxen for 7 days. If no resolution, consider MRI of the right shoulder. - Generalized edema - mostly abdomen and thigh. Improved. - DC Lasix - Oral thrush - HIV test negative in 07/2016. - Continue Nystatin Liq. - Hypertension - Continue patient on Amlodipine 5mg Qday. - discontinued Hydrocortisone IV. No tapering needed since she has not been on steroid for that long. - Acute kidney injury - resolved. 1.82 on admission. Currently below 1.0. - Hypokalemia - resolved. - Hypocalcemia - resolved. Corrected Calcium greater than 8. - Follow up CMP - Polysubstance abuse - IVDU -Hopefully will go to [facility] for [facility]. - Depression - Suicidal ideations - Psychiatry consulted, appreciate input. - Feeling better. - Possible opioid withdrawal - Initially on methadone, taper and stopped 08/29/2016. - Acetaminophen for pain 1-4, Oxycodone for pain 5-10. - Acute on chronic microcytic anemia During admission Hemoglobin trended down from 11.2 to 6.7. S/P transfusion 08/26. - Follow-up CBC shows hemoglobin 13.7, resolved - Check Hemoccult, negative - Iron studies, B12, folate reviewed - Decreased breath sounds right lung base. - Check chest x-ray: bibasilar parenchymal changes. Will monitor. Full code. Lovenox. Famotidine. Written by Frederick Melendez, acting as scribe for Dr. Martins on 08/31/16 at 11:34. Discharge Planning Follow up blood culture results and final antibiotic recommendations. Attending Statement All or portions of this note were transcribed by scribe Frederick Melendez. I, Dr. Doe Martins personally performed the history, physical exam, and medical decision making; and confirmed the accuracy of the information in the transcribed note. Authenticated by Dr. Doe Martins on 08/31/16 at 15:32. Problem Qualifiers (1) Hypotension: Qualified Code: I95.9 - Hypotension, unspecified hypotension type Frederick Melendez Aug 31, 2016 11:35 Doe Martins DO Aug 31, 2016 15:33
[2016-08-31] MEDS: MAGNESIUM HYDROXIDE SUSP 30 ML CUP PO PRN (11:39)
[2016-08-31] MEDS: DOCUSATE SODIUM 100 MG CAP PO SCH ×2 (11:39→21:07)
--- NOTE | 2016-08-31 11:57 | RADRPT ---
EXAM DATE/TIME: 08/31/2016 11:46 [facility] COMPARISON: CHEST SINGLE AP, August 20, 2016, 2:25. INDICATIONS : Short of breath. MEDICAL HISTORY : None. SURGICAL HISTORY : None. ENCOUNTER: Subsequent ACUITY: 1 week PAIN SCORE: 0/10 LOCATION: Bilateral chest FINDINGS: Tip of the central venous catheter is in the expected location of the superior vena cava. Patchy air space disease is seen in both lungs with small bilateral pleural effusions. Heart remains minimally enlarged. CONCLUSION: Compared to 08/20/2016, there are increasing bibasilar parenchymal changes present. Small pleural eff usions are noted. Gavin Oro MD FACR on August 31, 2016 at 11:54 Board Certified Radiologist. This report was verified electronically.
[2016-08-31 12:00] VITALS: BP 126/71; PULSE 84; RESP 18; TEMP 97.8; O2SAT 98
[2016-08-31] MEDS ORDERED: POLYETHYLENE GLYCOL 17 GM PKG PO ONE (15:45)
[2016-08-31 16:00] VITALS: BP 120/68; PULSE 76; RESP 17; TEMP 97.4; O2SAT 99
[2016-08-31 20:00] VITALS: BP 130/82; PULSE 87; RESP 20; TEMP 98.9; O2SAT 98
[2016-08-31 20:13] VITALS: O2SAT 99
[2016-08-31] MEDS: ENOXAPARIN SODIUM 40 MG/0.4 ML SYRINGE SQ SCH (21:07)
[2016-08-31] MEDS: CHLORHEXIDINE GLUCONATE 2 % 1 PACK (2 CLOTHS) TOP SCH (21:11)
[2016-09-01] MEDS: ceFAZolin 2 GM PREMIX 50 ML IV SCH ×3 (02:14→17:35)
[2016-09-01] MEDS: NAPROXEN 375 MG TAB PO SCH ×3 (05:57→20:04)
[2016-09-01 08:00] VITALS: BP 112/63; PULSE 94; RESP 17; TEMP 97.9; O2SAT 97
[2016-09-01] MEDS: NYSTATIN SUSP 500,000 U/5 ML CUP SWISH-SWAL SCH ×4 (08:23→20:04)
[2016-09-01] MEDS: DOCUSATE SODIUM 100 MG CAP PO SCH ×2 (08:24→20:04)
[2016-09-01] MEDS: amLODIPine BESYLATE 5 MG TAB PO SCH (08:24)
[2016-09-01] MEDS: SODIUM CHLORIDE 0.9% FLUSH 5 ML FLUSH IV FLUSH SCH ×2 (08:24→20:03)
[2016-09-01] MEDS: SENNOSIDES 8.6 MG TAB PO SCH (08:24)
[2016-09-01] MEDS: FAMOTIDINE 20 MG TAB PO SCH ×2 (08:24→20:04)
--- NOTE | 2016-09-01 10:28 | HHI.PR ---
Subjective Remarks The patient said she had some left sided flank pain when she breathes in deeply. She was wondering if she had acid reflux. She has been using her incentive spirometer. Discussed with nursing. Objective Vitals Vital Signs Date Time Temp Pulse Resp B/P Pulse Ox O2 Delivery O2 Flow Rate FiO2 09/01/16 08:00 97.9 94 17 112/63 97 08/31/16 20:13 99 21 08/31/16 20:00 98.9 87 20 130/82 98 08/31/16 16:00 97.4 76 17 120/68 99 08/31/16 14:30 18 08/31/16 14:30 18 08/31/16 12:00 97.8 84 18 126/71 98 I/O 08/31/16 08/31/16 08/31/16 09/01/16 09/01/16 09/01/16 07:00 15:00 23:00 07:00 15:00 23:00 Intake Total 240 ml 475 ml 480 ml 220 ml Output Total 1650 ml 500 ml 450 ml Balance 240 ml -1175 ml -20 ml -230 ml Intake Oral 240 ml 475 ml 480 ml 220 ml Output Urine Total 1650 ml 500 ml 450 ml # Voids 4 # Bowel Movements 0 0 0 # Sanitary Pads 1 Pads 1 Pads Result Diagram: 08/31/16 0500 09/01/16 0600 Imaging Last Impressions Chest X-Ray 08/31/16 0000 Signed Impressions: Service Date/Time: Wednesday, August 31, 2016 11:46 - CONCLUSION: Compared to 08/20/2016, there are increasing bibasilar parenchymal changes present. Small pleural effusions are noted. Gavin Oro MD FACR Shoulder X-Ray 08/28/16 0000 Signed Impressions: Service Date/Time: July 11:44 - CONCLUSION: 1. The shoulder is unremarkable. 2. Small right effusion. Leonardo Pitt Jr., MD Abdomen X-Ray 08/24/16 0000 Signed Impressions: Service Date/Time: Wednesday, August 24, 2016 13:58 - CONCLUSION: No acute disease. Karo Jones MD Upper Extremity Ultrasound 08/19/16 0000 Signed Impressions: Service Date/Time: Friday, August 19, 2016 10:38 - CONCLUSION: 1. Occlusive thrombus within the mid and distal right cephalic vein. 2. Complex hypoechoic area adjacent to the brachial vessels within the antecubital fossa measuring 2.6 x 1.0 x 1.2 cm which is nonspecific. Jose Triana MD Lumbar Spine MRI 08/19/16 0000 Signed Impressions: Service Date/Time: Friday, August 19, 2016 12:23 - CONCLUSION: No acute disease. Jose Triana MD Brain MRI 08/19/16 0000 Signed Impressions: Service Date/Time: Friday, August 19, 2016 20:48 - CONCLUSION: The postcontrast portion of the exam is very limited since very little contrast is identified and there are couple of nonspecific punctate white manner bright signal on FLAIR sequence. Timoteo Khalil MD Liver Ultrasound 08/18/16 0000 Signed Impressions: Service Date/Time: Thursday, August 18, 2016 16:18 - CONCLUSION: 1. Small right pleural effusion. 2. The gallbladder is decompressed with minimal intraluminal sludge. No stones. 3. Splenomegaly. Sergei Maldonado MD Chest CT 08/18/16 0000 Signed Impressions: Service Date/Time: Thursday, August 18, 2016 11:41 - CONCLUSION: Disseminated small bilateral predominantly peripheral nodular infiltrates. Small effusions and mild associated atelectasis. Differential considerations would include atypical infectious etiologies and septic emboli, rarely collagen vascular disease, Troy's and pneumoconiosis. Rickey Babb MD Objective Remarks GENERAL: Well-developed well-nourished. In no acute distress. SKIN: Warm and dry. No lesions noted. HEENT: Normocephalic. Pupils equal and round. Mucous membranes pink and moist. CARDIOVASCULAR: Regular rate and rhythm. Systolic murmur appreciated. RESPIRATORY: No accessory muscle use. Clear to auscultation. Decreased breath sounds right lung base. GASTROINTESTINAL: Abdomen soft, non-tender, nondistended. Bowel sounds x4. MUSCULOSKELETAL: No obvious deformities. No clubbing or cyanosis. No edema. NEUROLOGICAL: Awake and alert. No focal neurological deficits. Moves upper and lower extremities spontaneously. Normal speech. PSYCHIATRIC: Appropriate mood and affect; insight and judgment normal. Procedures IJ central line 08/17/2016. 08/18/2016 Echocardiogram - Left ventricle: The cavity size was normal. Wall thickness was normal. Systolic function was normal. The estimated ejection fraction was in the range of 55% to 60%. Wall motion was normal; there were no regional wall motion abnormalities. - Aortic valve: Valve area: 2.08cm^2 (Vmax). - Tricuspid valve: There was a vegetation. Moderate-severe regurgitation. - Pulmonary arteries: PA peak pressure: 42mm Hg (S). Medications and IVs Current Medications Medications (Trade) Dose Ordered Sig/Key Route Start Time Stop Time Status Last Admin (Ativan Inj) 1 mg Q3H PRN IV PUSH 08/17/16 19:00 08/20/16 17:40 (Zofran Inj) 4 mg Q6H PRN IVP 08/17/16 19:00 08/26/16 08:37 (Tylenol) 650 mg Q6H PRN PO 08/17/16 19:00 08/25/16 22:12 (Roxicodone) 5 mg Q4H PRN PO 08/17/16 19:00 09/01/16 10:02 (Brethine Inj) 1 mg UNSCH PRN SQ 08/17/16 20:15 (NS Flush) 2 ml UNSCH PRN IV FLUSH 08/17/16 20:15 08/24/16 13:46 (NS Flush) 2 ml BID IV FLUSH 08/17/16 21:00 09/01/16 08:24 (Lovenox Inj) 40 mg Q24H SQ 08/17/16 21:00 08/31/16 21:07 Miscellaneous Information 1 Q361D XX 08/17/16 20:15 (Chlorhexidine 2% Cloth) Taper DAILY@04 TOP 08/18/16 04:00 08/14/17 03:59 08/22/16 02:01 Chlorhexidine Gluconate 3 pack 3 pack UNSCH PRN TOP 08/17/16 20:15 (Ancef 2 Gm Premix) 50 ml @ 150 mls/hr Q8H IV 08/19/16 18:00 09/01/16 08:23 (Haldol Inj) 5 mg Q8HR PRN IM 08/21/16 11:00 (Norvasc) 5 mg DAILY PO 08/21/16 11:30 09/01/16 08:24 (Pepcid) 20 mg Q12HR PO 08/24/16 21:00 09/01/16 08:24 (Milk Of Magnesia Liq) 30 ml DAILY PRN PO 08/24/16 12:00 08/31/16 11:39 (Compazine Inj) 5 mg Q6H PRN IVS 08/24/16 13:15 08/24/16 13:45 (Mycostatin Liq) 5 ml QID SWISH-SWAL 08/25/16 13:00 09/01/16 08:23 (Naprosyn) 375 mg Q8HR PO 08/28/16 14:00 09/04/16 13:59 09/01/16 05:57 (Heparin Central Flush) 300 units DAILY IV FLUSH 08/29/16 13:00 09/01/16 08:23 (Colace) 100 mg BID PO 08/31/16 12:00 09/01/16 08:24 (Senokot) 17.2 mg DAILY PO 09/01/16 09:00 09/01/16 08:24 A/P Problem List: (1) Sepsis ICD Code: A41.9 Status: Acute (2) Hypotension ICD Code: I95.9 Status: Acute (3) PNA (pneumonia) ICD Code: J18.9 Status: Acute (4) UTI (urinary tract infection) ICD Code: N39.0 Status: Acute (5) TEMO (acute kidney injury) ICD Code: N17.9 Status: Acute (6) IVDU (intravenous drug user) ICD Code: F19.90 Status: Acute (7) Cocaine abuse ICD Code: F14.10 Status: Chronic (8) Thrombocytopenia ICD Code: D69.6 Status: Acute Assessment and Plan Ms. Mcintosh is a 21-year-old female with a history of polysubstance, IV drug use who was admitted to the hospital due to generalized weakness and fever for approximately one week prior to this admission. Patient denied nausea vomiting cough or shortness of breath. Patient used IV drugs 6 days prior to this admission. Her urine drug screen was positive for cocaine. Blood culture grew MSSA and echocardiogram shows tricuspid regurgitation with tricuspid valve vegetation. Infectious disease was consulted and started patient on cefazolin. CT chest showed disseminated small bilateral peripheral nodular infiltrates. MRI brain shows couple of nonspecific punctate white matter bright signal on FLAIR sequence. - Septic shock - resolved. 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 - Pulmonary septic emboli - Blood cultures from 08/24/2016 grew S. Aureus again. Cx from 08/27/2016 with NGTD. - Patient required aggressive IV fluid resuscitation, Levophed, stress dose steroids. - Initially on Vancomycin. However, based on cx results, currently on Cefazolin and gentamicin - probably will require long abx course. - ID (Dr. Rodgers) following. Await final antibiotic recommendations. - Cardiology evaluated patient. SHANNON did not show any left sided vegetation. - Right shoulder pain - Xray 08/28/2016 showed no acute findings except for small right effusion. - Will Continue patient on Naproxen for 7 days. If no resolution, consider MRI of the right shoulder. - Generalized edema - mostly abdomen and thigh. Improved. - DC Lasix - Oral thrush - HIV test negative in 07/2016. - Continue Nystatin Liq. Hypertension Well controlled 09/01. - Continue patient on Amlodipine 5mg Qday. - Polysubstance abuse - IVDU -Hopefully will go [facility] for [facility]. - Depression - Suicidal ideations - Psychiatry consulted, appreciate input. - Feeling better. - Possible opioid withdrawal - Initially on methadone, taper and stopped 08/29/2016. - Acetaminophen for pain 1-4, Oxycodone for pain 5-10. Acute on chronic microcytic anemia During admission Hemoglobin trended down from 11.2 to 6.7. S/P transfusion . Checked Hemoccult, negative. - follow CBC and transfuse as needed. Pleuritic chest pain/ left flank pain Chest x-ray: bibasilar parenchymal changes. - check CXR PA/ Lateral. - check UA c/s. - pain control as needed. Constipation On a bowel regimen. - add Dulcolax suppository. Full code. Lovenox. Famotidine. Discharge Planning Awaiting clinical improvement. Problem Qualifiers (1) Hypotension: Qualified Code: I95.9 - Hypotension, unspecified hypotension type Doe Martins DO Sep 01, 2016 10:28
[2016-09-01] MEDS ORDERED: BISACODYL 10 MG SUPP RECTAL ONE (10:30)
[2016-09-01] MEDS: PANTOPRAZOLE SOD 40 MG DELAYED RELEASE TAB PO SCH (10:30)
[2016-09-01 12:00] VITALS: BP 120/74; PULSE 92; RESP 16; TEMP 97.5; O2SAT 100
--- NOTE | 2016-09-01 14:14 | RADRPT ---
EXAM DATE/TIME: 09/01/2016 13:29 [place] COMPARISON: CT THORAX W/O CONTRAST, August 18, 2016, 11:41. CHEST SINGLE AP, August 31, 2016, 11:46. INDICATIONS : Shortness of breath. Upper back pain. MEDICAL HISTORY : Hypertension. Endocarditis. SURGICAL HISTORY : Tonsillectomy. section. ENCOUNTER: Initial ACUITY: 1 day PAIN SCORE: 8/10 LOCATION: Bilateral chest FINDINGS: The central venous catheter is in good position. The exam demonstrates a small pleural effusion at th e left lung base. There are consolidative changes in the left lung as well. These findings appear sim ilar to previous dated 08/31/16. The visualized bony structures are intact. CONCLUSION: 1. Central line in good position. 2. Left basilar consolidation. Khris Oro MD on September 01, 2016 at 14:10 Board Certified Radiologist. This report was verified electronically.
--- NOTE | 2016-09-01 14:22 | CF ---
cc: TERRIE ZAVALA INDICATION Tricuspid valve endocarditis, persistent bacteremia, IV drug use. PROCEDURE PERFORMED Transesophageal echocardiogram. PROCEDURE After the patient was sedated by Anesthesia, the transesophageal probe was placed without difficulty. Tomographic images were obtained. Left ventricular function was preserved. Estimated ejection fraction was 50% with no segmental wall motion abnormalities. The left atrial appendage was visualized and there was no evidence of left atrial thrombus. The aortic valve was structurally normal. There was no evidence of aortic valve vegetation. The mitral valve was structurally normal. There was no evidence of mitral vegetation. There was no evidence of mitral stenosis. There was mild mitral regurgitation. The pulmonary valve was visualized and there was no evidence of pulmonary valve vegetation. There was no evidence of pulmonary stenosis or insufficiency. The tricuspid valve was well-visualized. There were two large size vegetations measuring 1.7 x 1.2 cm, and 1.1 x 1.3 cm. There were highly mobile. There was evidence of moderate tricuspid regurgitation. A bubble study was performed with no evidence of [id number] shunt. There was evidence of pleural effusion. The descending aorta had no significant pathology. DIAGNOSIS 1. Large tricuspid valve mobile vegetations. 2. Moderate tricuspid regurgitation. 3. Preserved left ventricular systolic function. 4. Mild mitral regurgitation. 5. Pleural effusion. IMPRESSION Tricuspid valve endocarditis. MD BRENDA Bustamante/VAN /2:41 PM /2:16 PM SKYE
[2016-09-01 16:00] VITALS: BP 118/60; PULSE 76; RESP 14; TEMP 96.7; O2SAT 98
--- NOTE | 2016-09-01 18:13 | HHI.IDPN ---
Subjective Subjective Remarks pt afebrile co back pain finally negative blood clx Antibiotics cefazoline Past Medical History IVDU Allergies: Coded Allergies: Amoxicillin (Unverified Allergy, Unknown, rashes, 07/24/15) Objective . Vital Signs Date Time Temp Pulse Resp B/P Pulse Ox O2 Delivery O2 Flow Rate FiO2 09/01/16 16:00 96.7 76 14 118/60 98 09/01/16 12:00 97.5 92 16 120/74 100 09/01/16 08:00 97.9 94 17 112/63 97 08/31/16 20:13 99 21 08/31/16 20:00 98.9 87 20 130/82 98 08/31/16 08/31/16 09/01/16 15:00 23:00 07:00 Intake Total 475 ml 480 ml 220 ml Output Total 1650 ml 500 ml 450 ml Balance -1175 ml -20 ml -230 ml Intake Oral 475 ml 480 ml 220 ml Output Urine Total 1650 ml 500 ml 450 ml # Bowel Movements 0 0 0 # Sanitary Pads 1 Pads 1 Pads . Laboratory Tests Test 08/31/16 05:00 White Blood Count 7.9 TH/MM3 Red Blood Count 4.54 MIL/MM3 Hemoglobin 13.7 GM/DL Hematocrit 41.6 % Mean Corpuscular Volume 91.6 FL Mean Corpuscular Hemoglobin 30.1 PG Mean Corpuscular Hemoglobin 32.9 % Concent Red Cell Distribution Width 16.1 % Platelet Count 301 TH/MM3 Mean Platelet Volume 8.5 FL Neutrophils (%) (Auto) 64.3 % Lymphocytes (%) (Auto) 22.2 % Monocytes (%) (Auto) 10.5 % Eosinophils (%) (Auto) 1.8 % Basophils (%) (Auto) 1.2 % Neutrophils # (Auto) 5.1 TH/MM3 Lymphocytes # (Auto) 1.8 TH/MM3 Monocytes # (Auto) 0.8 TH/MM3 Eosinophils # (Auto) 0.1 TH/MM3 Basophils # (Auto) 0.1 TH/MM3 CBC Comment DIFF FINAL Differential Comment Laboratory Tests Test 08/31/16 09/01/16 05:30 06:00 Sodium Level 136 MEQ/L Potassium Level 4.3 MEQ/L Chloride Level 101 MEQ/L Carbon Dioxide Level 28.1 MEQ/L Anion Gap 7 MEQ/L Blood Urea Nitrogen 12 MG/DL Creatinine 0.66 MG/DL 0.63 MG/DL Estimat Glomerular Filtration 111 ML/MIN 117 ML/MIN Rate Random Glucose 84 MG/DL Calcium Level 8.4 MG/DL Iron Level 28 MCG/DL Total Iron Binding Capacity 193 MCG/DL Percent Iron Saturation 14.5 % Ferritin 247 NG/ML Total Bilirubin 0.5 MG/DL Aspartate Amino Transf 12 U/L (AST/SGOT) Alanine Aminotransferase 9 U/L (ALT/SGPT) Alkaline Phosphatase 89 U/L Total Protein 6.7 GM/DL Albumin 2.3 GM/DL Vitamin B12 Level 738 PG/ML Lipase 493 U/L Microbiology Date/Time Procedure Status Source Growth 08/30/16 20:45 Stool Occult Blood (SABI) - Final Complete Stool Stool HEMOCCULT NEGATIVE Imaging Last Impressions Chest X-Ray 09/01/16 0000 Signed Impressions: Service Date/Time: Thursday, September 01, 2016 13:29 - CONCLUSION: 1. Central line in good position. 2. Left basilar consolidation. Khris Oro MD Shoulder X-Ray 08/28/16 0000 Signed Impressions: Service Date/Time: July 11:44 - CONCLUSION: 1. The shoulder is unremarkable. 2. Small right effusion. Leonardo Pitt Jr., MD Abdomen X-Ray 08/24/16 0000 Signed Impressions: Service Date/Time: Wednesday, August 24, 2016 13:58 - CONCLUSION: No acute disease. Karo Jones MD Upper Extremity Ultrasound 08/19/16 0000 Signed Impressions: Service Date/Time: Friday, August 19, 2016 10:38 - CONCLUSION: 1. Occlusive thrombus within the mid and distal right cephalic vein. 2. Complex hypoechoic area adjacent to the brachial vessels within the antecubital fossa measuring 2.6 x 1.0 x 1.2 cm which is nonspecific. Jose Triana MD Lumbar Spine MRI 08/19/16 0000 Signed Impressions: Service Date/Time: Friday, August 19, 2016 12:23 - CONCLUSION: No acute disease. Jose Triana MD Brain MRI 08/19/16 0000 Signed Impressions: Service Date/Time: Friday, August 19, 2016 20:48 - CONCLUSION: The postcontrast portion of the exam is very limited since very little contrast is identified and there are couple of nonspecific punctate white manner bright signal on FLAIR sequence. KRegina Khalil MD Liver Ultrasound 08/18/16 0000 Signed Impressions: Service Date/Time: Thursday, August 18, 2016 16:18 - CONCLUSION: 1. Small right pleural effusion. 2. The gallbladder is decompressed with minimal intraluminal sludge. No stones. 3. Splenomegaly. Sergei Maldonado MD Chest CT 08/18/16 0000 Signed Impressions: Service Date/Time: Thursday, August 18, 2016 11:41 - CONCLUSION: Disseminated small bilateral predominantly peripheral nodular infiltrates. Small effusions and mild associated atelectasis. Differential considerations would include atypical infectious etiologies and septic emboli, rarely collagen vascular disease, Troy's and pneumoconiosis. Rickey Babb MD Physical Exam CONSTITUTIONAL/GENERAL: This is an adequately nourished patient, in no apparent distress. TUBES/LINES/DRAINS: SKIN: No jaundice, rashes, or lesions. No Janeway lesions Skin temperature appropriate. Not diaphoretic. EYES: No scleral icterus. No injection or drainage. Fundi not examined. CARDIOVASCULAR: Regular rate and rhythm +2-3/6 murmur, gallops, or rubs. No JVD. Peripheral pulses symmetric. RESPIRATORY/CHEST: Symmetric, unlabored respirations. Clear to auscultation. Breath sounds equal bilaterally. No wheezes, rales, or rhonchi. GASTROINTESTINAL: Abdomen soft, non-tender, nondistended. No hepato-splenomegaly , or palpable masses. No guarding. Bowel sounds present. GENITOURINARY: Without palpable bladder distension. MUSCULOSKELETAL: Extremities without clubbing, cyanosis, 1+ periferal edema BAck: no tenderness to palpation NEUROLOGICAL: less lethargic, but easily arousable; speech nl, follows commands Assessment & Plan Remarks Tricuspid valve endocarditis , MSSA - 2D echo + for TV vegg - septic emboli cw TV endocarditiss - cont to have fever - persistent ly positive blood clx - SHANNON positive for TV endocarditis, no left side endocarditis Lower back pain - ro diskitis/osteo Amoxicillin allergy - hives; but took keflex uneventfully per mom's account Slurred speech, resolved Back pain - new fu repeat blood clx However if cont to have + blood clx will get SHANNON next week cont cefazoline 2 gm q 8 at least 4 weeks from 1st neg blood clx Not a candidate for o/p IV abx sp completed gentamycin dw RN case mngr Tesha Rodgers MD Sep 01, 2016 18:13
[2016-09-01 20:00] VITALS: BP 130/82; PULSE 88; RESP 20; TEMP 98.6; O2SAT 96
[2016-09-01] MEDS: ENOXAPARIN SODIUM 40 MG/0.4 ML SYRINGE SQ SCH (20:04)
[2016-09-02] VITALS: BP 130/82; PULSE 88; RESP 20; TEMP 98.6; O2SAT 96
[2016-09-02] MEDS: CHLORHEXIDINE GLUCONATE 2 % 1 PACK (2 CLOTHS) TOP SCH (02:45)
[2016-09-02] MEDS: ceFAZolin 2 GM PREMIX 50 ML IV SCH ×3 (02:45→17:19)
[2016-09-02] MEDS: NAPROXEN 375 MG TAB PO SCH ×3 (06:06→22:11)
[2016-09-02 08:00] VITALS: BP 113/70; PULSE 96; RESP 17; TEMP 99.5; O2SAT 99
[2016-09-02] MEDS: PANTOPRAZOLE SOD 40 MG DELAYED RELEASE TAB PO SCH (09:00)
[2016-09-02] MEDS: SODIUM CHLORIDE 0.9% FLUSH 5 ML FLUSH IV FLUSH SCH ×2 (09:00→21:00)
[2016-09-02] MEDS: SENNOSIDES 8.6 MG TAB PO SCH (09:11)
[2016-09-02] MEDS: NYSTATIN SUSP 500,000 U/5 ML CUP SWISH-SWAL SCH ×4 (09:11→22:12)
[2016-09-02] MEDS: DOCUSATE SODIUM 100 MG CAP PO SCH ×2 (09:12→22:10)
[2016-09-02] MEDS: amLODIPine BESYLATE 5 MG TAB PO SCH (09:12)
[2016-09-02] MEDS: FAMOTIDINE 20 MG TAB PO SCH ×2 (09:13→22:11)
--- NOTE | 2016-09-02 11:28 | HHI.PR ---
Subjective Remarks The patient continued to complain of pain when she breathes deeply around the left flank area. No other acute complaints. Wondering how long she would have to be in the hospital. Objective Vitals Vital Signs Date Time Temp Pulse Resp B/P Pulse Ox O2 Delivery O2 Flow Rate FiO2 09/02/16 08:00 99.5 96 17 113/70 99 09/02/16 00:00 98.6 88 20 130/82 96 09/01/16 20:00 98.6 88 20 130/82 96 09/01/16 16:00 96.7 76 14 118/60 98 09/01/16 12:00 97.5 92 16 120/74 100 I/O 09/01/16 09/01/16 09/01/16 09/02/16 09/02/16 09/02/16 07:00 15:00 23:00 07:00 15:00 23:00 Intake Total 220 ml 190 ml 480 ml 240 ml Output Total 450 ml 450 ml 350 ml Balance -230 ml 190 ml 30 ml -110 ml Intake Oral 220 ml 140 ml 480 ml 240 ml IV Total 50 ml Output Urine Total 450 ml 450 ml 350 ml # Voids 3 # Bowel Movements 0 0 0 0 1 Result Diagram: 08/31/16 0500 09/01/16 0600 Imaging Last Impressions Chest X-Ray 09/01/16 0000 Signed Impressions: Service Date/Time: Thursday, September 01, 2016 13:29 - CONCLUSION: 1. Central line in good position. 2. Left basilar consolidation. Khris Oro MD Shoulder X-Ray 08/28/16 0000 Signed Impressions: Service Date/Time: July 11:44 - CONCLUSION: 1. The shoulder is unremarkable. 2. Small right effusion. Leonardo Pitt Jr., MD Abdomen X-Ray 08/24/16 0000 Signed Impressions: Service Date/Time: Wednesday, August 24, 2016 13:58 - CONCLUSION: No acute disease. Karo Jones MD Upper Extremity Ultrasound 08/19/16 0000 Signed Impressions: Service Date/Time: Friday, August 19, 2016 10:38 - CONCLUSION: 1. Occlusive thrombus within the mid and distal right cephalic vein. 2. Complex hypoechoic area adjacent to the brachial vessels within the antecubital fossa measuring 2.6 x 1.0 x 1.2 cm which is nonspecific. Jose Triana MD Lumbar Spine MRI 08/19/16 0000 Signed Impressions: Service Date/Time: Friday, August 19, 2016 12:23 - CONCLUSION: No acute disease. Jose Triana MD Brain MRI 08/19/16 0000 Signed Impressions: Service Date/Time: Friday, August 19, 2016 20:48 - CONCLUSION: The postcontrast portion of the exam is very limited since very little contrast is identified and there are couple of nonspecific punctate white manner bright signal on FLAIR sequence. Timoteo Khalil MD Liver Ultrasound 08/18/16 0000 Signed Impressions: Service Date/Time: Thursday, August 18, 2016 16:18 - CONCLUSION: 1. Small right pleural effusion. 2. The gallbladder is decompressed with minimal intraluminal sludge. No stones. 3. Splenomegaly. Sergei Maldonado MD Chest CT 08/18/16 0000 Signed Impressions: Service Date/Time: Thursday, August 18, 2016 11:41 - CONCLUSION: Disseminated small bilateral predominantly peripheral nodular infiltrates. Small effusions and mild associated atelectasis. Differential considerations would include atypical infectious etiologies and septic emboli, rarely collagen vascular disease, Troy's and pneumoconiosis. Rickey Babb MD Objective Remarks GENERAL: Well-developed well-nourished. In no acute distress. SKIN: Warm and dry. No lesions noted. HEENT: Normocephalic. Pupils equal and round. Mucous membranes pink and moist. CARDIOVASCULAR: Regular rate and rhythm. Systolic murmur appreciated. RESPIRATORY: No accessory muscle use. Clear to auscultation. Decreased breath sounds right lung base. GASTROINTESTINAL: Abdomen soft, slightly tender to palpation of the left flank area, nondistended. Bowel sounds x4. MUSCULOSKELETAL: No obvious deformities. No clubbing or cyanosis. No edema. NEUROLOGICAL: Awake and alert. No focal neurological deficits. Moves upper and lower extremities spontaneously. Normal speech. PSYCHIATRIC: Appropriate mood and affect; insight and judgment normal. Procedures IJ central line 08/17/2016. 08/18/2016 Echocardiogram - Left ventricle: The cavity size was normal. Wall thickness was normal. Systolic function was normal. The estimated ejection fraction was in the range of 55% to 60%. Wall motion was normal; there were no regional wall motion abnormalities. - Aortic valve: Valve area: 2.08cm^2 (Vmax). - Tricuspid valve: There was a vegetation. Moderate-severe regurgitation. - Pulmonary arteries: PA peak pressure: 42mm Hg (S). Medications and IVs Current Medications Medications (Trade) Dose Ordered Sig/Key Route Start Time Stop Time Status Last Admin (Ativan Inj) 1 mg Q3H PRN IV PUSH 08/17/16 19:00 08/20/16 17:40 (Zofran Inj) 4 mg Q6H PRN IVP 08/17/16 19:00 08/26/16 08:37 (Tylenol) 650 mg Q6H PRN PO 08/17/16 19:00 08/25/16 22:12 (Roxicodone) 5 mg Q4H PRN PO 08/17/16 19:00 09/02/16 09:12 (Brethine Inj) 1 mg UNSCH PRN SQ 08/17/16 20:15 (NS Flush) 2 ml UNSCH PRN IV FLUSH 08/17/16 20:15 08/24/16 13:46 (NS Flush) 2 ml BID IV FLUSH 08/17/16 21:00 09/02/16 09:00 (Lovenox Inj) 40 mg Q24H SQ 08/17/16 21:00 09/01/16 20:04 Miscellaneous Information 1 Q361D XX 08/17/16 20:15 (Chlorhexidine 2% Cloth) Taper DAILY@04 TOP 08/18/16 04:00 08/14/17 03:59 08/22/16 02:01 Chlorhexidine Gluconate 3 pack 3 pack UNSCH PRN TOP 08/17/16 20:15 (Ancef 2 Gm Premix) 50 ml @ 150 mls/hr Q8H IV 08/19/16 18:00 09/02/16 09:14 (Haldol Inj) 5 mg Q8HR PRN IM 08/21/16 11:00 (Norvasc) 5 mg DAILY PO 08/21/16 11:30 09/02/16 09:12 (Pepcid) 20 mg Q12HR PO 08/24/16 21:00 09/02/16 09:13 (Milk Of Magnesia Liq) 30 ml DAILY PRN PO 08/24/16 12:00 08/31/16 11:39 (Compazine Inj) 5 mg Q6H PRN IVS 08/24/16 13:15 08/24/16 13:45 (Mycostatin Liq) 5 ml QID SWISH-SWAL 08/25/16 13:00 09/02/16 09:11 (Naprosyn) 375 mg Q8HR PO 08/28/16 14:00 09/04/16 13:59 09/02/16 06:06 (Heparin Central Flush) 300 units DAILY IV FLUSH 08/29/16 13:00 09/02/16 09:12 (Colace) 100 mg BID PO 08/31/16 12:00 09/02/16 09:12 (Senokot) 17.2 mg DAILY PO 09/01/16 09:00 09/02/16 09:11 (Protonix) 40 mg DAILY PO 09/01/16 10:30 09/02/16 09:00 A/P Problem List: (1) Sepsis ICD Code: A41.9 Status: Acute (2) Hypotension ICD Code: I95.9 Status: Acute (3) PNA (pneumonia) ICD Code: J18.9 Status: Acute (4) UTI (urinary tract infection) ICD Code: N39.0 Status: Acute (5) TEMO (acute kidney injury) ICD Code: N17.9 Status: Acute (6) IVDU (intravenous drug user) ICD Code: F19.90 Status: Acute (7) Cocaine abuse ICD Code: F14.10 Status: Chronic (8) Thrombocytopenia ICD Code: D69.6 Status: Acute Assessment and Plan Ms. Mcintosh is a 21-year-old female with a history of polysubstance, IV drug use who was admitted to the hospital due to generalized weakness and fever for approximately one week prior to this admission. Patient denied nausea vomiting cough or shortness of breath. Patient used IV drugs 6 days prior to this admission. Her urine drug screen was positive for cocaine. Blood culture grew MSSA and echocardiogram shows tricuspid regurgitation with tricuspid valve vegetation. Infectious disease was consulted and started patient on cefazolin. CT chest showed disseminated small bilateral peripheral nodular infiltrates. MRI brain shows couple of nonspecific punctate white matter bright signal on FLAIR sequence. - Septic shock - resolved. 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 - Pulmonary septic emboli - Blood cultures from 08/24/2016 grew S. Aureus again. Cx from 08/27/2016 with NGTD. - Patient required aggressive IV fluid resuscitation, Levophed, stress dose steroids. Now blood pressure is stable. - Cardiology evaluated patient. SHANNON did not show any left sided vegetation. - ID (Dr. Rodgers) following. Await final antibiotic recommendations: continue cefazolin 2 gm q 8 at least 4 weeks from 1st neg blood culture. - Right shoulder pain - Xray 08/28/2016 showed no acute findings except for small right effusion. - Will Continue patient on Naproxen for 7 days. If no resolution, consider MRI of the right shoulder. - Generalized edema - mostly abdomen and thigh. Improved. - DC Lasix - Oral thrush - HIV test negative in 07/2016. - Continue Nystatin Liq. Hypertension Well controlled 09/01. - Continue patient on Amlodipine 5mg Qday. - Polysubstance abuse - IVDU -Hopefully will go to [facility] drug [facility]. - Depression - Suicidal ideations - Psychiatry consulted, appreciate input. - Feeling better. - Possible opioid withdrawal - Initially on methadone, taper and stopped 08/29/2016. - Acetaminophen for pain 1-4, Oxycodone for pain 5-10. Acute on chronic microcytic anemia During admission Hemoglobin trended down from 11.2 to 6.7. S/P transfusion . Checked Hemoccult, negative. - follow CBC and transfuse as needed. Pleuritic chest pain/ left flank pain Chest x-ray: Left basilar consolidation. - continue cefazolin. Check a sputum culture. - incentive spirometry. - check UA c/s. - pain control as needed. Constipation On a bowel regimen. - add Dulcolax suppository. Resolved. Full code. Lovenox. Famotidine. Discharge Planning Awaiting antibiotic completion per ID. Problem Qualifiers (1) Hypotension: Qualified Code: I95.9 - Hypotension, unspecified hypotension type Doe Martins DO Sep 02, 2016 11:28
[2016-09-02 12:00] VITALS: BP 116/73; PULSE 92; RESP 17; TEMP 98.8; O2SAT 99
[2016-09-02 15:56] LABS: BLOOD, URINE NEG (NEG); COMMENT (UR) CULT NOT INDICATED; CULTURE IF INDICATED CULT NOT INDICATED; GLUCOSE,URINE NEG (NEG); HYALINE CAST, URINE 1 /lpf (RARE); KETONE, URINE NEG (NEG); MUCUS URINE FEW /lpf (OCC); NITRITE,URINE NEG (NEG); PH, URINE 6.5 (5.0-8.5); SQUAMOUS EPITHELIAL CELL URINE <1 /hpf (0-5); URINE COLOR YELLOW (YELLW/STRAW)
[2016-09-02 20:00] VITALS: BP 122/74; PULSE 97; RESP 20; TEMP 97.4; O2SAT 99
[2016-09-02] MEDS: ENOXAPARIN SODIUM 40 MG/0.4 ML SYRINGE SQ SCH (22:11)
[2016-09-03] VITALS: BP 120/78; PULSE 93; RESP 20; TEMP 97.8; O2SAT 99
[2016-09-03] MEDS: ceFAZolin 2 GM PREMIX 50 ML IV SCH ×3 (02:21→17:43)
[2016-09-03] MEDS: CHLORHEXIDINE GLUCONATE 2 % 1 PACK (2 CLOTHS) TOP SCH (03:53)
[2016-09-03] MEDS: NAPROXEN 375 MG TAB PO SCH (05:45)
[2016-09-03 08:00] VITALS: BP 120/77; PULSE 94; RESP 18; TEMP 99.1; O2SAT 99
[2016-09-03] MEDS: PANTOPRAZOLE SOD 40 MG DELAYED RELEASE TAB PO SCH (08:11)
[2016-09-03] MEDS: DOCUSATE SODIUM 100 MG CAP PO SCH ×2 (08:11→22:31)
[2016-09-03] MEDS: amLODIPine BESYLATE 5 MG TAB PO SCH (08:12)
[2016-09-03] MEDS: SENNOSIDES 8.6 MG TAB PO SCH (08:12)
[2016-09-03] MEDS: NYSTATIN SUSP 500,000 U/5 ML CUP SWISH-SWAL SCH ×4 (08:12→22:31)
[2016-09-03] MEDS: SODIUM CHLORIDE 0.9% FLUSH 5 ML FLUSH IV FLUSH SCH ×2 (08:13→21:00)
[2016-09-03] MEDS: FAMOTIDINE 20 MG TAB PO SCH ×2 (09:00→22:31)
--- NOTE | 2016-09-03 11:41 | HHI.PR ---
Subjective Remarks Follow-up for endocarditis and septic emboli. The patient finished working with PT about 10 minutes ago. She is feeling more winded and short of breath after physical therapy today. She states that prior to PT, her dyspnea was at baseline. She still has some right chest discomfort whenever she breathes deeply. She says she has no abdominal pain 2 days ago, but that resolved. No nausea or reflux. She states it feels like her ears are full today. Objective Vitals Vital Signs Date Time Temp Pulse Resp B/P Pulse Ox O2 Delivery O2 Flow Rate FiO2 09/03/16 08:00 99.1 94 18 120/77 99 09/03/16 03:53 18 09/03/16 00:00 97.8 93 20 120/78 99 09/02/16 23:26 18 09/02/16 20:00 97.4 97 20 122/74 99 09/02/16 12:00 98.8 92 17 116/73 99 I/O 09/02/16 09/02/16 09/02/16 09/03/16 09/03/16 09/03/16 07:00 15:00 23:00 07:00 15:00 23:00 Intake Total 240 ml 700 ml 720 ml 295 ml Output Total 350 ml 300 ml Balance -110 ml 400 ml 720 ml 295 ml Intake Oral 240 ml 600 ml 720 ml 240 ml IV Total 100 ml 0 ml 55 ml Output Urine Total 350 ml 300 ml # Voids 4 2 # Bowel Movements 0 1 1 Result Diagram: 08/31/16 0500 09/03/16 0545 Imaging Last Impressions Chest X-Ray 09/01/16 0000 Signed Impressions: Service Date/Time: Thursday, September 01, 2016 13:29 - CONCLUSION: 1. Central line in good position. 2. Left basilar consolidation. Khris Oro MD Shoulder X-Ray 08/28/16 0000 Signed Impressions: Service Date/Time: July 11:44 - CONCLUSION: 1. The shoulder is unremarkable. 2. Small right effusion. Leonarod Pitt Jr., MD Abdomen X-Ray 08/24/16 0000 Signed Impressions: Service Date/Time: Wednesday, August 24, 2016 13:58 - CONCLUSION: No acute disease. Karo Jones MD Upper Extremity Ultrasound 08/19/16 0000 Signed Impressions: Service Date/Time: Friday, August 19, 2016 10:38 - CONCLUSION: 1. Occlusive thrombus within the mid and distal right cephalic vein. 2. Complex hypoechoic area adjacent to the brachial vessels within the antecubital fossa measuring 2.6 x 1.0 x 1.2 cm which is nonspecific. Jose Triana MD Lumbar Spine MRI 08/19/16 0000 Signed Impressions: Service Date/Time: Friday, August 19, 2016 12:23 - CONCLUSION: No acute disease. Jose Triana MD Brain MRI 08/19/16 0000 Signed Impressions: Service Date/Time: Friday, August 19, 2016 20:48 - CONCLUSION: The postcontrast portion of the exam is very limited since very little contrast is identified and there are couple of nonspecific punctate white manner bright signal on FLAIR sequence. Timoteo Khalil MD Liver Ultrasound 08/18/16 0000 Signed Impressions: Service Date/Time: Thursday, August 18, 2016 16:18 - CONCLUSION: 1. Small right pleural effusion. 2. The gallbladder is decompressed with minimal intraluminal sludge. No stones. 3. Splenomegaly. Sergei Maldonado MD Chest CT 08/18/16 0000 Signed Impressions: Service Date/Time: Thursday, August 18, 2016 11:41 - CONCLUSION: Disseminated small bilateral predominantly peripheral nodular infiltrates. Small effusions and mild associated atelectasis. Differential considerations would include atypical infectious etiologies and septic emboli, rarely collagen vascular disease, Troy's and pneumoconiosis. Rickey Babb MD Objective Remarks GENERAL: Well-developed well-nourished. In no acute distress. SKIN: Warm and dry. No lesions noted. HEENT: Normocephalic. Pupils equal and round. Mucous membranes pink and moist. CARDIOVASCULAR: Regular rate and rhythm. Systolic murmur appreciated. RESPIRATORY: No accessory muscle use. Clear to auscultation. Decreased breath sounds right lung base. GASTROINTESTINAL: Abdomen soft, non-tender, nondistended. Bowel sounds x4. MUSCULOSKELETAL: No obvious deformities. No clubbing or cyanosis. Trace edema. NEUROLOGICAL: Awake and alert. No focal neurological deficits. Moves upper and lower extremities spontaneously. Normal speech. PSYCHIATRIC: Appropriate mood and affect; insight and judgment normal. Procedures IJ central line 08/17/2016. 08/18/2016 Echocardiogram - Left ventricle: The cavity size was normal. Wall thickness was normal. Systolic function was normal. The estimated ejection fraction was in the range of 55% to 60%. Wall motion was normal; there were no regional wall motion abnormalities. - Aortic valve: Valve area: 2.08cm^2 (Vmax). - Tricuspid valve: There was a vegetation. Moderate-severe regurgitation. - Pulmonary arteries: PA peak pressure: 42mm Hg (S). A/P Problem List: (1) Sepsis ICD Code: A41.9 Status: Acute (2) Hypotension ICD Code: I95.9 Status: Acute (3) PNA (pneumonia) ICD Code: J18.9 Status: Acute (4) UTI (urinary tract infection) ICD Code: N39.0 Status: Acute (5) TEMO (acute kidney injury) ICD Code: N17.9 Status: Acute (6) IVDU (intravenous drug user) ICD Code: F19.90 Status: Acute (7) Cocaine abuse ICD Code: F14.10 Status: Chronic (8) Thrombocytopenia ICD Code: D69.6 Status: Acute Assessment and Plan Ms. Mcintosh is a 21-year-old female with a history of polysubstance, IV drug use who was admitted to the hospital due to generalized weakness and fever for approximately one week prior to this admission. Patient denied nausea vomiting cough or shortness of breath. Patient used IV drugs 6 days prior to this admission. Her urine drug screen was positive for cocaine. Blood culture grew MSSA and echocardiogram shows tricuspid regurgitation with tricuspid valve vegetation. Infectious disease was consulted and started patient on cefazolin. CT chest showed disseminated small bilateral peripheral nodular infiltrates. MRI brain shows couple of nonspecific punctate white matter bright signal on FLAIR sequence. - Septic shock - resolved. 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 - Pulmonary septic emboli - Blood cultures from 08/24/2016 grew S. Aureus again. Cx from 08/27/2016 with NGTD. - Patient required aggressive IV fluid resuscitation, Levophed, stress dosed steroids. Now blood pressure is stable. - Cardiology evaluated patient. SHANNON did not show any left sided vegetation. - ID (Dr. Rodgers) following. Continue IV cefazolin 2 gm q 8 at least 4 weeks from 1st neg blood culture - Right shoulder pain - Xray 08/28/2016 showed no acute findings except for small right effusion. - Given naproxen, however with abdominal pain we'll DC. - Generalized edema -improved s/p Lasix - 09/03/16 - patient with worse dyspnea and trace lower showing edema, resume Lasix - Oral thrush - HIV test negative in 07/2016. - Continue Nystatin Liq. - Hypertension - Continue patient on Amlodipine 5mg Qday. - Acute kidney injury - resolved. 1.82 on admission. Currently below 1.0. - Hypokalemia - resolved. - Hypocalcemia - resolved. Corrected Calcium greater than 8. - Follow up CMP - Polysubstance abuse - IVDU -Hopefully will go to [facility] for drug [facility]. - Depression - Suicidal ideations - Psychiatry consulted, appreciate input. - Feeling better. - Possible opioid withdrawal - Initially on methadone, taper and stopped 08/29/2016. - Acetaminophen for pain 1-4, Oxycodone for pain 5-10. - Acute on chronic microcytic anemia During admission Hemoglobin trended down from 11.2 to 6.7. S/P transfusion . Hemoccult negative. - Follow-up CBC shows hemoglobin 13.7, resolved Pleuritic chest pain/shortness of breath Possibly from septic emboli, endocarditis, TR. Decreased breath sounds right lung base. Chest x-ray: Left basilar consolidation. - continue cefazolin. - Sputum culture screened for normal respiratory ashley and was not cultured - incentive spirometry. - pain control as needed. - Resume diuresis Mild pancreatitis: Patient reported abdominal discomfort on 09/01/16. Lipase was checked and was elevated. Remained elevated 09/02/16. No further complaints. - Continue H2 ivanna for reflux. - DC naproxen. - Consult GI if further symptoms. - Monitor. Sinus congestion: - Start loratadine Full code. Lovenox. Famotidine. Discharge Planning Will need to remain inpatient for IV antibiotics for 4 weeks after first negative blood culture Problem Qualifiers (1) Hypotension: Qualified Code: I95.9 - Hypotension, unspecified hypotension type Frederick Melendez Sep 03, 2016 11:41 Samanta Phoenix DO Sep 03, 2016 23:01 Frederick Melendez Sep 03, 2016 11:41
[2016-09-03] MEDS ORDERED: FUROSEMIDE 80 MG TAB PO ONE (11:45)
[2016-09-03 12:00] VITALS: BP 124/71; PULSE 89; RESP 18; TEMP 97.3; O2SAT 100
[2016-09-03] MEDS ORDERED: FUROSEMIDE 40 MG/4 ML VIAL IV PUSH ONE (12:00)
[2016-09-03] MEDS: LORATADINE 10 MG TAB PO SCH (12:00)
[2016-09-03 16:00] VITALS: BP 114/72; PULSE 111; RESP 19; TEMP 97.7; O2SAT 99
[2016-09-03 20:27] VITALS: BP 121/68; PULSE 103; RESP 20; TEMP 99; O2SAT 99
[2016-09-03] MEDS: ENOXAPARIN SODIUM 40 MG/0.4 ML SYRINGE SQ SCH (22:31)
[2016-09-04] VITALS: BP 118/78; PULSE 103; RESP 16; TEMP 98.7; O2SAT 99
[2016-09-04] MEDS: ceFAZolin 2 GM PREMIX 50 ML IV SCH ×3 (02:44→17:15)
[2016-09-04 04:00] VITALS: BP 125/71; PULSE 111; RESP 18; TEMP 99.9; O2SAT 98
[2016-09-04] MEDS: CHLORHEXIDINE GLUCONATE 2 % 1 PACK (2 CLOTHS) TOP SCH (04:00)
[2016-09-04] MEDS: ACETAMINOPHEN 325 MG TAB PO PRN (05:12)
[2016-09-04 08:00] VITALS: BP 116/64; PULSE 84; RESP 17; TEMP 97.9; O2SAT 99
--- NOTE | 2016-09-04 08:11 | HHI.PR ---
Subjective Remarks Follow up for endocarditis. Patient feels Claritin helped ear fullness some. She diuresed well after receiving Lasix yesterday. She states that she had sweats and low grade fever overnight. Objective Vitals Vital Signs Date Time Temp Pulse Resp B/P Pulse Ox O2 Delivery O2 Flow Rate FiO2 09/04/16 04:00 99.9 111 18 125/71 98 09/04/16 03:53 18 09/04/16 00:00 98.7 103 16 118/78 99 09/03/16 20:27 99.0 103 20 121/68 99 09/03/16 16:00 97.7 111 19 114/72 99 09/03/16 12:00 97.3 89 18 124/71 100 I/O 09/03/16 09/03/16 09/03/16 09/04/16 09/04/16 09/04/16 07:00 15:00 23:00 07:00 15:00 23:00 Intake Total 295 ml 590 ml 415 ml 70 ml Output Total 950 ml 450 ml Balance 295 ml -360 ml -35 ml 70 ml Intake Oral 240 ml 590 ml 360 ml IV Total 55 ml 55 ml 70 ml Output Urine Total 950 ml 450 ml # Voids 2 # Bowel Movements 1 0 Result Diagram: 08/31/16 0500 09/03/16 0545 Objective Remarks GENERAL: Well-developed well-nourished. In no acute distress. SKIN: Warm and dry. No lesions noted. HEENT: Normocephalic. Pupils equal and round. Mucous membranes pink and moist. CARDIOVASCULAR: Regular rate and rhythm. Systolic murmur appreciated. RESPIRATORY: No accessory muscle use. Clear to auscultation. Decreased breath sounds right lung base. GASTROINTESTINAL: Abdomen soft, non-tender, nondistended. Bowel sounds x4. MUSCULOSKELETAL: No obvious deformities. No clubbing or cyanosis. Trace edema. NEUROLOGICAL: Awake and alert. No focal neurological deficits. Moves upper and lower extremities spontaneously. Normal speech. PSYCHIATRIC: Appropriate mood and affect; insight and judgment normal. Procedures IJ central line 08/17/2016. 08/18/2016 Echocardiogram - Left ventricle: The cavity size was normal. Wall thickness was normal. Systolic function was normal. The estimated ejection fraction was in the range of 55% to 60%. Wall motion was normal; there were no regional wall motion abnormalities. - Aortic valve: Valve area: 2.08cm^2 (Vmax). - Tricuspid valve: There was a vegetation. Moderate-severe regurgitation. - Pulmonary arteries: PA peak pressure: 42mm Hg (S). A/P Problem List: (1) Sepsis ICD Code: A41.9 Status: Acute (2) Hypotension ICD Code: I95.9 Status: Acute (3) PNA (pneumonia) ICD Code: J18.9 Status: Acute (4) UTI (urinary tract infection) ICD Code: N39.0 Status: Acute (5) TEMO (acute kidney injury) ICD Code: N17.9 Status: Acute (6) IVDU (intravenous drug user) ICD Code: F19.90 Status: Acute (7) Cocaine abuse ICD Code: F14.10 Status: Chronic (8) Thrombocytopenia ICD Code: D69.6 Status: Acute Assessment and Plan Ms. Mcintosh is a 21-year-old female with a history of polysubstance, IV drug use who was admitted to the hospital due to generalized weakness and fever for approximately one week prior to this admission. Patient denied nausea vomiting cough or shortness of breath. Patient used IV drugs 6 days prior to this admission. Her urine drug screen was positive for cocaine. Blood culture grew MSSA and echocardiogram shows tricuspid regurgitation with tricuspid valve vegetation. Infectious disease was consulted and started patient on cefazolin. CT chest showed disseminated small bilateral peripheral nodular infiltrates. MRI brain shows couple of nonspecific punctate white matter bright signal on FLAIR sequence. - Septic shock - resolved. 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 - Pulmonary septic emboli - Blood cultures from 08/24/2016 grew S. Aureus again. Cx from 08/27/2016 with NGTD. - Patient required aggressive IV fluid resuscitation, Levophed, stress dosed steroids. Now blood pressure is stable. - Cardiology evaluated patient. SHANNON did not show any left sided vegetation. - ID (Dr. Rodgers) following. Continue IV cefazolin 2 gm q 8 at least 4 weeks from 1st neg blood culture - Watch for true fevers - Right shoulder pain - Xray 08/28/2016 showed no acute findings except for small right effusion. - Given naproxen x5 days, DC'd with abdominal pain - Generalized edema with small pleural effusions persistently seen on chest imaging - improved s/p Lasix - 09/03/16 - patient with worse dyspnea and trace lower showing edema, resumed Lasix - Good diuresis overnight - Continue antibiotics as above - Follow-up labs in the a.m. - Oral thrush - HIV test negative in 07/2016. - Continue Nystatin Liq. - Hypertension - Continue patient on Amlodipine 5mg Qday. - Acute kidney injury - resolved. 1.82 on admission. Currently below 1.0. - Hypokalemia - resolved. - Hypocalcemia - resolved. Corrected Calcium greater than 8. - Follow up CMP - Polysubstance abuse - IVDU -Hopefully will go to [facility] for drug [facility]. - Depression - Suicidal ideations - Psychiatry consulted, appreciate input. - Feeling better. - Possible opioid withdrawal - Initially on methadone, taper and stopped 08/29/2016. - Acetaminophen for pain 1-4, Oxycodone for pain 5-10. - Acute on chronic microcytic anemia During admission Hemoglobin trended down from 11.2 to 6.7. S/P transfusion . Hemoccult negative. - Follow-up CBC shows hemoglobin 13.7, resolved Pleuritic chest pain/shortness of breath Possibly from septic emboli, endocarditis, TR. Decreased breath sounds right lung base. Chest x-ray: Left basilar consolidation. - continue cefazolin. - Sputum culture screened out for normal respiratory ashley and was not cultured - incentive spirometry. - pain control as needed. - Continue diuresis Mild pancreatitis: Patient reported abdominal discomfort on 09/01/16. Lipase was checked and was elevated. Remained elevated 09/02/16. No further complaints. - Continue H2 ivanna for reflux. - DC naproxen. - Consult GI if further symptoms. - Monitor. Sinus congestion: - Started loratadine, improving Full code. Lovenox. Famotidine. Discharge Planning Will need to remain inpatient for IV antibiotics for 4 weeks after first negative blood culture Problem Qualifiers (1) Hypotension: Qualified Code: I95.9 - Hypotension, unspecified hypotension type Frederick Melendez Sep 04, 2016 08:11 Samanta Phoenix DO Sep 05, 2016 00:23
[2016-09-04] MEDS: LORATADINE 10 MG TAB PO SCH (08:57)
[2016-09-04] MEDS: SENNOSIDES 8.6 MG TAB PO SCH (08:57)
[2016-09-04] MEDS: FAMOTIDINE 20 MG TAB PO SCH ×2 (08:57→20:45)
[2016-09-04] MEDS: amLODIPine BESYLATE 5 MG TAB PO SCH (08:57)
[2016-09-04] MEDS: SODIUM CHLORIDE 0.9% FLUSH 5 ML FLUSH IV FLUSH SCH ×2 (08:57→20:45)
[2016-09-04] MEDS: NYSTATIN SUSP 500,000 U/5 ML CUP SWISH-SWAL SCH ×4 (08:58→20:46)
[2016-09-04] MEDS: FUROSEMIDE 20 MG TAB PO SCH (09:00)
[2016-09-04] MEDS: DOCUSATE SODIUM 100 MG CAP PO SCH ×2 (09:00→20:45)
[2016-09-04] MEDS: PANTOPRAZOLE SOD 40 MG DELAYED RELEASE TAB PO SCH (09:02)
[2016-09-04 12:00] VITALS: BP 119/69; PULSE 89; RESP 18; TEMP 97.6; O2SAT 99
[2016-09-04 16:00] VITALS: BP 119/73; PULSE 111; RESP 19; TEMP 97.7; O2SAT 98
[2016-09-04 20:00] VITALS: BP 118/75; PULSE 107; RESP 16; TEMP 97.6; O2SAT 100
[2016-09-04] MEDS: ENOXAPARIN SODIUM 40 MG/0.4 ML SYRINGE SQ SCH (20:46)
[2016-09-05] VITALS: BP 120/68; PULSE 100; RESP 16; TEMP 99.1; O2SAT 97
[2016-09-05] MEDS: ceFAZolin 2 GM PREMIX 50 ML IV SCH ×3 (02:47→18:15)
[2016-09-05 03:55] LABS: BASOPHIL % 0.4 % (0.0-2.0); EOSINOPHIL # 0.4 TH/MM3 (0-0.4); HEMATOCRIT 26.7 % (35.0-46.0); HEMO FLAGS DIFF FINAL; LYMPH % 23.9 % (9.0-44.0); LYMPHOCYTE # 1.7 TH/MM3 (1.0-4.8); MEAN CELL VOLUME 77.5 FL (80.0-100.0); MEAN CORPUSCULAR HGB CONC 33.5 % (32.0-36.0); MONO % 11.5 % (0.0-8.0); NEUT % 58.2 % (16.0-70.0); PLATELET COUNT 375 TH/MM3 (150-450); RED BLOOD COUNT 3.44 MIL/MM3 (4.00-5.30); RED CELL DISTRIBUTION WIDTH 20.1 % (11.6-17.2)
[2016-09-05] MEDS: CHLORHEXIDINE GLUCONATE 2 % 1 PACK (2 CLOTHS) TOP SCH (04:00)
[2016-09-05 04:37] LABS: POTASSIUM 4.3 MEQ/L (3.5-5.1)
[2016-09-05 08:00] VITALS: BP 125/76; PULSE 119; RESP 22; TEMP 99.9; O2SAT 100
[2016-09-05 09:00] VITALS: PULSE 114
[2016-09-05] MEDS: PANTOPRAZOLE SOD 40 MG DELAYED RELEASE TAB PO SCH (09:00)
[2016-09-05] MEDS: LORATADINE 10 MG TAB PO SCH (09:00)
[2016-09-05] MEDS: SODIUM CHLORIDE 0.9% FLUSH 5 ML FLUSH IV FLUSH SCH ×2 (09:00→19:38)
[2016-09-05] MEDS: FAMOTIDINE 20 MG TAB PO SCH ×2 (09:00→19:38)
[2016-09-05] MEDS: SENNOSIDES 8.6 MG TAB PO SCH (09:01)
[2016-09-05] MEDS: NYSTATIN SUSP 500,000 U/5 ML CUP SWISH-SWAL SCH ×4 (09:01→19:38)
[2016-09-05] MEDS: DOCUSATE SODIUM 100 MG CAP PO SCH ×2 (09:01→19:38)
[2016-09-05] MEDS: amLODIPine BESYLATE 5 MG TAB PO SCH (09:01)
[2016-09-05] MEDS: FUROSEMIDE 20 MG TAB PO SCH (09:02)
[2016-09-05 12:00] VITALS: BP 118/80; PULSE 122; RESP 24; TEMP 98.2; O2SAT 99
--- NOTE | 2016-09-05 14:11 | HHI.PR ---
Subjective Remarks Follow up for endocarditis, bacteremia, pulmonary septic emboli. The patient reports episodes of sweats overnight. Having low grade temps with Tmax 99.9 and tachycardia. She complains of a 2 day history of left flank and left thoracic/ lumbar paraspinous pain with radiation to the LLQ. Denies nausea/vomiting/ diarrhea/constipation. Denies any dysuria or hematuria. Denies any other medical complaints at this time. Objective Vitals Vital Signs Date Time Temp Pulse Resp B/P Pulse Ox O2 Delivery O2 Flow Rate FiO2 09/05/16 12:00 98.2 122 24 118/80 99 09/05/16 09:00 114 09/05/16 08:00 99.9 119 22 125/76 100 09/05/16 00:00 99.1 100 16 120/68 97 09/04/16 20:00 97.6 107 16 118/75 100 09/04/16 16:00 97.7 111 19 119/73 98 I/O 09/04/16 09/04/16 09/04/16 09/05/16 09/05/16 09/05/16 07:00 15:00 23:00 07:00 15:00 23:00 Intake Total 70 ml 325 ml 560 ml 470 ml Output Total 600 ml 300 ml Balance 70 ml -275 ml 260 ml 470 ml Intake Oral 325 ml 360 ml 420 ml IV Total 70 ml 200 ml 50 ml Output Urine Total 600 ml 300 ml # Voids 2 # Bowel Movements 0 1 0 Result Diagram: 09/05/16 0335 09/05/16 0335 Imaging Last Impressions Chest X-Ray 09/01/16 0000 Signed Impressions: Service Date/Time: Thursday, September 01, 2016 13:29 - CONCLUSION: 1. Central line in good position. 2. Left basilar consolidation. Khris Oro MD Shoulder X-Ray 08/28/16 0000 Signed Impressions: Service Date/Time: July 11:44 - CONCLUSION: 1. The shoulder is unremarkable. 2. Small right effusion. Leonardo Pitt Jr., MD Abdomen X-Ray 08/24/16 0000 Signed Impressions: Service Date/Time: Wednesday, August 24, 2016 13:58 - CONCLUSION: No acute disease. Karo Jones MD Upper Extremity Ultrasound 08/19/16 0000 Signed Impressions: Service Date/Time: Friday, August 19, 2016 10:38 - CONCLUSION: 1. Occlusive thrombus within the mid and distal right cephalic vein. 2. Complex hypoechoic area adjacent to the brachial vessels within the antecubital fossa measuring 2.6 x 1.0 x 1.2 cm which is nonspecific. Jose Triana MD Lumbar Spine MRI 08/19/16 0000 Signed Impressions: Service Date/Time: Friday, August 19, 2016 12:23 - CONCLUSION: No acute disease. Jose Triana MD Brain MRI 08/19/16 0000 Signed Impressions: Service Date/Time: Friday, August 19, 2016 20:48 - CONCLUSION: The postcontrast portion of the exam is very limited since very little contrast is identified and there are couple of nonspecific punctate white manner bright signal on FLAIR sequence. Timoteo Khalil MD Liver Ultrasound 08/18/16 0000 Signed Impressions: Service Date/Time: Thursday, August 18, 2016 16:18 - CONCLUSION: 1. Small right pleural effusion. 2. The gallbladder is decompressed with minimal intraluminal sludge. No stones. 3. Splenomegaly. Sergei Maldonado MD Chest CT 08/18/16 0000 Signed Impressions: Service Date/Time: Thursday, August 18, 2016 11:41 - CONCLUSION: Disseminated small bilateral predominantly peripheral nodular infiltrates. Small effusions and mild associated atelectasis. Differential considerations would include atypical infectious etiologies and septic emboli, rarely collagen vascular disease, Troy's and pneumoconiosis. Rickey Babb MD Objective Remarks GENERAL: Thin female patient in NAD. SKIN: Warm and dry. No rash. HEENT: Normocephalic. Atraumatic. Pupils equal and round. No scleral icterus. No injection or drainage. Mucous membranes pink and moist. NECK: Supple. Trachea midline. CARDIOVASCULAR: Tachycardic, regular rhythm. S1, S2 noted. Systolic murmur noted. RESPIRATORY: No accessory muscle use. Clear to auscultation. Breath sounds equal bilaterally. GASTROINTESTINAL: Abdomen soft, non-tender, nondistended. Normoactive bowel sounds x4. MUSCULOSKELETAL: No obvious deformities. Extremities without clubbing, cyanosis , or edema. Left lower thoracic/upper lumbar paraspinous muscle tenderness to palpation, no bony point tenderness. NEUROLOGICAL: Awake and alert. No obvious cranial nerve deficits. Motor grossly within normal limits. Moves all extremities spontaneously. Normal speech. PSYCHIATRIC: Appropriate mood and affect; insight and judgment normal. Procedures IJ central line 08/17/2016. 08/18/2016 Echocardiogram - Left ventricle: The cavity size was normal. Wall thickness was normal. Systolic function was normal. The estimated ejection fraction was in the range of 55% to 60%. Wall motion was normal; there were no regional wall motion abnormalities. - Aortic valve: Valve area: 2.08cm^2 (Vmax). - Tricuspid valve: There was a vegetation. Moderate-severe regurgitation. - Pulmonary arteries: PA peak pressure: 42mm Hg (S). Medications and IVs Current Medications Medications (Trade) Dose Ordered Sig/Key Route Start Time Stop Time Status Last Admin (Ativan Inj) 1 mg Q3H PRN IV PUSH 08/17/16 19:00 08/20/16 17:40 (Zofran Inj) 4 mg Q6H PRN IVP 08/17/16 19:00 08/26/16 08:37 (Tylenol) 650 mg Q6H PRN PO 08/17/16 19:00 09/04/16 05:12 (Roxicodone) 5 mg Q4H PRN PO 08/17/16 19:00 09/05/16 10:59 (Brethine Inj) 1 mg UNSCH PRN SQ 08/17/16 20:15 (NS Flush) 2 ml UNSCH PRN IV FLUSH 08/17/16 20:15 08/24/16 13:46 (NS Flush) 2 ml BID IV FLUSH 08/17/16 21:00 09/05/16 09:00 (Lovenox Inj) 40 mg Q24H SQ 08/17/16 21:00 09/04/16 20:46 Miscellaneous Information 1 Q361D XX 08/17/16 20:15 (Chlorhexidine 2% Cloth) Taper DAILY@04 TOP 08/18/16 04:00 08/14/17 03:59 08/22/16 02:01 Chlorhexidine Gluconate 3 pack 3 pack UNSCH PRN TOP 08/17/16 20:15 (Ancef 2 Gm Premix) 50 ml @ 150 mls/hr Q8H IV 08/19/16 18:00 09/05/16 09:24 (Haldol Inj) 5 mg Q8HR PRN IM 08/21/16 11:00 (Norvasc) 5 mg DAILY PO 08/21/16 11:30 09/05/16 09:01 (Pepcid) 20 mg Q12HR PO 08/24/16 21:00 09/05/16 09:00 (Milk Of Magnesia Liq) 30 ml DAILY PRN PO 08/24/16 12:00 08/31/16 11:39 (Compazine Inj) 5 mg Q6H PRN IVS 08/24/16 13:15 08/24/16 13:45 (Mycostatin Liq) 5 ml QID SWISH-SWAL 08/25/16 13:00 09/05/16 09:01 (Heparin Central Flush) 300 units DAILY IV FLUSH 08/29/16 13:00 09/05/16 09:01 (Colace) 100 mg BID PO 08/31/16 12:00 09/05/16 09:01 (Senokot) 17.2 mg DAILY PO 09/01/16 09:00 09/05/16 09:01 (Protonix) 40 mg DAILY PO 09/01/16 10:30 09/05/16 09:00 (Lasix) 20 mg DAILY PO 09/04/16 09:00 09/05/16 09:02 (Claritin) 10 mg DAILY PO 09/03/16 12:00 09/05/16 09:00 Urinary Catheter: No Vascular Central Line Catheter: No A/P Problem List: (1) Sepsis ICD Code: A41.9 Status: Acute (2) Hypotension ICD Code: I95.9 Status: Acute (3) PNA (pneumonia) ICD Code: J18.9 Status: Acute (4) UTI (urinary tract infection) ICD Code: N39.0 Status: Acute (5) TEMO (acute kidney injury) ICD Code: N17.9 Status: Acute (6) IVDU (intravenous drug user) ICD Code: F19.90 Status: Acute (7) Cocaine abuse ICD Code: F14.10 Status: Chronic (8) Thrombocytopenia ICD Code: D69.6 Status: Acute Assessment and Plan 21-year-old female with a history of polysubstance, IV drug use who was admitted to the hospital due to generalized weakness and fever for approximately one week prior to this admission. Patient denied nausea vomiting cough or shortness of breath. Patient used IV drugs 6 days prior to this admission. Her urine drug screen was positive for cocaine. Blood culture grew MSSA and echocardiogram shows tricuspid regurgitation with tricuspid valve vegetation. Infectious disease was consulted and started patient on cefazolin. CT chest showed disseminated small bilateral peripheral nodular infiltrates. MRI brain shows couple of nonspecific punctate white matter bright signal on FLAIR sequence. - Septic shock - resolved. 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 - Pulmonary septic emboli - Blood cultures from 08/24/2016 grew S. Aureus again. Cx from 08/27/2016 with NGTD. - Patient required aggressive IV fluid resuscitation, Levophed, stress dosed steroids. Now blood pressure is stable. - Cardiology evaluated patient. SHANNON did not show any left sided vegetation. - ID (Dr. Rodgers) following. Continue IV cefazolin 2 gm q 8 at least 4 weeks from 1st neg blood culture - Still having low grade fevers Tmax 99.9, repeat blood cultures ordered by ID - Right shoulder pain - Xray 08/28/2016 showed no acute findings except for small right effusion. - Given naproxen x5 days, DC'd with abdominal pain - Generalized edema with small pleural effusions persistently seen on chest imaging - improved s/p Lasix - 09/03/16 - patient with worse dyspnea and trace lower showing edema, resumed Lasix - Good diuresis, now patient appears very dry on exam, will d/c Lasix for now - Continue antibiotics as above - Oral thrush - HIV test negative in 07/2016. - Continue Nystatin Liq. - Hypertension - Continue patient on Amlodipine 5mg Qday. - Acute kidney injury - resolved. 1.82 on admission. Currently below 1.0. - Hypokalemia - resolved. - Hypocalcemia - resolved. Corrected Calcium greater than 8. - Follow up CMP - Polysubstance abuse/IVDU -Hopefully will go to [facility]. - Depression with Suicidal ideations - Psychiatry consulted, appreciate input. - Feeling better. - Possible opioid withdrawal - Initially on methadone, taper and stopped 08/29/2016. - Acetaminophen for pain 1-4, Oxycodone for pain 5-10. - Acute on chronic microcytic anemia - During admission Hemoglobin trended down from 11.2 to 6.7. S/P transfusion 08/26. Hemoccult negative. - Follow-up CBC shows hemoglobin 13.7, resolved Pleuritic chest pain/shortness of breath Possibly from septic emboli, endocarditis, TR. Decreased breath sounds right lung base. Chest x-ray: Left basilar consolidation. - continue cefazolin. - Sputum culture screened out for normal respiratory ashley and was not cultured - incentive spirometry. - pain control as needed. - S/p diuresis, continue to monitor Mild pancreatitis: Patient reported abdominal discomfort on 09/01/16. Lipase was checked and was elevated. Remained elevated 09/02/16. No further complaints. - Continue H2 ivanna for reflux. - DC naproxen. - Consult GI if further symptoms. - Monitor. Sinus congestion: - Started loratadine, improving Moderate Protein Calorie Malnutrition: patient with weight loss throughout admission, now down to 111lbs - start on chocolate Boost tid with meals - monitor weights Full code. Lovenox. Famotidine. Written by Vicky Magallon, acting as scribe for Dr. Phoenix on 09/05/16 at 13:25. All or portions of this note were transcribed by scribe HORTENCIA Martinez. I , Dr. Anant Phoenix personally performed the history, physical exam, and medical decision making; and confirmed the accuracy of the information in the transcribed note. Authenticated by Dr. Anant Phoenix on 09/05/16 at 17:41. Discharge Planning Will need to remain inpatient for IV antibiotics for 4 weeks after first negative blood culture Problem Qualifiers (1) Hypotension: Qualified Code: I95.9 - Hypotension, unspecified hypotension type Vicky Magallon PA-C Sep 05, 2016 2:11 pm Samanta Phoenix DO Sep 05, 2016 5:42 pm
--- NOTE | 2016-09-05 15:48 | HHI.IDPN ---
Subjective Subjective Remarks pt febrile, low grade co L side and back pain worse with ambulation denies LE weakneaa co chest pain increasing with deep breath Antibiotics cefazoline Past Medical History IVDU Allergies: Coded Allergies: Amoxicillin (Unverified Allergy, Unknown, rashes, 07/24/15) Objective . Vital Signs Date Time Temp Pulse Resp B/P Pulse Ox O2 Delivery O2 Flow Rate FiO2 09/05/16 12:00 98.2 122 24 118/80 99 09/05/16 09:00 114 09/05/16 08:00 99.9 119 22 125/76 100 09/05/16 00:00 99.1 100 16 120/68 97 09/04/16 20:00 97.6 107 16 118/75 100 09/04/16 16:00 97.7 111 19 119/73 98 09/04/16 09/04/16 09/05/16 15:00 23:00 07:00 Intake Total 325 ml 560 ml 470 ml Output Total 600 ml 300 ml Balance -275 ml 260 ml 470 ml Intake Oral 325 ml 360 ml 420 ml IV Total 200 ml 50 ml Output Urine Total 600 ml 300 ml # Voids 2 # Bowel Movements 0 1 0 . Laboratory Tests Test 09/05/16 03:35 White Blood Count 7.0 TH/MM3 Red Blood Count 3.44 MIL/MM3 Hemoglobin 8.9 GM/DL Hematocrit 26.7 % Mean Corpuscular Volume 77.5 FL Mean Corpuscular Hemoglobin 26.0 PG Mean Corpuscular Hemoglobin 33.5 % Concent Red Cell Distribution Width 20.1 % Platelet Count 375 TH/MM3 Mean Platelet Volume 7.0 FL Neutrophils (%) (Auto) 58.2 % Lymphocytes (%) (Auto) 23.9 % Monocytes (%) (Auto) 11.5 % Eosinophils (%) (Auto) 6.0 % Basophils (%) (Auto) 0.4 % Neutrophils # (Auto) 4.0 TH/MM3 Lymphocytes # (Auto) 1.7 TH/MM3 Monocytes # (Auto) 0.8 TH/MM3 Eosinophils # (Auto) 0.4 TH/MM3 Basophils # (Auto) 0.0 TH/MM3 CBC Comment DIFF FINAL Differential Comment Laboratory Tests Test 09/05/16 03:35 Sodium Level 134 MEQ/L Potassium Level 4.3 MEQ/L Chloride Level 100 MEQ/L Carbon Dioxide Level 27.0 MEQ/L Anion Gap 7 MEQ/L Blood Urea Nitrogen 23 MG/DL Creatinine 0.70 MG/DL Estimat Glomerular Filtration 104 ML/MIN Rate Random Glucose 82 MG/DL Calcium Level 9.0 MG/DL Microbiology Date/Time Procedure Status Source Growth 09/05/16 13:06 Aerobic Blood Culture Received Blood Peripheral Pending 09/05/16 13:06 Anaerobic Blood Culture Received Blood Peripheral Pending 09/05/16 13:12 Aerobic Blood Culture Received Blood Peripheral Pending 09/05/16 13:12 Anaerobic Blood Culture Received Blood Peripheral Pending Imaging Last Impressions Chest X-Ray 09/01/16 0000 Signed Impressions: Service Date/Time: Thursday, September 01, 2016 13:29 - CONCLUSION: 1. Central line in good position. 2. Left basilar consolidation. Khris Oor MD Shoulder X-Ray 08/28/16 0000 Signed Impressions: Service Date/Time: July 11:44 - CONCLUSION: 1. The shoulder is unremarkable. 2. Small right effusion. Leonardo Pitt Jr., MD Abdomen X-Ray 08/24/16 0000 Signed Impressions: Service Date/Time: Wednesday, August 24, 2016 13:58 - CONCLUSION: No acute disease. Karo Jones MD Upper Extremity Ultrasound 08/19/16 0000 Signed Impressions: Service Date/Time: Friday, August 19, 2016 10:38 - CONCLUSION: 1. Occlusive thrombus within the mid and distal right cephalic vein. 2. Complex hypoechoic area adjacent to the brachial vessels within the antecubital fossa measuring 2.6 x 1.0 x 1.2 cm which is nonspecific. Jose Triana MD Lumbar Spine MRI 08/19/16 0000 Signed Impressions: Service Date/Time: Friday, August 19, 2016 12:23 - CONCLUSION: No acute disease. Jose Triana MD Brain MRI 08/19/16 0000 Signed Impressions: Service Date/Time: Friday, August 19, 2016 20:48 - CONCLUSION: The postcontrast portion of the exam is very limited since very little contrast is identified and there are couple of nonspecific punctate white manner bright signal on FLAIR sequence. Timoteo Khalil MD Liver Ultrasound 08/18/16 0000 Signed Impressions: Service Date/Time: Thursday, August 18, 2016 16:18 - CONCLUSION: 1. Small right pleural effusion. 2. The gallbladder is decompressed with minimal intraluminal sludge. No stones. 3. Splenomegaly. Sergei Maldonado MD Chest CT 08/18/16 0000 Signed Impressions: Service Date/Time: Thursday, August 18, 2016 11:41 - CONCLUSION: Disseminated small bilateral predominantly peripheral nodular infiltrates. Small effusions and mild associated atelectasis. Differential considerations would include atypical infectious etiologies and septic emboli, rarely collagen vascular disease, Troy's and pneumoconiosis. Rickey Babb MD Physical Exam CONSTITUTIONAL/GENERAL: This is an adequately nourished patient, in no apparent distress. TUBES/LINES/DRAINS: SKIN: No jaundice, rashes, or lesions. No Janeway lesions Skin temperature appropriate. Not diaphoretic. EYES: No scleral icterus. No injection or drainage. Fundi not examined. CARDIOVASCULAR: Regular rate and rhythm +2-3/6 murmur, gallops, or rubs. No JVD. Peripheral pulses symmetric. RESPIRATORY/CHEST: Symmetric, unlabored respirations. Clear to auscultation. Breath sounds equal bilaterally. No wheezes, rales, or rhonchi. GASTROINTESTINAL: Abdomen soft, non-tender, nondistended. No hepato-splenomegaly , or palpable masses. No guarding. Bowel sounds present. GENITOURINARY: Without palpable bladder distension. MUSCULOSKELETAL: Extremities without clubbing, cyanosis, 1+ periferal edema BAck: + tenderness to palpation, mild L side, back NEUROLOGICAL: less lethargic, but easily arousable; speech nl, follows commands Assessment & Plan Remarks Tricuspid valve endocarditis , MSSA - 2D echo + for TV vegg - septic emboli cw TV endocarditiss - cont to have fever - persistent ly positive blood clx - SHANNON positive for TV endocarditis, no left side endocarditis Lower back pain: worse in the last few days - ro diskitis/osteo Amoxicillin allergy - hives; but took keflex uneventfully per mom's account Slurred speech, resolved Back pain - new chk repeat blood clx consider to repeat MRI spine (last done on 08/19 - negative) especially if febrile and/or + blood clx cont cefazoline 2 gm q 8 at least 4 weeks from 1st neg blood clx Not a candidate for o/p IV abx sp completed gentamycin dw Tesha Ocasio MD Sep 05, 2016 15:48
[2016-09-05 16:00] VITALS: BP 130/79; PULSE 103; RESP 20; TEMP 99.2; O2SAT 100
[2016-09-05] MEDS: SODIUM CHLORIDE 0.9% FLUSH 5 ML FLUSH IV FLUSH PRN (18:15)
[2016-09-05] MEDS: ENOXAPARIN SODIUM 40 MG/0.4 ML SYRINGE SQ SCH (19:37)
[2016-09-05 20:00] VITALS: BP 122/75; PULSE 99; RESP 20; TEMP 99.9; O2SAT 100
[2016-09-06] VITALS: BP 121/74; PULSE 97; RESP 20; TEMP 97.6; O2SAT 100
[2016-09-06] MEDS: ceFAZolin 2 GM PREMIX 50 ML IV SCH ×3 (02:55→17:47)
[2016-09-06] MEDS: CHLORHEXIDINE GLUCONATE 2 % 1 PACK (2 CLOTHS) TOP SCH ×2 (02:55→22:33)
[2016-09-06 08:00] VITALS: BP 131/91; PULSE 119; RESP 20; TEMP 98; O2SAT 100
[2016-09-06] MEDS: DOCUSATE SODIUM 100 MG CAP PO SCH ×2 (08:42→20:38)
[2016-09-06] MEDS: SENNOSIDES 8.6 MG TAB PO SCH (08:42)
[2016-09-06] MEDS: amLODIPine BESYLATE 5 MG TAB PO SCH (08:43)
[2016-09-06] MEDS: PANTOPRAZOLE SOD 40 MG DELAYED RELEASE TAB PO SCH (08:43)
[2016-09-06] MEDS: LORATADINE 10 MG TAB PO SCH (08:43)
[2016-09-06] MEDS: FAMOTIDINE 20 MG TAB PO SCH ×2 (08:43→20:38)
[2016-09-06] MEDS: SODIUM CHLORIDE 0.9% FLUSH 5 ML FLUSH IV FLUSH SCH ×2 (08:47→20:44)
[2016-09-06] MEDS: NYSTATIN SUSP 500,000 U/5 ML CUP SWISH-SWAL SCH ×5 (08:47→20:47)
[2016-09-06] MEDS: FUROSEMIDE 20 MG TAB PO SCH (08:47)
[2016-09-06 12:00] VITALS: BP 121/70; PULSE 113; RESP 20; TEMP 100.2; O2SAT 99
[2016-09-06] MEDS: ACETAMINOPHEN 325 MG TAB PO PRN (12:22)
--- NOTE | 2016-09-06 13:10 | HHI.PR ---
Subjective Remarks Follow up for endocarditis, bacteremia, pulmonary septic emboli. The patient reports fevers and chills overnight, Tmax 100.2 today and tachycardic with HR 113. She states the left flank and left back pain was more severe overnight, now getting some relief with pain medication however still uncomfortable. Denies any other medical complaints. Objective Vitals Vital Signs Date Time Temp Pulse Resp B/P Pulse Ox O2 Delivery O2 Flow Rate FiO2 09/06/16 10:07 18 09/06/16 08:00 98.0 119 20 131/91 100 09/06/16 00:00 97.6 97 20 121/74 100 09/05/16 20:00 99.9 99 20 122/75 100 09/05/16 16:00 99.2 103 20 130/79 100 I/O 09/05/16 09/05/16 09/05/16 09/06/16 09/06/16 09/06/16 07:00 15:00 23:00 07:00 15:00 23:00 Intake Total 470 ml 600 ml 170 ml 292 ml Output Total 800 ml Balance 470 ml -200 ml 170 ml 292 ml Intake Oral 420 ml 600 ml 120 ml 240 ml IV Total 50 ml 50 ml 52 ml Output Urine Total 800 ml # Voids 2 2 3 # Bowel Movements 0 0 2 1 # Sanitary Pads 1 Pads Result Diagram: 09/05/1633409/05/16334 Objective Remarks GENERAL: Thin female patient in NAD. SKIN: Warm and dry. No rash. HEENT: Normocephalic. Atraumatic. Pupils equal and round. No scleral icterus. No injection or drainage. Mucous membranes pink and moist. NECK: Supple. Trachea midline. CARDIOVASCULAR: Tachycardic, regular rhythm. S1, S2 noted. Systolic murmur noted. RESPIRATORY: No accessory muscle use. Clear to auscultation. Breath sounds equal bilaterally. GASTROINTESTINAL: Abdomen soft, non-tender, nondistended. Normoactive bowel sounds x4. MUSCULOSKELETAL: No obvious deformities. Extremities without clubbing, cyanosis , or edema. Left lower thoracic/upper lumbar paraspinous muscle tenderness to palpation, no bony point tenderness. NEUROLOGICAL: Awake and alert. No obvious cranial nerve deficits. Motor grossly within normal limits. Moves all extremities spontaneously. Normal speech. PSYCHIATRIC: Appropriate mood and affect; insight and judgment normal. Procedures IJ central line 08/17/2016. 08/18/2016 Echocardiogram - Left ventricle: The cavity size was normal. Wall thickness was normal. Systolic function was normal. The estimated ejection fraction was in the range of 55% to 60%. Wall motion was normal; there were no regional wall motion abnormalities. - Aortic valve: Valve area: 2.08cm^2 (Vmax). - Tricuspid valve: There was a vegetation. Moderate-severe regurgitation. - Pulmonary arteries: PA peak pressure: 42mm Hg (S). Medications and IVs Current Medications Medications (Trade) Dose Ordered Sig/Key Route Start Time Stop Time Status Last Admin (Ativan Inj) 1 mg Q3H PRN IV PUSH 08/17/16 19:00 08/20/16 17:40 (Zofran Inj) 4 mg Q6H PRN IVP 08/17/16 19:00 08/26/16 08:37 (Tylenol) 650 mg Q6H PRN PO 08/17/16 19:00 09/06/16 12:22 (Roxicodone) 5 mg Q4H PRN PO 08/17/16 19:00 09/06/16 12:23 (Brethine Inj) 1 mg UNSCH PRN SQ 08/17/16 20:15 (NS Flush) 2 ml UNSCH PRN IV FLUSH 08/17/16 20:15 09/05/16 18:15 (NS Flush) 2 ml BID IV FLUSH 08/17/16 21:00 09/06/16 08:47 (Lovenox Inj) 40 mg Q24H SQ 08/17/16 21:00 09/05/16 19:37 Miscellaneous Information 1 Q361D XX 08/17/16 20:15 (Chlorhexidine 2% Cloth) 3 pack Taper DAILY@04 TOP 08/18/16 04:00 08/14/17 03:59 08/22/16 02:01 Chlorhexidine Gluconate 3 pack 3 pack UNSCH PRN TOP 08/17/16 20:15 (Ancef 2 Gm Premix) 50 ml @ 150 mls/hr Q8H IV 08/19/16 18:00 09/06/16 08:42 (Haldol Inj) 5 mg Q8HR PRN IM 08/21/16 11:00 (Norvasc) 5 mg DAILY PO 08/21/16 11:30 09/06/16 08:43 (Pepcid) 20 mg Q12HR PO 08/24/16 21:00 09/06/16 08:43 (Milk Of Magnesia Liq) 30 ml DAILY PRN PO 08/24/16 12:00 08/31/16 11:39 (Compazine Inj) 5 mg Q6H PRN IVS 08/24/16 13:15 08/24/16 13:45 (Mycostatin Liq) 5 ml QID SWISH-SWAL 08/25/16 13:00 09/05/16 19:38 (Heparin Central Flush) 300 units DAILY IV FLUSH 08/29/16 13:00 09/06/16 08:43 (Colace) 100 mg BID PO 08/31/16 12:00 09/06/16 08:42 (Senokot) 17.2 mg DAILY PO 09/01/16 09:00 09/06/16 08:42 (Protonix) 40 mg DAILY PO 09/01/16 10:30 09/06/16 08:43 (Lasix) 20 mg DAILY PO 09/04/16 09:00 09/05/16 09:02 (Claritin) 10 mg DAILY PO 09/03/16 12:00 09/06/16 08:43 A/P Problem List: (1) Sepsis ICD Code: A41.9 Status: Acute (2) Hypotension ICD Code: I95.9 Status: Acute (3) PNA (pneumonia) ICD Code: J18.9 Status: Acute (4) UTI (urinary tract infection) ICD Code: N39.0 Status: Acute (5) TEMO (acute kidney injury) ICD Code: N17.9 Status: Acute (6) IVDU (intravenous drug user) ICD Code: F19.90 Status: Acute (7) Cocaine abuse ICD Code: F14.10 Status: Chronic (8) Thrombocytopenia ICD Code: D69.6 Status: Acute Assessment and Plan 21-year-old female with a history of polysubstance, IV drug use who was admitted to the hospital due to generalized weakness and fever for approximately one week prior to this admission. Patient denied nausea vomiting cough or shortness of breath. Patient used IV drugs 6 days prior to this admission. Her urine drug screen was positive for cocaine. Blood culture grew MSSA and echocardiogram shows tricuspid regurgitation with tricuspid valve vegetation. Infectious disease was consulted and started patient on cefazolin. CT chest showed disseminated small bilateral peripheral nodular infiltrates. MRI brain shows couple of nonspecific punctate white matter bright signal on FLAIR sequence. - Septic shock - resolved. 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 - Pulmonary septic emboli - Blood cultures from 08/24/2016 grew S. Aureus again. Cx from 08/27/2016 with NGTD. - Patient required aggressive IV fluid resuscitation, Levophed, stress dosed steroids. Now blood pressure is stable. - Cardiology evaluated patient. SHANNON did not show any left sided vegetation. - ID (Dr. Rodgers) following. Continue IV cefazolin 2 gm q 8 at least 4 weeks from 1st neg blood culture - Repeat blood cultures collected 09/05 NGTD - Still having fevers, Tmax 100.2, HR 113 today. - Consider T-L Spine MRI tomorrow if still +fevers, tachycardia, and pain - Recheck CBC, BMP, Lactic acid in am - Right shoulder pain - Xray 08/28/2016 showed no acute findings except for small right effusion. - Given naproxen x5 days, DC'd with abdominal pain - Generalized edema with small pleural effusions persistently seen on chest imaging - improved s/p Lasix - 09/03/16 - patient with worse dyspnea and trace lower showing edema, resumed Lasix - Good diuresis, now patient appears very dry on exam, will d/c Lasix for now - Continue antibiotics as above - Oral thrush - HIV test negative in 07/2016. - Continue Nystatin Liq. - Hypertension - Continue patient on Amlodipine 5mg Qday. - Acute kidney injury - resolved. 1.82 on admission. Currently below 1.0. - Hypokalemia - resolved. - Hypocalcemia - resolved. Corrected Calcium greater than 8. - Follow up CMP - Polysubstance abuse/IVDU -Hopefully will go to [facility]. - Depression with Suicidal ideations - Psychiatry consulted, appreciate input. - Feeling better. - Possible opioid withdrawal - Initially on methadone, taper and stopped 08/29/2016. - Acetaminophen for pain 1-4, Oxycodone for pain 5-10. - Acute on chronic microcytic anemia - During admission Hemoglobin trended down from 11.2 to 6.7. S/P transfusion 3/28. Hemoccult negative. - Follow-up CBC shows hemoglobin 13.7 - CBC 09/05 with Hgb 8.9, LMP 3 weeks ago, will repeat CBC tomorrow 09/06 Pleuritic chest pain/shortness of breath Possibly from septic emboli, endocarditis, TR. Decreased breath sounds right lung base. Chest x-ray: Left basilar consolidation. - continue cefazolin. - Sputum culture screened out for normal respiratory ashley and was not cultured - incentive spirometry. - pain control as needed. - S/p diuresis, continue to monitor Mild pancreatitis: Patient reported abdominal discomfort on 09/01/16. Lipase was checked and was elevated. Remained elevated 09/02/16. No further complaints. - Continue H2 ivanna for reflux. - DC naproxen. - Consult GI if further symptoms. - Monitor. Sinus congestion: - Started loratadine, improving Moderate Protein Calorie Malnutrition: patient with weight loss throughout admission, now down to 111lbs - start on chocolate Boost tid with meals - monitor weights Full code. Lovenox. Famotidine. Written by Vicky Magallon, acting as scribe for Dr. Phoenix on 09/06/16 at 13:05. All or portions of this note were transcribed by scribe HORTENCIA Martinez. I , Dr. Anant Phoenix personally performed the history, physical exam, and medical decision making; and confirmed the accuracy of the information in the transcribed note. Authenticated by Dr. Anant Phoenix on 09/06/16 at 22:28. Discharge Planning Will need to remain inpatient for IV antibiotics for 4 weeks after first negative blood culture Problem Qualifiers (1) Hypotension: Qualified Code: I95.9 - Hypotension, unspecified hypotension type Vicky Magallon PA-C Sep 06, 2016 13:10 Samanta Phoenix DO Sep 06, 2016 22:28
--- NOTE | 2016-09-06 14:52 | HHI.IDPN ---
Subjective Subjective Remarks [facility] 21 [facility] h/o IVDU present in ER with 6 days of fever. She has been shooting crushed pill and was sharing syringes with her boyfriend who was recently hospitalized for staph infection On presentation hypotensive, tachycardic ad hypoxic. Started on pressors, abx (vanco, cefepime, azithro) Vasopressor dependent septic shock. MSSA bacteremia on Ancef and Genta earlier now only on Ancef IV Has a Left CL in place. Pt also co lower back pain says it is worse radiating to LLQ. She denies hemoptysis, hematuria, headache or difficulty walking + diziness She is 2 mos post (delivered via Csection), not Lost weight significantly per patient Febrile and tachycardic overnight. denies LE weakness co chest pain increasing with deep breath Antibiotics cefazolin Lines Left CL with no e.o infection Past Medical History IVDU Allergies: Coded Allergies: Amoxicillin (Unverified Allergy, Unknown, rashes, 07/24/15) Objective . Vital Signs Date Time Temp Pulse Resp B/P Pulse Ox O2 Delivery O2 Flow Rate FiO2 09/06/16 13:23 18 09/06/16 12:00 100.2 113 20 121/70 99 09/06/16 08:00 98.0 119 20 131/91 100 09/06/16 00:00 97.6 97 20 121/74 100 09/05/16 20:00 99.9 99 20 122/75 100 09/05/16 16:00 99.2 103 20 130/79 100 09/05/16 09/05/16 09/06/16 15:00 23:00 07:00 Intake Total 600 ml 170 ml 292 ml Output Total 800 ml Balance -200 ml 170 ml 292 ml Intake Oral 600 ml 120 ml 240 ml IV Total 50 ml 52 ml Output Urine Total 800 ml # Voids 2 3 # Bowel Movements 0 2 1 . Laboratory Tests Test 09/05/16 03:35 White Blood Count 7.0 TH/MM3 Red Blood Count 3.44 MIL/MM3 Hemoglobin 8.9 GM/DL Hematocrit 26.7 % Mean Corpuscular Volume 77.5 FL Mean Corpuscular Hemoglobin 26.0 PG Mean Corpuscular Hemoglobin 33.5 % Concent Red Cell Distribution Width 20.1 % Platelet Count 375 TH/MM3 Mean Platelet Volume 7.0 FL Neutrophils (%) (Auto) 58.2 % Lymphocytes (%) (Auto) 23.9 % Monocytes (%) (Auto) 11.5 % Eosinophils (%) (Auto) 6.0 % Basophils (%) (Auto) 0.4 % Neutrophils # (Auto) 4.0 TH/MM3 Lymphocytes # (Auto) 1.7 TH/MM3 Monocytes # (Auto) 0.8 TH/MM3 Eosinophils # (Auto) 0.4 TH/MM3 Basophils # (Auto) 0.0 TH/MM3 CBC Comment DIFF FINAL Differential Comment Laboratory Tests Test 09/05/16 03:35 Sodium Level 134 MEQ/L Potassium Level 4.3 MEQ/L Chloride Level 100 MEQ/L Carbon Dioxide Level 27.0 MEQ/L Anion Gap 7 MEQ/L Blood Urea Nitrogen 23 MG/DL Creatinine 0.70 MG/DL Estimat Glomerular Filtration 104 ML/MIN Rate Random Glucose 82 MG/DL Calcium Level 9.0 MG/DL Microbiology Date/Time Procedure Status Source Growth 09/05/16 13:06 Aerobic Blood Culture - Preliminary Resulted Blood Peripheral NO GROWTH IN 1 DAY 09/05/16 13:06 Anaerobic Blood Culture - Preliminary Resulted Blood Peripheral NO GROWTH IN 1 DAY 09/05/16 13:12 Aerobic Blood Culture - Preliminary Resulted Blood Peripheral NO GROWTH IN 1 DAY 09/05/16 13:12 Anaerobic Blood Culture - Preliminary Resulted Blood Peripheral NO GROWTH IN 1 DAY Imaging Last Impressions Chest X-Ray 09/01/16 0000 Signed Impressions: Service Date/Time: Thursday, September 01, 2016 13:29 - CONCLUSION: 1. Central line in good position. 2. Left basilar consolidation. Khris Oro MD Shoulder X-Ray 08/28/16 0000 Signed Impressions: Service Date/Time: July 11:44 - CONCLUSION: 1. The shoulder is unremarkable. 2. Small right effusion. Leonardo Pitt Jr., MD Abdomen X-Ray 08/24/16 0000 Signed Impressions: Service Date/Time: Wednesday, August 24, 2016 13:58 - CONCLUSION: No acute disease. Karo Jones MD Upper Extremity Ultrasound 08/19/16 0000 Signed Impressions: Service Date/Time: Friday, August 19, 2016 10:38 - CONCLUSION: 1. Occlusive thrombus within the mid and distal right cephalic vein. 2. Complex hypoechoic area adjacent to the brachial vessels within the antecubital fossa measuring 2.6 x 1.0 x 1.2 cm which is nonspecific. Jose Triana MD Lumbar Spine MRI 08/19/16 0000 Signed Impressions: Service Date/Time: Friday, August 19, 2016 12:23 - CONCLUSION: No acute disease. Jose Triana MD Brain MRI 08/19/16 0000 Signed Impressions: Service Date/Time: Friday, August 19, 2016 20:48 - CONCLUSION: The postcontrast portion of the exam is very limited since very little contrast is identified and there are couple of nonspecific punctate white manner bright signal on FLAIR sequence. Timoteo Khalil MD Liver Ultrasound 08/18/16 0000 Signed Impressions: Service Date/Time: Thursday, August 18, 2016 16:18 - CONCLUSION: 1. Small right pleural effusion. 2. The gallbladder is decompressed with minimal intraluminal sludge. No stones. 3. Splenomegaly. Sergei Maldonado MD Chest CT 08/18/16 0000 Signed Impressions: Service Date/Time: Thursday, August 18, 2016 11:41 - CONCLUSION: Disseminated small bilateral predominantly peripheral nodular infiltrates. Small effusions and mild associated atelectasis. Differential considerations would include atypical infectious etiologies and septic emboli, rarely collagen vascular disease, Troy's and pneumoconiosis. Rickey Babb MD Physical Exam CONSTITUTIONAL/GENERAL: This is an adequately nourished patient, in no apparent distress. TUBES/LINES/DRAINS: SKIN: No jaundice, rashes, or lesions. No Janeway lesions Skin temperature appropriate. Not diaphoretic. EYES: No scleral icterus. No injection or drainage. Fundi not examined. CARDIOVASCULAR: Regular rate and rhythm +2-3/6 murmur, gallops, or rubs. No JVD. Peripheral pulses symmetric. RESPIRATORY/CHEST: Symmetric, unlabored respirations. Clear to auscultation. Breath sounds equal bilaterally. No wheezes, rales, or rhonchi. GASTROINTESTINAL: Abdomen soft, non-tender, nondistended. No guarding. Bowel sounds present. GENITOURINARY: Without palpable bladder distension. MUSCULOSKELETAL: Extremities without clubbing, cyanosis, 1+ peripheral edema Back: + tenderness to palpation, mild L side, back NEUROLOGICAL: less lethargic, but easily arousable; speech nl, follows commands Assessment & Plan Remarks Sepsis ongoing (fever and tachycardia) Tricuspid valve endocarditis , MSSA - 2D echo + for TV veg - septic emboli cw TV endocarditis - cont to have fever ? CL infection ? un-drained focus of infection. - persistently positive blood clx - SHANNON positive for TV endocarditis, no left side endocarditis Lower back pain: worse in the last few days - ro diskitis/osteo Amoxicillin allergy - hives; but took keflex uneventfully per mom's account Slurred speech, resolved Back pain - new Recs: Repeat blood culture (line and periphery): suspect IVDA in hospital and also line placed in middle of bacteremia on 08/17/2016. Check patients room. Restrict visitors aleta boyfriend. Vascular access consult (PIV) DC Central line once alternate access obtained and blood culture from line collected. Repeat MRI spine L spine with contrast (last done on 08/19 - negative) cont cefazolin 2 gm q 8hrs duration to be determined(TBD) based on source and bacteremia etc. Check HIV screen and Hepatitis panel. CL tip for culture. d/w Dr Phoenix. Oumar.w RN about the plan. If fevers persist or worsening sepsis or clinical condition overnight please call me as regimen may need to be adjusted. Will see prn over the weekend, If any new issues or change in condition please call back sooner. to resume care on Thursday. Crystal Romano MD Sep 06, 2016 14:52
[2016-09-06] MEDS ORDERED: GADODIAMIDE PF 287 MG/ML 10 ML VIAL (for RAD MRI) IV ONE (15:42)
[2016-09-06 16:00] VITALS: BP 122/79; PULSE 94; RESP 20; TEMP 97.6; O2SAT 98
--- NOTE | 2016-09-06 16:18 | RADRPT ---
EXAM DATE/TIME: 09/06/2016 15:23 [facility] COMPARISON: MRI LUMBAR SPINE W & W/O CONTRAST, August 19, 2016, 12:23. INDICATIONS : Abscess. CONTRAST: 10 cc Omniscan (gadodiamide) IV MEDICAL HISTORY : Hypertension. Endocarditis. SURGICAL HISTORY : section. Tonsillectomy. ENCOUNTER: Initial ACUITY: 1 month PAIN SCORE: 4/10 LOCATION: [facility] TECHNIQUE: Multiplanar multisequence MRI of the lumbar spine was performed with and without contrast. FINDINGS: The most caudal appearing lumbar vertebra is numbered as L5. VERTEBRAE: Homogeneous signal. Normal alignment. CONUS: Normal level and configuration. POST CONTRAST: No abnormal areas of contrast enhancement are seen. T12-L1: The thecal sac has a normal diameter. No evidence of disc bulge or protrusion. The neural foramina are patent bilaterally. L1-L2: The thecal sac has a normal diameter. No evidence of disc bulge or protrusion. The neural foramina are patent bilaterally. L2-L3: The thecal sac has a normal diameter. No evidence of disc bulge or protrusion. The neural foramina are patent bilaterally. L3-L4: The thecal sac has a normal diameter. No evidence of disc bulge or protrusion. The neural foramina are patent bilaterally. L4-L5: The thecal sac has a normal diameter. No evidence of disc bulge or protrusion. The neural foramina are patent bilaterally. L5-S1: The thecal sac has a normal diameter. No evidence of disc bulge or protrusion. The neural foramina are patent bilaterally. Small sacral cyst on the right at S2. CONCLUSION: Normal examination for a patient of this age. No significant change compared to the prior exammonty Andrade MD on September 06, 2016 at 16:14 Board Certified Radiologist. This report was verified electronically.
[2016-09-06 20:00] VITALS: BP 127/63; PULSE 115; RESP 20; TEMP 99; O2SAT 98
[2016-09-06 20:37] VITALS: BP 128/83; PULSE 105; RESP 20; TEMP 97.6; O2SAT 100
[2016-09-06] MEDS: ENOXAPARIN SODIUM 40 MG/0.4 ML SYRINGE SQ SCH (20:39)
[2016-09-07] VITALS: BP 118/69; PULSE 98; RESP 20; TEMP 99.7; O2SAT 99
[2016-09-07] MEDS: ceFAZolin 2 GM PREMIX 50 ML IV SCH ×3 (00:58→16:57)
[2016-09-07] MEDS: ACETAMINOPHEN 325 MG TAB PO PRN ×3 (01:45→19:23)
[2016-09-07 04:54] LABS: AUTOMATED NEUTROPHIL # 3.5 TH/MM3 (1.8-7.7); BASOPHIL % 0.7 % (0.0-2.0); EOSINOPHIL # 0.8 TH/MM3 (0-0.4); EOSINOPHIL % 12.1 % (0.0-4.0); HEMATOCRIT 28.9 % (35.0-46.0); HEMO FLAGS DIFF FINAL; LYMPH % 26.6 % (9.0-44.0); LYMPHOCYTE # 1.8 TH/MM3 (1.0-4.8); MEAN CELL VOLUME 77.9 FL (80.0-100.0); MEAN CORPUSCULAR HEMOGLOBIN 25.8 PG (27.0-34.0); MEAN CORPUSCULAR HGB CONC 33.1 % (32.0-36.0); MONO % 10.3 % (0.0-8.0); NEUT % 50.3 % (16.0-70.0); PLATELET COUNT 476 TH/MM3 (150-450); RED BLOOD COUNT 3.71 MIL/MM3 (4.00-5.30); RED CELL DISTRIBUTION WIDTH 20.1 % (11.6-17.2); WHITE BLOOD COUNT 6.9 TH/MM3 (4.0-11.0)
[2016-09-07 05:03] LABS: BICARBONATE 27.3 MEQ/L (21.0-32.0)
[2016-09-07 08:00] VITALS: BP 129/82; PULSE 94; RESP 20; TEMP 97.9; O2SAT 100
[2016-09-07] MEDS: PANTOPRAZOLE SOD 40 MG DELAYED RELEASE TAB PO SCH (09:00)
[2016-09-07] MEDS: FUROSEMIDE 20 MG TAB PO SCH (09:00)
[2016-09-07] MEDS: NYSTATIN SUSP 500,000 U/5 ML CUP SWISH-SWAL SCH ×4 (09:00→21:00)
[2016-09-07] MEDS: SODIUM CHLORIDE 0.9% FLUSH 5 ML FLUSH IV FLUSH SCH ×2 (09:00→21:00)
[2016-09-07] MEDS: SENNOSIDES 8.6 MG TAB PO SCH (09:10)
[2016-09-07] MEDS: DOCUSATE SODIUM 100 MG CAP PO SCH ×2 (09:10→22:06)
[2016-09-07] MEDS: FAMOTIDINE 20 MG TAB PO SCH ×2 (09:10→22:07)
[2016-09-07] MEDS: amLODIPine BESYLATE 5 MG TAB PO SCH (09:10)
[2016-09-07] MEDS: LORATADINE 10 MG TAB PO SCH (09:10)
--- NOTE | 2016-09-07 11:01 | HHI.PR ---
Subjective Remarks Follow up for endocarditis, bacteremia, pulmonary septic emboli. The patient reports not feeling well overnight and today. She reports continued fevers and chills. She has worsening left flank and back pain. She reports shortness of breath and pain upon deep inspiration. She has been coughing throughout the night and today, with clear sputum production. Continue to deny any dysuria or suprapubic pain. Denies any specific abdominal pains, nausea/vomiting, or diarrhea. Objective Vitals Vital Signs Date Time Temp Pulse Resp B/P Pulse Ox O2 Delivery O2 Flow Rate FiO2 09/07/16 10:31 19 09/07/16 08:00 97.9 94 20 129/82 100 09/07/16 00:00 99.7 98 20 118/69 99 09/06/16 20:00 99.0 115 20 127/63 98 09/06/16 16:00 97.6 94 20 122/79 98 09/06/16 12:00 100.2 113 20 121/70 99 I/O 09/06/16 09/06/16 09/06/16 09/07/16 09/07/16 09/07/16 07:00 15:00 23:00 07:00 15:00 23:00 Intake Total 292 ml 1250 ml 120 ml 290 ml Balance 292 ml 1250 ml 120 ml 290 ml Intake Oral 240 ml 1200 ml 120 ml 240 ml IV Total 52 ml 50 ml 0 ml 50 ml # Voids 3 4 1 1 # Bowel Movements 1 1 # Sanitary Pads 1 Pads 1 Pads Result Diagram: 09/07/16 0418 09/07/16 0418 Imaging Last 72 hours Impressions Lumbar Spine MRI 09/06/16 0000 Signed Impressions: Service Date/Time: Tuesday, September 06, 2016 15:23 - CONCLUSION: Normal examination for a patient of this age. No significant change compared to the prior examination. Martin Andrade MD Objective Remarks GENERAL: Thin female patient in NAD. SKIN: Warm and dry. No rash. HEENT: Normocephalic. Atraumatic. Pupils equal and round. No scleral icterus. No injection or drainage. Mucous membranes pink and moist. NECK: Supple. Trachea midline. CARDIOVASCULAR: Tachycardic, regular rhythm. S1, S2 noted. Systolic murmur noted. RESPIRATORY: No accessory muscle use. Clear to auscultation. Breath sounds equal bilaterally. GASTROINTESTINAL: Abdomen soft, non-tender, nondistended. Normoactive bowel sounds x4. MUSCULOSKELETAL: No obvious deformities. Extremities without clubbing, cyanosis , or edema. Left lower thoracic/upper lumbar paraspinous muscle tenderness to palpation, no bony point tenderness. NEUROLOGICAL: Awake and alert. No obvious cranial nerve deficits. Motor grossly within normal limits. Moves all extremities spontaneously. Normal speech. PSYCHIATRIC: Appropriate mood and affect; insight and judgment normal. Procedures IJ central line 08/17/2016. 08/18/2016 Echocardiogram - Left ventricle: The cavity size was normal. Wall thickness was normal. Systolic function was normal. The estimated ejection fraction was in the range of 55% to 60%. Wall motion was normal; there were no regional wall motion abnormalities. - Aortic valve: Valve area: 2.08cm^2 (Vmax). - Tricuspid valve: There was a vegetation. Moderate-severe regurgitation. - Pulmonary arteries: PA peak pressure: 42mm Hg (S). Medications and IVs Current Medications Medications (Trade) Dose Ordered Sig/Key Route Start Time Stop Time Status Last Admin (Ativan Inj) 1 mg Q3H PRN IV PUSH 08/17/16 19:00 08/20/16 17:40 (Zofran Inj) 4 mg Q6H PRN IVP 08/17/16 19:00 08/26/16 08:37 (Tylenol) 650 mg Q6H PRN PO 08/17/16 19:00 09/07/16 01:45 (Roxicodone) 5 mg Q4H PRN PO 08/17/16 19:00 09/07/16 09:10 (Brethine Inj) 1 mg UNSCH PRN SQ 08/17/16 20:15 (NS Flush) 2 ml UNSCH PRN IV FLUSH 08/17/16 20:15 09/05/16 18:15 (NS Flush) 2 ml BID IV FLUSH 08/17/16 21:00 09/07/16 09:00 (Lovenox Inj) 40 mg Q24H SQ 08/17/16 21:00 09/06/16 20:39 Miscellaneous Information 1 Q361D XX 08/17/16 20:15 (Chlorhexidine 2% Cloth) 3 pack Taper DAILY@04 TOP 08/18/16 04:00 08/14/17 03:59 08/22/16 02:01 Chlorhexidine Gluconate 3 pack 3 pack UNSCH PRN TOP 08/17/16 20:15 (Ancef 2 Gm Premix) 50 ml @ 150 mls/hr Q8H IV 08/19/16 18:00 09/07/16 09:12 (Haldol Inj) 5 mg Q8HR PRN IM 08/21/16 11:00 (Norvasc) 5 mg DAILY PO 08/21/16 11:30 09/07/16 09:10 (Pepcid) 20 mg Q12HR PO 08/24/16 21:00 09/07/16 09:10 (Milk Of Magnesia Liq) 30 ml DAILY PRN PO 08/24/16 12:00 08/31/16 11:39 (Compazine Inj) 5 mg Q6H PRN IVS 08/24/16 13:15 08/24/16 13:45 (Mycostatin Liq) 5 ml QID SWISH-SWAL 08/25/16 13:00 09/05/16 19:38 (Heparin Central Flush) 300 units DAILY IV FLUSH 08/29/16 13:00 09/06/16 08:43 (Colace) 100 mg BID PO 08/31/16 12:00 09/07/16 09:10 (Senokot) 17.2 mg DAILY PO 09/01/16 09:00 09/07/16 09:10 (Protonix) 40 mg DAILY PO 09/01/16 10:30 09/07/16 09:00 (Lasix) 20 mg DAILY PO 09/04/16 09:00 09/05/16 09:02 (Claritin) 10 mg DAILY PO 09/03/16 12:00 09/07/16 09:10 A/P Problem List: (1) Sepsis ICD Code: A41.9 Status: Acute (2) Hypotension ICD Code: I95.9 Status: Acute (3) PNA (pneumonia) ICD Code: J18.9 Status: Acute (4) UTI (urinary tract infection) ICD Code: N39.0 Status: Acute (5) TEMO (acute kidney injury) ICD Code: N17.9 Status: Acute (6) IVDU (intravenous drug user) ICD Code: F19.90 Status: Acute (7) Cocaine abuse ICD Code: F14.10 Status: Chronic (8) Thrombocytopenia ICD Code: D69.6 Status: Acute Assessment and Plan 21-year-old female with a history of polysubstance, IV drug use who was admitted to the hospital due to generalized weakness and fever for approximately one week prior to this admission. Patient denied nausea vomiting cough or shortness of breath. Patient used IV drugs 6 days prior to this admission. Her urine drug screen was positive for cocaine. Blood culture grew MSSA and echocardiogram shows tricuspid regurgitation with tricuspid valve vegetation. Infectious disease was consulted and started patient on cefazolin. CT chest showed disseminated small bilateral peripheral nodular infiltrates. MRI brain shows couple of nonspecific punctate white matter bright signal on FLAIR sequence. - Septic shock - resolved. 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 - Pulmonary septic emboli - Blood cultures from 08/24/2016 grew S. Aureus again. Cx from 08/27/2016 with NGTD. - Patient required aggressive IV fluid resuscitation, Levophed, stress dosed steroids. Now blood pressure is stable. - Cardiology evaluated patient. SHANNON did not show any left sided vegetation. - ID (Dr. Rodgers) following. Continue IV cefazolin 2 gm q 8 at least 4 weeks from 1st neg blood culture - Repeat blood cultures collected 09/05 NGTD - 09/06 Still having fevers, Tmax 100.2, HR 113, Discussed with Dr. Romano, recommended L-spine MRI, repeat HIV screen, and repeat culture from central line and peripherally, removed central line 09/06 - L-spine MRI unremarkable, no significant change from previous - Repeat labs including CBC, BMP, lactic acid all unremarkable today 09/07 - 09/07 patient reports worsening symptoms, left flank/back pain, cough, SOB, fevers, appears clinically very ill, tachypneic/tachycardic - discussed extensively with Dr. Romano, recommends adding IV Cefepime, IV Vanco, IV Micafungin x1, and check stat CT chest/abd/pelvis with IV contrast - Right shoulder pain - Xray 08/28/2016 showed no acute findings except for small right effusion. - Given naproxen x5 days, DC'd with abdominal pain - Generalized edema with small pleural effusions persistently seen on chest imaging - improved s/p Lasix - 09/03/16 - patient with worse dyspnea and trace lower showing edema, resumed Lasix - Good diuresis, now patient appears very dry on exam, will d/c Lasix for now - Continue antibiotics as above - Oral thrush - HIV test negative in 07/2016. - Continue Nystatin Liq. - Hypertension - Continue patient on Amlodipine 5mg Qday. - Acute kidney injury - resolved. 1.82 on admission. Currently below 1.0. - Hypokalemia - resolved. - Hypocalcemia - resolved. Corrected Calcium greater than 8. - Follow up CMP - Polysubstance abuse/IVDU -Hopefully will go to [facility] for drug [facility]. - Depression with Suicidal ideations - Psychiatry consulted, appreciate input. - Feeling better. - Possible opioid withdrawal - Initially on methadone, taper and stopped 08/29/2016. - Acetaminophen for pain 1-4, Oxycodone for pain 5-10. - Acute on chronic microcytic anemia - During admission Hemoglobin trended down from 11.2 to 6.7. S/P transfusion 08/26. Hemoccult negative. - Follow-up CBC shows hemoglobin 13.7 - CBC 09/05 with Hgb 8.9, LMP 3 weeks ago, repeat CBC today 09/07 shows improvement with Hgb 9.6 Pleuritic chest pain/shortness of breath Possibly from septic emboli, endocarditis, TR. Decreased breath sounds right lung base. Chest x-ray: Left basilar consolidation. - continue cefazolin. - Sputum culture screened out for normal respiratory ashley and was not cultured - incentive spirometry. - pain control as needed. - S/p diuresis, continue to monitor Mild pancreatitis: Patient reported abdominal discomfort on 09/01/16. Lipase was checked and was elevated. Remained elevated 09/02/16. No further complaints. - Continue H2 ivanna for reflux. - DC naproxen. - Consult GI if further symptoms. - Monitor. Sinus congestion: - Started loratadine, improving Moderate Protein Calorie Malnutrition: patient with weight loss throughout admission, now down to 111lbs - start on chocolate Boost tid with meals - monitor weights Full code. Lovenox. Famotidine. Written by Vicky Magallon, acting as scribe for Dr. Phoenix on 09/07/16 at 11:45 All or portions of this note were transcribed by scribe HORTENCIA Martinez. I , Dr. Anant Phoenix personally performed the history, physical exam, and medical decision making; and confirmed the accuracy of the information in the transcribed note. Authenticated by Dr. Anant Phoenix on 09/07/16 at 23:28. Discharge Planning Will need to remain inpatient for IV antibiotics for 4 weeks after first negative blood culture Problem Qualifiers (1) Hypotension: Qualified Code: I95.9 - Hypotension, unspecified hypotension type Vicky Magallon PA-C Sep 07, 2016 11:01 Samanta Phoenix DO Sep 07, 2016 23:28
[2016-09-07 12:00] VITALS: BP 127/73; PULSE 112; RESP 20; TEMP 98.8; O2SAT 99
[2016-09-07] MEDS ORDERED: Vancomycin Consult Pharmacy 1 EA OTHER SCH (12:30)
[2016-09-07] MEDS ORDERED: VANCOMYCIN INJ 1,000 MG in SODIUM CHLOR 0.9% 250 ML INJ 250 ML IV ONE (12:30)
[2016-09-07] MEDS ORDERED: MICAFUNGIN INJ 150 MG in SODIUM CHLORIDE 0.9% INJ 100 ML IV ONE (13:00)
--- NOTE | 2016-09-07 13:39 | HHI.IDPN ---
Subjective Subjective Remarks ID Xcover for 21 yo female with h/o IVDU present in ER with 6 days of fever. She has been shooting crushed pill and was sharing syringes with her boyfriend who was recently hospitalized for staph infection On presentation hypotensive, tachycardic ad hypoxic. Started on pressors, abx (vanco, cefepime, azithro) Vasopressor dependent septic shock. MSSA bacteremia on Ancef and Genta earlier now only on Ancef IV Overnight appears sicker and hospitalist asked me to see pt Pt today complains of difficulty breathing and catching breath. Also rib pain. She denies hemoptysis, hematuria, headache or difficulty walking + dizziness Febrile and tachycardic overnight. denies LE weakness No B/B incontinence. Antibiotics cefazolin Lines Left CL with no e.o infection Past Medical History IVDU Allergies: Coded Allergies: Amoxicillin (Unverified Allergy, Unknown, rashes, 07/24/15) Objective . Vital Signs Date Time Temp Pulse Resp B/P Pulse Ox O2 Delivery O2 Flow Rate FiO2 09/07/16 10:31 19 09/07/16 08:00 97.9 94 20 129/82 100 09/07/16 00:00 99.7 98 20 118/69 99 09/06/16 20:00 99.0 115 20 127/63 98 09/06/16 16:00 97.6 94 20 122/79 98 09/06/16 09/06/16 09/07/16 15:00 23:00 07:00 Intake Total 1250 ml 120 ml 290 ml Balance 1250 ml 120 ml 290 ml Intake Oral 1200 ml 120 ml 240 ml IV Total 50 ml 0 ml 50 ml # Voids 4 1 1 # Bowel Movements 1 # Sanitary Pads 1 Pads 1 Pads . Laboratory Tests Test 09/07/16 04:18 White Blood Count 6.9 TH/MM3 Red Blood Count 3.71 MIL/MM3 Hemoglobin 9.6 GM/DL Hematocrit 28.9 % Mean Corpuscular Volume 77.9 FL Mean Corpuscular Hemoglobin 25.8 PG Mean Corpuscular Hemoglobin 33.1 % Concent Red Cell Distribution Width 20.1 % Platelet Count 476 TH/MM3 Mean Platelet Volume 7.1 FL Neutrophils (%) (Auto) 50.3 % Lymphocytes (%) (Auto) 26.6 % Monocytes (%) (Auto) 10.3 % Eosinophils (%) (Auto) 12.1 % Basophils (%) (Auto) 0.7 % Neutrophils # (Auto) 3.5 TH/MM3 Lymphocytes # (Auto) 1.8 TH/MM3 Monocytes # (Auto) 0.7 TH/MM3 Eosinophils # (Auto) 0.8 TH/MM3 Basophils # (Auto) 0.0 TH/MM3 CBC Comment DIFF FINAL Differential Comment Laboratory Tests Test 09/07/16 04:18 Sodium Level 135 MEQ/L Potassium Level 4.0 MEQ/L Chloride Level 99 MEQ/L Carbon Dioxide Level 27.3 MEQ/L Anion Gap 9 MEQ/L Blood Urea Nitrogen 19 MG/DL Creatinine 0.66 MG/DL Estimat Glomerular Filtration 111 ML/MIN Rate Random Glucose 92 MG/DL Lactic Acid Level 1.0 mmol/L Calcium Level 9.0 MG/DL Microbiology Date/Time Procedure Status Source Growth 09/05/16 13:06 Aerobic Blood Culture - Preliminary Resulted Blood Peripheral NO GROWTH IN 2 DAYS 09/05/16 13:06 Anaerobic Blood Culture - Preliminary Resulted Blood Peripheral NO GROWTH IN 2 DAYS 09/05/16 13:12 Aerobic Blood Culture - Preliminary Resulted Blood Peripheral NO GROWTH IN 2 DAYS 09/05/16 13:12 Anaerobic Blood Culture - Preliminary Resulted Blood Peripheral NO GROWTH IN 2 DAYS 09/06/16 17:35 Aerobic Blood Culture - Preliminary Resulted Blood Line NO GROWTH IN 1 DAY 09/06/16 17:35 Anaerobic Blood Culture - Preliminary Resulted Blood Line NO GROWTH IN 1 DAY 09/06/16 17:35 Aerobic Blood Culture - Preliminary Resulted Blood Peripheral NO GROWTH IN 1 DAY 09/06/16 17:35 Anaerobic Blood Culture - Preliminary Resulted Blood Peripheral NO GROWTH IN 1 DAY 09/06/16 17:46 Wound Culture Received Catheter Tip Central Venous Line Pending 09/06/16 17:46 Fungal Culture Received Catheter Tip Central Venous Line Pending Imaging Last Impressions Chest X-Ray 09/01/16 0000 Signed Impressions: Service Date/Time: Thursday, September 01, 2016 13:29 - CONCLUSION: 1. Central line in good position. 2. Left basilar consolidation. Khris Oro MD Shoulder X-Ray 08/28/16 0000 Signed Impressions: Service Date/Time: July 11:44 - CONCLUSION: 1. The shoulder is unremarkable. 2. Small right effusion. Leonardo Pitt Jr., MD Abdomen X-Ray 08/24/16 0000 Signed Impressions: Service Date/Time: Wednesday, August 24, 2016 13:58 - CONCLUSION: No acute disease. Karo Jones MD Upper Extremity Ultrasound 08/19/16 0000 Signed Impressions: Service Date/Time: Friday, August 19, 2016 10:38 - CONCLUSION: 1. Occlusive thrombus within the mid and distal right cephalic vein. 2. Complex hypoechoic area adjacent to the brachial vessels within the antecubital fossa measuring 2.6 x 1.0 x 1.2 cm which is nonspecific. Jose Triana MD Lumbar Spine MRI 08/19/16 0000 Signed Impressions: Service Date/Time: Friday, August 19, 2016 12:23 - CONCLUSION: No acute disease. Jose Triana MD Brain MRI 08/19/16 0000 Signed Impressions: Service Date/Time: Friday, August 19, 2016 20:48 - CONCLUSION: The postcontrast portion of the exam is very limited since very little contrast is identified and there are couple of nonspecific punctate white manner bright signal on FLAIR sequence. Timoteo Khalil MD Liver Ultrasound 08/18/16 0000 Signed Impressions: Service Date/Time: Thursday, August 18, 2016 16:18 - CONCLUSION: 1. Small right pleural effusion. 2. The gallbladder is decompressed with minimal intraluminal sludge. No stones. 3. Splenomegaly. Sergei Maldonado MD Chest CT 08/18/16 0000 Signed Impressions: Service Date/Time: Thursday, August 18, 2016 11:41 - CONCLUSION: Disseminated small bilateral predominantly peripheral nodular infiltrates. Small effusions and mild associated atelectasis. Differential considerations would include atypical infectious etiologies and septic emboli, rarely collagen vascular disease, Troy's and pneumoconiosis. Rickey Babb MD Physical Exam CONSTITUTIONAL/GENERAL: This is an adequately nourished patient, in no apparent distress. TUBES/LINES/DRAINS: SKIN: No jaundice, rashes, or lesions. No Janeway lesions Skin temperature appropriate. Not diaphoretic. EYES: No scleral icterus. No injection or drainage. Fundi not examined. CARDIOVASCULAR: Regular rate and rhythm +2-3/6 murmur, gallops, or rubs. No JVD. Peripheral pulses symmetric. RESPIRATORY/CHEST: Symmetric, unlabored respirations. Clear to auscultation. Breath sounds equal bilaterally. No wheezes, rales, or rhonchi. GASTROINTESTINAL: Abdomen soft, non-tender, nondistended. No guarding. Bowel sounds present. GENITOURINARY: Without palpable bladder distension. MUSCULOSKELETAL: Extremities without clubbing, cyanosis, 1+ peripheral edema Back: + tenderness to palpation, mild L side, back NEUROLOGICAL: less lethargic, but easily arousable; speech nl, follows commands Assessment & Plan Remarks Sepsis ongoing (fever and tachycardia) Tricuspid valve endocarditis , MSSA - 2D echo + for TV veg - septic emboli cw TV endocarditis - cont to have fever ? CL infection ? un-drained focus of infection. - persistently positive blood clx - SHANNON positive for TV endocarditis, no left side endocarditis Lower back pain: worse in the last few days - ro diskitis/osteo Amoxicillin allergy - hives; but took keflex uneventfully per mom's account Slurred speech, resolved Back pain - new Recs: Continue Cefazolin 2 gm q 8hrs duration to be determined(TBD) based on source and bacteremia etc. for MSSA bacteremia/TV endocarditis. Start Cefepime IV 2 gm q8hrs (for new HCAP or line infection possible) Start Vanco IV (target 15-20 for new HAIs possible) One dose of Micafungin IV (possible Fungal CLABSI) Stat CT Chest and A/P with contrast possible empyema. Clinically reduced air entry on right side ? New Pneumonia or Empyema. Follow cultures Follow clinically. d/w Dr Phoenix. Dr. Bhupendra Rodgers to resume care on Thursday. Crystal Romano MD Sep 07, 2016 13:39
[2016-09-07] MEDS ORDERED: IOHEXOL 350 MG/ML 10 ML VIAL (for RAD DIAG) IV ONE (13:54)
[2016-09-07] MEDS ORDERED: DIATRIZOATE MEGLUM/DIATRIZOATE SOD 9 ML CUP PO ONE (14:00)
[2016-09-07] MEDS ORDERED: CEFEPIME INJ 2,000 MG in SODIUM CHLORIDE 0.9% INJ 100 ML IV SCH (14:00)
[2016-09-07] MEDS: CEFEPIME INJ 2,000 MG in SODIUM CHLORIDE 0.9% INJ 100 ML IV SCH ×2 (14:02→22:06)
[2016-09-07] MEDS: SODIUM CHLOR 0.9% 1000 ML INJ 1,000 ML IV SCH ×2 (14:04→23:00)
--- NOTE | 2016-09-07 14:16 | RADRPT ---
EXAM DATE/TIME: 09/07/2016 13:44 [facility] COMPARISON: CHEST PA & LAT, September 01, 2016, 13:29. CT THORAX W/O CONTRAST, August 18, 2016, 11:41. INDICATIONS : Evaluate for abscess. IV CONTRAST: 75 cc Omnipaque 350 (iohexol) IV ; Cumulative dose for multiple exams. RADIATION DOSE: 6.25 CTDIvol (mGy) ; Combined studies - Thorax/Abdomen/Pelvis MEDICAL HISTORY : None SURGICAL HISTORY : None. ENCOUNTER: Initial ACUITY: 1 day PAIN SCALE: 5/10 LOCATION: Bilateral chest TECHNIQUE: Volumetric scanning of the chest was performed. Using automated exposure control and adjustment of t he mA and/or kV according to patient size, radiation dose was kept as low as reasonably achievable to obtain optimal diagnostic quality images. FINDINGS: LUNGS: The lungs are significant for multiple rounded irregular pulmonary opacities, some of which demonstra te areas of central cavitation. These have largely improved as compared to the prior exam. There are multiple small cavitary lesions identified within the right lower lobe with the largest measuring 1.2 x 1.8 x 1.5 cm. PLEURA: There is a large right-sided pleural effusion which has increased in size as compared to the prior ex am. There is a small left-sided pleural effusion present. MEDIASTINUM: The heart and great vessels demonstrate no acute abnormality. There is no mediastinal or hilar lymph adenopathy. As compared to the prior exam of September 01, 2016 there has been interval removal of a right -sided central line. AXILLAE: Within normal limits. No lymphadenopathy. SKELETAL: Within normal limits for patient age. MISCELLANEOUS: The visualized upper abdominal organs demonstrate no acute abnormality. CONCLUSION: Multiple bilateral irregular solid and cavitary nodular masses which have largely improved as compare d to the prior exam with development of new small cavitary lesions within the right lower lobe and wo rsening right-sided pleural effusion. Given the patient's prior history of endocarditis this is venus tible with septic emboli. Karo Jones MD on September 07, 2016 at 14:05 Board Certified Radiologist. This report was verified electronically.
--- NOTE | 2016-09-07 14:25 | RADRPT ---
EXAM DATE/TIME: 09/07/2016 13:44 [facility] COMPARISON: No previous studies available for comparison. INDICATIONS : Evaluate for abscess. IV CONTRAST: 75 cc Omnipaque 350 (iohexol) IV ; Cumulative dose for multiple exams. ORAL CONTRAST: No oral contrast ingested. RADIATION DOSE: 6.25 CTDIvol (mGy) ; Combined studies - Thorax/Abdomen/Pelvis MEDICAL HISTORY : None SURGICAL HISTORY : None. ENCOUNTER: Initial ACUITY: 1 day PAIN SCALE: 5/10 LOCATION: Bilateral abdomen. TECHNIQUE: Volumetric scanning of the abdomen and pelvis was performed. Using automated exposure control and adjustment of the mA and/or kV according to patient size, radiation dose was kept as low as reasonably achievable to obtain optimal diagnostic quality images. FINDINGS: LOWER LUNGS: The lung bases are significant for a large right-sided pleural effusion which has in creased as compared to the prior exam. Small left-sided pleural effusion. There are nodular opacities identified within the lung bases small cavitary lesions identified within the right lower lobe. The heart size is normal and grossly unremarkable. LIVER: Homogeneous density without lesion. The overall size of the liver appears moderately enlar ged. There is no dilation of the biliary tree. No calcified gallstones. SPLEEN: Mild splenomegaly without evidence of focal lesion. PANCREAS: Within normal limits. KIDNEYS: Normal in size and shape. There is no mass, stone or hydronephrosis. ADRENAL GLANDS: Within normal limits. VASCULAR: There is no aortic aneurysm. BOWEL/MESENTERY: The stomach, small bowel, and colon demonstrate no acute abnormality. There is no free intraperitoneal air or fluid. ABDOMINAL WALL: Within normal limits. RETROPERITONEUM: There is no lymphadenopathy. BLADDER: No wall thickening or mass. REPRODUCTIVE: Within normal limits. INGUINAL: There is no lymphadenopathy or hernia. MUSCULOSKELETAL: Within normal limits for patient age. CONCLUSION: 1. Large right-sided pleural effusion with a small cavitary nodules consistent with the patient's his tory of septic emboli. Small left-sided pleural effusion. 2. Mild hepatomegaly and cardiomegaly. Karo Jones MD on September 07, 2016 at 14:21 Board Certified Radiologist. This report was verified electronically.
[2016-09-07 16:00] VITALS: BP 122/76; PULSE 88; RESP 20; TEMP 98.9; O2SAT 100
[2016-09-07] MEDS: VANCOMYCIN 1,000 MG/NS 250 ML IV SCH ×2 (16:04)
--- NOTE | 2016-09-07 16:24 | RADRPT ---
EXAM DATE/TIME: 09/07/2016 15:47 [facility] COMPARISON: CHEST SINGLE AP, August 31, 2016, 11:46. INDICATIONS : S/P Thoracentesis, mid sternal chest pains. MEDICAL HISTORY : Tonsillectomy. section. SURGICAL HISTORY : Thoracentesis ENCOUNTER: Subsequent ACUITY: 2 days PAIN SCORE: 9/10 LOCATION: Bilateral chest FINDINGS: A single view of the chest demonstrates decrease in left pleural effusion since August 31. No pneumotho rax status post thoracentesis. Small right effusion remains. Basilar airspace disease improved on the left since August 31. Right lung basilar airspace disease is stable. CONCLUSION: 1. No pneumothorax status post thoracentesis. Improved left effusion and left basilar airspace diseas e since August 2. No significant change on the right. Saleem Muñoz MD on September 07, 2016 at 16:20 Board Certified Radiologist. This report was verified electronically.
[2016-09-07 16:33] LABS: APTT (PATIENT) 25.8 SEC (24.3-30.1); PROTHROMBIN TIME - PATIENT 11.5 SEC (9.8-11.6)
[2016-09-07 20:00] VITALS: BP_SYST 125; BP_SYST 138; BP_DIAS 81; BP_DIAS 82; PULSE 108; PULSE 110; RESP 20; RESP 28; TEMP 97.9; TEMP 99.1; O2SAT 100; O2SAT 99
[2016-09-07 20:18] VITALS: BP 132/85; PULSE 108; RESP 28; TEMP 97.9; O2SAT 98
--- NOTE | 2016-09-07 20:23 | PD.RAD ---
Post US Procedure Prog Note Pre Procedure Diagnosis: (1) Pleural effusion Post Procedure Diagnosis: (1) Pleural effusion Procedure Date: Sep 07, 2016 Supervising Radiologist: Rickey Babb Proceduralist/Assist: Nguyen Andres RDMS Anesthesia: Local Plan of Activity Patient to Unit: Nursing Unit Patient Condition: Fair See PACS Report for procedural detail/treatment Drainage Procedure Procedure 1 Imaging Guidance: Ultrasound Side: Right Procedure Type: Thoracentesis Armenian: 6 Drainage: Suction Fluid Removal (CCs): 300 Fluid Description: Bloody Rickey Babb MD Sep 07, 2016 20:23
[2016-09-07] MEDS: CHLORHEXIDINE GLUCONATE 2 % 1 PACK (2 CLOTHS) TOP SCH (20:37)
--- NOTE | 2016-09-07 20:44 | RADRPT ---
EXAM DATE/TIME: 09/07/2016 19:43 [facility] COMPARISON: No previous studies available for comparison. INDICATIONS : Right pleural effusion. MEDICAL HISTORY : IV drug use. Endocarditis. Pulmonary septic emboli. Shortness of breath. SURGICAL HISTORY : Tonsillectomy. ENCOUNTER: Initial ACUITY: 1 day PAIN SCORE: 9/10 LOCATION: Right chest FLUID: Total volume of 400 cc of cloudy, red fluid was removed. Fluid was sent to lab for ordered studies. TECHNIQUE: 1. Ultrasound guidance for thoracentesis. 2. Thoracentesis. The risks, benefits, and alternatives to ultrasound guided thoracentesis were explained to the patien t in lay simple terms, including the risk of bleeding and infection. Written and verbal informed con sent was obtained. Appropriate area for thoracentesis was marked under ultrasound guidance with the patient in the uprig ht position. Overlying skin was prepped and draped in the usual sterile fashion and with local anest hetic, a dermatotomy was made with an 11 blade scalpel. A 6 Faroese thoracentesis catheter was placed in the pleural space and fluid was removed. Catheter was then removed and a sterile dressing applie d. There were no immediate complications. The patient tolerated the procedure well and the left the ultrasound suite in stable condition. Chest radiograph is to be obtained. CONCLUSION: Uncomplicated ultrasound guided thoracentesis. Rickey Babb MD on September 07, 2016 at 20:42 Board Certified Radiologist. This report was verified electronically.
[2016-09-07] MEDS: ENOXAPARIN SODIUM 40 MG/0.4 ML SYRINGE SQ SCH (21:00)
--- NOTE | 2016-09-07 21:12 | RADRPT ---
EXAM DATE/TIME: 09/07/2016 20:33 [facility] COMPARISON: No previous studies available for comparison. INDICATIONS : Post thoracentesis MEDICAL HISTORY : Tonsillectomy. section. SURGICAL HISTORY : Thoracentesis ENCOUNTER: Subsequent ACUITY: 2 days PAIN SCORE: 9/10 LOCATION: chest FINDINGS: No pneumothorax identified post reported thoracentesis. Trace pleural fluid present. Minimal basilar atelectasis. Heart size mildly enlarged. CONCLUSION: 1. No pneumothorax identified post thoracentesis. Saleem Muñoz MD on September 07, 2016 at 21:08 Board Certified Radiologist. This report was verified electronically.
[2016-09-07 22:57] LABS: PLEURAL FLUID LYMPHS 31 %
[2016-09-08] VITALS: BP 132/78; PULSE 96; RESP 20; TEMP 98.8; O2SAT 97
[2016-09-08] MEDS: ceFAZolin 2 GM PREMIX 50 ML IV SCH ×3 (02:00→17:30)
[2016-09-08] MEDS: VANCOMYCIN 1,000 MG/NS 250 ML IV SCH ×4 (03:30→13:30)
[2016-09-08 04:00] VITALS: BP 133/81; PULSE 101; RESP 20; TEMP 98.1; O2SAT 97
[2016-09-08] MEDS: CEFEPIME INJ 2,000 MG in SODIUM CHLORIDE 0.9% INJ 100 ML IV SCH ×2 (04:54→13:30)
[2016-09-08 08:00] VITALS: BP 127/77; PULSE 102; RESP 15; TEMP 98.5; O2SAT 100
[2016-09-08] MEDS: NYSTATIN SUSP 500,000 U/5 ML CUP SWISH-SWAL SCH ×4 (08:46→21:00)
[2016-09-08] MEDS: DOCUSATE SODIUM 100 MG CAP PO SCH ×2 (08:47→21:10)
[2016-09-08] MEDS: SENNOSIDES 8.6 MG TAB PO SCH (08:47)
[2016-09-08] MEDS: PANTOPRAZOLE SOD 40 MG DELAYED RELEASE TAB PO SCH (08:47)
[2016-09-08] MEDS: amLODIPine BESYLATE 5 MG TAB PO SCH (08:48)
[2016-09-08] MEDS: SODIUM CHLOR 0.9% 1000 ML INJ 1,000 ML IV SCH ×3 (08:48→21:11)
[2016-09-08] MEDS: SODIUM CHLORIDE 0.9% FLUSH 5 ML FLUSH IV FLUSH SCH ×2 (08:48→21:00)
[2016-09-08] MEDS: FUROSEMIDE 20 MG TAB PO SCH (08:48)
[2016-09-08] MEDS: LORATADINE 10 MG TAB PO SCH (08:48)
[2016-09-08] MEDS: FAMOTIDINE 20 MG TAB PO SCH ×2 (08:48→21:10)
[2016-09-08 11:37] VITALS: BP 125/82; PULSE 108; RESP 20; TEMP 98.1; O2SAT 100
--- NOTE | 2016-09-08 12:44 | HHI.PR ---
Subjective Remarks Follow-up for endocarditis and pleural effusion. The patient reports that she' s feeling much better today after thoracentesis yesterday. She reports that chest pain and shortness of breath have improved. Objective Vitals Vital Signs Date Time Temp Pulse Resp B/P Pulse Ox O2 Delivery O2 Flow Rate FiO2 09/08/16 11:37 98.1 108 20 125/82 100 09/08/16 08:00 98.5 102 15 127/77 100 09/08/16 04:00 98.1 101 20 133/81 97 09/08/16 00:00 98.8 96 20 132/78 97 09/07/16 20:18 97.9 108 28 132/85 98 09/07/16 20:00 97.9 110 28 125/81 100 09/07/16 20:00 99.1 108 20 138/82 99 09/07/16 16:00 98.9 88 20 122/76 100 I/O 09/07/16 09/07/16 09/07/16 09/08/16 09/08/16 09/08/16 07:00 15:00 23:00 07:00 15:00 23:00 Intake Total 290 ml 1250 ml 440 ml 710 ml Output Total 800 ml 600 ml 400 ml Balance 290 ml 450 ml -160 ml 310 ml Intake Oral 240 ml 1200 ml 440 ml 220 ml IV Total 50 ml 50 ml 490 ml Output Urine Total 800 ml 600 ml 400 ml # Voids 1 # Bowel Movements 1 0 0 # Sanitary Pads 1 Pads Result Diagram: 09/07/16 0418 09/07/16 0418 Imaging Last Impressions Abdomen/Pelvis CT 09/07/16 1319 Signed Impressions: Service Date/Time: Wednesday, September 07, 2016 13:44 - CONCLUSION: 1. Large right-sided pleural effusion with a small cavitary nodules consistent with the patient's history of septic emboli. Small left-sided pleural effusion. 2. Mild hepatomegaly and cardiomegaly. Karo Jones MD Thoracentesis Ultrasound 09/07/16 0000 Signed Impressions: Service Date/Time: Wednesday, September 07, 2016 19:43 - CONCLUSION: Uncomplicated ultrasound guided thoracentesis. Rickey Babb MD Chest X-Ray 09/07/16 0000 Signed Impressions: Service Date/Time: Wednesday, September 07, 2016 20:33 - CONCLUSION: 1. No pneumothorax identified post thoracentesis. Saleem Muñoz MD Chest CT 09/07/16 0000 Signed Impressions: Service Date/Time: Wednesday, September 07, 2016 13:44 - CONCLUSION: Multiple bilateral irregular solid and cavitary nodular masses which have largely improved as compared to the prior exam with development of new small cavitary lesions within the right lower lobe and worsening right-sided pleural effusion. Given the patient's prior history of endocarditis this is compatible with septic emboli. Karo Jones MD Lumbar Spine MRI 09/06/16 0000 Signed Impressions: Service Date/Time: Tuesday, September 06, 2016 15:23 - CONCLUSION: Normal examination for a patient of this age. No significant change compared to the prior examination. Martin Andrade MD Shoulder X-Ray 08/28/16 0000 Signed Impressions: Service Date/Time: July 11:44 - CONCLUSION: 1. The shoulder is unremarkable. 2. Small right effusion. Leonardo Pitt Jr., MD Abdomen X-Ray 08/24/16 0000 Signed Impressions: Service Date/Time: Wednesday, August 24, 2016 13:58 - CONCLUSION: No acute disease. Karo Jones MD Upper Extremity Ultrasound 08/19/16 0000 Signed Impressions: Service Date/Time: Friday, August 19, 2016 10:38 - CONCLUSION: 1. Occlusive thrombus within the mid and distal right cephalic vein. 2. Complex hypoechoic area adjacent to the brachial vessels within the antecubital fossa measuring 2.6 x 1.0 x 1.2 cm which is nonspecific. Jose Triana MD Brain MRI 08/19/16 0000 Signed Impressions: Service Date/Time: Friday, August 19, 2016 20:48 - CONCLUSION: The postcontrast portion of the exam is very limited since very little contrast is identified and there are couple of nonspecific punctate white manner bright signal on FLAIR sequence. Timoteo Khalil MD Liver Ultrasound 08/18/16 0000 Signed Impressions: Service Date/Time: Thursday, August 18, 2016 16:18 - CONCLUSION: 1. Small right pleural effusion. 2. The gallbladder is decompressed with minimal intraluminal sludge. No stones. 3. Splenomegaly. Sergei Maldonado MD Objective Remarks GENERAL: Well-developed well-nourished. In no acute distress. SKIN: Warm and dry. No lesions noted. HEENT: Normocephalic. Pupils equal and round. Mucous membranes pink and moist. CARDIOVASCULAR: Regular rate and rhythm. Systolic murmur appreciated. RESPIRATORY: No accessory muscle use. Clear to auscultation. Diminished breath sounds right lung base. GASTROINTESTINAL: Abdomen soft, non-tender, nondistended. Bowel sounds x4. MUSCULOSKELETAL: No obvious deformities. No clubbing or cyanosis. Trace edema. NEUROLOGICAL: Awake and alert. No focal neurological deficits. Moves upper and lower extremities spontaneously. Normal speech. PSYCHIATRIC: Appropriate mood and affect; insight and judgment normal. Procedures IJ central line 08/17/2016. 08/18/2016 Echocardiogram - Left ventricle: The cavity size was normal. Wall thickness was normal. Systolic function was normal. The estimated ejection fraction was in the range of 55% to 60%. Wall motion was normal; there were no regional wall motion abnormalities. - Aortic valve: Valve area: 2.08cm^2 (Vmax). - Tricuspid valve: There was a vegetation. Moderate-severe regurgitation. - Pulmonary arteries: PA peak pressure: 42mm Hg (S). A/P Problem List: (1) Sepsis ICD Code: A41.9 Status: Acute (2) Hypotension ICD Code: I95.9 Status: Acute (3) PNA (pneumonia) ICD Code: J18.9 Status: Acute (4) UTI (urinary tract infection) ICD Code: N39.0 Status: Acute (5) TEMO (acute kidney injury) ICD Code: N17.9 Status: Acute (6) IVDU (intravenous drug user) ICD Code: F19.90 Status: Acute (7) Cocaine abuse ICD Code: F14.10 Status: Chronic (8) Thrombocytopenia ICD Code: D69.6 Status: Acute Assessment and Plan 21-year-old female with a history of polysubstance, IV drug use who was admitted to the hospital due to generalized weakness and fever for approximately one week prior to this admission. Patient denied nausea vomiting cough or shortness of breath. Patient used IV drugs 6 days prior to this admission. Her urine drug screen was positive for cocaine. Blood culture grew MSSA and echocardiogram shows tricuspid regurgitation with tricuspid valve vegetation. Infectious disease was consulted and started patient on cefazolin. CT chest showed disseminated small bilateral peripheral nodular infiltrates. MRI brain shows couple of nonspecific punctate white matter bright signal on FLAIR sequence. - Septic shock - resolved. 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 - Pulmonary septic emboli - Blood cultures from 08/24/2016 grew S. Aureus again. Cx from 08/27/2016 with NGTD. - Patient required aggressive IV fluid resuscitation, Levophed, stress dosed steroids. Now blood pressure is stable. - Cardiology evaluated patient. SHANNON did not show any left sided vegetation. - ID (Dr. Rodgers) following. Continue IV cefazolin 2 gm q 8 at least 4 weeks from 1st neg blood culture - Repeat blood cultures collected 09/05 NGTD - 09/06 Still having fevers, Tmax 100.2, HR 113, ID recommended L-spine MRI, repeat HIV screen, and repeat culture from central line and peripherally, removed central line 09/06 - L-spine MRI unremarkable, no significant change from previous - Repeat labs including CBC, BMP, lactic acid all unremarkable 09/07 - Patient with worsening symptoms 09/07, ID recommended adding IV Cefepime, IV Vanco, IV Micafungin x1, and check stat CT chest/abd/pelvis with IV contrast - Chest CT showed continued cavitary lesions consistent with septic emboli as well as worsening right pleural effusion - Continue antibiotics for now pending ID follow-up - Right pleural effusion, concerning for empyema with findings as above - Consulted IR who performed thoracentesis 09/07 - Initial fluid studies are reassuring - Follow up final culture results - Patient improving - Right shoulder pain - Xray 08/28/2016 showed no acute findings except for small right effusion. - Given naproxen x5 days, DC'd with abdominal pain - Generalized edema with small pleural effusions persistently seen on chest imaging - improved s/p Lasix - Continue low-dose Lasix daily - Continue antibiotics as above - Oral thrush - HIV test negative in 07/2016. - Continue Nystatin Liq. - Hypertension - Continue patient on Amlodipine 5mg Qday. - Acute kidney injury - resolved. 1.82 on admission. Currently below 1.0. - Hypokalemia - resolved. - Hypocalcemia - resolved. Corrected Calcium greater than 8. - Follow up CMP - Polysubstance abuse/IVDU -Hopefully will go to [facility] drug [facility]. - Depression with Suicidal ideations - Psychiatry consulted, appreciate input. - Feeling better. - Possible opioid withdrawal - Initially on methadone, taper and stopped 08/29/2016. - Acetaminophen for pain 1-4, Oxycodone for pain 5-10. - Acute on chronic microcytic anemia - During admission Hemoglobin trended down from 11.2 to 6.7. S/P transfusion 08/26. Hemoccult negative. - Follow-up CBC shows hemoglobin 13.7 - CBC 09/05 with Hgb 8.9, LMP 3 weeks ago, repeat CBC today 09/07 shows improvement with Hgb 9.6 Pleuritic chest pain/shortness of breath Possibly from septic emboli, endocarditis, TR. Decreased breath sounds right lung base. Chest x-ray: Left basilar consolidation. - continue cefazolin. - Sputum culture screened out for normal respiratory ashley and was not cultured - incentive spirometry. - pain control as needed. - S/p diuresis, continue to monitor Mild pancreatitis: Patient reported abdominal discomfort on 09/01/16. Lipase was checked and was elevated. Remained elevated 09/02/16. No further complaints. - Continue H2 ivanna for reflux. - DC naproxen. - Consult GI if further symptoms. - Monitor. Sinus congestion: - Started loratadine, improving Moderate Protein Calorie Malnutrition: patient with weight loss throughout admission, now down to 111lbs - start on chocolate Boost tid with meals - monitor weights Full code. Lovenox. Famotidine. Written by Frederick Melendez, acting as scribe for Dr. Phoenix on 09/08/16 at 12:44. All or portions of this note were transcribed by HORTENCIA Murry. I, Dr. Anant Phoenix personally performed the history, physical exam, and medical decision making; and confirmed the accuracy of the information in the transcribed note. Authenticated by Dr. Anant Phoenix on 09/09/16 at 00:12. Discharge Planning Will need to remain inpatient for IV antibiotics for 4 weeks after first negative blood culture due to IV drug use history and inability to have central venous access as outpatient. Problem Qualifiers (1) Hypotension: Qualified Code: I95.9 - Hypotension, unspecified hypotension type Frederick Melendez Sep 08, 2016 12:44 Samanta Phoenix DO Sep 09, 2016 00:12
[2016-09-08 16:00] VITALS: BP 131/81; PULSE 102; RESP 16; TEMP 99.7; O2SAT 100
--- NOTE | 2016-09-08 16:12 | HHI.IDPN ---
Subjective Subjective Remarks Events notedduring this we CT chest showed progressin of R pleural effusion which was tapped Gstain and clx negative Pt paim and pressure signigficantly improved cont to have low grade fever thru the we vanco /cefepime added by Dr Rosalina shea clx neg @ 2-3 days 09/02 Antibiotics cefazolin cefepime vancomycin Lines Left CL with no e.o infection Past Medical History IVDU Allergies: Coded Allergies: Amoxicillin (Unverified Allergy, Unknown, rashes, 07/24/15) Objective . Vital Signs Date Time Temp Pulse Resp B/P Pulse Ox O2 Delivery O2 Flow Rate FiO2 09/08/16 11:37 98.1 108 20 125/82 100 09/08/16 08:00 98.5 102 15 127/77 100 09/08/16 04:00 98.1 101 20 133/81 97 09/08/16 00:00 98.8 96 20 132/78 97 09/07/16 20:18 97.9 108 28 132/85 98 09/07/16 20:00 97.9 110 28 125/81 100 09/07/16 20:00 99.1 108 20 138/82 99 09/07/16 09/07/16 09/08/16 15:00 23:00 07:00 Intake Total 1250 ml 440 ml 710 ml Output Total 800 ml 600 ml 400 ml Balance 450 ml -160 ml 310 ml Intake Oral 1200 ml 440 ml 220 ml IV Total 50 ml 490 ml Output Urine Total 800 ml 600 ml 400 ml # Bowel Movements 1 0 0 # Sanitary Pads 1 Pads . Laboratory Tests Test 09/07/16 04:18 White Blood Count 6.9 TH/MM3 Red Blood Count 3.71 MIL/MM3 Hemoglobin 9.6 GM/DL Hematocrit 28.9 % Mean Corpuscular Volume 77.9 FL Mean Corpuscular Hemoglobin 25.8 PG Mean Corpuscular Hemoglobin 33.1 % Concent Red Cell Distribution Width 20.1 % Platelet Count 476 TH/MM3 Mean Platelet Volume 7.1 FL Neutrophils (%) (Auto) 50.3 % Lymphocytes (%) (Auto) 26.6 % Monocytes (%) (Auto) 10.3 % Eosinophils (%) (Auto) 12.1 % Basophils (%) (Auto) 0.7 % Neutrophils # (Auto) 3.5 TH/MM3 Lymphocytes # (Auto) 1.8 TH/MM3 Monocytes # (Auto) 0.7 TH/MM3 Eosinophils # (Auto) 0.8 TH/MM3 Basophils # (Auto) 0.0 TH/MM3 CBC Comment DIFF FINAL Differential Comment Laboratory Tests Test 09/07/16 04:18 Sodium Level 135 MEQ/L Potassium Level 4.0 MEQ/L Chloride Level 99 MEQ/L Carbon Dioxide Level 27.3 MEQ/L Anion Gap 9 MEQ/L Blood Urea Nitrogen 19 MG/DL Creatinine 0.66 MG/DL Estimat Glomerular Filtration 111 ML/MIN Rate Random Glucose 92 MG/DL Lactic Acid Level 1.0 mmol/L Calcium Level 9.0 MG/DL Microbiology Date/Time Procedure Status Source Growth 09/06/16 17:35 Aerobic Blood Culture - Preliminary Resulted Blood Line NO GROWTH IN 2 DAYS 09/06/16 17:35 Anaerobic Blood Culture - Preliminary Resulted Blood Line NO GROWTH IN 2 DAYS 09/06/16 17:35 Aerobic Blood Culture - Preliminary Resulted Blood Peripheral NO GROWTH IN 2 DAYS 09/06/16 17:35 Anaerobic Blood Culture - Preliminary Resulted Blood Peripheral NO GROWTH IN 2 DAYS 09/06/16 17:46 Wound Culture - Final Complete Catheter Tip Central Venous Line NO GROWTH IN 48 HOURS. 09/06/16 17:46 Fungal Culture Received Catheter Tip Central Venous Line Pending 09/07/16 20:12 Gram Stain - Final Resulted Fluid Pleural Fluid 09/07/16 20:12 Body Fluid Culture - Preliminary Resulted Fluid Pleural Fluid NO GROWTH IN 24 HOURS. 09/07/16 20:12 Acid Fast Stain Received Fluid Pleural Fluid Pending 09/07/16 20:12 Mycobacterial Culture Received Fluid Pleural Fluid Pending 09/07/16 20:12 Fungal Smear Received Fluid Pleural Fluid Pending 09/07/16 20:12 Fungal Culture Received Fluid Pleural Fluid Pending Imaging Last Impressions Abdomen/Pelvis CT 09/07/16 1319 Signed Impressions: Service Date/Time: Wednesday, September 07, 2016 13:44 - CONCLUSION: 1. Large right-sided pleural effusion with a small cavitary nodules consistent with the patient's history of septic emboli. Small left-sided pleural effusion. 2. Mild hepatomegaly and cardiomegaly. Karo Jones MD Thoracentesis Ultrasound 09/07/16 0000 Signed Impressions: Service Date/Time: Wednesday, September 07, 2016 19:43 - CONCLUSION: Uncomplicated ultrasound guided thoracentesis. Rickey Babb MD Chest X-Ray 09/07/16 Signed Impressions: Service Date/Time: Wednesday, September 07, 2016 20:33 - CONCLUSION: 1. No pneumothorax identified post thoracentesis. Saleem Muñoz MD Chest CT 09/07/16 Signed Impressions: Service Date/Time: Wednesday, September 07, 2016 13:44 - CONCLUSION: Multiple bilateral irregular solid and cavitary nodular masses which have largely improved as compared to the prior exam with development of new small cavitary lesions within the right lower lobe and worsening right-sided pleural effusion. Given the patient's prior history of endocarditis this is compatible with septic emboli. Karo Jones MD Lumbar Spine MRI 09/06/16 0000 Signed Impressions: Service Date/Time: Tuesday, September 06, 2016 15:23 - CONCLUSION: Normal examination for a patient of this age. No significant change compared to the prior examination. Martin Andrade MD Shoulder X-Ray 08/28/16 0000 Signed Impressions: Service Date/Time: July 11:44 - CONCLUSION: 1. The shoulder is unremarkable. 2. Small right effusion. Leonardo Pitt Jr., MD Abdomen X-Ray 08/24/16 0000 Signed Impressions: Service Date/Time: Wednesday, August 24, 2016 13:58 - CONCLUSION: No acute disease. Karo Jones MD Upper Extremity Ultrasound 08/19/16 0000 Signed Impressions: Service Date/Time: Friday, August 19, 2016 10:38 - CONCLUSION: 1. Occlusive thrombus within the mid and distal right cephalic vein. 2. Complex hypoechoic area adjacent to the brachial vessels within the antecubital fossa measuring 2.6 x 1.0 x 1.2 cm which is nonspecific. Jose Triana MD Brain MRI 08/19/16 0000 Signed Impressions: Service Date/Time: Friday, August 19, 2016 20:48 - CONCLUSION: The postcontrast portion of the exam is very limited since very little contrast is identified and there are couple of nonspecific punctate white manner bright signal on FLAIR sequence. Timoteo Khalil MD Liver Ultrasound 08/18/16 0000 Signed Impressions: Service Date/Time: Thursday, August 18, 2016 16:18 - CONCLUSION: 1. Small right pleural effusion. 2. The gallbladder is decompressed with minimal intraluminal sludge. No stones. 3. Splenomegaly. Sergei Maldonado MD Physical Exam CONSTITUTIONAL/GENERAL: This is an adequately nourished patient, in no apparent distress. TUBES/LINES/DRAINS: SKIN: No jaundice, rashes, or lesions. No [place] lesions Skin temperature appropriate. Not diaphoretic. EYES: No scleral icterus. No injection or drainage. Fundi not examined. CARDIOVASCULAR: Regular rate and rhythm +2-3/6 murmur, gallops, or rubs. No JVD. Peripheral pulses symmetric. RESPIRATORY/CHEST: Symmetric, unlabored respirations. Clear to auscultation. Breath sounds equal bilaterally. No wheezes, rales, or rhonchi. GASTROINTESTINAL: Abdomen soft, non-tender, nondistended. No guarding. Bowel sounds present. GENITOURINARY: Without palpable bladder distension. MUSCULOSKELETAL: Extremities without clubbing, cyanosis, 1+ peripheral edema Back: + tenderness to palpation, mild L side, back NEUROLOGICAL: less lethargic, but easily arousable; speech nl, follows commands Assessment & Plan Remarks Sepsis ongoing (fever and tachycardia) Tricuspid valve endocarditis , MSSA - 2D echo + for TV veg - septic emboli cw TV endocarditis - cont to have fever ? CL infection ? un-drained focus of infection. - persistently positive blood clx - SHANNON positive for TV endocarditis, no left side endocarditis Lower back pain: resolving after thoracocenthesis Large right-sided pleural effusion with a small cavitary nodules consistent with the patient's history of septic emboli. Small left-sided pleural effusion - sp thoracoenthesis, clx negative so far Recs: Continue Cefazolin 2 gm q 8hrs duration to be determined(TBD) based on source and bacteremia etc. for MSSA bacteremia/TV endocarditis. dc Cefepime IV 2 gm q8hrs (for new HCAP or line infection possible) dc Vanco IV (target 15-20 for new HAIs possible) dc Micafungin IV (possible Fungal CLABSI) fu P pleural fluid and blood cx Tesha Rodgers MD Sep 08, 2016 16:12
[2016-09-08 20:00] VITALS: BP 119/82; PULSE 111; RESP 20; TEMP 98.6; O2SAT 96
[2016-09-08] MEDS: ENOXAPARIN SODIUM 40 MG/0.4 ML SYRINGE SQ SCH (21:09)
[2016-09-09] VITALS: BP 126/84; PULSE 96; RESP 18; TEMP 98.2; O2SAT 97
[2016-09-09] MEDS: ceFAZolin 2 GM PREMIX 50 ML IV SCH ×3 (01:31→16:33)
[2016-09-09] MEDS: CHLORHEXIDINE GLUCONATE 2 % 1 PACK (2 CLOTHS) TOP SCH (01:31)
[2016-09-09] MEDS ORDERED: PHARMACY ORDERED LAB ONE (01:45)
[2016-09-09 08:00] VITALS: BP 123/77; PULSE 86; RESP 17; TEMP 98.8; O2SAT 100
[2016-09-09] MEDS: LORATADINE 10 MG TAB PO SCH (08:51)
[2016-09-09] MEDS: DOCUSATE SODIUM 100 MG CAP PO SCH ×2 (08:52→20:40)
[2016-09-09] MEDS: FUROSEMIDE 20 MG TAB PO SCH (08:52)
[2016-09-09] MEDS: PANTOPRAZOLE SOD 40 MG DELAYED RELEASE TAB PO SCH (08:52)
[2016-09-09] MEDS: SENNOSIDES 8.6 MG TAB PO SCH (08:52)
[2016-09-09] MEDS: FAMOTIDINE 20 MG TAB PO SCH ×2 (08:52→20:40)
[2016-09-09] MEDS: amLODIPine BESYLATE 5 MG TAB PO SCH (08:52)
[2016-09-09] MEDS: SODIUM CHLORIDE 0.9% FLUSH 5 ML FLUSH IV FLUSH SCH ×2 (08:53→20:41)
[2016-09-09] MEDS: NYSTATIN SUSP 500,000 U/5 ML CUP SWISH-SWAL SCH ×4 (08:53→20:41)
--- NOTE | 2016-09-09 10:12 | HHI.PR ---
Subjective Remarks Follow up for endocarditis. The patient's acute complaints today. Her chest pain resolved after thoracentesis. Tolerating diet. Denies any fevers or chills. Objective Vitals Vital Signs Date Time Temp Pulse Resp B/P Pulse Ox O2 Delivery O2 Flow Rate FiO2 09/09/16 08:00 98.8 86 17 123/77 100 09/09/16 00:00 98.2 96 18 126/84 97 09/08/16 20:00 98.6 111 20 119/82 96 09/08/16 16:00 99.7 102 16 131/81 100 09/08/16 11:37 98.1 108 20 125/82 100 I/O 09/08/16 09/08/16 09/08/16 09/09/16 09/09/16 09/09/16 07:00 15:00 23:00 07:00 15:00 23:00 Intake Total 710 ml 1291 ml 240 ml Output Total 400 ml 550 ml Balance 310 ml 1291 ml -310 ml Intake Oral 220 ml 480 ml 240 ml IV Total 490 ml 811 ml Output Urine Total 400 ml 550 ml # Voids 3 # Bowel Movements 0 0 0 Result Diagram: 09/07/16 0418 09/07/16 0418 Objective Remarks GENERAL: Well-developed well-nourished. In no acute distress. SKIN: Warm and dry. No lesions noted. HEENT: Normocephalic. Pupils equal and round. Mucous membranes pink and moist. CARDIOVASCULAR: Regular rate and rhythm. Systolic murmur appreciated. RESPIRATORY: No accessory muscle use. Clear to auscultation. Diminished but improved breath sounds right lung base. GASTROINTESTINAL: Abdomen soft, non-tender, nondistended. Bowel sounds x4. MUSCULOSKELETAL: No obvious deformities. No clubbing or cyanosis. Trace edema. NEUROLOGICAL: Awake and alert. No focal neurological deficits. Moves upper and lower extremities spontaneously. Normal speech. PSYCHIATRIC: Appropriate mood and affect; insight and judgment normal. Procedures IJ central line 08/17/2016. 08/18/2016 Echocardiogram - Left ventricle: The cavity size was normal. Wall thickness was normal. Systolic function was normal. The estimated ejection fraction was in the range of 55% to 60%. Wall motion was normal; there were no regional wall motion abnormalities. - Aortic valve: Valve area: 2.08cm^2 (Vmax). - Tricuspid valve: There was a vegetation. Moderate-severe regurgitation. - Pulmonary arteries: PA peak pressure: 42mm Hg (S). A/P Problem List: (1) Sepsis ICD Code: A41.9 Status: Acute (2) Hypotension ICD Code: I95.9 Status: Acute (3) PNA (pneumonia) ICD Code: J18.9 Status: Acute (4) UTI (urinary tract infection) ICD Code: N39.0 Status: Acute (5) TEMO (acute kidney injury) ICD Code: N17.9 Status: Acute (6) IVDU (intravenous drug user) ICD Code: F19.90 Status: Acute (7) Cocaine abuse ICD Code: F14.10 Status: Chronic (8) Thrombocytopenia ICD Code: D69.6 Status: Acute Assessment and Plan 21-year-old female with a history of polysubstance, IV drug use who was admitted to the hospital due to generalized weakness and fever for approximately one week prior to this admission. Patient denied nausea vomiting cough or shortness of breath. Patient used IV drugs 6 days prior to this admission. Her urine drug screen was positive for cocaine. Blood culture grew MSSA and echocardiogram shows tricuspid regurgitation with tricuspid valve vegetation. Infectious disease was consulted and started patient on cefazolin. CT chest showed disseminated small bilateral peripheral nodular infiltrates. MRI brain shows couple of nonspecific punctate white matter bright signal on FLAIR sequence. - Septic shock - resolved. 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 - Pulmonary septic emboli - Blood cultures from 08/24/2016 grew S. Aureus again. Cx from 08/27/2016 with NGTD. - Patient required aggressive IV fluid resuscitation, Levophed, stress dosed steroids. Now blood pressure is stable. - Cardiology evaluated patient. SHANNON did not show any left sided vegetation. - ID (Dr. Rodgers) following. Continue IV cefazolin 2 gm q 8 at least 4 weeks from 1st neg blood culture - Repeat blood cultures collected 09/05 NGTD - 09/06 Still having fevers, Tmax 100.2, HR 113, ID recommended L-spine MRI, repeat HIV screen, and repeat culture from central line and peripherally, removed central line 09/06 - L-spine MRI unremarkable, no significant change from previous - Repeat labs including CBC, BMP, lactic acid all unremarkable 09/07 - Patient with worsening symptoms 09/07, ID recommended adding IV Cefepime, IV Vanco, IV Micafungin, and check stat CT chest/abd/pelvis with IV contrast - Chest CT showed continued cavitary lesions consistent with septic emboli as well as worsening right pleural effusion - ID recommended discontinuing all other antimicrobials and continue on IV cefazolin for now. - Follow up cultures and watch for fevers and further signs of infection - Right pleural effusion, concerning for empyema with findings as above - Consulted IR who performed thoracentesis 09/07 - Initial fluid studies are reassuring - Follow up final culture results - Patient improving - Right shoulder pain - Xray 08/28/2016 showed no acute findings except for small right effusion. - Given naproxen x5 days, DC'd with abdominal pain - Generalized edema with small pleural effusions persistently seen on chest imaging - improved s/p Lasix - Continue low-dose Lasix daily - Continue antibiotics as above - Oral thrush - HIV test negative in 07/2016. - Continue Nystatin Liq. - Hypertension - Continue patient on Amlodipine 5mg Qday. - Acute kidney injury - resolved. 1.82 on admission. Currently below 1.0. - Hypokalemia - resolved. - Hypocalcemia - resolved. Corrected Calcium greater than 8. - Follow up CMP - Polysubstance abuse/IVDU -Hopefully will go to [facility] for drug [facility]hab. - Depression with Suicidal ideations - Psychiatry consulted, appreciate input. - Feeling better. - Possible opioid withdrawal - Initially on methadone, taper and stopped 08/29/2016. - Acetaminophen for pain 1-4, Oxycodone for pain 5-10. - Acute on chronic microcytic anemia - During admission Hemoglobin trended down from 11.2 to 6.7. S/P transfusion 08/26. Hemoccult negative. - Follow-up CBC shows hemoglobin 13.7 - CBC 09/05 with Hgb 8.9, LMP 3 weeks ago, repeat CBC today 09/07 shows improvement with Hgb 9.6 Pleuritic chest pain/shortness of breath Possibly from septic emboli, endocarditis, TR. Decreased breath sounds right lung base. Chest x-ray: Left basilar consolidation. - continue cefazolin. - Sputum culture screened out for normal respiratory ashley and was not cultured - incentive spirometry. - pain control as needed. - S/p diuresis, continue to monitor Mild pancreatitis: Patient reported abdominal discomfort on 09/01/16. Lipase was checked and was elevated. Remained elevated 09/02/16. No further complaints. - Continue H2 ivanna for reflux. - DC'd naproxen. - Consult GI if further symptoms. - Monitor. Sinus congestion: - Started loratadine, improving Moderate Protein Calorie Malnutrition: patient with weight loss throughout admission, now down to 111lbs - start on chocolate Boost tid with meals - monitor weights Full code. Lovenox. Famotidine. Discussed with Dr. Rodgers (ID). We can possibly transfer patient to [place] to finish abx course. Written by Frederick Melendez, acting as scribe for Dr. Phoenix on 09/09/16 at 10:11. All or portions of this note were transcribed by scribe HORTENCIA Villegas. I, Dr. Anant Phoenix personally performed the history, physical exam, and medical decision making; and confirmed the accuracy of the information in the transcribed note. Authenticated by Dr. Anant Phoenix on 09/09/16 at 17:32. Discharge Planning Will need to remain inpatient for IV antibiotics for 4 weeks after first negative blood culture due to IV drug use history and inability to have central venous access as outpatient. Problem Qualifiers (1) Hypotension: Qualified Code: I95.9 - Hypotension, unspecified hypotension type Frederick Melendez Sep 09, 2016 10:12 Samanta Phoenix DO Sep 09, 2016 17:33
[2016-09-09 12:00] VITALS: BP 131/68; PULSE 108; RESP 18; TEMP 97.9; O2SAT 100
--- NOTE | 2016-09-09 15:14 | HHI.IDPN ---
Subjective Subjective Remarks doing well pain/pressure inL chest resolved pleural fluid clx neg Afebrile All repeat clx neg Antibiotics cefazolin Lines Left CL with no e.o infection Past Medical History IVDU Allergies: Coded Allergies: Amoxicillin (Unverified Allergy, Unknown, rashes, 07/24/15) Objective . Vital Signs Date Time Temp Pulse Resp B/P Pulse Ox O2 Delivery O2 Flow Rate FiO2 09/09/16 12:00 97.9 108 18 131/68 100 09/09/16 08:00 98.8 86 17 123/77 100 09/09/16 00:00 98.2 96 18 126/84 97 09/08/16 20:00 98.6 111 20 119/82 96 09/08/16 16:00 99.7 102 16 131/81 100 09/08/16 09/08/16 09/09/16 15:00 23:00 07:00 Intake Total 1291 ml 240 ml Output Total 550 ml Balance 1291 ml -310 ml Intake Oral 480 ml 240 ml IV Total 811 ml Output Urine Total 550 ml # Voids 3 # Bowel Movements 0 0 . Microbiology Date/Time Procedure Status Source Growth 09/06/16 17:35 Aerobic Blood Culture - Preliminary Resulted Blood Line NO GROWTH IN 3 DAYS 09/06/16 17:35 Anaerobic Blood Culture - Preliminary Resulted Blood Line NO GROWTH IN 3 DAYS 09/06/16 17:35 Aerobic Blood Culture - Preliminary Resulted Blood Peripheral NO GROWTH IN 3 DAYS 09/06/16 17:35 Anaerobic Blood Culture - Preliminary Resulted Blood Peripheral NO GROWTH IN 3 DAYS 09/06/16 17:46 Wound Culture - Final Complete Catheter Tip Central Venous Line NO GROWTH IN 48 HOURS. 09/06/16 17:46 Fungal Culture Received Catheter Tip Central Venous Line Pending 09/07/16 20:12 Gram Stain - Final Resulted Fluid Pleural Fluid 09/07/16 20:12 Body Fluid Culture - Preliminary Resulted Fluid Pleural Fluid NO GROWTH IN 48 HOURS. 09/07/16 20:12 Acid Fast Stain - Final Resulted Fluid Pleural Fluid NO ACID FAST BACILLI SEEN 09/07/16 20:12 Mycobacterial Culture Resulted Fluid Pleural Fluid Pending 09/07/16 20:12 Fungal Smear - Final Resulted Fluid Pleural Fluid NO FUNGAL ELEMENTS SEEN. 09/07/16 20:12 Fungal Culture Resulted Fluid Pleural Fluid Pending Imaging Last Impressions Abdomen/Pelvis CT 09/07/16 [id number] Signed Impressions: Service Date/Time: Wednesday, September 07, 2016 13:44 - CONCLUSION: 1. Large right-sided pleural effusion with a small cavitary nodules consistent with the patient's history of septic emboli. Small left-sided pleural effusion. 2. Mild hepatomegaly and cardiomegaly. Karo Jones MD Thoracentesis Ultrasound 09/07/16 Signed Impressions: Service Date/Time: Wednesday, September 07, 2016 19:43 - CONCLUSION: Uncomplicated ultrasound guided thoracentesis. Rickey Babb MD Chest X-Ray 09/07/16 Signed Impressions: Service Date/Time: Wednesday, September 07, 2016 20:33 - CONCLUSION: 1. No pneumothorax identified post thoracentesis. Saleem Muñoz MD Chest CT 09/07/16 Signed Impressions: Service Date/Time: Wednesday, September 07, 2016 13:44 - CONCLUSION: Multiple bilateral irregular solid and cavitary nodular masses which have largely improved as compared to the prior exam with development of new small cavitary lesions within the right lower lobe and worsening right-sided pleural effusion. Given the patient's prior history of endocarditis this is compatible with septic emboli. Karo Jones MD Lumbar Spine MRI 09/06/16 Signed Impressions: Service Date/Time: Tuesday, September 06, 2016 15:23 - CONCLUSION: Normal examination for a patient of this age. No significant change compared to the prior examination. Martin Andrade MD Shoulder X-Ray 08/28/16 Signed Impressions: Service Date/Time: July 11:44 - CONCLUSION: 1. The shoulder is unremarkable. 2. Small right effusion. Leonardo Pitt Jr., MD Abdomen X-Ray 08/24/16 0000 Signed Impressions: Service Date/Time: Wednesday, August 24, 2016 13:58 - CONCLUSION: No acute disease. Karo Jones MD Upper Extremity Ultrasound 08/19/16 0000 Signed Impressions: Service Date/Time: Friday, August 19, 2016 10:38 - CONCLUSION: 1. Occlusive thrombus within the mid and distal right cephalic vein. 2. Complex hypoechoic area adjacent to the brachial vessels within the antecubital fossa measuring 2.6 x 1.0 x 1.2 cm which is nonspecific. Jose Triana MD Brain MRI 08/19/16 0000 Signed Impressions: Service Date/Time: Friday, August 19, 2016 20:48 - CONCLUSION: The postcontrast portion of the exam is very limited since very little contrast is identified and there are couple of nonspecific punctate white manner bright signal on FLAIR sequence. Timoteo Khalil MD Liver Ultrasound 08/18/16 0000 Signed Impressions: Service Date/Time: Thursday, August 18, 2016 16:18 - CONCLUSION: 1. Small right pleural effusion. 2. The gallbladder is decompressed with minimal intraluminal sludge. No stones. 3. Splenomegaly. Sergei Maldonado MD Physical Exam CONSTITUTIONAL/GENERAL: This is an adequately nourished patient, in no apparent distress. SKIN: No jaundice, rashes, or lesions. No Janeway lesions Skin temperature appropriate. Not diaphoretic. EYES: No scleral icterus. No injection or drainage. Fundi not examined. CARDIOVASCULAR: Regular rate and rhythm +2-3/6 murmur, gallops, or rubs. No JVD. Peripheral pulses symmetric. RESPIRATORY/CHEST: Symmetric, unlabored respirations. Clear to auscultation. Breath sounds equal bilaterally. No wheezes, rales, or rhonchi. GASTROINTESTINAL: Abdomen soft, non-tender, nondistended. No guarding. Bowel sounds present. GENITOURINARY: Without palpable bladder distension. MUSCULOSKELETAL: Extremities without clubbing, cyanosis, 1+ peripheral edema Back: + tenderness to palpation, mild L side, back NEUROLOGICAL: awake, speech nl, follows commands Assessment & Plan Remarks Sepsis = clinically resolved - afebrile - all clx are negative Tricuspid valve endocarditis , MSSA Lower back pain: resolving after thoracocenthesis Large right-sided pleural effusion with a small cavitary nodules consistent with the patient's history of septic emboli. Small left-sided pleural effusion - sp thoracoenthesis, clx negative so far Recs: Continue Cefazolin 2 gm q 8hrs x 2 more weeks if pending blood/pl fluid clx remain negative (4 wks from last neg BC that was on 08/27) dw Dr Alban Rodgers,Tesha Huizar MD Sep 09, 2016 15:14
[2016-09-09 16:00] VITALS: BP 127/69; PULSE 96; RESP 18; TEMP 97.9; O2SAT 100
[2016-09-09 20:00] VITALS: BP 123/81; PULSE 97; RESP 20; TEMP 98; O2SAT 99
[2016-09-09] MEDS: ENOXAPARIN SODIUM 40 MG/0.4 ML SYRINGE SQ SCH (20:40)
[2016-09-10] VITALS: BP 114/76; PULSE 89; RESP 20; TEMP 98; O2SAT 100
[2016-09-10] MEDS: ceFAZolin 2 GM PREMIX 50 ML IV SCH ×3 (01:27→16:28)
[2016-09-10] MEDS: CHLORHEXIDINE GLUCONATE 2 % 1 PACK (2 CLOTHS) TOP SCH (04:00)
[2016-09-10 08:00] VITALS: BP 113/77; PULSE 112; RESP 17; TEMP 98.7; O2SAT 99
[2016-09-10] MEDS: SODIUM CHLORIDE 0.9% FLUSH 5 ML FLUSH IV FLUSH SCH ×2 (08:22→20:20)
[2016-09-10] MEDS: PANTOPRAZOLE SOD 40 MG DELAYED RELEASE TAB PO SCH (08:22)
[2016-09-10] MEDS: NYSTATIN SUSP 500,000 U/5 ML CUP SWISH-SWAL SCH ×2 (08:22→12:18)
[2016-09-10] MEDS: DOCUSATE SODIUM 100 MG CAP PO SCH ×2 (08:22→20:19)
[2016-09-10] MEDS: amLODIPine BESYLATE 5 MG TAB PO SCH (08:22)
[2016-09-10] MEDS: FAMOTIDINE 20 MG TAB PO SCH (08:22)
[2016-09-10] MEDS: FUROSEMIDE 20 MG TAB PO SCH (08:22)
[2016-09-10] MEDS: SENNOSIDES 8.6 MG TAB PO SCH (08:22)
[2016-09-10] MEDS: LORATADINE 10 MG TAB PO SCH (08:22)
--- NOTE | 2016-09-10 09:29 | RADRPT ---
EXAM DATE/TIME: 09/10/2016 08:03 [facility] COMPARISON: CHEST EXPIRATION ONLY, September 07, 2016, 20:33. CT THORAX W CONTRAST, September 07, 2016, 13:44. CHEST SI NGLE AP, September 07, 2016, 15:47. INDICATIONS : Patient has chest tube removed yesterday. MEDICAL HISTORY : Hypertension. Endocarditis. SURGICAL HISTORY : section. Tonsillectomy. ENCOUNTER: Subsequent ACUITY: 4 - 6 days PAIN SCORE: 5/10 LOCATION: Left chest FINDINGS: Portable AP view of the chest demonstrates a normal-sized cardiac silhouette. Lungs are underinflated with bibasilar airspace opacity. No pneumothorax is identified. There is subtle airspace opacity at the left lung apex. Bones and soft tissues demonstrate no acute finding. CONCLUSION: 1. No pneumothorax is visualized. 2. Bibasilar airspace opacity likely representing atelectasis with suspected small right pleural effu axel. 3. Stable nodules in the left upper lobe. Rickey Quispe MD on September 10, 2016 at 8:59 Board Certified Radiologist. This report was verified electronically.
--- NOTE | 2016-09-10 10:05 | HHI.PR ---
Subjective Remarks Follow up endocarditis. Patient states pain is more controlled. Denies any shortness of breath. Does complain of occasional diaphoresis overnight. Appetite is good. Has been out of bed independently. Spoke with patient about discharge plans, open to possible drug rehab will continue to converse about plans. Objective Vitals Vital Signs Date Time Temp Pulse Resp B/P Pulse Ox O2 Delivery O2 Flow Rate FiO2 09/10/16 08:00 98.7 112 17 113/77 99 09/10/16 00:00 98.0 89 20 114/76 100 09/09/16 20:00 98.0 97 20 123/81 99 09/09/16 16:00 97.9 96 18 127/69 100 09/09/16 12:00 97.9 108 18 131/68 100 I/O 09/09/16 09/09/16 09/09/16 09/10/16 09/10/16 09/10/16 07:00 15:00 23:00 07:00 15:00 23:00 Intake Total 240 ml 1340 ml 480 ml 120 ml Output Total 550 ml 550 ml Balance -310 ml 790 ml 480 ml 120 ml Intake Oral 240 ml 240 ml 480 ml 120 ml IV Total 1100 ml Output Urine Total 550 ml 550 ml # Voids 3 2 # Bowel Movements 0 0 1 Result Diagram: 09/07/16 0418 09/07/16 0418 Imaging Last Impressions Chest X-Ray 09/10/16 0800 Signed Impressions: Service Date/Time: Saturday, September 10, 2016 08:03 - CONCLUSION: 1. No pneumothorax is visualized. 2. Bibasilar airspace opacity likely representing atelectasis with suspected small right pleural effusion. 3. Stable nodules in the left upper lobe. Rickey Quispe MD Abdomen/Pelvis CT 09/07/16 1319 Signed Impressions: Service Date/Time: Wednesday, September 07, 2016 13:44 - CONCLUSION: 1. Large right-sided pleural effusion with a small cavitary nodules consistent with the patient's history of septic emboli. Small left-sided pleural effusion. 2. Mild hepatomegaly and cardiomegaly. Karo Jones MD Thoracentesis Ultrasound 09/07/16 0000 Signed Impressions: Service Date/Time: Wednesday, September 07, 2016 19:43 - CONCLUSION: Uncomplicated ultrasound guided thoracentesis. Rickey Babb MD Chest CT 09/07/16 0000 Signed Impressions: Service Date/Time: Wednesday, September 07, 2016 13:44 - CONCLUSION: Multiple bilateral irregular solid and cavitary nodular masses which have largely improved as compared to the prior exam with development of new small cavitary lesions within the right lower lobe and worsening right-sided pleural effusion. Given the patient's prior history of endocarditis this is compatible with septic emboli. Karo Jones MD Lumbar Spine MRI 09/06/16 0000 Signed Impressions: Service Date/Time: Tuesday, September 06, 2016 15:23 - CONCLUSION: Normal examination for a patient of this age. No significant change compared to the prior examination. Martin Andrade MD Shoulder X-Ray 08/28/16 0000 Signed Impressions: Service Date/Time: July 11:44 - CONCLUSION: 1. The shoulder is unremarkable. 2. Small right effusion. Leonardo Pitt Jr., MD Abdomen X-Ray 08/24/16 0000 Signed Impressions: Service Date/Time: Wednesday, August 24, 2016 13:58 - CONCLUSION: No acute disease. Karo Jones MD Upper Extremity Ultrasound 08/19/16 0000 Signed Impressions: Service Date/Time: Friday, August 19, 2016 10:38 - CONCLUSION: 1. Occlusive thrombus within the mid and distal right cephalic vein. 2. Complex hypoechoic area adjacent to the brachial vessels within the antecubital fossa measuring 2.6 x 1.0 x 1.2 cm which is nonspecific. Jose Triana MD Brain MRI 08/19/16 0000 Signed Impressions: Service Date/Time: Friday, August 19, 2016 20:48 - CONCLUSION: The postcontrast portion of the exam is very limited since very little contrast is identified and there are couple of nonspecific punctate white manner bright signal on FLAIR sequence. Timoteo Khalil MD Liver Ultrasound 08/18/16 0000 Signed Impressions: Service Date/Time: Thursday, August 18, 2016 16:18 - CONCLUSION: 1. Small right pleural effusion. 2. The gallbladder is decompressed with minimal intraluminal sludge. No stones. 3. Splenomegaly. Sergei Maldonado MD Objective Remarks GENERAL: Well-developed well-nourished. In no acute distress. SKIN: Warm and dry. No lesions noted. HEENT: Normocephalic. Pupils equal and round. Mucous membranes pink and moist. CARDIOVASCULAR: Regular rate and rhythm. Systolic murmur appreciated. RESPIRATORY: No accessory muscle use. Clear to auscultation. Diminished but improved breath sounds right lung base. GASTROINTESTINAL: Abdomen soft, non-tender, nondistended. Bowel sounds x4. MUSCULOSKELETAL: No obvious deformities. No clubbing or cyanosis. Trace edema. NEUROLOGICAL: Awake and alert. No focal neurological deficits. Moves upper and lower extremities spontaneously. Normal speech. PSYCHIATRIC: Appropriate mood and affect; insight and judgment normal. Procedures IJ central line 08/17/2016. 08/18/2016 Echocardiogram - Left ventricle: The cavity size was normal. Wall thickness was normal. Systolic function was normal. The estimated ejection fraction was in the range of 55% to 60%. Wall motion was normal; there were no regional wall motion abnormalities. - Aortic valve: Valve area: 2.08cm^2 (Vmax). - Tricuspid valve: There was a vegetation. Moderate-severe regurgitation. - Pulmonary arteries: PA peak pressure: 42mm Hg (S). A/P Problem List: (1) Sepsis ICD Code: A41.9 Status: Acute (2) Hypotension ICD Code: I95.9 Status: Acute (3) PNA (pneumonia) ICD Code: J18.9 Status: Acute (4) UTI (urinary tract infection) ICD Code: N39.0 Status: Acute (5) TEMO (acute kidney injury) ICD Code: N17.9 Status: Acute (6) IVDU (intravenous drug user) ICD Code: F19.90 Status: Acute (7) Cocaine abuse ICD Code: F14.10 Status: Chronic (8) Thrombocytopenia ICD Code: D69.6 Status: Acute Assessment and Plan 21-year-old female with a history of polysubstance, IV drug use who was admitted to the hospital due to generalized weakness and fever for approximately one week prior to this admission. Patient denied nausea vomiting cough or shortness of breath. Patient used IV drugs 6 days prior to this admission. Her urine drug screen was positive for cocaine. Blood culture grew MSSA and echocardiogram shows tricuspid regurgitation with tricuspid valve vegetation. Infectious disease was consulted and started patient on cefazolin. CT chest showed disseminated small bilateral peripheral nodular infiltrates. MRI brain shows couple of nonspecific punctate white matter bright signal on FLAIR sequence. - Septic shock - resolved. 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 - Pulmonary septic emboli - Blood cultures from 08/24/2016 grew S. Aureus again. Cx from 08/27/2016 with NGTD. - Patient required aggressive IV fluid resuscitation, Levophed, stress dosed steroids. Now blood pressure is stable. - Cardiology evaluated patient. SHANNON did not show any left sided vegetation. - ID (Dr. Rodgers) following. Continue IV cefazolin 2 gm q 8 at least 4 weeks from 1st neg blood culture - Repeat blood cultures collected 09/05 NGTD - 09/06 Still having fevers, Tmax 100.2, HR 113, ID recommended L-spine MRI, repeat HIV screen, and repeat culture from central line and peripherally, removed central line 09/06. - L-spine MRI unremarkable, no significant change from previous - Repeat labs including CBC, BMP, lactic acid all unremarkable 09/07 - Patient with worsening symptoms 09/07, ID recommended adding IV Cefepime, IV Vanco, IV Micafungin, and check stat CT chest/abd/pelvis with IV contrast - Chest CT showed continued cavitary lesions consistent with septic emboli as well as worsening right pleural effusion - ID recommended discontinuing all other antimicrobials and continue on IV cefazolin for now. - Follow up cultures and watch for fevers and further signs of infection. - Right pleural effusion, concerning for empyema with findings as above - Consulted IR who performed thoracentesis 09/07 - Initial fluid studies are reassuring - Follow up final culture results - Patient improving - Right shoulder pain - Xray 08/28/2016 showed no acute findings except for small right effusion. - Given naproxen x5 days, DC'd with abdominal pain - Generalized edema with small pleural effusions persistently seen on chest imaging - improved s/p Lasix - Continue low-dose Lasix daily - Continue antibiotics as above - Oral thrush - HIV test negative in 07/2016, resolved. - Hypertension - Continue patient on Amlodipine 5mg Qday. - Acute kidney injury - resolved. 1.82 on admission. Currently below 1.0. - Polysubstance abuse/IVDU -Hopefully will go to [facility] for drug rehab. - Depression with Suicidal ideations - Psychiatry consulted, appreciate input. - Feeling better. - Possible opioid withdrawal - Initially on methadone, taper and stopped 08/29/2016. - Acetaminophen for pain 1-4, Oxycodone for pain 5-10. - Acute on chronic microcytic anemia - During admission Hemoglobin trended down from 11.2 to 6.7. S/P transfusion 08/26. Hemoccult negative. - Follow-up CBC shows hemoglobin 13.7 - CBC 09/05 with Hgb 8.9, LMP 3 weeks ago, repeat CBC today 09/07 shows improvement with Hgb 9.6 Pleuritic chest pain/shortness of breath Possibly from septic emboli, endocarditis, TR. Decreased breath sounds right lung base. Chest x-ray: Left basilar consolidation. - continue cefazolin. - Sputum culture screened out for normal respiratory ashley and was not cultured - incentive spirometry. - pain control as needed. - S/p diuresis, continue to monitor Mild pancreatitis: Patient reported abdominal discomfort on 09/01/16. Lipase was checked and was elevated. Remained elevated 09/02/16. No further complaints. - DC'd naproxen. - Consult GI if further symptoms. - Monitor. Sinus congestion: - Started loratadine, improving. Moderate Protein Calorie Malnutrition: patient with weight loss throughout admission, now down to 111lbs - start on chocolate Boost tid with meals - monitor weights Full code. Lovenox. Famotidine. Written by Donna Mitchell, acting as scribe for Dr. Phoenix on 09/10/16 at 10:08. All or portions of this note were transcribed by scribe TORSTEN Ramos. I , Dr. Anant Phoenix personally performed the history, physical exam, and medical decision making; and confirmed the accuracy of the information in the transcribed note. Authenticated by Dr. Anant Phoenix on 09/10/16 at 23:58. Discharge Planning Plan will be to transfer patient to [facility] to finish abx course. This was previously discussed with Dr. Rodgers (ID). Problem Qualifiers (1) Hypotension: Qualified Code: I95.9 - Hypotension, unspecified hypotension type Donna Mitchell Sep 10, 2016 10:05 Samanta Phoenix DO Sep 10, 2016 23:58
[2016-09-10 12:00] VITALS: BP 116/75; PULSE 92; RESP 18; TEMP 96.8; O2SAT 99
[2016-09-10 20:00] VITALS: BP 123/85; PULSE 98; RESP 16; TEMP 98.5; O2SAT 100
[2016-09-10] MEDS: ENOXAPARIN SODIUM 40 MG/0.4 ML SYRINGE SQ SCH (20:19)
[2016-09-11] MEDS: ceFAZolin 2 GM PREMIX 50 ML IV SCH ×3 (01:01→17:17)
[2016-09-11] MEDS: CHLORHEXIDINE GLUCONATE 2 % 1 PACK (2 CLOTHS) TOP SCH (04:00)
[2016-09-11 08:00] VITALS: BP 119/92; PULSE 93; RESP 20; TEMP 98.1; O2SAT 100
[2016-09-11] MEDS: DOCUSATE SODIUM 100 MG CAP PO SCH ×2 (08:53→22:01)
[2016-09-11] MEDS: PANTOPRAZOLE SOD 40 MG DELAYED RELEASE TAB PO SCH (08:53)
[2016-09-11] MEDS: LORATADINE 10 MG TAB PO SCH (08:53)
[2016-09-11] MEDS: SENNOSIDES 8.6 MG TAB PO SCH (08:53)
[2016-09-11] MEDS: FUROSEMIDE 20 MG TAB PO SCH (08:53)
[2016-09-11] MEDS: amLODIPine BESYLATE 5 MG TAB PO SCH (08:53)
[2016-09-11] MEDS: SODIUM CHLORIDE 0.9% FLUSH 5 ML FLUSH IV FLUSH SCH ×2 (08:55→22:22)
--- NOTE | 2016-09-11 17:23 | HHI.PR ---
Subjective Remarks Patient seen and examined today. Patient states that she is having some left lower abdominal pain. She has not had a bowel movement in 2 days. Patient does understand my she is here in [place] for continued management of her IV antibiotics. Patient does not want to continued to remain on any narcotic medication when she discharged from the hospital. She plans on staying clean. I discussed with her my plans for discontinuation prior to discharge and she is in agreement at this time. Objective Vitals Vital Signs Date Time Temp Pulse Resp B/P Pulse Ox O2 Delivery O2 Flow Rate FiO2 09/11/16 08:00 98.1 93 20 119/92 100 09/11/16 01:13 16 09/10/16 20:00 98.5 98 16 123/85 100 I/O 09/10/16 09/10/16 09/10/16 09/11/16 09/11/16 09/11/16 07:00 15:00 23:00 07:00 15:00 23:00 Intake Total 120 ml 412 ml 240 ml 310 ml 480 ml Balance 120 ml 412 ml 240 ml 310 ml 480 ml Intake Oral 120 ml 360 ml 240 ml 240 ml 480 ml IV Total 52 ml 70 ml # Voids 2 2 1 2 1 # Bowel Movements 1 0 0 0 Result Diagram: 09/07/16 0418 09/07/16 0418 Imaging Last Impressions Chest X-Ray 09/10/16 0800 Signed Impressions: Service Date/Time: Saturday, September 10, 2016 08:03 - CONCLUSION: 1. No pneumothorax is visualized. 2. Bibasilar airspace opacity likely representing atelectasis with suspected small right pleural effusion. 3. Stable nodules in the left upper lobe. Rickey Quispe MD Abdomen/Pelvis CT 09/07/16 1319 Signed Impressions: Service Date/Time: Wednesday, September 07, 2016 13:44 - CONCLUSION: 1. Large right-sided pleural effusion with a small cavitary nodules consistent with the patient's history of septic emboli. Small left-sided pleural effusion. 2. Mild hepatomegaly and cardiomegaly. Karo Jones MD Thoracentesis Ultrasound 09/07/16 0000 Signed Impressions: Service Date/Time: Wednesday, September 07, 2016 19:43 - CONCLUSION: Uncomplicated ultrasound guided thoracentesis. Rickey Babb MD Chest CT 09/07/16 0000 Signed Impressions: Service Date/Time: Wednesday, September 07, 2016 13:44 - CONCLUSION: Multiple bilateral irregular solid and cavitary nodular masses which have largely improved as compared to the prior exam with development of new small cavitary lesions within the right lower lobe and worsening right-sided pleural effusion. Given the patient's prior history of endocarditis this is compatible with septic emboli. Karo Jones MD Lumbar Spine MRI 09/06/16 0000 Signed Impressions: Service Date/Time: Tuesday, September 06, 2016 15:23 - CONCLUSION: Normal examination for a patient of this age. No significant change compared to the prior examination. Martin Andrade MD Shoulder X-Ray 08/28/16 0000 Signed Impressions: Service Date/Time: July 11:44 - CONCLUSION: 1. The shoulder is unremarkable. 2. Small right effusion. Leonardo Pitt Jr., MD Abdomen X-Ray 08/24/16 0000 Signed Impressions: Service Date/Time: Wednesday, August 24, 2016 13:58 - CONCLUSION: No acute disease. Karo Jones MD Upper Extremity Ultrasound 08/19/16 0000 Signed Impressions: Service Date/Time: Friday, August 19, 2016 10:38 - CONCLUSION: 1. Occlusive thrombus within the mid and distal right cephalic vein. 2. Complex hypoechoic area adjacent to the brachial vessels within the antecubital fossa measuring 2.6 x 1.0 x 1.2 cm which is nonspecific. Jose Triana MD Brain MRI 08/19/16 0000 Signed Impressions: Service Date/Time: Friday, August 19, 2016 20:48 - CONCLUSION: The postcontrast portion of the exam is very limited since very little contrast is identified and there are couple of nonspecific punctate white manner bright signal on FLAIR sequence. Timoteo Khalil MD Liver Ultrasound 08/18/16 0000 Signed Impressions: Service Date/Time: Thursday, August 18, 2016 16:18 - CONCLUSION: 1. Small right pleural effusion. 2. The gallbladder is decompressed with minimal intraluminal sludge. No stones. 3. Splenomegaly. Sergei Maldonado MD Objective Remarks GENERAL: Well-developed, well-nourished, in no acute distress. alert and orientated HEENT: Head is normocephalic without any lesions or masses noted. Facial features are symmetric. Eyesextraocular muscles are intact. Conjunctivae were clear. NECK: Supple without any masses. Trachea midline no deviation. No JVD, CARDIAC: Regular rhythm, regular rate. S1/S2 are heard. No murmurs gallops or rubs. LUNGS: Clear to auscultation bilaterally. No wheeze, rhonchi or rales. No use of accessory muscles on inspiration or expiration. ABDOMEN: Soft, nontender. Nondistended. Bowel sounds heard in all 4 quadrants. No organomegaly or masses. Negative rebound, negative guarding EXTREMITIES: No edema, pulses are equal bilaterally. No cyanosis or clubbing NEUROLOGY: Mood and affect appear appropriate. Cranial nerves II through XII grossly intact. Moving all extremities, speech is clear Procedures IJ central line 08/17/2016. 08/18/2016 Echocardiogram - Left ventricle: The cavity size was normal. Wall thickness was normal. Systolic function was normal. The estimated ejection fraction was in the range of 55% to 60%. Wall motion was normal; there were no regional wall motion abnormalities. - Aortic valve: Valve area: 2.08cm^2 (Vmax). - Tricuspid valve: There was a vegetation. Moderate-severe regurgitation. - Pulmonary arteries: PA peak pressure: 42mm Hg (S). 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 SHANNON shows large tricuspid valve mobile vegetations Infectious disease following the patient and recommended Cefzil and 2 g every 8 hours an date 09/24/16 HIV and hepatitis C testing were negative Pain control Oxycodone 5 mg every 4 hours as needed for pain 510, which change at every 6 hours, plan to discontinue in a week Hypertension, blood pressure stable this time Norvasc 5 mg daily Continue monitor blood pressure remains stable may be a little discontinue Norvasc Acute on chronic microcytic anemia, resolved Transfuse 1 unit of packed red blood cells Iron studies were performed which does show a low iron, however ferritin 247. Continue monitor hemoglobin and transfuse as needed Moderate protein malnutrition BMI 17.4 Nutritional supplements with meals Continue monitor nutritional status Depression with Suicidal ideations Patient was evaluated by psychiatrist who indicates that the patient is not a candidate for admission to psychiatric center. Recommended Haldol if needed for agitation or aggressive behavior. it appears if during the interview the most addressed problem was associated with pain control and opiate abuse. Acute kidney injury, resolved Patient originally presented with a creatinine 1.82. Now has complex to complete normal at 0.66 Right pleural effusion, pleuritic chest pain, generalized edema. There was concerns for empyema, resolved Thoracentesis was performed which was negative for any bacterial etiology Patient continued on Lasix 20 mg daily Right shoulder pain, resolved X-ray was performed which did show small effusion, no aspiration was done at this time Patient was treated with NSAID DVT prevention Sequential compression devices, Lovenox Discharge Planning Discharge planning once IV antibiotics have been completed Carlos A Jarquin Sep 11, 2016 17:23 Moisés Infante MD Sep 11, 2016 22:13
[2016-09-11 20:00] VITALS: BP 122/84; PULSE 109; RESP 18; TEMP 99; O2SAT 99
[2016-09-11] MEDS: ENOXAPARIN SODIUM 40 MG/0.4 ML SYRINGE SQ SCH (22:02)
[2016-09-11] MEDS: ACETAMINOPHEN 325 MG TAB PO PRN (22:21)
[2016-09-12] MEDS ORDERED: diphenhydrAMINE HCL 50 MG/ML VIAL IV PUSH ONE (01:15)
[2016-09-12] MEDS: ceFAZolin 2 GM PREMIX 50 ML IV SCH ×3 (01:56→17:43)
[2016-09-12 05:54] LABS: AUTOMATED NEUTROPHIL # 4.1 TH/MM3 (1.8-7.7); BASOPHIL % 0.7 % (0.0-2.0); EOSINOPHIL # 0.5 TH/MM3 (0-0.4); EOSINOPHIL % 6.7 % (0.0-4.0); HEMATOCRIT 29.1 % (35.0-46.0); LYMPH % 24.9 % (9.0-44.0); LYMPHOCYTE # 1.7 TH/MM3 (1.0-4.8); MEAN CELL VOLUME 78.5 FL (80.0-100.0); MEAN CORPUSCULAR HEMOGLOBIN 26.2 PG (27.0-34.0); MEAN CORPUSCULAR HGB CONC 33.4 % (32.0-36.0); MONO % 10.5 % (0.0-8.0); NEUT % 57.2 % (16.0-70.0); PLATELET COUNT 784 TH/MM3 (150-450); RED BLOOD COUNT 3.71 MIL/MM3 (4.00-5.30); RED CELL DISTRIBUTION WIDTH 18.9 % (11.6-17.2)
[2016-09-12 05:58] LABS: HEMO FLAGS DIFF FINAL
[2016-09-12 06:12] LABS: BICARBONATE 25.6 MEQ/L (21.0-32.0); MAGNESIUM 2.3 MG/DL (1.5-2.5)
--- NOTE | 2016-09-12 08:20 | HHI.PR ---
Subjective Remarks Patient seen and examined today. Patient denies any new complaints today. Patient states no longer experiencing any abdominal pain. Patient states that she had a quite healthy bowel movement yesterday with resolution of her pain. Objective Vitals Vital Signs Date Time Temp Pulse Resp B/P Pulse Ox O2 Delivery O2 Flow Rate FiO2 09/11/16 20:00 99.0 109 18 122/84 99 I/O 09/11/16 09/11/16 09/11/16 09/12/16 09/12/16 09/12/16 07:00 15:00 23:00 07:00 15:00 23:00 Intake Total 310 ml 480 ml 450 ml Balance 310 ml 480 ml 450 ml Intake Oral 240 ml 480 ml 450 ml IV Total 70 ml # Voids 2 1 3 # Bowel Movements 0 1 Result Diagram: 09/12/16 0505 09/12/16 0505 Objective Remarks GENERAL: Well-developed, well-nourished, in no acute distress. alert and orientated HEENT: Head is normocephalic without any lesions or masses noted. Facial features are symmetric. Eyesextraocular muscles are intact. Conjunctivae were clear. NECK: Supple without any masses. Trachea midline no deviation. No JVD, CARDIAC: Regular rhythm, regular rate. S1/S2 are heard. No murmurs gallops or rubs. LUNGS: Clear to auscultation bilaterally. No wheeze, rhonchi or rales. No use of accessory muscles on inspiration or expiration. ABDOMEN: Soft, nontender. Nondistended. Bowel sounds heard in all 4 quadrants. No organomegaly or masses. Negative rebound, negative guarding EXTREMITIES: No edema, pulses are equal bilaterally. No cyanosis or clubbing NEUROLOGY: Mood and affect appear appropriate. Cranial nerves II through XII grossly intact. Moving all extremities, speech is clear Procedures IJ central line 08/17/2016. 08/18/2016 Echocardiogram - Left ventricle: The cavity size was normal. Wall thickness was normal. Systolic function was normal. The estimated ejection fraction was in the range of 55% to 60%. Wall motion was normal; there were no regional wall motion abnormalities. - Aortic valve: Valve area: 2.08cm^2 (Vmax). - Tricuspid valve: There was a vegetation. Moderate-severe regurgitation. - Pulmonary arteries: PA peak pressure: 42mm Hg (S). 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 SHANNON shows multiple large tricuspid valve highly mobile vegetations. 1.7 x 1.2 cm, 1.1 x 1.3 cm. Infectious disease following the patient and recommended Cefzil and 2 g every 8 hours an date 09/24/16 HIV and hepatitis C testing were negative Pain control Oxycodone 5 mg every 4 hours as needed for pain 510, which change at every 6 hours, plan to discontinue in a week (08/18/16) Hypertension, blood pressure stable this time Norvasc 5 mg daily Continue monitor blood pressure remains stable may be a little discontinue Norvasc Acute on chronic microcytic anemia, resolved Transfuse 1 unit of packed red blood cells Iron studies were performed which does show a low iron, however ferritin 247. Continue monitor hemoglobin and transfuse as needed Moderate protein malnutrition BMI 17.4 Nutritional supplements with meals Continue monitor nutritional status Depression with Suicidal ideations Patient was evaluated by psychiatrist who indicates that the patient is not a candidate for admission to psychiatric center. Recommended Haldol if needed for agitation or aggressive behavior. it appears if during the interview the most addressed problem was associated with pain control and opiate abuse. Acute kidney injury, resolved Patient originally presented with a creatinine 1.82. Now has complex to complete normal at 0.66 Right pleural effusion, pleuritic chest pain, generalized edema. There was concerns for empyema, resolved Thoracentesis was performed which was negative for any bacterial etiology Patient continued on Lasix 20 mg daily Right shoulder pain, resolved X-ray was performed which did show small effusion, no aspiration was done at that time Patient was treated with NSAID Therapy services: Continue therapy services until patient has reached maximum medical potential Occupational therapy indicates patient does not need any equipment upon discharge and still continue therapy is to be determined. Physical therapy indicates patient should go home with home health PT as needed , requires supervision at home DVT prevention Sequential compression devices, Lovenox Discharge Planning Discharge planning once IV antibiotics have been completed Carlos A Jarquin Sep 12, 2016 08:20 Moisés Infante MD Sep 12, 2016 16:47
[2016-09-12 08:32] VITALS: BP 113/90; PULSE 98; RESP 19; TEMP 97.8; O2SAT 100
[2016-09-12] MEDS: FUROSEMIDE 20 MG TAB PO SCH (09:12)
[2016-09-12] MEDS: DOCUSATE SODIUM 100 MG CAP PO SCH ×2 (09:13→21:00)
[2016-09-12] MEDS: SENNOSIDES 8.6 MG TAB PO SCH (09:13)
[2016-09-12] MEDS: amLODIPine BESYLATE 5 MG TAB PO SCH (09:13)
[2016-09-12] MEDS: PANTOPRAZOLE SOD 40 MG DELAYED RELEASE TAB PO SCH (09:13)
[2016-09-12] MEDS: LORATADINE 10 MG TAB PO SCH (09:13)
[2016-09-12] MEDS: SODIUM CHLORIDE 0.9% FLUSH 5 ML FLUSH IV FLUSH SCH ×2 (09:19→21:23)
[2016-09-12 20:00] VITALS: BP 127/95; PULSE 110; RESP 19; TEMP 98.6; O2SAT 100
[2016-09-12] MEDS: ENOXAPARIN SODIUM 40 MG/0.4 ML SYRINGE SQ SCH (21:25)
[2016-09-13] MEDS: ceFAZolin 2 GM PREMIX 50 ML IV SCH ×2 (01:54→10:10)
[2016-09-13] MEDS ORDERED: diphenhydrAMINE HCL 50 MG/ML VIAL IV PUSH ONE ×2 (02:30→11:00)
[2016-09-13 08:00] VITALS: BP 116/87; PULSE 82; PULSE 92; RESP 16; TEMP 97.5; O2SAT 100
[2016-09-13] MEDS: amLODIPine BESYLATE 5 MG TAB PO SCH (08:10)
[2016-09-13] MEDS: SENNOSIDES 8.6 MG TAB PO SCH (08:10)
[2016-09-13] MEDS: PANTOPRAZOLE SOD 40 MG DELAYED RELEASE TAB PO SCH (08:11)
[2016-09-13] MEDS: FUROSEMIDE 20 MG TAB PO SCH (08:11)
[2016-09-13] MEDS: DOCUSATE SODIUM 100 MG CAP PO SCH ×2 (08:11→20:11)
[2016-09-13] MEDS: LORATADINE 10 MG TAB PO SCH (08:12)
[2016-09-13] MEDS: SODIUM CHLORIDE 0.9% FLUSH 5 ML FLUSH IV FLUSH SCH ×2 (10:10→20:12)
[2016-09-13] MEDS ORDERED: VANCOMYCIN INJ 1,000 MG in SODIUM CHLOR 0.9% 250 ML INJ 250 ML IV ONE (12:00)
[2016-09-13] MEDS ORDERED: Vancomycin Consult Pharmacy 1 EA OTHER SCH (12:00)
--- NOTE | 2016-09-13 12:00 | HHI.PR ---
Subjective Remarks Patient seen and examined today with Dr. Infante. Patient states that she developed a rash on her left arm last night after receiving her antibiotic. Improved after use of Benadryl. Patient did undergo infusion again this morning with significant rash reappearing in the arm at the IV receiving the antibiotic. Objective Vitals Vital Signs Date Time Temp Pulse Resp B/P Pulse Ox O2 Delivery O2 Flow Rate FiO2 09/13/16 08:00 97.5 82 16 116/87 100 09/13/16 08:00 97.5 92 16 116/87 100 09/12/16 20:00 98.6 110 19 127/95 100 I/O 09/12/16 09/12/16 09/12/16 09/13/16 09/13/16 09/13/16 07:00 15:00 23:00 07:00 15:00 23:00 Intake Total 450 ml 100 ml 1340 ml 120 ml Balance 450 ml 100 ml 1340 ml 120 ml Intake Oral 450 ml 1340 ml 120 ml IV Total 100 ml # Voids 3 4 1 # Bowel Movements 1 1 Result Diagram: 09/12/16 0505 09/12/16 0505 Objective Remarks GENERAL: Well-developed, well-nourished, in no acute distress. alert and orientated HEENT: Head is normocephalic without any lesions or masses noted. Facial features are symmetric. Eyesextraocular muscles are intact. Conjunctivae were clear. NECK: Supple without any masses. Trachea midline no deviation. No JVD, CARDIAC: Regular rhythm, regular rate. S1/S2 are heard. No murmurs gallops or rubs. LUNGS: Clear to auscultation bilaterally. No wheeze, rhonchi or rales. No use of accessory muscles on inspiration or expiration. ABDOMEN: Soft, nontender. Nondistended. Bowel sounds heard in all 4 quadrants. No organomegaly or masses. Negative rebound, negative guarding EXTREMITIES: No edema, pulses are equal bilaterally. No cyanosis or clubbing NEUROLOGY: Mood and affect appear appropriate. Cranial nerves II through XII grossly intact. Moving all extremities, speech is clear LEFT UPPER EXTREMITY: Patient does have development of wheals in the left upper extremity, mild erythema noted around IV site after infusion antibiotic Procedures IJ central line 08/17/2016. 08/18/2016 Echocardiogram - Left ventricle: The cavity size was normal. Wall thickness was normal. Systolic function was normal. The estimated ejection fraction was in the range of 55% to 60%. Wall motion was normal; there were no regional wall motion abnormalities. - Aortic valve: Valve area: 2.08cm^2 (Vmax). - Tricuspid valve: There was a vegetation. Moderate-severe regurgitation. - Pulmonary arteries: PA peak pressure: 42mm Hg (S). 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 SHANNON shows multiple large tricuspid valve highly mobile vegetations. 1.7 x 1.2 cm, 1.1 x 1.3 cm. Infectious disease following the patient and recommended changing to vancomycin with end date 09/24/16 HIV and hepatitis C testing were negative Pain control Oxycodone 5 mg every 4 hours as needed for pain 510, which change at every 6 hours, plan to discontinue in a week (08/18/16) Hypersensitivity reaction to cephalosporin. Patient does have history of amoxicillin allergy Give Benadryl now and as needed Discuss with infectious disease who indicated we can discontinue Ancef and start vancomycin Hypertension, blood pressure stable this time Norvasc 5 mg daily Continue monitor blood pressure remains stable may be a little discontinue Norvasc Acute on chronic microcytic anemia, resolved Transfuse 1 unit of packed red blood cells Iron studies were performed which does show a low iron, however ferritin 247. Continue monitor hemoglobin and transfuse as needed Moderate protein malnutrition BMI 17.4 Nutritional supplements with meals Continue monitor nutritional status Depression with Suicidal ideations Patient was evaluated by psychiatrist who indicates that the patient is not a candidate for admission to psychiatric center. Recommended Haldol if needed for agitation or aggressive behavior. it appears if during the interview the most addressed problem was associated with pain control and opiate abuse. Acute kidney injury, resolved Patient originally presented with a creatinine 1.82. Now has complex to complete normal at 0.66 Right pleural effusion, pleuritic chest pain, generalized edema. There was concerns for empyema, resolved Thoracentesis was performed which was negative for any bacterial etiology Patient continued on Lasix 20 mg daily Right shoulder pain, resolved X-ray was performed which did show small effusion, no aspiration was done at that time Patient was treated with NSAID Therapy services: Continue therapy services until patient has reached maximum medical potential Occupational therapy indicates patient does not need any equipment upon discharge and still continue therapy is to be determined. Physical therapy indicates patient should go home with home health PT as needed , requires supervision at home DVT prevention Sequential compression devices, Lovenox Written by Carlos A Jarquin, acting as scribe for Dr. Infante on 09/13/16 at 11: 59. This note was transcribed by scribe Carlos A Jarquin. I, Dr. Moisés Infante personally performed the history, physical exam, and medical decision making; and confirmed the accuracy of the information in the transcribed note. Authenticated by Dr. Moisés Infante on 09/13/16 at 14:14. Discharge Planning Discharge planning once IV antibiotics have been completed Carlos A Jarquin Sep 13, 2016 11:59 Moisés Infante MD Sep 13, 2016 14:15
[2016-09-13] MEDS: VANCOMYCIN INJ 750 MG in SODIUM CHLOR 0.9% 250 ML INJ 250 ML IV SCH (14:01)
[2016-09-13] MEDS: diphenhydrAMINE HCL 25 MG CAP PO PRN ×2 (16:54→20:50)
[2016-09-13 20:00] VITALS: BP 122/87; PULSE 103; RESP 16; TEMP 97.1; O2SAT 100
[2016-09-13] MEDS: ENOXAPARIN SODIUM 40 MG/0.4 ML SYRINGE SQ SCH (20:12)
[2016-09-14] MEDS: VANCOMYCIN INJ 750 MG in SODIUM CHLOR 0.9% 250 ML INJ 250 ML IV SCH ×2 (01:20→12:46)
[2016-09-14 08:00] VITALS: BP 129/101; PULSE 95; RESP 17; TEMP 96.5; O2SAT 100
[2016-09-14 08:02] VITALS: BP 116/87; PULSE 92; RESP 16; TEMP 97.5; O2SAT 100
[2016-09-14] MEDS: amLODIPine BESYLATE 5 MG TAB PO SCH (09:05)
[2016-09-14] MEDS: FUROSEMIDE 20 MG TAB PO SCH (09:05)
[2016-09-14] MEDS: LORATADINE 10 MG TAB PO SCH (09:05)
[2016-09-14] MEDS: PANTOPRAZOLE SOD 40 MG DELAYED RELEASE TAB PO SCH (09:05)
[2016-09-14] MEDS: diphenhydrAMINE HCL 25 MG CAP PO PRN ×3 (09:05→22:05)
[2016-09-14] MEDS: SENNOSIDES 8.6 MG TAB PO SCH (09:06)
[2016-09-14] MEDS: DOCUSATE SODIUM 100 MG CAP PO SCH ×2 (09:07→20:33)
[2016-09-14] MEDS: SODIUM CHLORIDE 0.9% FLUSH 5 ML FLUSH IV FLUSH SCH ×2 (09:11→20:33)
--- NOTE | 2016-09-14 12:15 | HHI.PR ---
Subjective Remarks Patient seen and examined today. Patient still developing papules on left forearm which wax and wane. Benadryl does help. Patient denies any shortness of breath, dyspnea, dysphagia Objective Vitals Vital Signs Date Time Temp Pulse Resp B/P Pulse Ox O2 Delivery O2 Flow Rate FiO2 09/14/16 08:00 96.5 95 17 129/101 100 09/13/16 21:20 16 09/13/16 20:00 97.1 103 16 122/87 100 09/13/16 20:00 97.1 103 16 122/87 100 I/O 09/13/16 09/13/16 09/13/16 09/14/16 09/14/16 09/14/16 07:00 15:00 23:00 07:00 15:00 23:00 Intake Total 120 ml 480 ml 480 ml 480 ml Balance 120 ml 480 ml 480 ml 480 ml Intake Oral 120 ml 480 ml 480 ml 480 ml # Voids 1 2 1 2 # Bowel Movements 0 1 0 Result Diagram: 09/12/16 0505 09/14/16 0655 Objective Remarks GENERAL: Well-developed, well-nourished, in no acute distress. alert and orientated HEENT: Head is normocephalic without any lesions or masses noted. Facial features are symmetric. Eyesextraocular muscles are intact. Conjunctivae were clear. NECK: Supple without any masses. Trachea midline no deviation. No JVD, CARDIAC: Regular rhythm, regular rate. S1/S2 are heard. No murmurs gallops or rubs. LUNGS: Clear to auscultation bilaterally. No wheeze, rhonchi or rales. No use of accessory muscles on inspiration or expiration. ABDOMEN: Soft, nontender. Nondistended. Bowel sounds heard in all 4 quadrants. No organomegaly or masses. Negative rebound, negative guarding EXTREMITIES: No edema, pulses are equal bilaterally. No cyanosis or clubbing NEUROLOGY: Mood and affect appear appropriate. Cranial nerves II through XII grossly intact. Moving all extremities, speech is clear LEFT UPPER EXTREMITY: Patient still has some wheals on the left medial forearm, Procedures IJ central line 08/17/2016. 08/18/2016 Echocardiogram - Left ventricle: The cavity size was normal. Wall thickness was normal. Systolic function was normal. The estimated ejection fraction was in the range of 55% to 60%. Wall motion was normal; there were no regional wall motion abnormalities. - Aortic valve: Valve area: 2.08cm^2 (Vmax). - Tricuspid valve: There was a vegetation. Moderate-severe regurgitation. - Pulmonary arteries: PA peak pressure: 42mm Hg (S). 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 SHANNON shows multiple large tricuspid valve highly mobile vegetations. 1.7 x 1.2 cm, 1.1 x 1.3 cm. Infectious disease following the patient and recommended changing to vancomycin with end date 09/24/16 HIV and hepatitis C testing were negative Pain control Oxycodone 5 mg every 4 hours as needed for pain 510, which change at every 6 hours, plan to discontinue in a week (08/18/16) ? Hypersensitivity reaction to cephalosporin. Patient does have history of amoxicillin allergy Give Benadryl now and as needed Discuss with infectious disease who indicated we can discontinue Ancef and start vancomycin Hypertension, blood pressure stable this time Norvasc 5 mg daily Continue monitor blood pressure remains stable may be a little discontinue Norvasc Acute on chronic microcytic anemia, resolved Transfuse 1 unit of packed red blood cells Iron studies were performed which does show a low iron, however ferritin 247. Continue monitor hemoglobin and transfuse as needed Moderate protein malnutrition BMI 17.4 Nutritional supplements with meals Continue monitor nutritional status Depression with Suicidal ideations Patient was evaluated by psychiatrist who indicates that the patient is not a candidate for admission to psychiatric center. Recommended Haldol if needed for agitation or aggressive behavior. it appears if during the interview the most addressed problem was associated with pain control and opiate abuse. Acute kidney injury, resolved Patient originally presented with a creatinine 1.82. Now has complex to complete normal at 0.66 Right pleural effusion, pleuritic chest pain, generalized edema. There was concerns for empyema, resolved Thoracentesis was performed which was negative for any bacterial etiology Patient continued on Lasix 20 mg daily Right shoulder pain, resolved X-ray was performed which did show small effusion, no aspiration was done at that time Patient was treated with NSAID Therapy services: Continue therapy services until patient has reached maximum medical potential Occupational therapy indicates patient does not need any equipment upon discharge and still continue therapy is to be determined. Physical therapy indicates patient should go home with home health PT as needed , requires supervision at home DVT prevention Sequential compression devices, Lovenox Discharge Planning Discharge planning once IV antibiotics have been completed Carlos A Jarquin Sep 14, 2016 12:15 Moisés Infante MD Sep 14, 2016 16:10
[2016-09-14 20:00] VITALS: BP 115/87; PULSE 104; RESP 20; TEMP 97.6; O2SAT 100
[2016-09-14] MEDS: ENOXAPARIN SODIUM 40 MG/0.4 ML SYRINGE SQ SCH (20:33)
[2016-09-15] MEDS: VANCOMYCIN INJ 750 MG in SODIUM CHLOR 0.9% 250 ML INJ 250 ML IV SCH ×3 (00:47→22:26)
[2016-09-15] MEDS: diphenhydrAMINE HCL 25 MG CAP PO PRN ×3 (04:47→17:42)
[2016-09-15 08:00] VITALS: BP 101/82; PULSE 83; RESP 18; TEMP 97.7; O2SAT 100
[2016-09-15] MEDS: FUROSEMIDE 20 MG TAB PO SCH (09:00)
[2016-09-15] MEDS: SODIUM CHLORIDE 0.9% FLUSH 5 ML FLUSH IV FLUSH SCH ×2 (10:05→21:06)
[2016-09-15] MEDS: DOCUSATE SODIUM 100 MG CAP PO SCH ×2 (10:06→21:06)
[2016-09-15] MEDS: LORATADINE 10 MG TAB PO SCH (10:07)
[2016-09-15] MEDS: PANTOPRAZOLE SOD 40 MG DELAYED RELEASE TAB PO SCH (10:07)
[2016-09-15] MEDS: SENNOSIDES 8.6 MG TAB PO SCH (10:07)
[2016-09-15] MEDS: amLODIPine BESYLATE 5 MG TAB PO SCH (10:07)
--- NOTE | 2016-09-15 10:41 | HHI.PR ---
Subjective Remarks Patient seen and examined today with Dr. Infante for follow-up on endocarditis, bacteremia, septic pulmonary emboli, skin rash. Patient still has a mild skin rash on her left forearm and has remained persistent, no significant worsening with administration of antibiotics at this time. Nursing staff found empty insulin syringes in her room. She states that she is not using. She states that she believes that her boyfriend left and there. She indicates that she told her boyfriend no longer to come to the hospital. Patient denies any shortness of breath, dyspnea, difficulty eating, worsening of rash Objective Vitals Vital Signs Date Time Temp Pulse Resp B/P Pulse Ox O2 Delivery O2 Flow Rate FiO2 09/15/16 05:47 16 09/14/16 20:00 97.6 104 20 115/87 100 09/14/16 20:00 97.6 104 20 115/87 100 I/O 09/14/16 09/14/16 09/14/16 09/15/16 09/15/16 09/15/16 07:00 15:00 23:00 07:00 15:00 23:00 Intake Total 480 ml 780 ml 480 ml 390 ml Balance 480 ml 780 ml 480 ml 390 ml Intake Oral 480 ml 530 ml 480 ml 120 ml IV Total 250 ml 270 ml # Voids 2 2 3 1 # Bowel Movements 0 0 0 0 Result Diagram: 09/12/16 0505 09/14/16 0655 Objective Remarks GENERAL: Well-developed, well-nourished, in no acute distress. alert and orientated HEENT: Head is normocephalic without any lesions or masses noted. Facial features are symmetric. Eyes extraocular muscles are intact. Conjunctivae were clear. NECK: Supple without any masses. Trachea midline no deviation. No JVD, CARDIAC: Regular rhythm, regular rate. S1/S2 are heard. No murmurs gallops or rubs. LUNGS: Clear to auscultation bilaterally. No wheeze, rhonchi or rales. No use of accessory muscles on inspiration or expiration. ABDOMEN: Soft, nontender. Nondistended. Bowel sounds heard in all 4 quadrants. No organomegaly or masses. Negative rebound, negative guarding EXTREMITIES: No edema, pulses are equal bilaterally. No cyanosis or clubbing NEUROLOGY: Mood and affect appear appropriate. Cranial nerves II through XII grossly intact. Moving all extremities, speech is clear LEFT UPPER EXTREMITY: Patient still has some papules on the left medial forearm, Procedures IJ central line 08/17/2016. 08/18/2016 Echocardiogram - Left ventricle: The cavity size was normal. Wall thickness was normal. Systolic function was normal. The estimated ejection fraction was in the range of 55% to 60%. Wall motion was normal; there were no regional wall motion abnormalities. - Aortic valve: Valve area: 2.08cm^2 (Vmax). - Tricuspid valve: There was a vegetation. Moderate-severe regurgitation. - Pulmonary arteries: PA peak pressure: 42mm Hg (S). 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 SHANNON shows multiple large tricuspid valve highly mobile vegetations. 1.7 x 1.2 cm, 1.1 x 1.3 cm. Infectious disease following the patient and recommended changing to vancomycin with end date 09/24/16 HIV and hepatitis C testing were negative Insulin syringes found in patient's room. Patient states that there are from her boyfriend. Patient counseled extensively on continued IV drug use Pain control Oxycodone 5 mg every 4 hours as needed for pain 510, which change at every 6 hours, plan to discontinue in a week (08/18/16) ? Hypersensitivity reaction to cephalosporin. Patient does have history of amoxicillin allergy Give Benadryl now and as needed Discuss with infectious disease who indicated we can discontinue Ancef and start vancomycin Obtaining total IgE level Start Lotrisone cream Hypertension, blood pressure stable this time Norvasc 5 mg daily Continue monitor blood pressure remains stable may be a little discontinue Norvasc Acute on chronic microcytic anemia, resolved Transfuse 1 unit of packed red blood cells Iron studies were performed which does show a low iron, however ferritin 247. Continue monitor hemoglobin and transfuse as needed Moderate protein malnutrition BMI 17.4 Nutritional supplements with meals Continue monitor nutritional status Depression with Suicidal ideations Patient was evaluated by psychiatrist who indicates that the patient is not a candidate for admission to psychiatric center. Recommended Haldol if needed for agitation or aggressive behavior. it appears during the interview the most addressed problem was about pain control and opiate abuse. Acute kidney injury, resolved Patient originally presented with a creatinine 1.82. Now has complex to complete normal at 0.66 Right pleural effusion, pleuritic chest pain, generalized edema. There was concerns for empyema, resolved Thoracentesis was performed which was negative for any bacterial etiology Patient continued on Lasix 20 mg daily Right shoulder pain, resolved X-ray was performed which did show small effusion, no aspiration was done at that time Patient was treated with NSAID Therapy services: Continue therapy services until patient has reached maximum medical potential Occupational therapy indicates patient does not need any equipment upon discharge and still continue therapy is to be determined. Physical therapy indicates patient should go home with home health PT as needed , requires supervision at home DVT prevention Sequential compression devices, Lovenox Written by Carlos A Jarquin, acting as scribe for Dr. Infante on 09/15/16 at 10: 41. This note was transcribed by scribe Carlos A Jarquin. I, Dr. Moisés Infante personally performed the history, physical exam, and medical decision making; and confirmed the accuracy of the information in the transcribed note. Authenticated by Dr. Moisés Infante on 09/15/16 at 15:32. Discharge Planning Discharge planning once IV antibiotics have been completed Carlos A Jarquin Sep 15, 2016 10:41 Moisés Infante MD Sep 15, 2016 15:33
[2016-09-15] MEDS ORDERED: PHARMACY ORDERED LAB ONE (12:45)
[2016-09-15] MEDS: BETAMETHASONE/CLOTRIMAZOLE CREAM 15 GM TOPICAL SCH ×2 (13:59→21:06)
[2016-09-15 20:00] VITALS: BP 108/83; PULSE 104; RESP 20; TEMP 98.4; O2SAT 99
[2016-09-15] MEDS: ENOXAPARIN SODIUM 40 MG/0.4 ML SYRINGE SQ SCH (21:06)
[2016-09-15] MEDS: SODIUM CHLORIDE 0.9% FLUSH 5 ML FLUSH IV FLUSH PRN (22:26)
[2016-09-15] MEDS: ONDANSETRON ODT 4 MG TAB PO PRN (22:31)
[2016-09-16] MEDS: diphenhydrAMINE HCL 25 MG CAP PO PRN ×5 (00:10→23:51)
[2016-09-16] MEDS: VANCOMYCIN INJ 750 MG in SODIUM CHLOR 0.9% 250 ML INJ 250 ML IV SCH ×4 (06:10→22:00)
[2016-09-16] MEDS: SODIUM CHLORIDE 0.9% FLUSH 5 ML FLUSH IV FLUSH PRN ×2 (06:10→21:45)
[2016-09-16 08:00] VITALS: BP 117/89; PULSE 88; RESP 16; TEMP 97.4; O2SAT 100
[2016-09-16] MEDS: DOCUSATE SODIUM 100 MG CAP PO SCH ×2 (09:39→20:01)
[2016-09-16] MEDS: amLODIPine BESYLATE 5 MG TAB PO SCH (09:39)
[2016-09-16] MEDS: FUROSEMIDE 20 MG TAB PO SCH (09:39)
[2016-09-16] MEDS: LORATADINE 10 MG TAB PO SCH (09:39)
[2016-09-16] MEDS: PANTOPRAZOLE SOD 40 MG DELAYED RELEASE TAB PO SCH (09:39)
[2016-09-16] MEDS: SODIUM CHLORIDE 0.9% FLUSH 5 ML FLUSH IV FLUSH SCH ×2 (09:39→20:01)
[2016-09-16] MEDS: SENNOSIDES 8.6 MG TAB PO SCH (09:39)
[2016-09-16] MEDS: BETAMETHASONE/CLOTRIMAZOLE CREAM 15 GM TOPICAL SCH ×2 (09:40→20:04)
--- NOTE | 2016-09-16 14:53 | HHI.PR ---
Subjective Remarks Follow-up for endocarditis and rash. The patient continues to have rash on her left arm, states it is improved with Benadryl, but has not gone away. She hasn' t really been using Lotrisone cream. She states the rash did not improve with antibiotic change. She states the rash has been present since she was transferred to [place], unsure what she meant, and contact with here that would've incited it. She denies any chest pain or shortness of breath. She denies any fevers or chills. Objective Vitals Vital Signs Date Time Temp Pulse Resp B/P Pulse Ox O2 Delivery O2 Flow Rate FiO2 09/16/16 13:13 18 09/16/16 08:00 97.4 88 16 117/89 100 09/15/16 20:00 98.4 104 20 108/83 99 I/O 09/15/16 09/15/16 09/15/16 09/16/16 09/16/16 09/16/16 07:00 15:00 23:00 07:00 15:00 23:00 Intake Total 390 ml 1080 ml 550 ml Balance 390 ml 1080 ml 550 ml Intake Oral 120 ml 1080 ml 300 ml IV Total 270 ml 250 ml # Voids 1 4 3 # Bowel Movements 0 0 0 # Sanitary Pads 1 Pads Result Diagram: 09/12/16 0505 09/16/16 0425 Objective Remarks GENERAL: Well-developed well-nourished. In no acute distress. SKIN: Warm and dry. Left arm with papular rash. HEENT: Normocephalic. Pupils equal and round. Mucous membranes pink and moist. CARDIOVASCULAR: Regular rate and rhythm. Systolic murmur appreciated. RESPIRATORY: No accessory muscle use. Clear to auscultation. Diminished but improved breath sounds right lung base. GASTROINTESTINAL: Abdomen soft, non-tender, nondistended. Bowel sounds x4. MUSCULOSKELETAL: No obvious deformities. No clubbing or cyanosis. No edema. NEUROLOGICAL: Awake and alert. No focal neurological deficits. Moves upper and lower extremities spontaneously. Normal speech. PSYCHIATRIC: Appropriate mood and affect; insight and judgment normal. Procedures IJ central line 08/17/2016. 08/18/2016 Echocardiogram - Left ventricle: The cavity size was normal. Wall thickness was normal. Systolic function was normal. The estimated ejection fraction was in the range of 55% to 60%. Wall motion was normal; there were no regional wall motion abnormalities. - Aortic valve: Valve area: 2.08cm^2 (Vmax). - Tricuspid valve: There was a vegetation. Moderate-severe regurgitation. - Pulmonary arteries: PA peak pressure: 42mm Hg (S). A/P Problem List: (1) Sepsis ICD Code: A41.9 Status: Acute (2) Hypotension ICD Code: I95.9 Status: Acute (3) PNA (pneumonia) ICD Code: J18.9 Status: Acute (4) UTI (urinary tract infection) ICD Code: N39.0 Status: Acute (5) TEMO (acute kidney injury) ICD Code: N17.9 Status: Acute (6) IVDU (intravenous drug user) ICD Code: F19.90 Status: Acute (7) Cocaine abuse ICD Code: F14.10 Status: Chronic (8) Thrombocytopenia ICD Code: D69.6 Status: Acute Assessment and Plan 21-year-old female with a history of polysubstance, IV drug use who was admitted to the hospital due to generalized weakness and fever for approximately one week prior to this admission. Patient denied nausea vomiting cough or shortness of breath. Patient used IV drugs 6 days prior to this admission. Her urine drug screen was positive for cocaine. Blood culture grew MSSA and echocardiogram shows tricuspid regurgitation with tricuspid valve vegetation. Infectious disease was consulted and started patient on cefazolin. CT chest showed disseminated small bilateral peripheral nodular infiltrates. MRI brain shows couple of nonspecific punctate white matter bright signal on FLAIR sequence. - Septic shock - resolved. 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 - Pulmonary septic emboli - Blood cultures from 08/24/2016 grew S. Aureus. Cx from 08/27/2016 with NGTD. - Echocardiogram and SHANNON did indicate tricuspid valve with echo dense mass measuring 1 x 0.5 cm. - ID (Dr. Rodgers) following. Continue IV vancomycin until 09/24/16 - Pain control with oral oxycodone - Right pleural effusion, s/p thoracentesis with improvement in symptoms - Final culture results with no signs of empyema - Right shoulder pain - Xray 08/28/2016 showed no acute findings except for small right effusion. -Treated with naproxen x5 days, improved - Generalized edema with small pleural effusions persistently seen on chest imaging, improved - Continue Lasix daily - Hypertension, BP has improved - Hold Amlodipine 5mg for now, may need to discontinue - Acute kidney injury - creatinine 1.82 on admission. Creatinine now within normal limits. Resolved. Currently below 1.0. - Polysubstance abuse/IVDU -Hopefully will go to [facility] for drug [facility]. - Depression with Suicidal ideations - Psychiatry consulted, appreciate input. - Acute on chronic microcytic anemia - During admission Hemoglobin trended down from 11.2 to 6.7. S/P transfusion 1 unit PRBC 08/26. Hemoccult negative. - Hemoglobin is stable on follow-up CBC - Iron studies were performed which does show a low iron, however ferritin 247. - Monitor Moderate Protein Calorie Malnutrition: PMI 17.4 - Continue nutritional supplement with meals - monitor nutritional status Lovenox. SCDs. Discharge Planning Will need to remain inpatient for IV antibiotics for 4 weeks after first negative blood culture due to IV drug use history and inability to have central venous access as outpatient. Plan to remain admitted for IV antibiotics until . Problem Qualifiers (1) Hypotension: Qualified Code: I95.9 - Hypotension, unspecified hypotension type Frederick Melendez Sep 16, 2016 14:53
[2016-09-16 20:00] VITALS: BP 111/79; PULSE 98; RESP 19; TEMP 97.4; O2SAT 100
[2016-09-16] MEDS: ENOXAPARIN SODIUM 40 MG/0.4 ML SYRINGE SQ SCH (20:02)
[2016-09-16] MEDS ORDERED: CLINDAMYCIN 150 MG CAP PO ONE (23:45)
[2016-09-17] MEDS ORDERED: PHARMACY ORDERED LAB ONE (05:45)
[2016-09-17] MEDS: VANCOMYCIN INJ 750 MG in SODIUM CHLOR 0.9% 250 ML INJ 250 ML IV SCH ×3 (06:00→22:22)
[2016-09-17] MEDS: diphenhydrAMINE HCL 25 MG CAP PO PRN ×3 (06:42→18:05)
[2016-09-17 08:00] VITALS: BP 108/77; PULSE 85; RESP 16; TEMP 97.4; O2SAT 100
[2016-09-17] MEDS: SODIUM CHLORIDE 0.9% FLUSH 5 ML FLUSH IV FLUSH SCH ×2 (09:00→21:02)
[2016-09-17] MEDS: PANTOPRAZOLE SOD 40 MG DELAYED RELEASE TAB PO SCH (09:18)
[2016-09-17] MEDS: SENNOSIDES 8.6 MG TAB PO SCH (09:18)
[2016-09-17] MEDS: BETAMETHASONE/CLOTRIMAZOLE CREAM 15 GM TOPICAL SCH ×2 (09:18→21:01)
[2016-09-17] MEDS: LORATADINE 10 MG TAB PO SCH (09:18)
[2016-09-17] MEDS: DOCUSATE SODIUM 100 MG CAP PO SCH ×2 (09:18→21:01)
[2016-09-17] MEDS: FUROSEMIDE 20 MG TAB PO SCH (09:18)
[2016-09-17] MEDS: ONDANSETRON ODT 4 MG TAB PO PRN (10:00)
--- NOTE | 2016-09-17 10:34 | HHI.PR ---
Subjective Remarks Follow-up on endocarditis, bacteremia, septic pulmonary emboli, skin rash. Patient still complains of rash to the left arm which started when she got to PO. She states it is slightly worse but the Benadryl is helping. Denies relief with antifungal steroid cream. Patient lost her IV access last night and has missed a few doses of vancomycin. She was given by mouth clindamycin dose last night in the mean time. Admits to sob on exertion. Objective Vitals Vital Signs Date Time Temp Pulse Resp B/P Pulse Ox O2 Delivery O2 Flow Rate FiO2 09/17/16 08:00 97.4 85 16 108/77 100 09/17/16 07:42 18 09/16/16 20:00 97.4 98 19 111/79 100 I/O 09/16/16 09/16/16 09/16/16 09/17/16 09/17/16 09/17/16 07:00 15:00 23:00 07:00 15:00 23:00 Intake Total 550 ml 250 ml 840 ml 120 ml Balance 550 ml 250 ml 840 ml 120 ml Intake Oral 300 ml 840 ml 120 ml IV Total 250 ml 250 ml # Voids 3 5 2 # Bowel Movements 0 # Sanitary Pads 1 Pads Result Diagram: 09/16/16 0425 Objective Remarks GENERAL: Thin well developed female in no apparent distress. SKIN: Warm and dry. Papular rash over part of dorsal L upper arm and forearm and over volar left upper arm and forearm. Rash appears mildly erythematous in area of previous IV site over volar left upper arm. No lesions to the L hand. HEAD: Atraumatic. Normocephalic. CARDIOVASCULAR: Regular rate and rhythm. RESPIRATORY: No accessory muscle use. Decreased breath sounds on the right, but normal RR. No rales, rhonchi, or wheezing. NEUROLOGICAL: Awake and alert. Motor grossly within normal limits. Normal speech. PSYCHIATRIC: Appropriate mood and affect; insight and judgment normal. Procedures IJ central line 08/17/2016. 08/18/2016 Echocardiogram - Left ventricle: The cavity size was normal. Wall thickness was normal. Systolic function was normal. The estimated ejection fraction was in the range of 55% to 60%. Wall motion was normal; there were no regional wall motion abnormalities. - Aortic valve: Valve area: 2.08cm^2 (Vmax). - Tricuspid valve: There was a vegetation. Moderate-severe regurgitation. - Pulmonary arteries: PA peak pressure: 42mm Hg (S). Urinary Catheter: No Vascular Central Line Catheter: No A/P Problem List: (1) Sepsis ICD Code: A41.9 Status: Acute (2) Hypotension ICD Code: I95.9 Status: Acute (3) PNA (pneumonia) ICD Code: J18.9 Status: Acute (4) UTI (urinary tract infection) ICD Code: N39.0 Status: Acute (5) TEMO (acute kidney injury) ICD Code: N17.9 Status: Acute (6) IVDU (intravenous drug user) ICD Code: F19.90 Status: Acute (7) Cocaine abuse ICD Code: F14.10 Status: Chronic (8) Thrombocytopenia ICD Code: D69.6 Status: Acute Assessment and Plan 21-year-old female with a history of polysubstance, IV drug use who was admitted to the hospital due to generalized weakness and fever for approximately one week prior to this admission. Patient denied nausea vomiting cough or shortness of breath. Patient used IV drugs 6 days prior to this admission. Her urine drug screen was positive for cocaine. Blood culture grew MSSA and echocardiogram shows tricuspid regurgitation with tricuspid valve vegetation. Infectious disease was consulted and started patient on cefazolin. CT chest showed disseminated small bilateral peripheral nodular infiltrates. MRI brain shows couple of nonspecific punctate white matter bright signal on FLAIR sequence. - Septic shock - resolved. 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 - Pulmonary septic emboli - Blood cultures from 08/24/2016 grew S. Aureus. Cx from 08/27/2016 with NGTD. - Echocardiogram and SHANNON did indicate tricuspid valve with echo dense mass measuring 1 x 0.5 cm. - ID following. Continue IV vancomycin until 09/24/16. Patient has no current IV access and has missed a few Vancomycin doses. Discussed with Dr. Holm who advised dose of Levaquin 750 mg po today while awaiting vascular access to replace peripheral IV. - Pain control with oral oxycodone Right pleural effusion, s/p thoracentesis - Final culture results with no signs of empyema - 09/17: Patient complains of shortness of breath on exertion but this has been ongoing for a few weeks. She has decreased breath sounds over the right lung, but oxygen saturation is 100% on room air. Patient is afebrile. New small cavitary lesions and worsening R pleural effusion on chest CT from 09/07. But chest x-ray from 09/10 personally reviewed which shows small right pleural effusion. Will reevaluate tomorrow and assess need for repeat chest x-ray. - Right shoulder pain - X-ray 08/28/2016 showed no acute findings except for small right effusion. - Treated with naproxen x5 days, improved - Continue OT - Generalized edema with small pleural effusions persistently seen on chest imaging, improved - Continue Lasix daily - Hypertension, BP has improved - Amlodipine 5mg held for now, may need to discontinue, but will monitor. - Acute kidney injury: Resolved. - Creatinine 1.82 on admission, now within normal limits. Currently below 1.0. - Polysubstance abuse/IVDU: Hopefully will go [facility]. - Depression with Suicidal ideations - Psychiatry consulted, appreciate input. - Acute on chronic microcytic anemia - During admission Hemoglobin trended down from 11.2 to 6.7. S/P transfusion 1 unit PRBC 08/26. Hemoccult negative. - Hemoglobin is stable on follow-up CBC - Iron studies were performed which does show a low iron, however ferritin 247. - Monitor Moderate Protein Calorie Malnutrition: PMI 17.4 - Continue nutritional supplement with meals - monitor nutritional status Lovenox. SCDs. Discharge Planning Will need to remain inpatient for IV antibiotics for 4 weeks after first negative blood culture due to IV drug use history and inability to have central venous access as outpatient. Plan to remain admitted for IV antibiotics until . Problem Qualifiers (1) Hypotension: Qualified Code: I95.9 - Hypotension, unspecified hypotension type Felicita Toscano Sep 17, 2016 10:34
[2016-09-17] MEDS ORDERED: LEVOFLOXACIN 750 MG TAB PO ONE (13:30)
[2016-09-17 20:00] VITALS: BP 108/73; PULSE 96; RESP 19; TEMP 97.4; O2SAT 100
[2016-09-17] MEDS: ENOXAPARIN SODIUM 40 MG/0.4 ML SYRINGE SQ SCH (21:02)
[2016-09-18] MEDS: VANCOMYCIN INJ 750 MG in SODIUM CHLOR 0.9% 250 ML INJ 250 ML IV SCH ×3 (06:11→22:01)
[2016-09-18] MEDS: diphenhydrAMINE HCL 25 MG CAP PO PRN ×2 (06:15→19:46)
[2016-09-18 08:00] VITALS: BP 120/84; PULSE 82; RESP 16; TEMP 97.3; O2SAT 100
[2016-09-18] MEDS: SODIUM CHLORIDE 0.9% FLUSH 5 ML FLUSH IV FLUSH SCH ×2 (09:00→21:00)
[2016-09-18] MEDS: PANTOPRAZOLE SOD 40 MG DELAYED RELEASE TAB PO SCH (09:15)
[2016-09-18] MEDS: DOCUSATE SODIUM 100 MG CAP PO SCH ×2 (09:15→20:13)
[2016-09-18] MEDS: LORATADINE 10 MG TAB PO SCH (09:15)
[2016-09-18] MEDS: SENNOSIDES 8.6 MG TAB PO SCH (09:16)
[2016-09-18] MEDS: FUROSEMIDE 20 MG TAB PO SCH (09:16)
[2016-09-18] MEDS: BETAMETHASONE/CLOTRIMAZOLE CREAM 15 GM TOPICAL SCH ×2 (09:17→20:13)
[2016-09-18] MEDS: ONDANSETRON ODT 4 MG TAB PO PRN (09:21)
--- NOTE | 2016-09-18 11:11 | HHI.PR ---
Subjective Remarks Follow-up on endocarditis, bacteremia, septic pulmonary emboli, skin rash. Patient states her left arm rash is improving. States her shortness of breath has improved. Objective Vitals Vital Signs Date Time Temp Pulse Resp B/P Pulse Ox O2 Delivery O2 Flow Rate FiO2 09/18/16 08:00 97.3 82 16 120/84 100 09/18/16 01:31 16 09/17/16 20:00 97.4 96 19 108/73 100 I/O 09/17/16 09/17/16 09/17/16 09/18/16 09/18/16 09/18/16 07:00 15:00 23:00 07:00 15:00 23:00 Intake Total 120 ml 480 ml 240 ml 660 ml Balance 120 ml 480 ml 240 ml 660 ml Intake Oral 120 ml 480 ml 240 ml 120 ml IV Total 540 ml # Voids 2 2 2 2 # Bowel Movements 0 # Sanitary Pads 1 Pads Result Diagram: 09/18/16 0601 Objective Remarks GENERAL: Thin well developed female in no apparent distress. SKIN: Warm and dry. Papular rash over part of dorsal L upper arm and forearm and over volar left upper arm and forearm. Rash appears mildly erythematous in area of previous IV site over volar left upper arm. Dorsal rash appears slightly improved. HEAD: Atraumatic. Normocephalic. CARDIOVASCULAR: Regular rate and rhythm. RESPIRATORY: No accessory muscle use. Decreased breath sounds over the RLL, but normal RR. No rales, rhonchi, or wheezing. NEUROLOGICAL: Awake and alert. Motor grossly within normal limits. Normal speech. PSYCHIATRIC: Appropriate mood and affect. Procedures IJ central line 08/17/2016. 08/18/2016 Echocardiogram - Left ventricle: The cavity size was normal. Wall thickness was normal. Systolic function was normal. The estimated ejection fraction was in the range of 55% to 60%. Wall motion was normal; there were no regional wall motion abnormalities. - Aortic valve: Valve area: 2.08cm^2 (Vmax). - Tricuspid valve: There was a vegetation. Moderate-severe regurgitation. - Pulmonary arteries: PA peak pressure: 42mm Hg (S). Urinary Catheter: No Vascular Central Line Catheter: No A/P Problem List: (1) Sepsis ICD Code: A41.9 Status: Acute (2) Hypotension ICD Code: I95.9 Status: Resolved (3) PNA (pneumonia) ICD Code: J18.9 Status: Acute (4) UTI (urinary tract infection) ICD Code: N39.0 Status: Acute (5) TEMO (acute kidney injury) ICD Code: N17.9 Status: Resolved (6) IVDU (intravenous drug user) ICD Code: F19.90 Status: Acute (7) Cocaine abuse ICD Code: F14.10 Status: Chronic Assessment and Plan 21-year-old female with a history of polysubstance, IV drug use who was admitted to the hospital due to generalized weakness and fever for approximately one week prior to this admission. Patient denied nausea vomiting cough or shortness of breath. Patient used IV drugs 6 days prior to this admission. Her urine drug screen was positive for cocaine. Blood culture grew MSSA and echocardiogram shows tricuspid regurgitation with tricuspid valve vegetation. Infectious disease was consulted and started patient on cefazolin. CT chest showed disseminated small bilateral peripheral nodular infiltrates. MRI brain shows couple of nonspecific punctate white matter bright signal on FLAIR sequence. - Septic shock - resolved. 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 - Pulmonary septic emboli - Blood cultures from 08/24/2016 grew S. Aureus. Cx from 08/27/2016 with NGTD. - Echocardiogram and SHANNON did indicate tricuspid valve with echo dense mass measuring 1 x 0.5 cm. - ID following. Continue IV vancomycin until 09/24/16. - Pain control with oral oxycodone Right pleural effusion, s/p thoracentesis - Final culture results with no signs of empyema - 09/18: Patient has decreased breath sounds over the right lower lobe, but oxygen saturation is 100% on room air. Patient is afebrile. New small cavitary lesions and worsening R pleural effusion on chest CT from 09/07, but chest x-ray from 09/10 personally reviewed which shows small right pleural effusion. Patient states sob has been improving. L arm rash: Improving. -Continue Benadryl and Lotrisone cream. Anemia: Hemoglobin 6.7 on 08/26 requiring 1 unit pRBCs. Currently stable at 9.7. Thrombocytosis: Platelet count 784 on 09/12/16. Repeat CBC tomorrow am. - Right shoulder pain - X-ray 08/28/2016 showed no acute findings except for small right effusion. - Treated with naproxen x5 days, improved - Continue OT - Generalized edema with small pleural effusions persistently seen on chest imaging, improved - Continue Lasix daily - Hypertension, BP has improved - Amlodipine 5mg held for now, will likely need to discontinue, but will monitor. - Acute kidney injury: Resolved. - Creatinine 1.82 on admission, now within normal limits. Currently below 1.0. - Polysubstance abuse/IVDU: Hopefully will go to [facility] for drug rehab. - Depression with Suicidal ideations - Psychiatry consulted, appreciate input. - Acute on chronic microcytic anemia - During admission Hemoglobin trended down from 11.2 to 6.7. S/P transfusion 1 unit PRBC 08/26. Hemoccult negative. - Hemoglobin is stable on follow-up CBC - Iron studies were performed which does show a low iron, however ferritin 247. - Monitor Moderate Protein Calorie Malnutrition: - Continue nutritional supplement with meals - monitor nutritional status Lovenox. SCDs. Discharge Planning Will need to remain inpatient for IV antibiotics for 4 weeks after first negative blood culture due to IV drug use history and inability to have central venous access as outpatient. Plan to remain admitted for IV antibiotics until . Problem Qualifiers (1) Hypotension: Qualified Code: I95.9 - Hypotension, unspecified hypotension type Felicita Toscano Sep 18, 2016 11:11
[2016-09-18] MEDS ORDERED: PHARMACY ORDERED LAB ONE (13:45)
[2016-09-18 20:00] VITALS: BP 118/77; PULSE 98; RESP 20; TEMP 96.3; O2SAT 100
[2016-09-18] MEDS: ENOXAPARIN SODIUM 40 MG/0.4 ML SYRINGE SQ SCH (20:13)
[2016-09-19] MEDS: diphenhydrAMINE HCL 25 MG CAP PO PRN ×3 (04:48→19:29)
[2016-09-19 06:00] LABS: AUTOMATED NEUTROPHIL # 2.9 TH/MM3 (1.8-7.7); BASOPHIL % 0.7 % (0.0-2.0); EOSINOPHIL # 0.5 TH/MM3 (0-0.4); HEMATOCRIT 31.2 % (35.0-46.0); HEMO FLAGS DIFF FINAL; LYMPH % 35.9 % (9.0-44.0); LYMPHOCYTE # 2.3 TH/MM3 (1.0-4.8); MEAN CELL VOLUME 80.2 FL (80.0-100.0); MEAN CORPUSCULAR HEMOGLOBIN 26.1 PG (27.0-34.0); MEAN CORPUSCULAR HGB CONC 32.5 % (32.0-36.0); MONO % 8.9 % (0.0-8.0); NEUT % 46.5 % (16.0-70.0); PLATELET COUNT 487 TH/MM3 (150-450); RED BLOOD COUNT 3.89 MIL/MM3 (4.00-5.30); RED CELL DISTRIBUTION WIDTH 19.2 % (11.6-17.2); WHITE BLOOD COUNT 6.4 TH/MM3 (4.0-11.0)
[2016-09-19] MEDS: VANCOMYCIN INJ 750 MG in SODIUM CHLOR 0.9% 250 ML INJ 250 ML IV SCH ×3 (06:07→21:42)
[2016-09-19 08:00] VITALS: BP 111/75; PULSE 79; RESP 16; TEMP 97.7; O2SAT 100
[2016-09-19] MEDS: SODIUM CHLORIDE 0.9% FLUSH 5 ML FLUSH IV FLUSH SCH ×2 (09:00→20:26)
[2016-09-19] MEDS: LORATADINE 10 MG TAB PO SCH (09:36)
[2016-09-19] MEDS: DOCUSATE SODIUM 100 MG CAP PO SCH ×2 (09:36→20:26)
[2016-09-19] MEDS: PANTOPRAZOLE SOD 40 MG DELAYED RELEASE TAB PO SCH (09:37)
[2016-09-19] MEDS: FUROSEMIDE 20 MG TAB PO SCH (09:37)
[2016-09-19] MEDS: SENNOSIDES 8.6 MG TAB PO SCH (09:37)
--- NOTE | 2016-09-19 10:12 | HHI.PR ---
Subjective Remarks Follow-up on endocarditis, bacteremia, septic pulmonary emboli, skin rash. Patient has pruritic rash to both arms. Denies rash to chest or waist. Nurse states after receiving Benadryl rash will go away for an hour and then return. Objective Vitals Vital Signs Date Time Temp Pulse Resp B/P Pulse Ox O2 Delivery O2 Flow Rate FiO2 09/19/16 08:00 97.7 79 16 111/75 100 09/19/16 04:37 16 09/18/16 20:00 96.3 98 20 118/77 100 I/O 09/18/16 09/18/16 09/18/16 09/19/16 09/19/16 09/19/16 07:00 15:00 23:00 07:00 15:00 23:00 Intake Total 660 ml 680 ml 480 ml 480 ml Balance 660 ml 680 ml 480 ml 480 ml Intake Oral 120 ml 680 ml 480 ml 480 ml IV Total 540 ml # Voids 2 2 2 2 # Bowel Movements 0 1 0 Result Diagram: 09/19/16 0425 09/18/16 0601 Objective Remarks GENERAL: Thin well developed female in no apparent distress. SKIN: Warm and dry. Papular rash over part of dorsal L upper arm and forearm and over volar left upper arm and forearm. Rash appears mildly erythematous in area of previous IV site over volar left upper arm. Same papular rash to volar R forearm with red macules noted under adhesive around IV site to R upper arm. No rash to hands or feet. Red patch to anterior R thigh. No rash to back. HEAD: Atraumatic. Normocephalic. CARDIOVASCULAR: Regular rate and rhythm. RESPIRATORY: No accessory muscle use. Improved breath sounds over the posterior right lower lobe, still absent over the right lateral base. GASTROINTESTINAL: Abdomen soft, non-tender, non-distended. NEUROLOGICAL: Awake and alert. Motor grossly within normal limits. Normal speech. PSYCHIATRIC: Appropriate mood and affect. Procedures IJ central line 08/17/2016. 08/18/2016 Echocardiogram - Left ventricle: The cavity size was normal. Wall thickness was normal. Systolic function was normal. The estimated ejection fraction was in the range of 55% to 60%. Wall motion was normal; there were no regional wall motion abnormalities. - Aortic valve: Valve area: 2.08cm^2 (Vmax). - Tricuspid valve: There was a vegetation. Moderate-severe regurgitation. - Pulmonary arteries: PA peak pressure: 42mm Hg (S). Urinary Catheter: No Vascular Central Line Catheter: No A/P Problem List: (1) Sepsis ICD Code: A41.9 Status: Acute (2) Hypotension ICD Code: I95.9 Status: Resolved (3) PNA (pneumonia) ICD Code: J18.9 Status: Acute (4) UTI (urinary tract infection) ICD Code: N39.0 Status: Acute (5) TEMO (acute kidney injury) ICD Code: N17.9 Status: Resolved (6) IVDU (intravenous drug user) ICD Code: F19.90 Status: Acute (7) Cocaine abuse ICD Code: F14.10 Status: Chronic (8) Rash ICD Code: R21 Status: Acute Assessment and Plan 21-year-old female with a history of polysubstance, IV drug use who was admitted to the hospital due to generalized weakness and fever for approximately one week prior to this admission. Patient denied nausea vomiting cough or shortness of breath. Patient used IV drugs 6 days prior to this admission. Her urine drug screen was positive for cocaine. Blood culture grew MSSA and echocardiogram shows tricuspid regurgitation with tricuspid valve vegetation. Infectious disease was consulted and started patient on cefazolin. CT chest showed disseminated small bilateral peripheral nodular infiltrates. MRI brain shows couple of nonspecific punctate white matter bright signal on FLAIR sequence. - Septic shock - resolved. 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 - Pulmonary septic emboli - Blood cultures from 08/24/2016 grew S. Aureus. Cx from 08/27/2016 with NGTD. - Echocardiogram and SHANNON did indicate tricuspid valve with echo dense mass measuring 1 x 0.5 cm. - ID following. Continue IV vancomycin until 09/24/16. - Pain control with oral oxycodone Right pleural effusion, s/p thoracentesis - Final culture results with no signs of empyema - New small cavitary lesions and worsening R pleural effusion on chest CT from , but chest x-ray from 09/10 shows small right pleural effusion. Patient states sob has been improving. Rash: Worse. Now to both arms, likely allergic as patient has relief with Benadryl. -Continue Benadryl and Lotrisone cream. Increase Benadryl to 50 mg per dose q 6 hours. Anemia: Hemoglobin 6.7 on 08/26 requiring 1 unit pRBCs. Hemogobin improved at 10.2 today. Thrombocytosis: Platelet count 784 on 09/12/16. Platelet count improved at 487 today. - Right shoulder pain - X-ray 08/28/2016 showed no acute findings except for small right effusion. - Treated with naproxen x5 days, improved - Continue OT - Generalized edema with small pleural effusions persistently seen on chest imaging, improved - Continue Lasix daily - Hypertension, BP has improved - Amlodipine 5mg held for now, will likely need to discontinue, but will monitor. - Acute kidney injury: Resolved. - Creatinine 1.82 on admission, now within normal limits. Currently below 1.0. - Polysubstance abuse/IVDU: [facility] will [facility]. - Depression with Suicidal ideations - Psychiatry consulted, appreciate input. - Acute on chronic microcytic anemia - During admission Hemoglobin trended down from 11.2 to 6.7. S/P transfusion 1 unit PRBC 08/26. Hemoccult negative. - Hemoglobin is stable on follow-up CBC - Iron studies were performed which does show a low iron, however ferritin 247. - Monitor Moderate Protein Calorie Malnutrition: - Continue nutritional supplement with meals - monitor nutritional status Lovenox. SCDs. Patient discussed with Dr. Phoenix who also examined the patient. Discharge Planning Will need to remain inpatient for IV antibiotics for 4 weeks after first negative blood culture due to IV drug use history and inability to have central venous access as outpatient. Plan to remain admitted for IV antibiotics until . Problem Qualifiers (1) Hypotension: Qualified Code: I95.9 - Hypotension, unspecified hypotension type Felicita Toscano Sep 19, 2016 10:12
[2016-09-19] MEDS: BETAMETHASONE/CLOTRIMAZOLE CREAM 15 GM TOPICAL SCH ×2 (12:28→20:26)
[2016-09-19 20:00] VITALS: BP 115/75; PULSE 97; RESP 16; TEMP 99.6; O2SAT 100
[2016-09-19] MEDS: ENOXAPARIN SODIUM 40 MG/0.4 ML SYRINGE SQ SCH (20:26)
[2016-09-20] MEDS: diphenhydrAMINE HCL 25 MG CAP PO PRN ×4 (01:32→22:12)
[2016-09-20] MEDS: VANCOMYCIN INJ 750 MG in SODIUM CHLOR 0.9% 250 ML INJ 250 ML IV SCH ×3 (05:17→22:01)
[2016-09-20 08:00] VITALS: BP 113/68; PULSE 77; RESP 17; TEMP 97; O2SAT 100
[2016-09-20] MEDS: SODIUM CHLORIDE 0.9% FLUSH 5 ML FLUSH IV FLUSH SCH ×2 (09:00→20:53)
[2016-09-20] MEDS: DOCUSATE SODIUM 100 MG CAP PO SCH ×2 (09:29→20:52)
[2016-09-20] MEDS: LORATADINE 10 MG TAB PO SCH (09:29)
[2016-09-20] MEDS: PANTOPRAZOLE SOD 40 MG DELAYED RELEASE TAB PO SCH (09:29)
[2016-09-20] MEDS: SENNOSIDES 8.6 MG TAB PO SCH (09:29)
[2016-09-20] MEDS: FUROSEMIDE 20 MG TAB PO SCH (09:29)
[2016-09-20] MEDS: ONDANSETRON ODT 4 MG TAB PO PRN ×2 (09:29→18:44)
[2016-09-20] MEDS: BETAMETHASONE/CLOTRIMAZOLE CREAM 15 GM TOPICAL SCH ×2 (09:30→20:54)
--- NOTE | 2016-09-20 11:53 | HHI.PR ---
Subjective Remarks Follow-up on endocarditis, bacteremia, septic pulmonary emboli, skin rash. No acute complaints. Objective Vitals Vital Signs Date Time Temp Pulse Resp B/P Pulse Ox O2 Delivery O2 Flow Rate FiO2 09/20/16 08:00 97.0 77 17 113/68 100 09/20/16 06:30 18 09/19/16 20:00 99.6 97 16 115/75 100 I/O 09/19/16 09/19/16 09/19/16 09/20/16 09/20/16 09/20/16 07:00 15:00 23:00 07:00 15:00 23:00 Intake Total 480 ml 1080 ml 480 ml Balance 480 ml 1080 ml 480 ml Intake Oral 480 ml 1080 ml 480 ml # Voids 2 6 2 # Bowel Movements 0 0 0 Result Diagram: 09/19/16 0425 09/20/16 0827 Objective Remarks GENERAL: Thin well developed female in no apparent distress. SKIN: Warm and dry. Papular rash to both arms is improved. HEAD: Atraumatic. Normocephalic. CARDIOVASCULAR: Regular rate and rhythm. RESPIRATORY: No accessory muscle use. Improved breath sounds over the right lung base. Clear to auscultation. GASTROINTESTINAL: Abdomen soft, non-tender, non-distended. NEUROLOGICAL: Awake and alert. Motor grossly within normal limits. Normal speech. PSYCHIATRIC: Appropriate mood and affect. Procedures IJ central line 08/17/2016. 08/18/2016 Echocardiogram - Left ventricle: The cavity size was normal. Wall thickness was normal. Systolic function was normal. The estimated ejection fraction was in the range of 55% to 60%. Wall motion was normal; there were no regional wall motion abnormalities. - Aortic valve: Valve area: 2.08cm^2 (Vmax). - Tricuspid valve: There was a vegetation. Moderate-severe regurgitation. - Pulmonary arteries: PA peak pressure: 42mm Hg (S). Urinary Catheter: No Vascular Central Line Catheter: No A/P Problem List: (1) Sepsis ICD Code: A41.9 Status: Acute (2) Hypotension ICD Code: I95.9 Status: Resolved (3) PNA (pneumonia) ICD Code: J18.9 Status: Acute (4) UTI (urinary tract infection) ICD Code: N39.0 Status: Acute (5) TEMO (acute kidney injury) ICD Code: N17.9 Status: Resolved (6) IVDU (intravenous drug user) ICD Code: F19.90 Status: Acute (7) Cocaine abuse ICD Code: F14.10 Status: Chronic (8) Rash ICD Code: R21 Status: Acute Assessment and Plan 21-year-old female with a history of polysubstance, IV drug use who was admitted to the hospital due to generalized weakness and fever for approximately one week prior to this admission. Patient denied nausea vomiting cough or shortness of breath. Patient used IV drugs 6 days prior to this admission. Her urine drug screen was positive for cocaine. Blood culture grew MSSA and echocardiogram shows tricuspid regurgitation with tricuspid valve vegetation. Infectious disease was consulted and started patient on cefazolin. CT chest showed disseminated small bilateral peripheral nodular infiltrates. MRI brain shows couple of nonspecific punctate white matter bright signal on FLAIR sequence. - Septic shock - resolved. 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 - Pulmonary septic emboli - Blood cultures from 08/24/2016 grew S. Aureus. Cx from 08/27/2016 with NGTD. - Echocardiogram and SHANONN did indicate tricuspid valve with echo dense mass measuring 1 x 0.5 cm. - ID following. Continue IV vancomycin until 09/24/16. - Pain control with oral oxycodone Right pleural effusion, s/p thoracentesis: - Final culture results with no signs of empyema - New small cavitary lesions and worsening R pleural effusion on chest CT from , but chest x-ray from 09/10 shows small right pleural effusion. Patient states sob has been improving. Breath sounds improving. Rash: Improved -Continue Benadryl and Lotrisone cream. Benadryl increased to 50 mg on 09/19. - Right shoulder pain - X-ray 08/28/2016 showed no acute findings except for small right effusion. - Treated with naproxen x5 days, improved - Continue OT - Generalized edema with small pleural effusions persistently seen on chest imaging, improved - Continue Lasix daily - Hypertension: Resolved. - Amlodipine 5mg was held as BP had improved, BP still wnl. Discontinue Amlodipine. - Acute kidney injury: Resolved. - Creatinine 1.82 on admission, now within normal limits. Currently below 1.0. - Polysubstance abuse/IVDU: [facility]. - Depression with Suicidal ideations - Psychiatry consulted, appreciate input. - Acute on chronic microcytic anemia: Stable - During admission Hemoglobin trended down from 11.2 to 6.7. S/P transfusion 1 unit PRBC 08/26. Hemoccult negative. Hemogobin improved at 10.2 on 09/19. - Hemoglobin is stable on follow-up CBC - Iron studies were performed which does show a low iron, however ferritin 247. - Monitor Thrombocytosis: Platelet count 784 on 09/12/16. Platelet count improved at 487 on 09/19. Moderate Protein Calorie Malnutrition: - Continue nutritional supplement with meals - monitor nutritional status Lovenox. SCDs. Discharge Planning Will need to remain inpatient for IV antibiotics for 4 weeks after first negative blood culture due to IV drug use history and inability to have central venous access as outpatient. Plan to remain admitted for IV antibiotics until . Problem Qualifiers (1) Hypotension: Qualified Code: I95.9 - Hypotension, unspecified hypotension type Felicita Toscano Sep 20, 2016 11:53 Qualified Code: I95.9 - Hypotension, unspecified hypotension type Felicita Toscano Sep 20, 2016 11:53
[2016-09-20 20:00] VITALS: BP 112/72; PULSE 83; RESP 20; TEMP 98.5; O2SAT 100
[2016-09-20] MEDS: ENOXAPARIN SODIUM 40 MG/0.4 ML SYRINGE SQ SCH (20:53)
[2016-09-21] MEDS: diphenhydrAMINE HCL 25 MG CAP PO PRN ×3 (05:21→17:50)
[2016-09-21] MEDS: VANCOMYCIN INJ 750 MG in SODIUM CHLOR 0.9% 250 ML INJ 250 ML IV SCH ×3 (05:22→22:01)
[2016-09-21 08:00] VITALS: BP 115/75; PULSE 77; RESP 16; TEMP 97.5; O2SAT 99
[2016-09-21] MEDS: SODIUM CHLORIDE 0.9% FLUSH 5 ML FLUSH IV FLUSH SCH ×2 (09:00→21:10)
[2016-09-21] MEDS: BETAMETHASONE/CLOTRIMAZOLE CREAM 15 GM TOPICAL SCH ×2 (09:29→21:11)
[2016-09-21] MEDS: FUROSEMIDE 20 MG TAB PO SCH (09:30)
[2016-09-21] MEDS: LORATADINE 10 MG TAB PO SCH (09:30)
[2016-09-21] MEDS: SENNOSIDES 8.6 MG TAB PO SCH (09:30)
[2016-09-21] MEDS: PANTOPRAZOLE SOD 40 MG DELAYED RELEASE TAB PO SCH (09:30)
[2016-09-21] MEDS: DOCUSATE SODIUM 100 MG CAP PO SCH ×2 (09:30→21:10)
[2016-09-21] MEDS: ONDANSETRON ODT 4 MG TAB PO PRN (09:30)
[2016-09-21 11:09] LABS: MAGNESIUM 2.2 MG/DL (1.5-2.5)
--- NOTE | 2016-09-21 11:58 | HHI.PR ---
Subjective Remarks Follow-up for endocarditis. The patient states her arm rash was bad before receiving last dose of Benadryl. Patient states she had cramps in her calves and thighs yesterday and last night. She inquires if she has to remain on heart healthy diet when discharged. She also inquires if she can resume normal activities when discharged. Objective Vitals Vital Signs Date Time Temp Pulse Resp B/P Pulse Ox O2 Delivery O2 Flow Rate FiO2 09/21/16 10:30 16 09/21/16 08:00 97.5 77 16 115/75 99 09/20/16 20:00 98.5 83 20 112/72 100 I/O 09/20/16 09/20/16 09/20/16 09/21/16 09/21/16 09/21/16 07:00 15:00 23:00 07:00 15:00 23:00 Intake Total 480 ml 1490 ml 510 ml Balance 480 ml 1490 ml 510 ml Intake Oral 480 ml 960 ml 240 ml IV Total 530 ml 270 ml # Voids 2 5 3 # Bowel Movements 0 0 Result Diagram: 09/19/16 0425 09/21/16 1047 Objective Remarks GENERAL: Thin well developed female in no apparent distress. SKIN: Warm and dry. Papular rash to both arms but improved. HEAD: Atraumatic. Normocephalic. CARDIOVASCULAR: Regular rate and rhythm. RESPIRATORY: No accessory muscle use. Decreased breath sounds over the right lung base. Clear to auscultation. MUSCULOSKELETAL: No calf pain or swelling bilaterally. NEUROLOGICAL: Awake and alert. Motor grossly within normal limits. Normal speech. PSYCHIATRIC: Appropriate mood and affect. Procedures IJ central line 08/17/2016. 08/18/2016 Echocardiogram - Left ventricle: The cavity size was normal. Wall thickness was normal. Systolic function was normal. The estimated ejection fraction was in the range of 55% to 60%. Wall motion was normal; there were no regional wall motion abnormalities. - Aortic valve: Valve area: 2.08cm^2 (Vmax). - Tricuspid valve: There was a vegetation. Moderate-severe regurgitation. - Pulmonary arteries: PA peak pressure: 42mm Hg (S). Urinary Catheter: No Vascular Central Line Catheter: No A/P Problem List: (1) Sepsis ICD Code: A41.9 Status: Acute (2) Hypotension ICD Code: I95.9 Status: Resolved (3) PNA (pneumonia) ICD Code: J18.9 Status: Acute (4) UTI (urinary tract infection) ICD Code: N39.0 Status: Acute (5) TEMO (acute kidney injury) ICD Code: N17.9 Status: Resolved (6) IVDU (intravenous drug user) ICD Code: F19.90 Status: Acute (7) Cocaine abuse ICD Code: F14.10 Status: Chronic (8) Rash ICD Code: R21 Status: Acute Assessment and Plan 21-year-old female with a history of polysubstance, IV drug use who was admitted to the hospital due to generalized weakness and fever for approximately one week prior to this admission. Patient denied nausea vomiting cough or shortness of breath. Patient used IV drugs 6 days prior to this admission. Her urine drug screen was positive for cocaine. Blood culture grew MSSA and echocardiogram shows tricuspid regurgitation with tricuspid valve vegetation. Infectious disease was consulted and started patient on cefazolin. CT chest showed disseminated small bilateral peripheral nodular infiltrates. MRI brain shows couple of nonspecific punctate white matter bright signal on FLAIR sequence. - Septic shock - resolved. 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 - Pulmonary septic emboli - Blood cultures from 08/24/2016 grew S. Aureus. Cx from 08/27/2016 with NGTD. - Echocardiogram and SHANNON did indicate tricuspid valve with echo dense mass measuring 1 x 0.5 cm. - ID following. Continue IV vancomycin until 09/24/16. Patient missed 2 doses though so may finish on 09/25 which was explained to patient. - Pain control with oral oxycodone Change to regular diet. Right pleural effusion, s/p thoracentesis: - Final culture results with no signs of empyema - New small cavitary lesions and worsening R pleural effusion on chest CT from , but chest x-ray from 09/10 shows small right pleural effusion. Patient states sob has been improving. Breath sounds improving. Rash: Improved -Continue Benadryl and Lotrisone cream. Benadryl increased to 50 mg on 09/19. Muscle cramps calves and thighs: Acute. BMP today unremarkable. Mg 2.2. Will monitor the patient clinically for reoccurrence. Avoid starting muscle relaxants unless really needed as patient is on oxycodone and high dose Benadryl and there is increased risk for sedation. - Right shoulder pain - X-ray 08/28/2016 showed no acute findings except for small right effusion. - Treated with naproxen x5 days, improved - Continue OT - Generalized edema with small pleural effusions persistently seen on chest imaging, improved - Continue Lasix daily - Hypertension: Resolved. - Amlodipine 5mg was held as BP had improved, BP still wnl. Discontinue Amlodipine. - Acute kidney injury: Resolved. - Creatinine 1.82 on admission, now within normal limits. Currently below 1.0. - Polysubstance abuse/IVDU: Hopefully will go to [facility]. - Depression with Suicidal ideations - Psychiatry consulted, appreciate input. - Acute on chronic microcytic anemia: Stable - During admission Hemoglobin trended down from 11.2 to 6.7. S/P transfusion 1 unit PRBC 08/26. Hemoccult negative. Hemogobin improved at 10.2 on 09/19. - Hemoglobin is stable on follow-up CBC - Iron studies were performed which does show a low iron, however ferritin 247. - Monitor Thrombocytosis: Platelet count 784 on 09/12/16. Platelet count improved at 487 on 09/19. Moderate Protein Calorie Malnutrition: - Continue nutritional supplement with meals - monitor nutritional status Lovenox. SCDs. Discharge Planning Will need to remain inpatient for IV antibiotics for 4 weeks after first negative blood culture due to IV drug use history and inability to have central venous access as outpatient. Plan to remain admitted for IV antibiotics at least until 09/24/16. Problem Qualifiers (1) Hypotension: Qualified Code: I95.9 - Hypotension, unspecified hypotension type Felicita Toscano Sep 21, 2016 11:58
[2016-09-21 20:00] VITALS: BP 128/89; PULSE 91; RESP 17; TEMP 99; O2SAT 99
[2016-09-21] MEDS: ENOXAPARIN SODIUM 40 MG/0.4 ML SYRINGE SQ SCH (21:10)
[2016-09-22] MEDS: diphenhydrAMINE HCL 25 MG CAP PO PRN ×4 (00:16→20:42)
[2016-09-22] MEDS: VANCOMYCIN INJ 750 MG in SODIUM CHLOR 0.9% 250 ML INJ 250 ML IV SCH ×3 (05:00→21:43)
[2016-09-22 08:00] VITALS: BP 124/86; PULSE 72; RESP 20; TEMP 98.6; O2SAT 99
[2016-09-22] MEDS: PANTOPRAZOLE SOD 40 MG DELAYED RELEASE TAB PO SCH (09:09)
[2016-09-22] MEDS: SENNOSIDES 8.6 MG TAB PO SCH (09:09)
[2016-09-22] MEDS: LORATADINE 10 MG TAB PO SCH (09:09)
[2016-09-22] MEDS: FUROSEMIDE 20 MG TAB PO SCH (09:09)
[2016-09-22] MEDS: BETAMETHASONE/CLOTRIMAZOLE CREAM 15 GM TOPICAL SCH ×2 (09:10→21:44)
[2016-09-22] MEDS: DOCUSATE SODIUM 100 MG CAP PO SCH ×2 (09:11→21:44)
[2016-09-22] MEDS: SODIUM CHLORIDE 0.9% FLUSH 5 ML FLUSH IV FLUSH SCH ×2 (09:11→21:44)
[2016-09-22] MEDS: ONDANSETRON ODT 4 MG TAB PO PRN (09:31)
--- NOTE | 2016-09-22 10:37 | HHI.PR ---
Subjective Remarks Follow-up for endocarditis. Patient admits to constant throbbing pain over the left side her abdomen radiating to the left side of her back. She states it hurts over her left back when she breathes. She admits to nausea. Denies any fevers or chills, vomiting, or diarrhea. Denies any dysuria, increased urgency or frequency of urination, or hematuria. Patient states pain is different from the sharp significantly more painful feeling she had on the right side prior to undergoing thoracentesis (performed on 09/07). Objective Vitals Vital Signs Date Time Temp Pulse Resp B/P Pulse Ox O2 Delivery O2 Flow Rate FiO2 09/22/16 08:00 98.6 72 20 124/86 99 09/21/16 20:00 99.0 91 17 128/89 99 09/21/16 16:36 16 I/O 09/21/16 09/21/16 09/21/16 09/22/16 09/22/16 09/22/16 07:00 15:00 23:00 07:00 15:00 23:00 Intake Total 510 ml 525 ml Balance 510 ml 525 ml Intake Oral 240 ml IV Total 270 ml 525 ml # Voids 3 6 2 # Bowel Movements 0 1 Result Diagram: 09/19/16 0425 09/22/16 0525 Imaging Last Impressions Abdomen X-Ray 09/22/16 0000 Signed Impressions: Service Date/Time: Thursday, September 22, 2016 11:08 - CONCLUSION: Unremarkable bowel gas pattern with moderate amount of stool. Doe Light MD Chest X-Ray 09/10/16 0800 Signed Impressions: Service Date/Time: Saturday, September 10, 2016 08:03 - CONCLUSION: 1. No pneumothorax is visualized. 2. Bibasilar airspace opacity likely representing atelectasis with suspected small right pleural effusion. 3. Stable nodules in the left upper lobe. Rickey Quispe MD Abdomen/Pelvis CT 09/07/16 1319 Signed Impressions: Service Date/Time: Wednesday, September 07, 2016 13:44 - CONCLUSION: 1. Large right-sided pleural effusion with a small cavitary nodules consistent with the patient's history of septic emboli. Small left-sided pleural effusion. 2. Mild hepatomegaly and cardiomegaly. Karo Jones MD Thoracentesis Ultrasound 4/9/17 0000 Signed Impressions: Service Date/Time: Wednesday, September 07, 2016 19:43 - CONCLUSION: Uncomplicated ultrasound guided thoracentesis. Rickey Babb MD Chest CT 09/07/16 Signed Impressions: Service Date/Time: Wednesday, September 07, 2016 13:44 - CONCLUSION: Multiple bilateral irregular solid and cavitary nodular masses which have largely improved as compared to the prior exam with development of new small cavitary lesions within the right lower lobe and worsening right-sided pleural effusion. Given the patient's prior history of endocarditis this is compatible with septic emboli. Karo Jones MD Lumbar Spine MRI 09/06/16 Signed Impressions: Service Date/Time: Tuesday, September 06, 2016 15:23 - CONCLUSION: Normal examination for a patient of this age. No significant change compared to the prior examination. Martin Andrade MD Shoulder X-Ray 08/28/16 Signed Impressions: Service Date/Time: July 11:44 - CONCLUSION: 1. The shoulder is unremarkable. 2. Small right effusion. Leonardo Pitt Jr., MD Upper Extremity Ultrasound 08/19/16 Signed Impressions: Service Date/Time: Friday, August 19, 2016 10:38 - CONCLUSION: 1. Occlusive thrombus within the mid and distal right cephalic vein. 2. Complex hypoechoic area adjacent to the brachial vessels within the antecubital fossa measuring 2.6 x 1.0 x 1.2 cm which is nonspecific. Jose Triana MD Brain MRI 08/19/16 Signed Impressions: Service Date/Time: Friday, August 19, 2016 20:48 - CONCLUSION: The postcontrast portion of the exam is very limited since very little contrast is identified and there are couple of nonspecific punctate white manner bright signal on FLAIR sequence. Timoteo Khalil MD Liver Ultrasound 08/18/16 Signed Impressions: Service Date/Time: Thursday, August 18, 2016 16:18 - CONCLUSION: 1. Small right pleural effusion. 2. The gallbladder is decompressed with minimal intraluminal sludge. No stones. 3. Splenomegaly. Sergei Maldonado MD Objective Remarks GENERAL: Thin well developed female in no apparent distress. HEAD: Atraumatic. Normocephalic. CARDIOVASCULAR: Regular rate and rhythm. RESPIRATORY: No accessory muscle use. Decreased breath sounds over the right lung base, same. Clear to auscultation. GASTROINTESTINAL: Normal bowel sounds in all 4 quadrants. Tender over epigastric region, left upper quadrant, and right lower quadrant, but no guarding present. Abdomen is soft and nondistended. BACK: No CVA tenderness bilaterally. No tenderness to palpation over L lower back. NEUROLOGICAL: Awake and alert. Motor grossly within normal limits. Normal speech. PSYCHIATRIC: Appropriate mood and affect. Procedures IJ central line 08/17/2016. 08/18/2016 Echocardiogram - Left ventricle: The cavity size was normal. Wall thickness was normal. Systolic function was normal. The estimated ejection fraction was in the range of 55% to 60%. Wall motion was normal; there were no regional wall motion abnormalities. - Aortic valve: Valve area: 2.08cm^2 (Vmax). - Tricuspid valve: There was a vegetation. Moderate-severe regurgitation. - Pulmonary arteries: PA peak pressure: 42mm Hg (S). Urinary Catheter: No Vascular Central Line Catheter: No A/P Problem List: (1) Constipation ICD Code: K59.00 Status: Acute (2) Sepsis ICD Code: A41.9 Status: Resolved (3) Hypotension ICD Code: I95.9 Status: Resolved (4) PNA (pneumonia) ICD Code: J18.9 Status: Acute (5) UTI (urinary tract infection) ICD Code: N39.0 Status: Resolved (6) TEMO (acute kidney injury) ICD Code: N17.9 Status: Resolved (7) IVDU (intravenous drug user) ICD Code: F19.90 Status: Acute (8) Cocaine abuse ICD Code: F14.10 Status: Chronic (9) Rash ICD Code: R21 Status: Acute Assessment and Plan 21-year-old female with a history of polysubstance, IV drug use who was admitted to the hospital due to generalized weakness and fever for approximately one week prior to this admission. Patient denied nausea vomiting cough or shortness of breath. Patient used IV drugs 6 days prior to this admission. Her urine drug screen was positive for cocaine. Blood culture grew MSSA and echocardiogram shows tricuspid regurgitation with tricuspid valve vegetation. Infectious disease was consulted and started patient on cefazolin. CT chest showed disseminated small bilateral peripheral nodular infiltrates. MRI brain shows couple of nonspecific punctate white matter bright signal on FLAIR sequence. Abdominal pain: Acute 09/22. Non-surgical abdomen. Tender primarily over epigastric region and LUQ, but also has some RLQ tenderness. Afebrile. Discussed with Dr. Phoenix. -Lipase normal. -KUB ordered and personally reviewed, shows moderate amount of stool. Patient already takes Senokot and Colace daily and has Milk of Mag as needed for constipation. Will add Dulcolax suppository as needed. - Septic shock - resolved. 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 - Pulmonary septic emboli - Blood cultures from 08/24/2016 grew S. Aureus. Cx from 08/27/2016 with NGTD. - Echocardiogram and SHANNON did indicate tricuspid valve with echo dense mass measuring 1 x 0.5 cm. - ID following. Continue IV vancomycin until 09/24/16. Patient missed 2 doses though so may finish on 09/25 which was explained to patient. - Pain control with oral oxycodone Changed to regular diet. Right pleural effusion, s/p thoracentesis: - Final culture results with no signs of empyema - New small cavitary lesions and worsening R pleural effusion on chest CT from , but chest x-ray from 09/10 shows small right pleural effusion. Patient states sob has been improving. Decreased breath sounds over R base, stable. Can consider repeat chest x-ray prior to discharge. Rash: Improved -Continue Benadryl and Lotrisone cream. Benadryl increased to 50 mg on 09/19. Muscle cramps calves and thighs: 09/21. Acute. BMP unremarkable. Mg 2.2. Will monitor the patient clinically for reoccurrence. Avoid starting muscle relaxants unless really needed as patient is on oxycodone and high dose Benadryl and there is increased risk for sedation. - Right shoulder pain - X-ray 08/28/2016 showed no acute findings except for small right effusion. - Treated with naproxen x5 days, improved - Continue OT - Generalized edema with small pleural effusions persistently seen on chest imaging, improved - Continue Lasix daily - Hypertension: Resolved. - Amlodipine 5mg was held as BP had improved, BP still wnl. Discontinue Amlodipine. - Acute kidney injury: Resolved. - Creatinine 1.82 on admission, now within normal limits. Currently below 1.0. - Polysubstance abuse/IVDU: Hopefully will go to [facility] for drug [facility]. - Depression with Suicidal ideations - Psychiatry consulted, appreciate input. - Acute on chronic microcytic anemia: Stable - During admission Hemoglobin trended down from 11.2 to 6.7. S/P transfusion 1 unit PRBC 08/26. Hemoccult negative. Hemogobin improved at 10.2 on 09/19. - Hemoglobin is stable on follow-up CBC - Iron studies were performed which does show a low iron, however ferritin 247. - Monitor Thrombocytosis: Platelet count 784 on 09/12/16. Platelet count improved at 487 on 09/19. Moderate Protein Calorie Malnutrition: - Continue nutritional supplement with meals - monitor nutritional status DVT prophylaxis: Lovenox, SCDs. Discharge Planning Will need to remain inpatient for IV antibiotics for 4 weeks after first negative blood culture due to IV drug use history and inability to have central venous access as outpatient. Plan to remain admitted for IV antibiotics at least until 09/24/16. Problem Qualifiers (1) Hypotension: Qualified Code: I95.9 - Hypotension, unspecified hypotension type Felicita Toscano Sep 22, 2016 10:37
--- NOTE | 2016-09-22 11:53 | RADHPO ---
EXAM DATE/TIME: 09/22/2016 11:08 [facility] COMPARISON: ABDOMEN KUB ONLY, August 24, 2016, 13:58. INDICATIONS : Nausea and left lower abdomen pain since yesterday. MEDICAL HISTORY : None. SURGICAL HISTORY : None. ENCOUNTER: Subsequent ACUITY: 2 days PAIN SCORE: 8/10 LOCATION: Left lower quadrant abdomen FINDINGS: Supine view of the abdomen was performed. Moderate amount of stool is present. The bowel gas pattern is otherwise unremarkable. No abnormal masses, calcifications, or organomegaly is seen. The osseous structures are unremarkable. CONCLUSION: Unremarkable bowel gas pattern with moderate amount of stool. Doe Light MD on September 22, 2016 at 11:50 Board Certified Radiologist. This report was verified electronically.
[2016-09-22] MEDS ORDERED: BISACODYL 10 MG SUPP RECTAL PRN (13:30)
[2016-09-22 20:00] VITALS: BP 137/97; PULSE 86; RESP 16; TEMP 97.5; O2SAT 100
[2016-09-22] MEDS: MAGNESIUM HYDROXIDE SUSP 30 ML CUP PO PRN (20:42)
[2016-09-22] MEDS: ENOXAPARIN SODIUM 40 MG/0.4 ML SYRINGE SQ SCH (21:44)
[2016-09-23] MEDS: diphenhydrAMINE HCL 25 MG CAP PO PRN ×3 (05:23→22:07)
[2016-09-23] MEDS: VANCOMYCIN INJ 750 MG in SODIUM CHLOR 0.9% 250 ML INJ 250 ML IV SCH ×3 (05:24→22:01)
[2016-09-23] MEDS: SODIUM CHLORIDE 0.9% FLUSH 5 ML FLUSH IV FLUSH PRN (05:24)
[2016-09-23 08:00] VITALS: BP 119/80; PULSE 73; RESP 16; TEMP 98.1; O2SAT 100
[2016-09-23] MEDS: LORATADINE 10 MG TAB PO SCH (08:06)
[2016-09-23] MEDS: FUROSEMIDE 20 MG TAB PO SCH (08:06)
[2016-09-23] MEDS: BETAMETHASONE/CLOTRIMAZOLE CREAM 15 GM TOPICAL SCH ×2 (08:06→20:39)
[2016-09-23] MEDS: DOCUSATE SODIUM 100 MG CAP PO SCH ×2 (08:06→20:39)
[2016-09-23] MEDS: PANTOPRAZOLE SOD 40 MG DELAYED RELEASE TAB PO SCH (08:06)
[2016-09-23] MEDS: SENNOSIDES 8.6 MG TAB PO SCH (08:06)
[2016-09-23] MEDS: SODIUM CHLORIDE 0.9% FLUSH 5 ML FLUSH IV FLUSH SCH ×2 (08:08→20:38)
--- NOTE | 2016-09-23 12:44 | HHI.PR ---
Subjective Remarks Patient seen and examined today for follow-up on bacteremia, tricuspid valve endocarditis, septic pulmonary emboli. Tentative discharge date is tomorrow. We'll need infectious disease recommendations. Patient states that she still having intermittent abdominal discomfort located on the left abdomen. There is previous episodes where she had the pain resolved after having a bowel movement. He states that she still experiencing intermittent discomfort despite having a bowel movement. Patient has had laboratory studies performed recently without any acute abnormality. Objective Vitals Vital Signs Date Time Temp Pulse Resp B/P Pulse Ox O2 Delivery O2 Flow Rate FiO2 09/23/16 08:00 98.1 73 16 119/80 100 09/23/16 07:08 14 09/22/16 20:00 97.5 86 16 137/97 100 I/O 09/22/16 09/22/16 09/22/16 09/23/16 09/23/16 09/23/16 07:00 15:00 23:00 07:00 15:00 23:00 Intake Total 700 ml 480 ml 480 ml Balance 700 ml 480 ml 480 ml Intake Oral 700 ml 480 ml 480 ml # Voids 2 2 4 1 # Bowel Movements 1 0 1 0 Result Diagram: 09/19/16 0425 09/22/16 0525 Objective Remarks GENERAL: Well-developed, well-nourished, in no acute distress. alert and orientated HEENT: Head is normocephalic without any lesions or masses noted. Facial features are symmetric. Eyesextraocular muscles are intact. Conjunctivae were clear. NECK: Supple without any masses. Trachea midline no deviation. No JVD, CARDIAC: Regular rhythm, regular rate. S1/S2 are heard. No murmurs gallops or rubs. LUNGS: Clear to auscultation bilaterally. No wheeze, rhonchi or rales. No use of accessory muscles on inspiration or expiration. ABDOMEN: Soft, nontender. Nondistended. Bowel sounds heard in all 4 quadrants. No organomegaly or masses. Negative rebound, negative guarding EXTREMITIES: No edema, pulses are equal bilaterally. No cyanosis or clubbing NEUROLOGY: Mood and affect appear appropriate. Cranial nerves II through XII grossly intact. Moving all extremities, speech is clear LEFT UPPER EXTREMITY: Patient still has some papules on the left medial forearm, Procedures IJ central line 08/17/2016. 08/18/2016 Echocardiogram - Left ventricle: The cavity size was normal. Wall thickness was normal. Systolic function was normal. The estimated ejection fraction was in the range of 55% to 60%. Wall motion was normal; there were no regional wall motion abnormalities. - Aortic valve: Valve area: 2.08cm^2 (Vmax). - Tricuspid valve: There was a vegetation. Moderate-severe regurgitation. - Pulmonary arteries: PA peak pressure: 42mm Hg (S). Urinary Catheter: No Vascular Central Line Catheter: Yes Side: Right A/P Assessment and Plan IV drug user/polysubstance abuser who presented with septic shock, found to have MSSA bacteremia secondary to tricuspid valve bacterial endocarditis with associated septic pulmonary emboli Blood Cultures with MSSA with first negative culture at 08/27/16 Echocardiogram did indicate tricuspid valve with echo dense mass measuring 1 x 0.5 cm. SHANNON shows multiple large tricuspid valve highly mobile vegetations. 1.7 x 1.2 cm, 1.1 x 1.3 cm. Infectious disease following the patient and recommended changing to vancomycin with end date 09/24/16, reconsult infectious disease to evaluate for discharge planning,? Outpatient medications HIV and hepatitis C testing were negative Insulin syringes found in patient's room. Patient states that there are from her boyfriend. Patient counseled extensively on continued IV drug use Pain control Discontinue Oxycodone 5 mg every 8 hours as needed for pain 510, which change at every 6 hours, Start ibuprofen 600 mg 3 times daily as needed Intermittent abdominal discomfort usually relieved by bowel movement Lipase level has been normal. KUB shows moderate amount of stool ? Hypersensitivity reaction to cephalosporin. Patient does have history of amoxicillin allergy Give Benadryl now and as needed Discuss with infectious disease who indicated we can discontinue Ancef and start vancomycin Total IgE level 50.9 Continue Lotrisone cream Hypertension, blood pressure stable this time Norvasc 5 mg daily Continue monitor blood pressure remains stable may be a little discontinue Norvasc Acute on chronic microcytic anemia, resolved Transfuse 1 unit of packed red blood cells Iron studies were performed which does show a low iron, however ferritin 247. Continue monitor hemoglobin and transfuse as needed Moderate protein malnutrition BMI 17.4, now 18.1 Nutritional supplements with meals Continue monitor nutritional status Depression with Suicidal ideations Patient was evaluated by psychiatrist who indicates that the patient is not a candidate for admission to psychiatric center. Recommended Haldol if needed for agitation or aggressive behavior. it appears if during the interview the most addressed problem was associated with pain control and opiate abuse. Acute kidney injury, resolved Patient originally presented with a creatinine 1.82. Now has complex to complete normal at 0.66 Right pleural effusion, pleuritic chest pain, generalized edema. There was concerns for empyema, resolved Thoracentesis was performed which was negative for any bacterial etiology Patient continued on Lasix 20 mg daily Right shoulder pain, resolved X-ray was performed which did show small effusion, no aspiration was done at that time Patient was treated with NSAID Therapy services: Continue therapy services until patient has reached maximum medical potential Occupational therapy indicates patient does not need any equipment upon discharge and still continue therapy is to be determined. Physical therapy indicates patient should go home with home health PT as needed , requires supervision at home DVT prevention Sequential compression devices, Lovenox Discharge Planning Discharge planning once IV antibiotics have been completed Carlos A Jarquin Sep 23, 2016 12:44
[2016-09-23] MEDS ORDERED: IBUPROFEN 400 MG TAB PO PRN (15:00)
[2016-09-23 20:00] VITALS: BP 119/91; PULSE 87; RESP 16; TEMP 98.3; O2SAT 100
[2016-09-23] MEDS: ENOXAPARIN SODIUM 40 MG/0.4 ML SYRINGE SQ SCH (20:39)
[2016-09-24] MEDS: diphenhydrAMINE HCL 25 MG CAP PO PRN ×2 (04:28→11:57)
[2016-09-24] MEDS: VANCOMYCIN INJ 750 MG in SODIUM CHLOR 0.9% 250 ML INJ 250 ML IV SCH (05:36)
[2016-09-24 08:00] VITALS: BP 122/80; PULSE 86; RESP 16; TEMP 97.6; O2SAT 100
[2016-09-24] MEDS: SENNOSIDES 8.6 MG TAB PO SCH (08:00)
[2016-09-24] MEDS: DOCUSATE SODIUM 100 MG CAP PO SCH (08:00)
[2016-09-24] MEDS: PANTOPRAZOLE SOD 40 MG DELAYED RELEASE TAB PO SCH (08:00)
[2016-09-24] MEDS: FUROSEMIDE 20 MG TAB PO SCH (08:00)
[2016-09-24] MEDS: LORATADINE 10 MG TAB PO SCH (08:00)
[2016-09-24] MEDS: SODIUM CHLORIDE 0.9% FLUSH 5 ML FLUSH IV FLUSH SCH (08:01)
[2016-09-24] MEDS: BETAMETHASONE/CLOTRIMAZOLE CREAM 15 GM TOPICAL SCH (08:01)
[2016-09-24] MEDS ORDERED: FURO20TA PO (10:16)
--- NOTE | 2016-09-24 10:17 | HHI.DCPOC ---
Discharge Care Plan Diagnosis: (1) Septic pulmonary embolism (2) Endocarditis of tricuspid valve (3) Drug abuse Goals to Promote Your Health * To prevent worsening of your condition and complications * To maintain your health at the optimal level Directions to Meet Your Goals Take your medications as prescribed Follow your dietary instruction Follow activity as directed Keep your appointments as scheduled Take your immunizations and boosters as scheduled If your symptoms worsen call your PCP, if no PCP go to Urgent Care Center or Emergency Room Smoking is Dangerous to Your Health. Avoid second hand smoke Call the 24-hour hour crisis hotline for domestic abuse at Carlos A Jarquin Sep 24, 2016 10:17
--- NOTE | 2016-09-24 10:30 | HHI.DS ---
Discharge Summary Admission Date Aug 17, 2016 at 18:52 Discharge Date: Sep 24, 2016 Admitting Diagnosis dehydration,fever,poss endocarditis,thrombocytopenia (1) Constipation ICD Code: K59.00 (2) Sepsis ICD Code: A41.9 (3) Hypotension ICD Code: I95.9 (4) PNA (pneumonia) ICD Code: J18.9 (5) UTI (urinary tract infection) ICD Code: N39.0 (6) TEMO (acute kidney injury) ICD Code: N17.9 (7) IVDU (intravenous drug user) ICD Code: F19.90 (8) Cocaine abuse ICD Code: F14.10 (9) Rash ICD Code: R21 Procedures IJ central line 08/17/2016. 08/18/2016 Echocardiogram - Left ventricle: The cavity size was normal. Wall thickness was normal. Systolic function was normal. The estimated ejection fraction was in the range of 55% to 60%. Wall motion was normal; there were no regional wall motion abnormalities. - Aortic valve: Valve area: 2.08cm^2 (Vmax). - Tricuspid valve: There was a vegetation. Moderate-severe regurgitation. - Pulmonary arteries: PA peak pressure: 42mm Hg (S). Brief History - From Admission This is a 21-year-old female with a PMH of Polysubstance Abuse and IVDU w/ recent 07/28/16 who presented to the ER with complaints of generalized weakness and fever for approx 1wk. Denies nausea, vomiting, cough or SOB. States last IVDU was 6 days ago, but took Suboxone today. On arrival, BP 79/51 , HR 150, O2 sat 94% on RA, Temp 100.9. S/p 2L IVF w/ improvement in BP 104/54 , HR 135. WBC 23.3. Bands 18. Platelets 41, previously 209 on 07/14/16. Creatinine 1.82, previous is 0.86 on 07/24/15. Ca 8.1, PO4 2.7, Mg 2.7, Lactic Acid 1.8. U/a positive for UTI. Urine Drug Screen positive for Cocaine. CXR w / mild streaky opacity likely CAP. S/p Blood Cultures, IV Fortaz. CBC/BMP: 09/22/16 0525 Imaging Last Impressions Abdomen X-Ray 09/22/16 0000 Signed Impressions: Service Date/Time: Thursday, September 22, 2016 11:08 - CONCLUSION: Unremarkable bowel gas pattern with moderate amount of stool. Doe Light MD Chest X-Ray 09/10/16 0800 Signed Impressions: Service Date/Time: Saturday, September 10, 2016 08:03 - CONCLUSION: 1. No pneumothorax is visualized. 2. Bibasilar airspace opacity likely representing atelectasis with suspected small right pleural effusion. 3. Stable nodules in the left upper lobe. Rickey Quispe MD Abdomen/Pelvis CT 09/07/16 1319 Signed Impressions: Service Date/Time: Wednesday, September 07, 2016 13:44 - CONCLUSION: 1. Large right-sided pleural effusion with a small cavitary nodules consistent with the patient's history of septic emboli. Small left-sided pleural effusion. 2. Mild hepatomegaly and cardiomegaly. Karo Jones MD Thoracentesis Ultrasound 09/07/16 0000 Signed Impressions: Service Date/Time: Wednesday, September 07, 2016 19:43 - CONCLUSION: Uncomplicated ultrasound guided thoracentesis. Rickey Babb MD Chest CT 09/07/16 0000 Signed Impressions: Service Date/Time: Wednesday, September 07, 2016 13:44 - CONCLUSION: Multiple bilateral irregular solid and cavitary nodular masses which have largely improved as compared to the prior exam with development of new small cavitary lesions within the right lower lobe and worsening right-sided pleural effusion. Given the patient's prior history of endocarditis this is compatible with septic emboli. Karo Jones MD Lumbar Spine MRI 09/06/16 0000 Signed Impressions: Service Date/Time: Tuesday, September 06, 2016 15:23 - CONCLUSION: Normal examination for a patient of this age. No significant change compared to the prior examination. Martin Andrade MD Shoulder X-Ray 08/28/16 0000 Signed Impressions: Service Date/Time: July 11:44 - CONCLUSION: 1. The shoulder is unremarkable. 2. Small right effusion. Leonardo Pitt Jr., MD Upper Extremity Ultrasound 08/19/16 0000 Signed Impressions: Service Date/Time: Friday, August 19, 2016 10:38 - CONCLUSION: 1. Occlusive thrombus within the mid and distal right cephalic vein. 2. Complex hypoechoic area adjacent to the brachial vessels within the antecubital fossa measuring 2.6 x 1.0 x 1.2 cm which is nonspecific. Jose Triana MD Brain MRI 08/19/16 Signed Impressions: Service Date/Time: Friday, August 19, 2016 20:48 - CONCLUSION: The postcontrast portion of the exam is very limited since very little contrast is identified and there are couple of nonspecific punctate white manner bright signal on FLAIR sequence. Timoteo Khalil MD Liver Ultrasound 08/18/16 0000 Signed Impressions: Service Date/Time: Thursday, August 18, 2016 16:18 - CONCLUSION: 1. Small right pleural effusion. 2. The gallbladder is decompressed with minimal intraluminal sludge. No stones. 3. Splenomegaly. Sergei Maldonado MD PE at Discharge GENERAL: Thin well developed female in no apparent distress. HEAD: Atraumatic. Normocephalic. CARDIOVASCULAR: Regular rate and rhythm. RESPIRATORY: No accessory muscle use. Decreased breath sounds over the right lung base, same. Clear to auscultation. GASTROINTESTINAL: Normal bowel sounds in all 4 quadrants. Tender over epigastric region, left upper quadrant, and right lower quadrant, but no guarding present. Abdomen is soft and nondistended. BACK: No CVA tenderness bilaterally. No tenderness to palpation over L lower back. NEUROLOGICAL: Awake and alert. Motor grossly within normal limits. Normal speech. PSYCHIATRIC: Appropriate mood and affect. Hospital Course 21-year-old female with known history of polysubstance abuse, IV drug use who originally presented to hospital because of weakness, fever for a week. Patient presented to the hospital with initial signs of sepsis with hypotension , tachycardia, fever, leukocytosis, bandemia. Patient had multiple positive findings to include chest x-ray with opacity, urinary tract infection, positive drug screen. Patient had positive blood cultures with staph aureus /. Patient had echocardiogram performed which did show tricuspid valve vegetation with moderately severe regurgitation. SHANNON was subsequently performed which did show large tricuspid valve mobile vegetation. During her stay patient did have pleural effusion which was drained showed no growth. Patient had multiple medical problems during her stay in the hospital she did have sepsis/ hypothermia in which she was followed by critical care team. Cardiology was consulted and was following the patient, did perform the SHANNON, infectious disease following the patient and made antibiotic recommendations per sensitivities. Patient was continued on Ancef for antibiotic coverage, however she started developing a papular rash during administration of medication. Ancef was discontinued and vancomycin was started. Infectious disease recommended that the patient undergo 4 weeks of antibiotic treatment from the last negative blood culture which was August 27, 2016. Patient continue antibiotics until 09/24/16. Discussed the case with infectious disease Dr. Rodgers who indicated that since patient has nondalton heart valve endocarditis. Patient does not require any outpatient medications. Patient clinically stable this time. She plans on being discharged home with outpatient follow-up with Marcus Amanda. Pt Condition on Discharge: Stable Discharge Disposition: Discharge Home Discharge Time: > 30 minutes Discharge Instructions DIET: Follow Instructions for: As Tolerated, No Restrictions Activities you can perform: Regular-No Restrictions Follow up Referrals: PCP Follow-up - 1 Week New Medications: Furosemide (Furosemide) 20 Mg Tab 20 MG PO DAILY diuretic Days 30 TAB Continued Medications: Epinephrine Hcl (Epipen) 0.3 Mg Inj 0.3 MG IM DIRECTED GIVE IM IN THIGH, MAY REPEAT IF NEEDED PRN ALLERGIC REACTION #1 INJ Ibuprofen (Ibuprofen) 600 Mg Tab 600 MG PO Q6H PRN CRAMPING #30 TAB Discontinued Medications: Oxycodone-Acetaminophen (Oxycodone-Acetaminophen) 10-325 mg Tab 1 TAB PO Q6H PRN PAIN #30 Ref 0 TAB Sennosides-Docusate Sodium (Senna Plus 8.6-50 mg) 1 Tab Tab 2 TAB PO Q12H PRN CONSTIPATION #30 TAB Additional Information Written by Carlos A Jarquin, acting as scribe for Dr. Phoenix on 09/24/16 at 10: 22. This note was transcribed by scribe HORTENCIA Sanchez. I, Dr. Anant Phoenix personally performed the history, physical exam, and medical decision making; and confirmed the accuracy of the information in the transcribed note. Authenticated by Dr. Anant Phoenix on 09/24/16 at 23:32. Carlos A Jarquin Sep 24, 2016 10:30 Samanta Phoenix DO Sep 24, 2016 23:32
[2016-09-24] MEDS ORDERED: Custom Consult Pharmacy 1 EA OTHER SCH (11:45)
[2016-09-24] MEDS ORDERED: VANCOMYCIN INJ 750 MG in SODIUM CHLOR 0.9% 250 ML INJ 250 ML IV SCH (12:00)
--- NOTE | 2016-09-24 18:43 | HHI.PR ---
Addendum to Inpatient Note Additional Information delayed entry Case was dw Rickey BURNETT over the phone this am Pt with [place] valve tricuspid endocrditis Completed her abx as recommended No need for chronic suppression treatment Tesha Rodgers MD Sep 24, 2016 18:43
== END 2016-09-24 13:54 | disposition home or self-care (01) | DRG 871 ==
LOC: NEPE 16:48 → NEDA 18:52 → HIMN 08-18 00:25 → N07A 08-23 17:28 → PH5A 09-10 19:36
PROVIDERS: ADMIT Hospitalist; ATTEND Hospitalist
PROC: 02H633Z Insertion of Infusion Device into Right Atrium, Percutaneous Approach (ICD-10-PCS; principal; 2016-08-17)
PROC: B543ZZA Ultrasonography of Right Jugular Veins, Guidance (ICD-10-PCS; 2016-08-17)
PROC: 30233N1 Transfusion of Nonautologous Red Blood Cells into Peripheral Vein, Percutaneous Approach (ICD-10-PCS; 2016-08-26)
PROC: B246ZZ4 Ultrasonography of Right and Left Heart, Transesophageal (ICD-10-PCS; 2016-08-27)
PROC: 0W993ZZ Drainage of Right Pleural Cavity, Percutaneous Approach (ICD-10-PCS; 2016-09-07)
DX: A41.01 Sepsis due to Methicillin susceptible Staphylococcus aureus (principal); I33.0 Acute and subacute infective endocarditis; I26.90 Septic pulmonary embolism without acute cor pulmonale; R65.21 Severe sepsis with septic shock; I76 Septic arterial embolism; J18.9 Pneumonia, unspecified organism; J90 Pleural effusion, not elsewhere classified; K85.90 Acute pancreatitis without necrosis or infection, unspecified; B37.0 Candidal stomatitis; N17.9 Acute kidney failure, unspecified; N39.0 Urinary tract infection, site not specified; R45.851 Suicidal ideations; F11.23 Opioid dependence with withdrawal; E44.0 Moderate protein-calorie malnutrition; Z68.1 Body mass index [BMI] 19.9 or less, adult; D69.6 Thrombocytopenia, unspecified; E83.39 Other disorders of phosphorus metabolism; E83.51 Hypocalcemia; E86.0 Dehydration; R09.02 Hypoxemia; I07.1 Rheumatic tricuspid insufficiency; E87.6 Hypokalemia; R47.81 Slurred speech; E87.70 Fluid overload, unspecified; M25.411 Effusion, right shoulder; D50.9 Iron deficiency anemia, unspecified; K59.00 Constipation, unspecified; K21.9 Gastro-esophageal reflux disease without esophagitis; M54.5 Low back pain; I10 Essential (primary) hypertension; L27.0 Generalized skin eruption due to drugs and medicaments taken internally; R09.81 Nasal congestion; F14.14 Cocaine abuse with cocaine-induced mood disorder; F11.24 Opioid dependence with opioid-induced mood disorder; F32.9 Major depressive disorder, single episode, unspecified; F41.9 Anxiety disorder, unspecified; T36.1X5A Adverse effect of cephalosporins and other beta-lactam antibiotics, initial encounter; Y92.230 Patient room in hospital as the place of occurrence of the external cause; Y95 Nosocomial condition; Z88.1 Allergy status to other antibiotic agents
CPT/HCPCS: 32555; 36430; 70553; 71010; 71020; 71250; 71260; 72158; 73030; 74000; 74177; 76705; 76937; 80048; 80053; 80074; 80170; 80202; 80307; 81001; 82272; 82565; 82607; 82728; 82746; 82785; 83540; 83550; 83605; 83690; 83735; 84100; 84155; 84703; 85007; 85014; 85018; 85025; 85027; 85610; 85730; 86403; 86703; 86850; 86900; 86901; 86920; 87015; 87040; 87070; 87071; 87077; 87086; 87102; 87116; 87147; 87186; 87205; 87206; 87449; 87641; 89051; 93005; 93306; 93312; 93320; 93325; 93971; 94150; 96365; A9579; C1729; J0171; J0456; J0690; J0692; J0713; J0780; J1200; J1580; J1642; J1650; J1720; J1940; J2060; J2248; J2405; J3370; J3480; J7030; J7050; P9016; P9612; Q9967

== ENCOUNTER 2017-02-02 17:39 | Observation (INO) | payer MEDICAID, OTHER ==
[~2017-02-02] VITALS: Ht 165.1 cm; Wt 50.0 kg
[2017-02-02] MEDS: VANCOMYCIN INJ 750 MG in SODIUM CHLOR 0.9% 250 ML INJ 250 ML IV SCH ×2 (09:00→23:23)
[~2017-02-02 17:39] MED LIST changes: +FURO20TA PO; -OXYC1TAB36 PO; -SENN1TAB PO
[2017-02-02 17:41] VITALS: BP 123/86; PULSE 126; RESP 20; TEMP 97.5; O2SAT 97
[2017-02-02 17:54] VITALS: BP 123/80; PULSE 104; RESP 19; TEMP 98; O2SAT 98
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
[2017-02-02 19:00] VITALS: BP 123/81; PULSE 94; RESP 18; O2SAT 98
[2017-02-02] MEDS ORDERED: SODIUM CHLOR 0.9% 1000 ML INJ 1,000 ML IV SCH (20:30)
[2017-02-02 20:33] LABS: AUTOMATED NEUTROPHIL # 6.5 TH/MM3 (1.8-7.7); BASOPHIL % 0.3 % (0.0-2.0); EOSINOPHIL # 0.3 TH/MM3 (0-0.4); EOSINOPHIL % 3.4 % (0.0-4.0); HEMATOCRIT 36.4 % (35.0-46.0); HEMO FLAGS DIFF FINAL; LYMPHOCYTE # 1.2 TH/MM3 (1.0-4.8); MEAN CELL VOLUME 80.6 FL (80.0-100.0); MEAN CORPUSCULAR HEMOGLOBIN 26.7 PG (27.0-34.0); MEAN CORPUSCULAR HGB CONC 33.1 % (32.0-36.0); MONO % 2.3 % (0.0-8.0); PLATELET COUNT 240 TH/MM3 (150-450); RED BLOOD COUNT 4.51 MIL/MM3 (4.00-5.30); RED CELL DISTRIBUTION WIDTH 14.9 % (11.6-17.2); WHITE BLOOD COUNT 8.2 TH/MM3 (4.0-11.0)
[2017-02-02 20:41] LABS: ALT (GPT) 48 U/L (10-53)
[2017-02-02 20:51] LABS: ALKALINE PHOSPHATASE 129 U/L (45-117); TOTAL BILIRUBIN ADULT 1.4 MG/DL (0.2-1.0)
[2017-02-02] MEDS ORDERED: VANCOMYCIN INJ 750 MG in SODIUM CHLOR 0.9% 250 ML INJ 250 ML IV ONE (21:00)
[2017-02-02 21:20] LABS: ANION GAP 8 MEQ/L (5-15); AST (GOT) 32 U/L (15-37); BICARBONATE 24.9 MEQ/L (21.0-32.0); BLOOD UREA NITROGEN 11 MG/DL (7-18); CHLORIDE 105 MEQ/L (98-107); GLOMERULAR FILTRATION RATE 75 ML/MIN (>89); SODIUM (NA) 138 MEQ/L (136-145)
[2017-02-02 21:25] LABS: POTASSIUM 4.4 MEQ/L (3.5-5.1)
[2017-02-02] MEDS ORDERED: ACETAMINOPHEN 325 MG TAB PO PRN (21:45)
[2017-02-02] MEDS ORDERED: NALOXONE HCL 0.4 MG/ML AMP IV PRN (21:45)
[2017-02-02] MEDS ORDERED: ONDANSETRON HCL 4 MG/2 ML VIAL IVP PRN (21:45)
[2017-02-02 22:00] VITALS: BP 131/70; PULSE 92; RESP 18; O2SAT 99
[2017-02-02] MEDS ORDERED: Vancomycin Consult Pharmacy 1 EA OTHER SCH (22:00)
[2017-02-02 22:49] LABS: BACTERIA, URINE OCC /hpf; BLOOD, URINE NEG (NEG); GLUCOSE,URINE NEG (NEG); HYALINE CAST, URINE 1 /lpf (RARE); KETONE, URINE 10 mg/dL (NEG); MUCUS URINE MANY /lpf (OCC); NITRITE,URINE NEG (NEG); SQUAMOUS EPITHELIAL CELL URINE 12 /hpf (0-5); URINE COLOR YELLOW (YELLW/STRAW)
[2017-02-02 22:50] LABS: COMMENT (UR) CATH-CULTURE IND; CULTURE IF INDICATED CATH CULTURE IND
[2017-02-03 00:09] VITALS: BP 105/59; PULSE 120; RESP 18; TEMP 98.9; O2SAT 100
[2017-02-03] MEDS ORDERED: diphenhydrAMINE HCL 50 MG/ML VIAL IV PUSH ONE (00:15)
[2017-02-03 00:38] VITALS: PULSE 106
[2017-02-03 03:34] VITALS: BP 108/60; PULSE 118; RESP 16; TEMP 98.8; O2SAT 100
[2017-02-03 07:41] VITALS: BP 98/54; PULSE 85; RESP 16; TEMP 98.2; O2SAT 100
--- NOTE | 2017-02-03 11:41 | PD.AMA ---
Against Medical Advice Note Discharge Disposition: Against Medical Advice AMA Statement Patient Ginger Mcintosh has decided to leave the hospital against medical advice. She told RN she needs to leave to take care of her children. This patient has the capacity to refuse care and understands the risks of leaving, including permanent disability and/or , and has had an opportunity to ask questions about her condition. The patient has been informed that she may return for care at any time, and follow up has been arranged/ advised. Vicky Magallon PA-C Feb 03, 2017 11:41 am
--- NOTE | 2017-02-03 13:44 | EKG ---
Date Performed: 02/02/2017 Time Performed: 20:25:42 PTAGE: 21 years EKG: SINUS TACHYCARDIA POSSIBLE LEFT ATRIAL ENLARGEMENT POSSIBLE RIGHT VENTRICULAR CONDUCTION DE LAY ABNORMAL RHYTHM ECG Compared to prior tracing no significant change PREVIOUS TRACING : 08/17/2016 21.38 DOCTOR: Cipriano Chung Interpretating Date/Time 02/03/2017 13:43:04
[2017-02-04] MEDS ORDERED: PHARMACY ORDERED LAB ONE (08:45)
== END 2017-02-03 11:56 | disposition left against medical advice (07) ==
LOC: NEPD 17:39 → NEDA 21:13 → INTOOBSV 21:13 → NEPGCP 22:30
PROVIDERS: ADMIT Hospitalist; ATTEND Hospitalist
DX: R07.9 Chest pain, unspecified (principal); F11.23 Opioid dependence with withdrawal; R94.31 Abnormal electrocardiogram [ECG] [EKG]; R82.79 Other abnormal findings on microbiological examination of urine
CPT/HCPCS: 71010; 80053; 81001; 83605; 84443; 85025; 87040; 87086; 93005; 96365; 96375; 99285; G0378; J1200; J2405; J3370; J7030; J7050

== ENCOUNTER 2017-02-15 21:51 | Observation (INO) | payer SELFPAY ==
[~2017-02-15] VITALS: Ht 165.1 cm; Wt 50.0 kg
[2017-02-15 21:53] VITALS: BP 115/75; PULSE 107; RESP 16; TEMP 98.1; O2SAT 98
--- NOTE | 2017-02-15 23:30 | PD ---
HPI Chief Complaint: Chest Pain Time Seen by Provider: 23:06 Travel History International Travel<30 days: No Contact w/Intl Traveler<30days: No Traveled to known affect area: No History of Present Illness HPI 21-year-old female complains of chest pain. Patient states that patient started having chest pain for the past 2 weeks. Patient has history IV drug abuse including Dilaudid and cocaine. Patient was admitted in July 2016 for sepsis and endocarditis. Patient was treated with IV antibiotic. Patient states that she was shooting up Dilaudid and snort cocaine recently. Patient states that she took Xanax yesterday. Patient states that she was on Suboxone in the past. Patient was seen in emergency room on February 02 with complaints of chest pain. Patient was admitted for possible endocarditis. Patient received IV vancomycin. Workup was planned. Patient signed out AMA. Patient states that she had persistent chest pain since then. Patient states the pain aching pain substernally and left chest. Patient denies any chest pain radiation. Patient denies palpitation diaphoresis. Patient states that she has chills today. Patient denies any fever. Patient complains of shortness of breath. Patient states that she has nausea but no vomiting. Patient also has intermittent cramping left lower quadrant of the abdomen. Patient stated that she has mild aching headache. Patient denies any visual change. Patient denies any neck pain. Patient denies any coughing congestion. Patient states that she is allergic to vancomycin IV. PFSH Past Medical History Blood Disorders: Yes (low white blood cells per pt requiring blood transfusion) Heart Rhythm Problems: Yes Cancer: No Cardiovascular Problems: Yes (ENDOCARDITIS) High Cholesterol: No Chemotherapy: No Chest Pain: No Congestive Heart Failure: No Diminished Hearing: No Endocrine: No Genitourinary: No Immune Disorder: No Musculoskeletal: No Neurologic: No Psychiatric: No Reproductive: No Respiratory: No Immunizations Current: No Pneumonia: Yes Radiation Therapy: No ?: Not : 3 Para: 3 : 1 Past Surgical History Tonsillectomy: Yes Other Surgery: Yes (TONSILS CHILD ) Social History Alcohol Use: No Tobacco Use: No Substance Use: Yes (DILAUDID) Allergies-Medications (Allergen,Severity, Reaction): Coded Allergies: amoxicillin (Unverified Allergy, Unknown, rashes, 02/15/17) cefazolin (Unverified Allergy, Unknown, Hives, 02/15/17) vancomycin (Verified Adverse Reaction, Intermediate, 02/15/17) rash on both arms, face swollen Reported Meds & Prescriptions Reported Meds & Active Scripts Active No Active Prescriptions or Reported Medications Review of Systems General / Constitutional: No: Fever Eyes: No: Visual changes HENT: No: Headaches Cardiovascular: Positive: Chest Pain or Discomfort Respiratory: Positive: Shortness of Breath Gastrointestinal: No: Abdominal Pain Genitourinary: No: Dysuria Musculoskeletal: No: Pain Skin: No Rash Neurologic: No: Weakness Psychiatric: No: Depression Endocrine: No: Polydipsia Hematologic/Lymphatic: No: Easy Bruising Physical Exam Narrative GENERAL: Well-nourished, well-developed patient. SKIN: Focused skin assessment warm/dry. HEAD: Normocephalic. EYES: No scleral icterus. No injection or drainage. NECK: Supple, trachea midline. No JVD or lymphadenopathy. CARDIOVASCULAR: Regular rate and rhythm without murmurs, gallops, or rubs. RESPIRATORY: Breath sounds equal bilaterally. No accessory muscle use. GASTROINTESTINAL: Abdomen soft, non-tender, nondistended. MUSCULOSKELETAL: No cyanosis, or edema. BACK: Nontender without obvious deformity. No CVA tenderness. Neurologic exam normal. Data Data Last Documented VS Vital Signs Date Time Temp Pulse Resp B/P (MAP) Pulse Ox O2 Delivery O2 Flow Rate FiO2 02/15/17 21:53 98.1 107 16 115/75 (88) 98 Room Air Orders Orders Complete Blood Count With Diff (02/15/17 23:18) Comprehensive Metabolic Panel (02/15/17 23:18) Creatine Kinase (Cpk) (02/15/17 23:18) Troponin I (02/15/17 23:18) Prothrombin Time / Inr (Pt) (02/15/17 23:18) Act Partial Throm Time (Ptt) (02/15/17 23:18) Blood Culture (02/15/17 23:18) C-Reactive Protein (Crp) (02/15/17 23:18) Westergren Sedimentation Rate (02/15/17 23:18) Chest, Single Ap (02/15/17 23:18) Iv Access Insert/Monitor (02/15/17 23:18) Ecg Monitoring (02/15/17 23:18) Oximetry (02/15/17 23:18) Drug Screen, Random Urine (02/15/17 23:18) Lactic Acid (02/15/17 23:18) Labs Laboratory Tests Test 02/15/17 23:51 White Blood Count 6.2 TH/MM3 Red Blood Count 4.99 MIL/MM3 Hemoglobin 13.3 GM/DL Hematocrit 40.4 % Mean Corpuscular Volume 80.9 FL Mean Corpuscular Hemoglobin 26.6 PG Mean Corpuscular Hemoglobin Concent 32.9 % Red Cell Distribution Width 14.6 % Platelet Count 271 TH/MM3 Mean Platelet Volume 7.0 FL Neutrophils (%) (Auto) 76.2 % Lymphocytes (%) (Auto) 17.5 % Monocytes (%) (Auto) 3.6 % Eosinophils (%) (Auto) 2.3 % Basophils (%) (Auto) 0.4 % Neutrophils # (Auto) 4.7 TH/MM3 Lymphocytes # (Auto) 1.1 TH/MM3 Monocytes # (Auto) 0.2 TH/MM3 Eosinophils # (Auto) 0.1 TH/MM3 Basophils # (Auto) 0.0 TH/MM3 CBC Comment DIFF FINAL Differential Comment Erythrocyte Sedimentation Rate 29 mm/hr Prothrombin Time 10.9 SEC Prothromb Time International Ratio 1.0 RATIO Activated Partial Thromboplast Time 31.6 SEC Blood Urea Nitrogen 16 MG/DL Creatinine 0.98 MG/DL Random Glucose 80 MG/DL Total Protein 8.4 GM/DL Albumin 4.1 GM/DL Calcium Level 8.6 MG/DL Alkaline Phosphatase 117 U/L Aspartate Amino Transf (AST/SGOT) 13 U/L Alanine Aminotransferase (ALT/SGPT) 31 U/L Total Bilirubin 1.1 MG/DL Sodium Level 137 MEQ/L Potassium Level 3.8 MEQ/L Chloride Level 105 MEQ/L Carbon Dioxide Level 25.8 MEQ/L Anion Gap 6 MEQ/L Estimat Glomerular Filtration Rate 70 ML/MIN Lactic Acid Level 0.8 mmol/L Total Creatine Kinase 37 U/L Troponin I LESS THAN 0.02 NG/ML C-Reactive Protein 1.77 MG/DL MDM Medical Decision Making Medical Screen Exam Complete: Yes Emergency Medical Condition: Yes Interpretation(s) Last Impressions Chest X-Ray 02/15/17 1031 Signed Impressions: Service Date/Time: Wednesday, February 15, 2017 23:19 - CONCLUSION: Normal examination. Leonardo Pitt Jr., MD 12:32 AM. CBC with WBC 6.2. 76 neutrophil. Sedimentation rate 29. Lactic acid 0.8. C-reactive protein 1.77. Cardiac enzymes are normal. Differential Diagnosis Differential diagnosis including viral syndrome, endocarditis, pneumonia, UTI, sepsis. Narrative Course 21-year-old female with history IV drug abuse complaining of chest pain and chills. History of endocarditis in the past. Normal saline solution 1 25 cc an hour. Linezolid 600 mg IV Diagnosis Primary Impression: Chest pain Qualified Codes: R07.9 - Chest pain, unspecified Additional Impression: Intravenous drug abuse Admitting Information Admitting Physician Requests: Admit Scripts No Active Prescriptions or Reported Meds Sheldon Tran MD Feb 15, 2017 23:30
--- NOTE | 2017-02-15 23:39 | RADRPT ---
EXAM DATE/TIME: 02/15/2017 23:19 [facility] COMPARISON: CHEST SINGLE AP, February 02, 2017, 18:33. INDICATIONS : Chest pain MEDICAL HISTORY : Hypertension. Endocarditis SURGICAL HISTORY : Tonsillectomy. section. ENCOUNTER: Initial ACUITY: 2 days PAIN SCORE: 7/10 LOCATION: Bilateral chest FINDINGS: A single view of the chest demonstrates the lungs to be symmetrically aerated without evidence of mas s, infiltrate or effusion. The cardiomediastinal contours are unremarkable. Osseous structures are intact. An artifact overlies the right lung apex. This extends off the film on the right. CONCLUSION: Normal examination. Leonardo Pitt Jr., MD on February 15, 2017 at 23:37 Board Certified Radiologist. This report was verified electronically.
[2017-02-16] VITALS (11 sets, daily range): BP systolic 99–121; BP diastolic 56–80; PULSE 66–98; RESP 16–20; TEMP 97.8–98.3; O2SAT 97–100
[2017-02-16 00:12] LABS: AUTOMATED NEUTROPHIL # 4.7 TH/MM3 (1.8-7.7); BASOPHIL % 0.4 % (0.0-2.0); EOSINOPHIL # 0.1 TH/MM3 (0-0.4); EOSINOPHIL % 2.3 % (0.0-4.0); HEMATOCRIT 40.4 % (35.0-46.0); HEMO FLAGS DIFF FINAL; LYMPH % 17.5 % (9.0-44.0); LYMPHOCYTE # 1.1 TH/MM3 (1.0-4.8); MEAN CELL VOLUME 80.9 FL (80.0-100.0); MEAN CORPUSCULAR HEMOGLOBIN 26.6 PG (27.0-34.0); MEAN CORPUSCULAR HGB CONC 32.9 % (32.0-36.0); MONO % 3.6 % (0.0-8.0); NEUT % 76.2 % (16.0-70.0); PLATELET COUNT 271 TH/MM3 (150-450); RED BLOOD COUNT 4.99 MIL/MM3 (4.00-5.30); RED CELL DISTRIBUTION WIDTH 14.6 % (11.6-17.2); WHITE BLOOD COUNT 6.2 TH/MM3 (4.0-11.0)
[2017-02-16 00:25] LABS: APTT (PATIENT) 31.6 SEC (24.3-30.1); PROTHROMBIN TIME - PATIENT 10.9 SEC (9.8-11.6)
[2017-02-16 00:26] LABS: ALT (GPT) 31 U/L (10-53); ANION GAP 6 MEQ/L (5-15); AST (GOT) 13 U/L (15-37); BICARBONATE 25.8 MEQ/L (21.0-32.0); BLOOD UREA NITROGEN 16 MG/DL (7-18); CHLORIDE 105 MEQ/L (98-107); GLOMERULAR FILTRATION RATE 70 ML/MIN (>89); POTASSIUM 3.8 MEQ/L (3.5-5.1); SODIUM (NA) 137 MEQ/L (136-145)
[2017-02-16 00:30] LABS: ALKALINE PHOSPHATASE 117 U/L (45-117); CREATINE KINASE 37 U/L (26-192); TOTAL BILIRUBIN ADULT 1.1 MG/DL (0.2-1.0)
[2017-02-16] MEDS ORDERED: BISACODYL 10 MG SUPP RECTAL PRN (01:00)
[2017-02-16] MEDS ORDERED: SODIUM CHLORIDE 0.9% FLUSH 10 ML FLUSH IV FLUSH PRN (01:00)
[2017-02-16] MEDS ORDERED: ACETAMINOPHEN 325 MG TAB PO PRN (01:00)
[2017-02-16] MEDS ORDERED: ONDANSETRON HCL 4 MG/2 ML VIAL IVP PRN (01:00)
[2017-02-16] MEDS ORDERED: MAGNESIUM HYDROXIDE SUSP 30 ML CUP PO PRN (01:00)
[2017-02-16] MEDS ORDERED: SENNOSIDES 8.6 MG TAB PO PRN (01:00)
[2017-02-16] MEDS ORDERED: LINEZOLID 600 MG PREMIX 300 ML IV ONE (01:00)
[2017-02-16] MEDS ORDERED: LACTULOSE SYRUP 20 GM/30 ML CUP PO PRN (01:00)
[2017-02-16] MEDS: SODIUM CHLOR 0.9% 1000 ML INJ 1,000 ML IV SCH ×2 (02:11→10:43)
--- NOTE | 2017-02-16 02:38 | HHI.HP ---
[facility] Primary Care Physician No Primary Care Physician Admission Diagnosis chest pain. History of IV drug abuse. Diagnoses: (1) Chest pain Diagnosis: Principal (2) H/O endocarditis Diagnosis: Principal (3) IVDU (intravenous drug user) Diagnosis: Principal Travel History International Travel<30 Days: No Contact w/Intl Traveler <30 Da: No Traveled to Known Affected Are: No History of Present Illness This is a 21-year-old female with a PMH of IVDU w/ Cocaine/Dilaudid and H/o Endocarditis who presented to the ER w/ complaints of chest pain x2 wks. Seen in ER on 02/02/17 for similar complaints, however LEFT AMA shortly after admission. Returns now w/ ongoing chest pain, admits to recent Cocaine/ Dilaudid use. Blood Cultures 02/02/17 negative x2, previous Blood Cultures +Staph Aureus. On arrival, BP 150/75, HR 107, O2 sat 98% on RA, Afebrile. CBC unremarkable. Chemistry essentially unremarkable. Troponin negative. ESR 29. INR 1.0. Urine Drug Screen positive for Cocaine. CXR normal. Review of Systems Except as stated in HPI: all other systems reviewed are Neg ROS: 14 point review of systems otherwise negative. Past Family Social History Past Medical History PMH: IVDU w/ Cocaine/Dilaudid and H/o Endocarditis Past Surgical History PAST SURGICAL HISTORY: Tonsillectomy Allergies: Coded Allergies: amoxicillin (Unverified Allergy, Unknown, rashes, 02/15/17) cefazolin (Unverified Allergy, Unknown, Hives, 02/15/17) vancomycin (Verified Adverse Reaction, Intermediate, 02/15/17) rash on both arms, face swollen Family History PAST FAMILY HISTORY: Reviewed. No h/o DM or CAD Social History PAST SOCIAL HISTORY: Negative for alcohol or tobacco. IVDU Cocaine/Dilaudid. Physical Exam Vital Signs Vital Signs Date Time Temp Pulse Resp B/P (MAP) Pulse Ox O2 Delivery O2 Flow Rate FiO2 02/16/17 02:12 98 99/62 (74) 100 Room Air 02/16/17 01:24 98 02/15/17 21:53 98.1 107 16 115/75 (88) 98 Room Air Physical Exam PE: GENERAL: Young female in no acute distress. HEENT: PERRLA, EOMI. No scleral icterus or conjunctival pallor. No lid lag or facial droop. CARDIOVASCULAR: Regular rate and rhythm. No obvious murmurs to auscultation. No chest tenderness to palpation. RESPIRATORY: No obvious rhonchi or wheezing. Clear to auscultation. Breath sounds equal bilaterally. GASTROINTESTINAL: Abdomen soft, non-tender, nondistended. BS normal. MUSCULOSKELETAL: Extremities without clubbing, cyanosis, or edema. No obvious deformities. NEUROLOGICAL: Awake, alert and oriented x4. No focal neurologic deficits. Moving both upper and lower extremities spontaneously. Laboratory Laboratory Tests Test 02/15/17 23:51 02/16/17 01:05 White Blood Count 6.2 Red Blood Count 4.99 Hemoglobin 13.3 Hematocrit 40.4 Mean Corpuscular Volume 80.9 Mean Corpuscular Hemoglobin 26.6 Mean Corpuscular Hemoglobin Concent 32.9 Red Cell Distribution Width 14.6 Platelet Count 271 Mean Platelet Volume 7.0 Neutrophils (%) (Auto) 76.2 Lymphocytes (%) (Auto) 17.5 Monocytes (%) (Auto) 3.6 Eosinophils (%) (Auto) 2.3 Basophils (%) (Auto) 0.4 Neutrophils # (Auto) 4.7 Lymphocytes # (Auto) 1.1 Monocytes # (Auto) 0.2 Eosinophils # (Auto) 0.1 Basophils # (Auto) 0.0 CBC Comment DIFF FINAL Differential Comment Erythrocyte Sedimentation Rate 29 Prothrombin Time 10.9 Prothromb Time International Ratio 1.0 Activated Partial Thromboplast Time 31.6 Blood Urea Nitrogen 16 Creatinine 0.98 Random Glucose 80 Total Protein 8.4 Albumin 4.1 Calcium Level 8.6 Alkaline Phosphatase 117 Aspartate Amino Transf (AST/SGOT) 13 Alanine Aminotransferase (ALT/SGPT) 31 Total Bilirubin 1.1 Sodium Level 137 Potassium Level 3.8 Chloride Level 105 Carbon Dioxide Level 25.8 Anion Gap 6 Estimat Glomerular Filtration Rate 70 Lactic Acid Level 0.8 Total Creatine Kinase 37 Troponin I LESS THAN 0.02 C-Reactive Protein 1.77 Urine Opiates Screen NEG Urine Barbiturates Screen NEG Urine Amphetamines Screen NEG Urine Benzodiazepines Screen POS Urine Cocaine Screen POS Urine Cannabinoids Screen NEG Date/Time Source Procedure Growth Status 02/15/17 23:51 Blood Peripheral Aerobic Blood Culture Pending Received 02/15/17 23:51 Blood Peripheral Anaerobic Blood Culture Pending Received Result Diagram: 02/15/17 2351 02/15/17 2351 Caprini VTE Risk Assessment Caprini VTE Risk Assessment: No/Low Risk (score <= 1) Caprini Risk Assessment Model Point Value = 1 Point Value = 2 Point Value = 3 Point Value = 5 Age 41-60 Minor surgery BMI > 25 kg/m2 Swollen legs Varicose veins or History of unexplained or recurrent spontaneous Oral contraceptives or hormone replacement Sepsis (< 1 month) Serious lung disease, including pneumonia (< 1 month) Abnormal pulmonary function Acute myocardial infarction Congestive heart failure (< 1 month) History of inflammatory bowel disease Medical patient at bed rest Age 61-74 Arthroscopic surgery Major open surgery (> 45 min) Laparoscopic surgery (> 45 min) Malignancy Confined to bed (> 72 hours) Immobilizing plaster cast Central venous access Age >= 75 History of VTE Family history of VTE Factor V Leiden Prothrombin [id number] Lupus anticoagulant Anticardiolipin antibodies Elevated serum homocysteine Heparin-induced thrombocytopenia Other congenital or acquired thrombophilia Stroke (< 1 month) Elective arthroplasty Hip, pelvis, or leg fracture Acute spinal cord injury (< 1 month) Prophylaxis Regimen Total Risk Factor Score Risk Level Prophylaxis Regimen 0-1 Low Early ambulation 2 Moderate Order ONE of the following: *Sequential Compression Device (SCD) *Heparin 5000 units SQ BID 3-4 Higher Order ONE of the following medications: *Heparin 5000 units SQ TID *Enoxaparin/Lovenox 40 mg SQ daily (WT < 150 kg, CrCl > 30 mL/min) *Enoxaparin/Lovenox 30 mg SQ daily (WT < 150 kg, CrCl > 10-29 mL/min) *Enoxaparin/Lovenox 30 mg SQ BID (WT < 150 kg, CrCl > 30 mL/min) AND/OR *Sequential Compression Device (SCD) 5 or more Highest Order ONE of the following medications: *Heparin 5000 units SQ TID (Preferred with Epidurals) *Enoxaparin/Lovenox 40 mg SQ daily (WT < 150 kg, CrCl > 30 mL/min) *Enoxaparin/Lovenox 30 mg SQ daily (WT < 150 kg, CrCl > 10-29 mL/min) *Enoxaparin/Lovenox 30 mg SQ BID (WT < 150 kg, CrCl > 30 mL/min) AND *Sequential Compression Device (SCD) Assessment and Plan Problem List: (1) Chest pain ICD Code: R07.9 - Chest pain, unspecified Status: Acute (2) H/O endocarditis ICD Code: Z86.79 - Personal history of other diseases of the circulatory system (3) IVDU (intravenous drug user) ICD Code: F19.90 - Other psychoactive substance use, unspecified, uncomplicated Status: Acute Assessment and Plan A/P: 1. Chest Pain: ongoing chest pain x2 wks, h/o endocarditis. Initial trop negative, EKG w/ no acute ischemia, check serial cardiac enzymes. Possibly drug induced secondary to ongoing Cocaine, Ativan prn for chest pain. 2. H/o Endocarditis: Blood Cultures 08/24/16 +Staph Aureus, s/p treatment w/ Vanc however reports significant rash after Vanc. SHANNON 09/01/16 w/ Tricuspid Valve Vegetation. S/p Blood Cultures in ER, will follow up, start on empiric treatment w/ Zyvox in light of Vanc allergy. Consult ID for further recommendations. May need repeat SHANNON. 3. IVDU: w/ Cocaine/Dilaudid, ongoing. Urine Drug Screen positive for Cocaine. Ativan prn for withdrawal. 4. DVT Prophylaxis: SCD/Teds. 5. Social work for d/c planning as needed. 6. Case discussed w/ ER physician at length. Problem Qualifiers (1) Chest pain: Qualified Codes: R07.9 - Chest pain, unspecified Rachael Fry MD Feb 16, 2017 02:38
[2017-02-16] MEDS: SODIUM CHLORIDE 0.9% FLUSH 10 ML FLUSH IV FLUSH SCH ×2 (08:05→21:26)
[2017-02-16] MEDS ORDERED: DOCUSATE SODIUM 50 MG/SENNA 8.6 MG TAB PO SCH (09:00)
[2017-02-16] MEDS ORDERED: LINEZOLID 600 MG PREMIX 300 ML IV SCH (13:00)
[2017-02-16] MEDS ORDERED: IBUPROFEN 600 MG TAB PO PRN (15:15)
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
[2017-02-16] MEDS: LORazepam 2 MG/ML VIAL IV PUSH PRN (21:28)
[2017-02-17] VITALS: PULSE 72
[2017-02-17 03:55] VITALS: PULSE 72
[2017-02-17 04:12] VITALS: BP 110/73; PULSE 64; RESP 18; TEMP 97.8; O2SAT 100
[2017-02-17] MEDS: SODIUM CHLOR 0.9% 1000 ML INJ 1,000 ML IV SCH ×2 (04:17→06:47)
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
[2017-02-17 07:03] LABS: AUTOMATED NEUTROPHIL # 0.8 TH/MM3 (1.8-7.7); BASOPHIL % 0.9 % (0.0-2.0); EOSINOPHIL # 0.3 TH/MM3 (0-0.4); EOSINOPHIL % 9.9 % (0.0-4.0); HEMATOCRIT 35.9 % (35.0-46.0); LYMPH % 54.2 % (9.0-44.0); LYMPHOCYTE # 1.8 TH/MM3 (1.0-4.8); MEAN CORPUSCULAR HEMOGLOBIN 26.7 PG (27.0-34.0); MEAN CORPUSCULAR HGB CONC 33.4 % (32.0-36.0); MONO % 10.7 % (0.0-8.0); NEUT % 24.3 % (16.0-70.0); PLATELET COUNT 257 TH/MM3 (150-450); RED BLOOD COUNT 4.49 MIL/MM3 (4.00-5.30); RED CELL DISTRIBUTION WIDTH 14.4 % (11.6-17.2); WHITE BLOOD COUNT 3.4 TH/MM3 (4.0-11.0)
[2017-02-17 07:04] VITALS: BP 121/76; PULSE 63; RESP 16; TEMP 97.8; O2SAT 100
[2017-02-17 07:09] LABS: HEMO FLAGS AUTO DIFF
[2017-02-17 07:15] LABS: ALT (GPT) 36 U/L (10-53); ANION GAP 6 MEQ/L (5-15); AST (GOT) 18 U/L (15-37); BICARBONATE 27.2 MEQ/L (21.0-32.0); BLOOD UREA NITROGEN 10 MG/DL (7-18); CHLORIDE 105 MEQ/L (98-107); GLOMERULAR FILTRATION RATE 82 ML/MIN (>89); POTASSIUM 3.7 MEQ/L (3.5-5.1); SODIUM (NA) 138 MEQ/L (136-145)
[2017-02-17 07:30] LABS: ALKALINE PHOSPHATASE 104 U/L (45-117); TOTAL BILIRUBIN ADULT 0.7 MG/DL (0.2-1.0)
[2017-02-17 07:59] LABS: BASOPHILS 1 % (0-2); EOSINOPHILS 5 % (0-4); NEUTROPHIL # MANUAL DIFF 0.8 TH/MM3 (1.8-7.7); POLYS (SEG NEUTROPHILS) 24 % (16-70); WBC DIFF SAMPLE 100
[2017-02-17 08:00] LABS: OVALOCYTES 1+ (NORMAL); PLATELET ESTIMATE SMEAR NORMAL (NORMAL); PLATELET MORPHOLOGY NORMAL (NORMAL); SCAN/DIFF FINAL DIFF MANUAL
[2017-02-17] MEDS: SODIUM CHLORIDE 0.9% FLUSH 10 ML FLUSH IV FLUSH SCH (09:00)
[2017-02-17] MEDS: LORazepam 2 MG/ML VIAL IV PUSH PRN (09:07)
[2017-02-17] MEDS ORDERED: LORazepam 1 MG TAB PO PRN (10:00)
--- NOTE | 2017-02-17 11:51 | HHI.PR ---
Addendum to Inpatient Note Addendum Reason: Additional Documentation Additional Information RN informs me that the patient wants to leave AGAINST MEDICAL ADVICE due to feeling she is withdrawing. I did evaluate the patient and she states that since last night it feels like she is withdrawing from her substances and it is only going to get worse. She doesn't feel like Ativan is helping. She does not want to try Zofran for nausea or Benadryl for itching. She does not want to wait for the echocardiogram. I did explain the risks if she were to have endocarditis again and the importance of following up on the echocardiogram results, however she does not want to wait. She declines information from case management for substance abuse. I did strongly encourage her to seek outpatient care for substance abuse and detox and she states she wants to follow up with [facility]. Patient Ginger Mcintosh has decided to leave the hospital against medical advice. This patient has the capacity to refuse care and understands the risks of leaving, including permanent disability and/or , and has had an opportunity to ask questions about her condition. The patient has been informed that she may return for care at any time, and follow up has been arranged/advised. Frederick Melendez Feb 17, 2017 11:51
--- NOTE | 2017-02-17 12:17 | ECHRPT ---
Indication: SEPSIS, R/O ENDOCARDITIS CONCLUSIONS Normal left ventricular size. Normal LV systolic function estimated ejection fraction 60% Wall thickness is normal. The left atrial size is mildly dilated. No atrial level shunt is demonstrated by color flow Doppler interrogation. Trace mitral valve regurgitation. No aortic valve regurgitation. No aortic valve stenosis. There is mild to moderate tricuspid valve regurgitation. The inferior vena cava (IVC) is normal in size. There is less than 50% respiratory change in dimension of the inferior vena cava (abnormal). BP: 107 / 57 HR: 75 Rhythm: Sinus MEASUREMENTS (Male / Female) Normal Values Technical Quality:Good 2D ECHO LV Diastolic Diameter PLAX 4.6 cm 4.2 - 5.9 / 3.9 - 5.3 cm LV Systolic Diameter PLAX 3.3 cm IVS Diastolic Thickness 0.6 cm 0.6 - 1.0 / 0.6 - 0.9 cm LVPW Diastolic Thickness 0.6 cm 0.6 - 1.0 / 0.6 - 0.9 cm LV Relative Wall Thickness 0.3 LVOT Diameter 2.1 cm Aortic Root Diameter 2.7 cm LA Systolic Diameter LX 2.2 cm 3.0 - 4.0 / 2.7 - 3.8 cm M-MODE AV Cusp Separation MM 2.1 cm DOPPLER AV Peak Velocity 114.0 cm/s AV Peak Gradient 5.2 mmHg AV Mean Gradient 3.0 mmHg AV Velocity Time Integral 22.4 cm LVOT Peak Velocity 88.7 cm/s LVOT Peak Gradient 3.1 mmHg LVOT Velocity Time Integral 16.1 cm LVOT Cardiac Index 2780.4 cm/minm AV Area Cont Eq vti 2.5 cm AV Area Cont Eq pk 2.7 cm Mitral E Point Velocity 85.9 cm/s Mitral A Point Velocity 59.2 cm/s Mitral E to A Ratio 1.5 LV E' Lateral Velocity 17.4 cm/s Mitral E to LV E' Lateral Ratio 4.9 LV E' Septal Velocity 10.9 cm/s Mitral E to LV E' Septal Ratio 7.9 TR Peak Velocity 221.0 cm/s TR Peak Gradient 19.5 mmHg Right Atrial Pressure 10.0 mmHg Pulmonary Artery Systolic Pressu 29.5 mmHg Right Ventricular Systolic Press 29.5 mmHg PV Peak Velocity 50.4 cm/s PV Peak Gradient 1.0 mmHg FINDINGS LEFT VENTRICLE Normal left ventricular size. Wall thickness is normal. The left ventricular systolic function is normal with an estimated ejection fraction in the range of 60-65%. Left ventricular diastolic function parameters are normal. RIGHT VENTRICLE Normal right ventricular size and systolic function. LEFT ATRIUM The left atrial size is mildly dilated. RIGHT ATRIUM The right atrial size is normal. ATRIAL SEPTUM No atrial level shunt is demonstrated by color flow Doppler interrogation. AORTA The aortic root and proximal ascending aorta are normal in size on limited imaging. MITRAL VALVE Structurally normal mitral valve. Trace mitral valve regurgitation. AORTIC VALVE Trileaflet aortic valve. No aortic valve regurgitation. No aortic valve stenosis. TRICUSPID VALVE There is mild to moderate tricuspid valve regurgitation. PULMONARY VALVE No pulmonary valve regurgitation or stenosis. VESSELS The inferior vena cava (IVC) is normal in size. There is less than 50% respiratory change in dimension of the inferior vena cava (abnormal). PERICARDIUM No pericardial effusion. Luther Boss MD (Electronically Signed) Final Date:17 February 2017 12:16
--- NOTE | 2017-02-17 14:48 | EKG ---
Date Performed: 02/16/2017 Time Performed: 11:59:17 PTAGE: 21 years EKG: Sinus rhythm WITH FIRST DEGREE AV BLOCK POSSIBLE LEFT ATRIAL ENLARGEMENT POSSIBLE RIGHT VENTRICULAR CONDUCTION DE LAY Compared to prior tracing no significant change ABNORMAL ECG PREVIOUS TRACING :02/04/17 DOCTOR: Ari Rodgers Interpretating Date/Time 02/17/2017 14:47:09
== END 2017-02-17 13:10 | disposition left against medical advice (07) ==
LOC: NEPD 21:51 → NEDA 02-16 00:51 → NEPGCP 02-16 02:23
PROVIDERS: ADMIT Internal Medicine; ATTEND Internal Medicine
DX: R07.89 Other chest pain (principal); F14.10 Cocaine abuse, uncomplicated; F11.10 Opioid abuse, uncomplicated; F19.10 Other psychoactive substance abuse, uncomplicated; R62.7 Adult failure to thrive; R06.02 Shortness of breath; R11.0 Nausea; R51 Headache; I38 Endocarditis, valve unspecified; Y04.0XXA Assault by unarmed brawl or fight, initial encounter; Z88.1 Allergy status to other antibiotic agents
CPT/HCPCS: 71010; 80053; 80307; 82550; 83605; 84439; 84443; 84484; 85007; 85025; 85027; 85610; 85652; 85730; 86140; 87040; 93005; 93306; 96361; 96365; 96366; 96375; 96376; 99285; G0378; J2020; J2060; J2405; J7030

== ENCOUNTER 2017-03-09 03:37 | Emergency (ER) | payer SELFPAY ==
[2017-03-09 03:45] VITALS: BP 134/91; PULSE 114; RESP 19; TEMP 99.5; O2SAT 97
[2017-03-09] MEDS ORDERED: SODIUM CHLOR 0.9% 1000 ML INJ 1,000 ML IV ONE (03:55)
[2017-03-09] MEDS ORDERED: SODIUM CHLOR 0.9% 1000 ML INJ 800 ML IV ONE (03:55)
[2017-03-09] MEDS ORDERED: ONDANSETRON HCL 4 MG/2 ML VIAL IV PUSH ONE (04:00)
[2017-03-09] MEDS ORDERED: ACETAMINOPHEN 325 MG TAB PO ONE (04:00)
--- NOTE | 2017-03-09 04:02 | PD ---
HPI Chief Complaint: Chest Pain Time Seen by Provider: 03:41 Travel History International Travel<30 days: No Contact w/Intl Traveler<30days: No Traveled to known affect area: No History of Present Illness HPI The patient is a 21-year-old female who presents to the emergency department via EMS for chest pain or shortness of breath after using drugs. The patient has a history of IV drug abuse with previous endocarditis and was treated for several months earlier this year. The patient states she had a full treatment for IV drug abuse, however, has relapsed. The patient last used IV Dilaudid and spoke crack cocaine one hour prior to arrival. The patient then developed chest pain and shortness of breath. According to EMS the patient had a temperature 102.1, however, upon arrival the patient's temperature was 99.5. The patient was recently hospitalized in January twice for similar symptoms and signed out against medical detailist. The patient does have a history of relapse with her IV drugs of multiple attempts. She denies any lower extremity edema. She does complain of mild nausea with vomiting but denies any abdominal pain or diarrhea. She denies any cough, nasal congestion, or URI symptoms. She denies any associated dysuria. PFSH Past Medical History Anemia: Yes (HX TRANSFUSION) Blood Disorders: Yes (low white blood cells per pt requiring blood transfusion) Heart Rhythm Problems: Yes Cancer: No Cardiovascular Problems: Yes (ENDOCARDITIS) High Cholesterol: No Chemotherapy: No Chest Pain: No Congestive Heart Failure: No Diminished Hearing: No Endocrine: No Genitourinary: No Immune Disorder: No Musculoskeletal: No Neurologic: No Psychiatric: No Reproductive: No Respiratory: No Immunizations Current: No Pneumonia: Yes (HX) Radiation Therapy: No Influenza Vaccination: No ?: Not : 5 Para: 4 : 1 Past Surgical History Tonsillectomy: Yes Other Surgery: Yes (TONSILS CHILD ) Social History Alcohol Use: No Tobacco Use: No Substance Use: Yes (DILAUDID/CRACK) Allergies-Medications (Allergen,Severity, Reaction): Coded Allergies: amoxicillin (Unverified Allergy, Unknown, rashes, 03/09/17) cefazolin (Unverified Allergy, Unknown, Hives, 03/09/17) vancomycin (Verified Adverse Reaction, Intermediate, 03/09/17) rash on both arms, face swollen Reported Meds & Prescriptions Reported Meds & Active Scripts Active No Active Prescriptions or Reported Medications Review of Systems Except as stated in HPI: all other systems reviewed are Neg General / Constitutional: Positive: Fever (per EMS of 102.1, upon arrival 99.5) HENT: No: Lightheadedness Cardiovascular: Positive: Chest Pain or Discomfort Respiratory: Positive: Shortness of Breath Gastrointestinal: Positive: Nausea, Vomiting, No: Abdominal Pain Genitourinary: No: Dysuria Skin: Positive Other (multiple scabs throughout the body, states secondary to "picking ", when she is anxious and on drugs) Psychiatric: Positive: Substance Abuse Physical Exam Narrative GENERAL: Awake, alert, 21 year-old female appears older than her stated age but is in no acute respiratory distress. SKIN: Focused skin assessment warm/dry. Multiple scabs on the upper extremity is, face, and lower extremities. HEAD: Atraumatic. Normocephalic. EYES: Pupils equal and round. Pupils are 4 mm bilateral and reactive. ENT: No nasal bleeding or discharge. Mucous membranes pink and moist. NECK: Trachea midline. No JVD. CARDIOVASCULAR: Regular, tachycardic with a heart rate of 115. Systolic murmur noted. S3 noted. RESPIRATORY: No accessory muscle use. Clear to auscultation. Breath sounds equal bilaterally. GASTROINTESTINAL: Abdomen soft, non-tender, nondistended. No rebound tenderness. MUSCULOSKELETAL: No obvious deformities. No clubbing. No cyanosis. No edema. NEUROLOGICAL: Awake and alert. No obvious cranial nerve deficits. Motor grossly within normal limits. Normal speech. PSYCHIATRIC: Appropriate mood and affect; insight and judgment normal. Data Data Last Documented VS Vital Signs Date Time Temp Pulse Resp B/P (MAP) Pulse Ox O2 Delivery O2 Flow Rate FiO2 03/09/17 03:57 100 Room Air 03/09/17 03:50 115 17 03/09/17 03:45 99.5 134/91 (105) Orders Orders Complete Blood Count With Diff (03/09/17 03:55) Comprehensive Metabolic Panel (03/09/17 03:55) Lactic Acid Sepsis Protocol (03/09/17 03:55) Ckmb (Isoenzyme) Profile (03/09/17 03:55) Troponin I (03/09/17 03:55) Urinalysis - C+S If Indicated (03/09/17 03:55) Blood Culture (03/09/17 03:55) Chest, Single Ap (03/09/17 03:55) Blood Glucose (03/09/17 03:55) Ecg Monitoring (03/09/17 03:55) Iv Access Insert/Monitor (03/09/17 03:55) Oximetry (03/09/17 03:55) Oxygen Administration (03/09/17 03:55) Acetaminophen (Tylenol) (03/09/17 04:00) Sodium Chlor 0.9% 1000 Ml Inj (Ns 1000 M (03/09/17 03:55) Sodium Chlor 0.9% 1000 Ml Inj (Ns 1000 M (03/09/17 03:55) Ondansetron Inj (Zofran Inj) (03/09/17 04:00) Labs Laboratory Tests Test 03/09/17 04:00 White Blood Count 7.0 TH/MM3 Red Blood Count 4.85 MIL/MM3 Hemoglobin 12.8 GM/DL Hematocrit 38.9 % Mean Corpuscular Volume 80.2 FL Mean Corpuscular Hemoglobin 26.3 PG Mean Corpuscular Hemoglobin Concent 32.8 % Red Cell Distribution Width 14.0 % Platelet Count 264 TH/MM3 Mean Platelet Volume 7.3 FL Neutrophils (%) (Auto) 77.8 % Lymphocytes (%) (Auto) 13.8 % Monocytes (%) (Auto) 7.2 % Eosinophils (%) (Auto) 1.0 % Basophils (%) (Auto) 0.2 % Neutrophils # (Auto) 5.4 TH/MM3 Lymphocytes # (Auto) 1.0 TH/MM3 Monocytes # (Auto) 0.5 TH/MM3 Eosinophils # (Auto) 0.1 TH/MM3 Basophils # (Auto) 0.0 TH/MM3 CBC Comment DIFF FINAL Differential Comment Blood Urea Nitrogen 13 MG/DL Creatinine 0.80 MG/DL Random Glucose 107 MG/DL Total Protein 8.3 GM/DL Albumin 3.8 GM/DL Calcium Level 8.8 MG/DL Alkaline Phosphatase 120 U/L Aspartate Amino Transf (AST/SGOT) 14 U/L Alanine Aminotransferase (ALT/SGPT) 44 U/L Total Bilirubin 1.1 MG/DL Sodium Level 134 MEQ/L Potassium Level 3.7 MEQ/L Chloride Level 102 MEQ/L Carbon Dioxide Level 24.1 MEQ/L Anion Gap 8 MEQ/L Estimat Glomerular Filtration Rate 89 ML/MIN Lactic Acid Level 0.9 mmol/L Total Creatine Kinase 33 U/L Troponin I LESS THAN 0.02 NG/ML MDM Medical Decision Making Medical Screen Exam Complete: Yes Emergency Medical Condition: Yes Medical Record Reviewed: Yes Interpretation(s) EKG reveals sinus tachycardia with a heart rate of 112. RSR prime in V1. Chest x-ray reveals no acute disease Differential Diagnosis Differential diagnoses includes IV drug abuse, crack cocaine abuse, septic emboli, endocarditis, pulmonary embolism, pneumonia, UTI, dehydration, noncompliance. Narrative Course IV was established, labs are drawn and sent, and the patient was placed on cardiac telemetry monitoring and continuous pulse oximetry monitoring. EKG was ordered and interpreted. Chest x-ray was obtained. Blood culture and lactic gas were sent to lab. The patient was administered IV fluids and Zofran. I reviewed the patient's EMR, she was admitted twice in January, had an echocardiogram performed on February 17, 2017 which is negative except for mild tricuspid regurgitation. The patient was seen by the infectious disease physician, Dr. Jane, who recommended waiting for blood culture results and echocardiogram results before restarting treatment for endocarditis. The patient's blood cultures from January, multiple of them, show no growth within 5 days. The patient's tachycardia and low-grade temp at 99.5 may be sympathomimetic from the crack cocaine. Blood cultures were redrawn and sent. The patient's white count is normal. Lactic acid 0.9. The patient has multiple recent negative blood cultures and recent echocardiogram that did not reveal any evidence of endocarditis. The patient has also signed out AGAINST MEDICAL ADVICE several times, therefore, the patient will be discharged with blood cultures pending. We will notify patient if patient's blood cultures are positive when they are reviewed. The patient is advised to stop using IV drugs and stop smoking crack. Diagnosis Primary Impression: Cocaine abuse Additional Impressions: Opioid abuse Atypical chest pain Patient Instructions: General Instructions Additional Instructions: Follow-up with your primary physician. Return if symptoms worsen or progress. Stop using crack cocaine and IV drugs. Med/Other Pt SpecificInfo: No Change to Meds Scripts No Active Prescriptions or Reported Meds Disposition: 01 DISCHARGE HOME Condition: Stable Nicola Blas MD Mar 09, 2017 04:02
[2017-03-09 04:15] LABS: AUTOMATED NEUTROPHIL # 5.4 TH/MM3 (1.8-7.7); BASOPHIL % 0.2 % (0.0-2.0); EOSINOPHIL # 0.1 TH/MM3 (0-0.4); HEMATOCRIT 38.9 % (35.0-46.0); HEMO FLAGS DIFF FINAL; LYMPH % 13.8 % (9.0-44.0); MEAN CELL VOLUME 80.2 FL (80.0-100.0); MEAN CORPUSCULAR HEMOGLOBIN 26.3 PG (27.0-34.0); MEAN CORPUSCULAR HGB CONC 32.8 % (32.0-36.0); MONO % 7.2 % (0.0-8.0); NEUT % 77.8 % (16.0-70.0); PLATELET COUNT 264 TH/MM3 (150-450); RED BLOOD COUNT 4.85 MIL/MM3 (4.00-5.30)
[2017-03-09 04:38] LABS: ANION GAP 8 MEQ/L (5-15); AST (GOT) 14 U/L (15-37); BICARBONATE 24.1 MEQ/L (21.0-32.0); BLOOD UREA NITROGEN 13 MG/DL (7-18); CHLORIDE 102 MEQ/L (98-107); GLOMERULAR FILTRATION RATE 89 ML/MIN (>89); POTASSIUM 3.7 MEQ/L (3.5-5.1); SODIUM (NA) 134 MEQ/L (136-145)
[2017-03-09 04:43] LABS: ALKALINE PHOSPHATASE 120 U/L (45-117); ALT (GPT) 44 U/L (10-53); TOTAL BILIRUBIN ADULT 1.1 MG/DL (0.2-1.0)
[2017-03-09 04:44] LABS: CREATINE KINASE 33 U/L (26-192)
--- NOTE | 2017-03-09 04:52 | RADRPT ---
EXAM DATE/TIME: 03/09/2017 03:56 [facility] COMPARISON: CHEST SINGLE AP, February 15, 2017, 23:19. INDICATIONS : Chest pain and fever x 1 day MEDICAL HISTORY : Endocarditis SURGICAL HISTORY : Tonsillectomy. ENCOUNTER: Initial ACUITY: 1 day PAIN SCORE: 8/10 LOCATION: Bilateral chest FINDINGS: A single view of the chest demonstrates the lungs to be symmetrically aerated without evidence of mas s, infiltrate or effusion. The cardiomediastinal contours are unremarkable. Osseous structures are intact. CONCLUSION: No acute disease. Rickey Babb MD on March 09, 2017 at 4:51 Board Certified Radiologist. This report was verified electronically.
[2017-03-09 06:00] VITALS: BP 128/88; PULSE 96; RESP 14; O2SAT 99
--- NOTE | 2017-03-09 12:36 | EKG ---
Date Performed: 03/09/2017 Time Performed: 03:44:44 PTAGE: 21 years EKG: SINUS TACHYCARDIA POSSIBLE RIGHT VENTRICULAR CONDUCTION DELAY ABNORMAL RHYTHM ECG Compared to prior tracing no significant change PREVIOUS TRACING : 02/16/2017 11.59 DOCTOR: Eliseo Loza Interpretating Date/Time 03/09/2017 12:30:44
== END 2017-03-09 06:22 | disposition home or self-care (01) ==
LOC: NEPE 03:37
DX: F14.10 Cocaine abuse, uncomplicated (principal); F11.10 Opioid abuse, uncomplicated; R07.89 Other chest pain; B95.61 Methicillin susceptible Staphylococcus aureus infection as the cause of diseases classified elsewhere; R94.31 Abnormal electrocardiogram [ECG] [EKG]; R06.02 Shortness of breath
CPT/HCPCS: 71010; 80053; 82550; 83605; 84484; 85025; 86403; 87040; 87186; 87205; 93005; 96361; 96374; 99284; J2405; J7030

== ENCOUNTER 2017-08-19 17:50 | Emergency (ER) | payer SELFPAY ==
[~2017-08-19] VITALS: Ht 165.1 cm; Wt 50.0 kg
[2017-08-19 18:14] VITALS: BP 147/95; PULSE 109; RESP 20; TEMP 98.4; O2SAT 100
[2017-08-19 18:51] VITALS: BP 150/91; PULSE 120; RESP 20; TEMP 98.2; O2SAT 98
[2017-08-19 20:02] LABS: AUTOMATED NEUTROPHIL # 2.3 TH/MM3 (1.8-7.7); BASOPHIL % 0.5 % (0.0-2.0); EOSINOPHIL # 0.3 TH/MM3 (0-0.4); EOSINOPHIL % 6.6 % (0.0-4.0); HEMOGLOBIN 12.6 GM/DL (11.6-15.3); LYMPHOCYTE # 1.9 TH/MM3 (1.0-4.8); MEAN CELL VOLUME 78.4 FL (80.0-100.0); MEAN CORPUSCULAR HEMOGLOBIN 26.6 PG (27.0-34.0); MEAN CORPUSCULAR HGB CONC 33.9 % (32.0-36.0); MEAN PLATELET VOLUME 7.8 FL (7.0-11.0); MONO % 9.1 % (0.0-8.0); MONOCYTE # 0.5 TH/MM3 (0-0.9); NEUT % 45.8 % (16.0-70.0); PLATELET COUNT 255 TH/MM3 (150-450); RED BLOOD COUNT 4.72 MIL/MM3 (4.00-5.30); RED CELL DISTRIBUTION WIDTH 13.8 % (11.6-17.2); WHITE BLOOD COUNT 5.1 TH/MM3 (4.0-11.0)
[2017-08-19 20:08] LABS: BACTERIA, URINE OCC /hpf; BILIRUBIN, URINE NEG (NEG); BLOOD, URINE NEG (NEG); GLUCOSE,URINE NEG (NEG); KETONE, URINE NEG (NEG); MUCUS URINE FEW /lpf (OCC); NITRITE,URINE NEG (NEG); SQUAMOUS EPITHELIAL CELL URINE 6 /hpf (0-5); URINE COLOR YELLOW (YELLW/STRAW); URINE LEUKOCYTE ESTERASE SMALL (NEG)
[2017-08-19 20:14] LABS: ALBUMIN 3.8 GM/DL (3.4-5.0); AST (GOT) 18 U/L (15-37); BLOOD UREA NITROGEN 9 MG/DL (7-18); CHLORIDE 103 MEQ/L (98-107); CREATININE 0.74 MG/DL (0.50-1.00); GLOMERULAR FILTRATION RATE 96 ML/MIN (>89); GLUCOSE,RANDOM 77 MG/DL (74-106); SODIUM (NA) 138 MEQ/L (136-145)
--- NOTE | 2017-08-19 20:19 | PD ---
HPI Chief Complaint: Psychiatric Symptoms Time Seen by Provider: 19:29 Travel History International Travel<30 days: No Contact w/Intl Traveler<30days: No Traveled to known affect area: No History of Present Illness HPI 22-year-old white female presents to emergency department on a voluntary basis for psychological evaluation. Patient has a history of IV drug abuse, endocarditis, asthma, depression and anxiety. Patient states that she last used IV drugs 2 days ago. She has now become increasingly depressed and anxious. She states that she will kill herself if she is discharged home. She will not elaborate on any plan. She denies any fever or chills. No chest pain or shortness of breath. Patient denies any infected skin lesions. She was treated for endocarditis from August through September 2016. She has been using drugs again. She is injecting Dilaudid, crack, morphine but denies heroin or methamphetamine. Patient denies any homicidal ideation. She denies tobacco and alcohol. Last menstrual period 2 months ago.. PFSH Past Medical History Anemia: Yes (HX TRANSFUSION) Blood Disorders: Yes (low white blood cells per pt requiring blood transfusion) Heart Rhythm Problems: Yes Cancer: No Cardiovascular Problems: Yes (ENDOCARDITIS) High Cholesterol: No Chemotherapy: No Chest Pain: No Congestive Heart Failure: No Patient Takes Glucophage: No Diminished Hearing: No Endocrine: No Genitourinary: No Immune Disorder: No Musculoskeletal: No Neurologic: No Psychiatric: No Reproductive: No Respiratory: No Immunizations Current: No Pneumonia: Yes (HX) Radiation Therapy: No Tetanus Vaccination: Unknown ?: Unknown LMP: 2 months ago : 5 Para: 4 : 1 Past Surgical History Section: Yes (x2) Tonsillectomy: Yes Social History Alcohol Use: No (Pt denies. ) Tobacco Use: No (Pt denies. ) Substance Use: Yes (DILAUDID/CRACK) Allergies-Medications (Allergen,Severity, Reaction): Coded Allergies: amoxicillin (Unverified Allergy, Unknown, rashes, 08/19/17) Per pt. cefazolin (Unverified Allergy, Unknown, Hives, 08/19/17) Per pt. vancomycin (Verified Adverse Reaction, Intermediate, 08/19/17) rash on both arms, face swollen Reported Meds & Prescriptions Reported Meds & Active Scripts Active No Active Prescriptions or Reported Medications Review of Systems General / Constitutional: No: Fever Eyes: No: Visual changes HENT: No: Headaches Cardiovascular: No: Chest Pain or Discomfort Respiratory: No: Shortness of Breath Gastrointestinal: No: Abdominal Pain Genitourinary: No: Dysuria Musculoskeletal: No: Pain Skin: Positive Rash (pitting) Neurologic: No: Weakness Psychiatric: Positive: Anxiety, Depression, Suicidal Ideations, Mood Disorder, Substance Abuse, No: Disorder of Thought, Homicidal Ideation Endocrine: No: Polydipsia Hematologic/Lymphatic: No: Easy Bruising Physical Exam Narrative GENERAL: Well-nourished, well-developed patient. SKIN: Warm and dry. Patient has track mendoza on the chest, left neck, upper or lower extremities. There are no active skin lesions indicative of an abscess or infection. Patient has picking of the face. HEAD: Normocephalic and atraumatic. EYES: No scleral icterus. No injection or drainage. ENT: No nasal drainage noted. Mucous membranes pink. Airway patent. NECK: Supple, trachea midline. Moves head freely without obvious discomfort. CARDIOVASCULAR: Regular rate and rhythm without murmurs, gallops, or rubs. RESPIRATORY: Breath sounds equal bilaterally. No accessory muscle use. GASTROINTESTINAL: Abdomen soft, non-tender, nondistended. EXTREMITIES: No cyanosis or edema. Track mendoza on both the upper and lower extremities. BACK: Nontender without obvious deformity. No CVA tenderness. NEURO: Patient is alert and oriented. no sensorimotor deficits. Nonfocal. Normal speech. PSYCH: No delusions. No auditory or visual hallucinations. Contents she is acutely anxious. Data Data Last Documented VS Vital Signs Date Time Temp Pulse Resp B/P (MAP) Pulse Ox O2 Delivery O2 Flow Rate FiO2 08/19/17 18:51 98.2 120 20 150/91 (110) 98 Orders Orders Complete Blood Count With Diff (08/19/17 18:17) Comprehensive Metabolic Panel (08/19/17 18:17) Thyroid Stimulating Hormone (08/19/17 18:17) Urinalysis - C+S If Indicated (08/19/17 18:17) Ed Urine Pregnancytest Poc (08/19/17 18:17) Psych Screen (08/19/17 18:17) Drug Screen, Random Urine (08/19/17 18:17) Alcohol (Ethanol) (08/19/17 18:17) Salicylates (Aspirin) (08/19/17 18:17) Tylenol (Acetaminophen) (08/19/17 18:17) Labs Laboratory Tests Test 08/19/17 19:25 08/19/17 19:40 White Blood Count 5.1 TH/MM3 Red Blood Count 4.72 MIL/MM3 Hemoglobin 12.6 GM/DL Hematocrit 37.0 % Mean Corpuscular Volume 78.4 FL Mean Corpuscular Hemoglobin 26.6 PG Mean Corpuscular Hemoglobin Concent 33.9 % Red Cell Distribution Width 13.8 % Platelet Count 255 TH/MM3 Mean Platelet Volume 7.8 FL Neutrophils (%) (Auto) 45.8 % Lymphocytes (%) (Auto) 38.0 % Monocytes (%) (Auto) 9.1 % Eosinophils (%) (Auto) 6.6 % Basophils (%) (Auto) 0.5 % Neutrophils # (Auto) 2.3 TH/MM3 Lymphocytes # (Auto) 1.9 TH/MM3 Monocytes # (Auto) 0.5 TH/MM3 Eosinophils # (Auto) 0.3 TH/MM3 Basophils # (Auto) 0.0 TH/MM3 CBC Comment DIFF FINAL Differential Comment Blood Urea Nitrogen 9 MG/DL Creatinine 0.74 MG/DL Random Glucose 77 MG/DL Total Protein 8.4 GM/DL Albumin 3.8 GM/DL Calcium Level 9.0 MG/DL Alkaline Phosphatase 126 U/L Aspartate Amino Transf (AST/SGOT) 18 U/L Alanine Aminotransferase (ALT/SGPT) 46 U/L Total Bilirubin 0.7 MG/DL Sodium Level 138 MEQ/L Potassium Level 4.4 MEQ/L Chloride Level 103 MEQ/L Carbon Dioxide Level 26.0 MEQ/L Anion Gap 9 MEQ/L Estimat Glomerular Filtration Rate 96 ML/MIN Thyroid Stimulating Hormone 3rd Gen 1.220 uIU/ML Salicylates Level LESS THAN 1.7 MG/DL Acetaminophen Level LESS THAN 2.0 MCG/ML Ethyl Alcohol Level LESS THAN 3 MG/DL Urine Color YELLOW Urine Turbidity CLEAR Urine pH 6.0 Urine Specific [place] 1.018 Urine Protein NEG mg/dL Urine Glucose (UA) NEG mg/dL Urine Ketones NEG mg/dL Urine Occult Blood NEG Urine Nitrite NEG Urine Bilirubin NEG Urine Urobilinogen LESS THAN 2.0 MG/DL Urine Leukocyte Esterase SMALL Urine RBC 1 /hpf Urine WBC 2 /hpf Urine Squamous Epithelial Cells 6 /hpf Urine Bacteria OCC /hpf Urine Mucus FEW /lpf Microscopic Urinalysis Comment CULT NOT INDICATED Urine Opiates Screen NEG Urine Barbiturates Screen NEG Urine Amphetamines Screen NEG Urine Benzodiazepines Screen NEG Urine Cocaine Screen POS Urine Cannabinoids Screen NEG MDM Medical Decision Making Medical Screen Exam Complete: Yes Emergency Medical Condition: Yes Medical Record Reviewed: Yes Interpretation(s) HCG NEG Laboratory Tests Test 08/19/17 19:25 08/19/17 19:40 White Blood Count 5.1 TH/MM3 Red Blood Count 4.72 MIL/MM3 Hemoglobin 12.6 GM/DL Hematocrit 37.0 % Mean Corpuscular Volume 78.4 FL Mean Corpuscular Hemoglobin 26.6 PG Mean Corpuscular Hemoglobin Concent 33.9 % Red Cell Distribution Width 13.8 % Platelet Count 255 TH/MM3 Mean Platelet Volume 7.8 FL Neutrophils (%) (Auto) 45.8 % Lymphocytes (%) (Auto) 38.0 % Monocytes (%) (Auto) 9.1 % Eosinophils (%) (Auto) 6.6 % Basophils (%) (Auto) 0.5 % Neutrophils # (Auto) 2.3 TH/MM3 Lymphocytes # (Auto) 1.9 TH/MM3 Monocytes # (Auto) 0.5 TH/MM3 Eosinophils # (Auto) 0.3 TH/MM3 Basophils # (Auto) 0.0 TH/MM3 CBC Comment DIFF FINAL Differential Comment Blood Urea Nitrogen 9 MG/DL Creatinine 0.74 MG/DL Random Glucose 77 MG/DL Total Protein 8.4 GM/DL Albumin 3.8 GM/DL Calcium Level 9.0 MG/DL Alkaline Phosphatase 126 U/L Aspartate Amino Transf (AST/SGOT) 18 U/L Alanine Aminotransferase (ALT/SGPT) 46 U/L Total Bilirubin 0.7 MG/DL Sodium Level 138 MEQ/L Potassium Level 4.4 MEQ/L Chloride Level 103 MEQ/L Carbon Dioxide Level 26.0 MEQ/L Anion Gap 9 MEQ/L Estimat Glomerular Filtration Rate 96 ML/MIN Thyroid Stimulating Hormone 3rd Gen 1.220 uIU/ML Salicylates Level LESS THAN 1.7 MG/DL Acetaminophen Level LESS THAN 2.0 MCG/ML Ethyl Alcohol Level LESS THAN 3 MG/DL Urine Color YELLOW Urine Turbidity CLEAR Urine pH 6.0 Urine Specific [place] 1.018 Urine Protein NEG mg/dL Urine Glucose (UA) NEG mg/dL Urine Ketones NEG mg/dL Urine Occult Blood NEG Urine Nitrite NEG Urine Bilirubin NEG Urine Urobilinogen LESS THAN 2.0 MG/DL Urine Leukocyte Esterase SMALL Urine RBC 1 /hpf Urine WBC 2 /hpf Urine Squamous Epithelial Cells 6 /hpf Urine Bacteria OCC /hpf Urine Mucus FEW /lpf Microscopic Urinalysis Comment CULT NOT INDICATED Urine Opiates Screen NEG Urine Barbiturates Screen NEG Urine Amphetamines Screen NEG Urine Benzodiazepines Screen NEG Urine Cocaine Screen POS Urine Cannabinoids Screen NEG Differential Diagnosis MDM: High Differential diagnoses: Schizophrenia, schizoaffective disorder, bipolar, anxiety, depression, adjustment reaction, mood disorder NOS, ODD, depressive disorder NOS, dementia, dementia with agitation, psychosis NOS, substance induced mood disorder, DMDD, Asperger syndrome, infection,electrolyte abnormality, malingering. Narrative Course Mental health screening discussed with the patient. Psychiatric screen ordered. The patient is been medically cleared. This is medical clearance for psychiatric admission, IV drug abuse Diagnosis Primary Impression: Medical clearance for psychiatric admission Additional Impression: IV drug abuse Scripts No Active Prescriptions or Reported Meds Condition: Stable Saleem Sweeney Aug 19, 2017 20:19
[2017-08-19 20:25] LABS: ALKALINE PHOSPHATASE 126 U/L (45-117); ALT (GPT) 46 U/L (10-53); TOTAL BILIRUBIN ADULT 0.7 MG/DL (0.2-1.0); TOTAL PROTEIN 8.4 GM/DL (6.4-8.2)
[2017-08-19 20:26] LABS: ACETAMINOPHEN LESS THAN 2.0 MCG/ML (10.0-30.0)
[2017-08-19 23:48] VITALS: BP 102/57; PULSE 86; RESP 16; O2SAT 98
[2017-08-20] MEDS ORDERED: IBUPROFEN 600 MG TAB PO ONE (04:00)
[2017-08-20 06:40] VITALS: BP 93/60; PULSE 78; RESP 16; O2SAT 100
--- NOTE | 2017-08-20 11:06 | PD ---
Physical Exam Date Seen by Provider: Aug 20, 2017 Time Seen by Provider: 11:05 Narrative 22-year-old polysubstance abuse patient previously medically cleared for psychiatric evaluation on a voluntary basis is requesting to leave prior to being seen by psychiatric staff. Patient contracts for safety and states she is going to go to [facility] upon leaving here for substance abuse counseling and treatment. She is medically stable at this time. I feel the patient is safe for discharge, with follow-up with [facility] Data Data Last Documented VS Vital Signs Date Time Temp Pulse Resp B/P (MAP) Pulse Ox O2 Delivery O2 Flow Rate FiO2 08/20/17 06:40 78 16 93/60 (71) 100 08/19/17 23:48 Room Air 08/19/17 18:51 98.2 Orders Orders Complete Blood Count With Diff (08/19/17 18:17) Comprehensive Metabolic Panel (08/19/17 18:17) Thyroid Stimulating Hormone (08/19/17 18:17) Urinalysis - C+S If Indicated (08/19/17 18:17) Ed Urine Pregnancytest Poc (08/19/17 18:17) Psych Screen (08/19/17 18:17) Drug Screen, Random Urine (08/19/17 18:17) Alcohol (Ethanol) (08/19/17 18:17) Salicylates (Aspirin) (08/19/17 18:17) Tylenol (Acetaminophen) (08/19/17 18:17) Ibuprofen (Motrin) (08/20/17 04:00) Diet Regular Basic (08/20/17 Breakfast) Diet Regular Basic (08/20/17 Lunch) Labs Laboratory Tests Test 08/19/17 19:25 08/19/17 19:40 White Blood Count 5.1 TH/MM3 Red Blood Count 4.72 MIL/MM3 Hemoglobin 12.6 GM/DL Hematocrit 37.0 % Mean Corpuscular Volume 78.4 FL Mean Corpuscular Hemoglobin 26.6 PG Mean Corpuscular Hemoglobin Concent 33.9 % Red Cell Distribution Width 13.8 % Platelet Count 255 TH/MM3 Mean Platelet Volume 7.8 FL Neutrophils (%) (Auto) 45.8 % Lymphocytes (%) (Auto) 38.0 % Monocytes (%) (Auto) 9.1 % Eosinophils (%) (Auto) 6.6 % Basophils (%) (Auto) 0.5 % Neutrophils # (Auto) 2.3 TH/MM3 Lymphocytes # (Auto) 1.9 TH/MM3 Monocytes # (Auto) 0.5 TH/MM3 Eosinophils # (Auto) 0.3 TH/MM3 Basophils # (Auto) 0.0 TH/MM3 CBC Comment DIFF FINAL Differential Comment Blood Urea Nitrogen 9 MG/DL Creatinine 0.74 MG/DL Random Glucose 77 MG/DL Total Protein 8.4 GM/DL Albumin 3.8 GM/DL Calcium Level 9.0 MG/DL Alkaline Phosphatase 126 U/L Aspartate Amino Transf (AST/SGOT) 18 U/L Alanine Aminotransferase (ALT/SGPT) 46 U/L Total Bilirubin 0.7 MG/DL Sodium Level 138 MEQ/L Potassium Level 4.4 MEQ/L Chloride Level 103 MEQ/L Carbon Dioxide Level 26.0 MEQ/L Anion Gap 9 MEQ/L Estimat Glomerular Filtration Rate 96 ML/MIN Thyroid Stimulating Hormone 3rd Gen 1.220 uIU/ML Salicylates Level LESS THAN 1.7 MG/DL Acetaminophen Level LESS THAN 2.0 MCG/ML Ethyl Alcohol Level LESS THAN 3 MG/DL Urine Color YELLOW Urine Turbidity CLEAR Urine pH 6.0 Urine Specific [place] 1.018 Urine Protein NEG mg/dL Urine Glucose (UA) NEG mg/dL Urine Ketones NEG mg/dL Urine Occult Blood NEG Urine Nitrite NEG Urine Bilirubin NEG Urine Urobilinogen LESS THAN 2.0 MG/DL Urine Leukocyte Esterase SMALL Urine RBC 1 /hpf Urine WBC 2 /hpf Urine Squamous Epithelial Cells 6 /hpf Urine Bacteria OCC /hpf Urine Mucus FEW /lpf Microscopic Urinalysis Comment CULT NOT INDICATED Urine Opiates Screen NEG Urine Barbiturates Screen NEG Urine Amphetamines Screen NEG Urine Benzodiazepines Screen NEG Urine Cocaine Screen POS Urine Cannabinoids Screen NEG [facility] Medical Record Reviewed: Yes Supervised Visit with TERI: Yes Narrative Course 22-year-old polysubstance abuse patient previously medically cleared for psychiatric evaluation on a voluntary basis is requesting to leave prior to being seen by psychiatric staff. Patient contracts for safety and states [facility] here [facility] substance abuse counseling and treatment. She is medically stable at this time. I feel the patient is safe for discharge, with follow-up with [facility] Diagnosis Primary Impression: Medical clearance for psychiatric admission Additional Impression: IV drug abuse Referrals: [facility] Patient Instructions: General Instructions Scripts No Active Prescriptions or Reported Meds Disposition: 01 DISCHARGE HOME Condition: Parker Angulo Aug 20, 2017 11:06
== END 2017-08-20 11:30 | disposition home or self-care (01) ==
LOC: NEPJ 17:50
DX: F14.10 Cocaine abuse, uncomplicated (principal); F41.9 Anxiety disorder, unspecified; F39 Unspecified mood [affective] disorder; R45.850 Homicidal ideations; Z88.0 Allergy status to penicillin
CPT/HCPCS: 80053; 80307; 81001; 84443; 84703; 85025; 99283

== ENCOUNTER 2017-09-23 17:51 | Emergency (ER) | payer SELFPAY ==
[2017-09-23 18:22] VITALS: BP 110/73; PULSE 104; RESP 16; TEMP 98.9; O2SAT 100
[2017-09-23 20:10] VITALS: BP 110/72; PULSE 81; RESP 18; O2SAT 100
--- NOTE | 2017-09-23 20:26 | PD ---
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 She reports these symptoms are similar to the symptoms that she had a year ago when she was treated with IV antibiotics for weeks for endocarditis. She reports she is trying to get into a program. She said she would [facility] they told her there was a wait list. There were no beds. She reports she is asking her parents to get a court order but parents will not do that because they do not want to stigmatized her is what the patient reports in the ER patient admits to injecting into her neck veins and she has got some swelling and tenderness to the left UVJ area is not hot it is not red but it does have a swelling area right above the vessel. She has abdomen point as well but she says that from chronic constipation due to her chronic use of opiates patient in the ER is afebrile she is nontoxic appearing her main complaint is that she is trying to get into a detox program and the lump on her neck that has been there for 3 days she says. PFSH Past Medical History Anemia: Yes (HX TRANSFUSION) Blood Disorders: Yes (low white blood cells per pt requiring blood transfusion) Heart Rhythm Problems: Yes Cancer: No Cardiovascular Problems: Yes (ENDOCARDITIS) High Cholesterol: No Chemotherapy: No Chest Pain: No Congestive Heart Failure: No Diminished Hearing: No Endocrine: No Genitourinary: No Immune Disorder: No Musculoskeletal: No Neurologic: No Psychiatric: No Reproductive: No Respiratory: No Immunizations Current: No Pneumonia: Yes (HX) Radiation Therapy: No ?: Unknown : 5 Para: 4 : 1 Past Surgical History Section: Yes (x2) Tonsillectomy: Yes Other Surgery: Yes (TONSILS CHILD ) Social History Alcohol Use: No (Pt denies. ) Tobacco Use: No (Pt denies. ) Substance Use: Yes Allergies-Medications (Allergen,Severity, Reaction): Coded Allergies: amoxicillin (Unverified Allergy, Unknown, rashes, 08/19/17) Per pt. cefazolin (Unverified Allergy, Unknown, Hives, 08/19/17) Per pt. vancomycin (Verified Adverse Reaction, Intermediate, 08/19/17) rash on both arms, face swollen Reported Meds & Prescriptions Reported Meds & Active Scripts Active Bactrim DS (Sulfamethoxazole-Trimethoprim) 800-160 Mg Tab 1 Tab PO BID Clindamycin (Clindamycin HCl) 300 Mg Cap 300 Mg PO TID Review of Systems Except as stated in HPI: all other systems reviewed are Neg General / Constitutional: Positive: Fever, Chills HENT: Positive: Neck Pain (pain due to neck IVDA injected into left EJ) Physical Exam Narrative GENERAL: no fever no distress non septic appearance SKIN: Warm and dry. multiple facial scabs appears as if pick mendoza from self picking with fingernails HEAD: Atraumatic. Normocephalic. EYES: Pupils equal and round. No scleral icterus. No injection or drainage. ENT: No nasal bleeding or discharge. Mucous membranes pink and moist. NECK: Trachea midline. No JVD. left EJ has slight lump 1-2 mm round , no signs of induration nor abscess above the skin , no cellulitis appaerance it is tender to touch CARDIOVASCULAR: Regular rate and rhythm. RESPIRATORY: No accessory muscle use. Clear to auscultation. Breath sounds equal bilaterally. GASTROINTESTINAL: Abdomen soft, non-tender, nondistended. Hepatic and splenic margins not palpable. MUSCULOSKELETAL: Extremities without clubbing, cyanosis, or edema. No obvious deformities. NEUROLOGICAL: Awake and alert. No obvious cranial nerve deficits. Motor grossly within normal limits. Five out of 5 muscle strength in the arms and legs. Normal speech. PSYCHIATRIC: Appropriate mood and affect; insight and judgment normal. pt has scabs all over her face and neck Data Data Last Documented VS Vital Signs Date Time Temp Pulse Resp B/P (MAP) Pulse Ox O2 Delivery O2 Flow Rate FiO2 09/24/17 07:29 09/23/17 21:57 98.9 96 18 98 Room Air Orders Orders Complete Blood Count With Diff (09/23/17 18:25) Comprehensive Metabolic Panel (09/23/17 18:25) Urinalysis - C+S If Indicated (09/23/17 18:25) Drug Screen, Random Urine (09/23/17 18:25) Blood Culture (09/23/17 18:25) Ed Urine Pregnancytest Poc (09/23/17 20:35) Complete Blood Count With Diff (09/24/17 00:59) Ed Discharge Order (09/24/17 06:13) Clindamycin (Cleocin) (09/24/17 07:15) Sulfamet-Trimeth Ds 800-160 Mg (Bactrim (09/24/17 07:15) Labs Laboratory Tests Test 09/23/17 20:25 09/23/17 20:30 09/24/17 01:50 White Blood Count 8.0 TH/MM3 7.6 TH/MM3 Red Blood Count 4.41 MIL/MM3 4.04 MIL/MM3 Hemoglobin 11.5 GM/DL 10.7 GM/DL Hematocrit 34.8 % 31.6 % Mean Corpuscular Volume 78.9 FL 78.2 FL Mean Corpuscular Hemoglobin 26.1 PG 26.6 PG Mean Corpuscular Hemoglobin Concent 33.0 % 34.0 % Red Cell Distribution Width 15.1 % 15.1 % Platelet Count 154 TH/MM3 187 TH/MM3 Mean Platelet Volume 9.0 FL 8.4 FL Neutrophils (%) (Auto) 63.5 % 53.3 % Lymphocytes (%) (Auto) 19.5 % 27.8 % Monocytes (%) (Auto) 15.5 % 15.7 % Eosinophils (%) (Auto) 1.1 % 2.8 % Basophils (%) (Auto) 0.4 % 0.4 % Neutrophils # (Auto) 5.1 TH/MM3 4.0 TH/MM3 Lymphocytes # (Auto) 1.6 TH/MM3 2.1 TH/MM3 Monocytes # (Auto) 1.2 TH/MM3 1.2 TH/MM3 Eosinophils # (Auto) 0.1 TH/MM3 0.2 TH/MM3 Basophils # (Auto) 0.0 TH/MM3 0.0 TH/MM3 CBC Comment DIFF FINAL DIFF FINAL Differential Comment Blood Urea Nitrogen 10 MG/DL Creatinine 0.82 MG/DL Random Glucose 84 MG/DL Total Protein 7.8 GM/DL Albumin 3.4 GM/DL Calcium Level 8.9 MG/DL Alkaline Phosphatase 132 U/L Aspartate Amino Transf (AST/SGOT) 61 U/L Alanine Aminotransferase (ALT/SGPT) 52 U/L Total Bilirubin 1.4 MG/DL Sodium Level 134 MEQ/L Potassium Level 3.9 MEQ/L Chloride Level 101 MEQ/L Carbon Dioxide Level 24.2 MEQ/L Anion Gap 9 MEQ/L Estimat Glomerular Filtration Rate 86 ML/MIN Urine Color DARK-YELLOW Urine Turbidity HAZY Urine pH 5.5 Urine Specific [place] 1.025 Urine Protein 30 mg/dL Urine Glucose (UA) NEG mg/dL Urine Ketones NEG mg/dL Urine Occult Blood LARGE Urine Nitrite NEG Urine Bilirubin NEG Urine Urobilinogen 2.0 MG/DL Urine Leukocyte Esterase SMALL Urine RBC 2 /hpf Urine WBC 7 /hpf Urine Squamous Epithelial Cells 30 /hpf Urine Amorphous Sediment RARE Urine Mucus MANY /lpf Microscopic Urinalysis Comment CULT NOT INDICATED Urine Opiates Screen POS Urine Barbiturates Screen NEG Urine Amphetamines Screen NEG Urine Benzodiazepines Screen NEG Urine Cocaine Screen POS Urine Cannabinoids Screen POS MDM Medical Decision Making Medical Screen Exam Complete: Yes Emergency Medical Condition: Yes Differential Diagnosis endocarditis vs fever vs no illness at this time, vs URI vs Injection site pain From Missed IVDA injection into EJ , polysubstance abuse Narrative Course pt has labs no elevation or wbc or serum and it was repeated after 5 hrs in ED and WBC lower than first , no fever on repeat check and pt safe for discharge B/C in lab will contact her if blood grows bacteria , no indication that this is the case at this time Diagnosis Primary Impression: Neck pain Patient Instructions: General Instructions, Weakness (ED) Scripts Sulfamethoxazole-Trimethoprim (Bactrim DS) 800-160 Mg Tab 1 TAB PO BID for Infection, #14 TAB 0 Refills Prov: Kervin Baptiste MD 09/24/17 Clindamycin (Clindamycin) 300 Mg Cap 300 MG PO TID for Infection, #30 CAP 0 Refills Prov: Kervin Baptiste MD 09/24/17 Kervin Baptiste MD Sep 23, 2017 20:26
[2017-09-23 21:17] LABS: AMORPHOUS SEDIMENT, URINE RARE; BLOOD, URINE LARGE (NEG); GLUCOSE,URINE NEG (NEG); KETONE, URINE NEG (NEG); MUCUS URINE MANY /lpf (OCC); NITRITE,URINE NEG (NEG); PH, URINE 5.5 (5.0-8.5); SQUAMOUS EPITHELIAL CELL URINE 30 /hpf (0-5); URINE COLOR DARK-YELLOW (YELLW/STRAW); URINE LEUKOCYTE ESTERASE SMALL (NEG)
[2017-09-23 21:19] LABS: BILIRUBIN, URINE NEG (NEG)
[2017-09-23 21:31] LABS: ALT (GPT) 52 U/L (10-53)
[2017-09-23 21:34] LABS: ALKALINE PHOSPHATASE 132 U/L (45-117); AUTOMATED NEUTROPHIL # 5.1 TH/MM3 (1.8-7.7); BASOPHIL % 0.4 % (0.0-2.0); EOSINOPHIL # 0.1 TH/MM3 (0-0.4); EOSINOPHIL % 1.1 % (0.0-4.0); HEMATOCRIT 34.8 % (35.0-46.0); HEMOGLOBIN 11.5 GM/DL (11.6-15.3); LYMPH % 19.5 % (9.0-44.0); LYMPHOCYTE # 1.6 TH/MM3 (1.0-4.8); MEAN CELL VOLUME 78.9 FL (80.0-100.0); MEAN CORPUSCULAR HEMOGLOBIN 26.1 PG (27.0-34.0); MONO % 15.5 % (0.0-8.0); MONOCYTE # 1.2 TH/MM3 (0-0.9); NEUT % 63.5 % (16.0-70.0); PLATELET COUNT 154 TH/MM3 (150-450); RED BLOOD COUNT 4.41 MIL/MM3 (4.00-5.30); RED CELL DISTRIBUTION WIDTH 15.1 % (11.6-17.2); TOTAL BILIRUBIN ADULT 1.4 MG/DL (0.2-1.0); TOTAL PROTEIN 7.8 GM/DL (6.4-8.2)
[2017-09-23 21:38] LABS: ALBUMIN 3.4 GM/DL (3.4-5.0); AST (GOT) 61 U/L (15-37); BICARBONATE 24.2 MEQ/L (21.0-32.0); BLOOD UREA NITROGEN 10 MG/DL (7-18); CALCIUM 8.9 MG/DL (8.5-10.1); CHLORIDE 101 MEQ/L (98-107); CREATININE 0.82 MG/DL (0.50-1.00); GLOMERULAR FILTRATION RATE 86 ML/MIN (>89); GLUCOSE,RANDOM 84 MG/DL (74-106); SODIUM (NA) 134 MEQ/L (136-145)
[2017-09-23 21:57] VITALS: BP 110/60; PULSE 96; RESP 18; TEMP 98.9; O2SAT 98
[2017-09-24 02:31] LABS: BASOPHIL % 0.4 % (0.0-2.0); EOSINOPHIL # 0.2 TH/MM3 (0-0.4); EOSINOPHIL % 2.8 % (0.0-4.0); HEMATOCRIT 31.6 % (35.0-46.0); HEMOGLOBIN 10.7 GM/DL (11.6-15.3); LYMPH % 27.8 % (9.0-44.0); LYMPHOCYTE # 2.1 TH/MM3 (1.0-4.8); MEAN CELL VOLUME 78.2 FL (80.0-100.0); MEAN CORPUSCULAR HEMOGLOBIN 26.6 PG (27.0-34.0); MEAN PLATELET VOLUME 8.4 FL (7.0-11.0); MONO % 15.7 % (0.0-8.0); MONOCYTE # 1.2 TH/MM3 (0-0.9); NEUT % 53.3 % (16.0-70.0); PLATELET COUNT 187 TH/MM3 (150-450); RED BLOOD COUNT 4.04 MIL/MM3 (4.00-5.30); RED CELL DISTRIBUTION WIDTH 15.1 % (11.6-17.2); WHITE BLOOD COUNT 7.6 TH/MM3 (4.0-11.0)
[2017-09-24] MEDS ORDERED: CLIN300C5 PO (07:04)
[2017-09-24] MEDS ORDERED: BACT800T5 PO (07:04)
[2017-09-24] MEDS ORDERED: CLINDAMYCIN 150 MG CAP PO ONE (07:15)
[2017-09-24] MEDS ORDERED: SULFAMETHOXAZOLE-TRIMETHOPRIM DS 800-160 MG TAB PO ONE (07:15)
--- NOTE | 2017-09-24 07:36 | PD ---
Physical Exam Narrative Patient was seen by ED physician and was discharged. Data Data Last Documented VS Vital Signs Date Time Temp Pulse Resp B/P (MAP) Pulse Ox O2 Delivery O2 Flow Rate FiO2 09/24/17 07:29 09/23/17 21:57 98.9 96 18 98 Room Air Orders Orders Complete Blood Count With Diff (09/23/17 18:25) Comprehensive Metabolic Panel (09/23/17 18:25) Urinalysis - C+S If Indicated (09/23/17 18:25) Drug Screen, Random Urine (09/23/17 18:25) Blood Culture (09/23/17 18:25) Ed Urine Pregnancytest Poc (09/23/17 20:35) Complete Blood Count With Diff (09/24/17 00:59) Ed Discharge Order (09/24/17 06:13) Clindamycin (Cleocin) (09/24/17 07:15) Sulfamet-Trimeth Ds 800-160 Mg (Bactrim (09/24/17 07:15) Labs Laboratory Tests Test 09/23/17 20:25 09/23/17 20:30 09/24/17 01:50 White Blood Count 8.0 TH/MM3 7.6 TH/MM3 Red Blood Count 4.41 MIL/MM3 4.04 MIL/MM3 Hemoglobin 11.5 GM/DL 10.7 GM/DL Hematocrit 34.8 % 31.6 % Mean Corpuscular Volume 78.9 FL 78.2 FL Mean Corpuscular Hemoglobin 26.1 PG 26.6 PG Mean Corpuscular Hemoglobin Concent 33.0 % 34.0 % Red Cell Distribution Width 15.1 % 15.1 % Platelet Count 154 TH/MM3 187 TH/MM3 Mean Platelet Volume 9.0 FL 8.4 FL Neutrophils (%) (Auto) 63.5 % 53.3 % Lymphocytes (%) (Auto) 19.5 % 27.8 % Monocytes (%) (Auto) 15.5 % 15.7 % Eosinophils (%) (Auto) 1.1 % 2.8 % Basophils (%) (Auto) 0.4 % 0.4 % Neutrophils # (Auto) 5.1 TH/MM3 4.0 TH/MM3 Lymphocytes # (Auto) 1.6 TH/MM3 2.1 TH/MM3 Monocytes # (Auto) 1.2 TH/MM3 1.2 TH/MM3 Eosinophils # (Auto) 0.1 TH/MM3 0.2 TH/MM3 Basophils # (Auto) 0.0 TH/MM3 0.0 TH/MM3 CBC Comment DIFF FINAL DIFF FINAL Differential Comment Blood Urea Nitrogen 10 MG/DL Creatinine 0.82 MG/DL Random Glucose 84 MG/DL Total Protein 7.8 GM/DL Albumin 3.4 GM/DL Calcium Level 8.9 MG/DL Alkaline Phosphatase 132 U/L Aspartate Amino Transf (AST/SGOT) 61 U/L Alanine Aminotransferase (ALT/SGPT) 52 U/L Total Bilirubin 1.4 MG/DL Sodium Level 134 MEQ/L Potassium Level 3.9 MEQ/L Chloride Level 101 MEQ/L Carbon Dioxide Level 24.2 MEQ/L Anion Gap 9 MEQ/L Estimat Glomerular Filtration Rate 86 ML/MIN Urine Color DARK-YELLOW Urine Turbidity HAZY Urine pH 5.5 Urine Specific [place] 1.025 Urine Protein 30 mg/dL Urine Glucose (UA) NEG mg/dL Urine Ketones NEG mg/dL Urine Occult Blood LARGE Urine Nitrite NEG Urine Bilirubin NEG Urine Urobilinogen 2.0 MG/DL Urine Leukocyte Esterase SMALL Urine RBC 2 /hpf Urine WBC 7 /hpf Urine Squamous Epithelial Cells 30 /hpf Urine Amorphous Sediment RARE Urine Mucus MANY /lpf Microscopic Urinalysis Comment CULT NOT INDICATED Urine Opiates Screen POS Urine Barbiturates Screen NEG Urine Amphetamines Screen NEG Urine Benzodiazepines Screen NEG Urine Cocaine Screen POS Urine Cannabinoids Screen POS MDM Supervised Visit with TERI: No Diagnosis Primary Impression: Neck pain Patient Instructions: General Instructions, Sulfamethoxazole/Trimethoprim (By mouth), Clindamycin (By mouth), Weakness (ED) Departure Forms: Tests/Procedures Additional Instruction: Take medications as directed. Follow-up with local physician. Scripts Sulfamethoxazole-Trimethoprim (Bactrim DS) 800-160 Mg Tab 1 TAB PO BID for Infection, #14 TAB 0 Refills Prov: Kervin Baptiste MD 09/24/17 Clindamycin (Clindamycin) 300 Mg Cap 300 MG PO TID for Infection, #30 CAP 0 Refills Prov: Kervin Baptiste MD 09/24/17 Disposition: 01 DISCHARGE HOME Condition: Stable Sheldon Tran MD Sep 24, 2017 07:36
== END 2017-09-24 07:36 | disposition home or self-care (01) ==
LOC: NEPC 17:51
DX: M54.2 Cervicalgia (principal); R53.1 Weakness; I38 Endocarditis, valve unspecified; K59.09 Other constipation; Z88.1 Allergy status to other antibiotic agents
CPT/HCPCS: 80053; 80307; 81001; 84703; 85025; 87040; 99283